=== PATIENT | male | born 1975 | race Two or more races ===

== ENCOUNTER → 2017-04-16 | Outpatient (REF) | payer MEDICARE, OTHER ==
[~2017-04-16] MED LIST: ADV250INH INH; ALBU17IN INH; AMLO5TAB2 PO; BACL1TAB9 PO; BACT800T5 PO; GABA-282 PO; LISI40TAB PO; METO50TA7 PO; MIRT15TA3 PO; OMEP20CA3 PO; PRED20TA PO; PROAAER10; PROP40TA; SYMB16INH; SYMB16INH INH
[2017-04-16 20:02] LABS: ALBUMIN 4.3 GM/DL (3.2-5.2); ALBUMIN/GLOBULIN RATIO 1.16 (1.00-1.93); ALKALINE PHOSPHATASE 92 U/L (45-117); ALT/SGPT 80 U/L (12-78); ANION GAP 9 MEQ/L (8-16); AST/SGOT 44 U/L (15-37); BILIRUBIN,TOTAL 0.5 MG/DL (0.2-1.0); BLOOD UREA NITROGEN 13 MG/DL (7-18); CALCIUM LEVEL 9.1 MG/DL (8.5-10.1); CARBON DIOXIDE LEVEL 26 MEQ/L (21-32); CHLORIDE LEVEL 102 MEQ/L (98-107); CHOLESTEROL LEVEL 168 MG/DL (<200); CREATININE FOR GFR 0.88 MG/DL (0.70-1.30); GLOMERULAR FILTRATION RATE > 60.0 (>60); GLUCOSE, FASTING 95 MG/DL (70-105); POTASSIUM SERUM 3.7 MEQ/L (3.5-5.1); SODIUM LEVEL 137 MEQ/L (136-145); TRIGLYCERIDES LEVEL 288 MG/DL (<150)
== END ==
LOC: M SFHCADAM 08:56
PROVIDERS: ATTEND Family Medicine
DX: I10 Essential (primary) hypertension (principal)

== ENCOUNTER → 2017-04-17 | Outpatient (REF) | payer MEDICARE, OTHER ==
[2017-04-17 21:04] LABS: BASO % 0.3 % (0.0-1.0); EOS # 0.2 K/mm3 (0.0-0.50); LARGE UNSTAINED CELL # 0.1 K/mm3 (0.0-0.4); LARGE UNSTAINED CELL % 1.3 % (0.0-4.0); LYMPH # 1.3 K/mm3 (1.5-4.5); LYMPH % 10.8 % (24.0-44.0); MEAN CORPUSCULAR HEMOGLOBIN 29.9 pg (27.0-33.0); MEAN CORPUSCULAR HGB CONC 33.9 g/dl (32.0-36.5); MEAN CORPUSCULAR VOLUME 88.2 fl (80.0-96.0); MONO # 0.6 K/mm3 (0.0-0.8); MONO % 5.5 % (0.0-5.0); NEUTROPHILS # 8.5 K/mm3 (1.8-7.7); PLATELET COUNT, AUTOMATED 188 k/mm3 (150-450); RED CELL DISTRIBUTION WIDTH 13.6 % (11.5-14.5); WHITE BLOOD COUNT 10.6 K/mm3 (4.0-10.0)
== END ==
LOC: M LABDRWAD 20:18
PROVIDERS: ATTEND Family Medicine
DX: I10 Essential (primary) hypertension (principal)

== ENCOUNTER 2017-05-28 13:24 | Emergency (ER) | payer MEDICARE, MEDICAID ==
[~2017-05-28] VITALS: Ht 172.7 cm; Wt 84.0 kg
[2017-05-28] MEDS ORDERED: LISI40TAB PO (13:35)
[2017-05-28] MEDS ORDERED: SYMB16INH (13:35)
[2017-05-28] MEDS ORDERED: GABA-282 PO (13:35)
[2017-05-28] MEDS ORDERED: AMLO5TAB2 PO (13:35)
[2017-05-28] MEDS ORDERED: PROP40TA (13:35)
[2017-05-28] MEDS ORDERED: OMEP20CA3 PO (13:35)
[2017-05-28] MEDS ORDERED: PROAAER10 (13:35)
[2017-05-28] MEDS ORDERED: BACL1TAB9 PO (13:35)
[2017-05-28] MEDS ORDERED: MIRT15TA3 PO (13:35)
[2017-05-28] MEDS ORDERED: GASTROGRAFIN SOLUTION 30ML (Q9963) PO ONE ×2 (15:30→16:00)
[2017-05-28] MEDS ORDERED: NS 1,000 ML IV ONE (15:30)
--- NOTE | 2017-05-28 16:12 | REP ---
Clinical: Right-sided chest pain and wheezing Comparison: 09/15/2010 . Technique: PA and lateral. Findings: The mediastinum and cardiac silhouette are normal. The lung guillermo are clear and without acute consolidation, effusion, or pneumothorax. The skeletal structures are intact and normal. Impression: 1. No acute cardiopulmonary process. Signed by Ramon Tillman MD 05/28/2017 04:04 P
[2017-05-28 16:47] LABS: BASO % 0.3 % (0.0-1.0); EOS # 0.1 K/mm3 (0.0-0.50); EOS % 0.9 % (0.0-3.0); LARGE UNSTAINED CELL # 0.2 K/mm3 (0.0-0.4); LARGE UNSTAINED CELL % 2.1 % (0.0-4.0); LYMPH # 1.1 K/mm3 (1.5-4.5); LYMPH % 12.2 % (24.0-44.0); MEAN CORPUSCULAR HEMOGLOBIN 31.3 pg (27.0-33.0); MEAN CORPUSCULAR HGB CONC 35.8 g/dl (32.0-36.5); MEAN CORPUSCULAR VOLUME 87.4 fl (80.0-96.0); MONO # 0.4 K/mm3 (0.0-0.8); MONO % 4.2 % (0.0-5.0); NEUTROPHILS # 7.3 K/mm3 (1.8-7.7); NEUTROPHILS % 80.3 % (36.0-66.0); PLATELET COUNT, AUTOMATED 172 k/mm3 (150-450); RED CELL DISTRIBUTION WIDTH 13.9 % (11.5-14.5); WHITE BLOOD COUNT 9.1 K/mm3 (4.0-10.0)
[2017-05-28 17:15] LABS: ALBUMIN 3.8 GM/DL (3.2-5.2); ALBUMIN/GLOBULIN RATIO 0.95 (1.00-1.93); BILIRUBIN,DIRECT 0.2 MG/DL (0.0-0.2); BILIRUBIN,TOTAL 0.8 MG/DL (0.2-1.0); CALCIUM LEVEL 9.4 MG/DL (8.5-10.1); CREATININE FOR GFR 1.54 MG/DL (0.70-1.30); GLOMERULAR FILTRATION RATE 53.3 (>60); POTASSIUM SERUM 3.4 MEQ/L (3.5-5.1); TOTAL PROTEIN 7.8 GM/DL (6.4-8.2)
--- NOTE | 2017-05-28 18:50 | REP ---
CT abdomen and pelvis with oral but without IV contrast: History: History of kidney failure. Nausea and vomiting. No comparison study. Findings: Preliminary digital greens cutter radiograph shows clips in right upper quadrant of the abdomen and a vena cava filter in place. The lung bases are clear. There is moderate diffuse fatty infiltration of the liver. Liver is normal in size. No mass lesion is seen. Spleen is unremarkable. No adrenal lesion is observed on either side. The pancreas shows no abnormality. There is no evidence of hydronephrosis, cyst, or calculus. A normal appendix is seen. Normal caliber aorta. Small and large intestinal bowel loops are unremarkable. No obstructive lesion is seen. Prostate, seminal vesicles, and urinary bladder are unremarkable. No abdominal wall defect is seen. Impression: Post cholecystectomy. Inferior vena cava filter in place. Moderate diffuse fatty infiltration of the liver. No other abnormality. Signed by Ronaldo Hernandez MD 05/28/2017 07:19 P
[2017-05-28 19:09] VITALS: BP 138/92
== END 2017-05-28 19:07 | disposition left against medical advice (07) ==
LOC: M ED 13:24
DX: N17.9 Acute kidney failure, unspecified (principal); K76.0 Fatty (change of) liver, not elsewhere classified; I10 Essential (primary) hypertension; J45.909 Unspecified asthma, uncomplicated; F41.9 Anxiety disorder, unspecified; I33.9 Acute and subacute endocarditis, unspecified; Z95.828 Presence of other vascular implants and grafts; Z87.898 Personal history of other specified conditions; Z79.899 Other long term (current) drug therapy; Z88.1 Allergy status to other antibiotic agents
CPT/HCPCS: 36415; 71020; 74176; 80048; 80076; 81001; 82150; 83690; 85025; 87088; 87186; 99283; Q9963

== ENCOUNTER → 2017-06-10 | Outpatient (CLI) | payer MEDICARE, MEDICAID ==
[2017-06-10 16:55] LABS: ALBUMIN/GLOBULIN RATIO 1.08 (1.00-1.93); ALKALINE PHOSPHATASE 81 U/L (45-117); ALT/SGPT 158 U/L (12-78); ANION GAP 12 MEQ/L (8-16); AST/SGOT 75 U/L (15-37); BILIRUBIN,TOTAL 0.5 MG/DL (0.2-1.0); BLOOD UREA NITROGEN 15 MG/DL (7-18); CALCIUM LEVEL 9.2 MG/DL (8.5-10.1); CARBON DIOXIDE LEVEL 23 MEQ/L (21-32); CHLORIDE LEVEL 107 MEQ/L (98-107); CREATININE FOR GFR 1.11 MG/DL (0.70-1.30); GLOMERULAR FILTRATION RATE > 60.0 (>60); GLUCOSE, FASTING 110 MG/DL (70-105); POTASSIUM SERUM 4.1 MEQ/L (3.5-5.1); SODIUM LEVEL 142 MEQ/L (136-145); TOTAL PROTEIN 7.7 GM/DL (6.4-8.2)
== END ==
LOC: M WUC 14:35
PROVIDERS: ATTEND Family Medicine
DX: N17.9 Acute kidney failure, unspecified (principal)

== ENCOUNTER 2017-06-25 23:44 | Inpatient (IN) | payer MEDICARE, MEDICAID ==
[~2017-06-25] VITALS: Ht 172.7 cm; Wt 84.9 kg
[~2017-06-25 23:44] MED LIST changes: -ADV250INH INH; -ALBU17IN INH; -BACT800T5 PO; -METO50TA7 PO; -PRED20TA PO; -SYMB16INH INH
[2017-06-26] MEDS ORDERED: dexameTHASONE 20 MG/5 ML VIAL (J1100) IV ONE
[2017-06-26] MEDS: IPRATROPIUM 0.5MG/ALBUTEROL 2.5MG INH SOL UD 3ML (DUONEB)(J7620) NEB SCH ×4 (00:12→00:51)
[2017-06-26 01:01] VITALS: O2SAT 92
[2017-06-26] MEDS: LEVALBUTEROL 1.25 MG/0.5 ML CONCENTRATE NEB INH SCH ×3 (01:51→02:13)
[2017-06-26 03:04] LABS: ABG BASE EXCESS -3.1 (-2.0-2.0); ABG HCO3 21.7 MEQ/L (22.0-26.0); ABG PARTIAL PRESSURE CO2 38.3 mmHg (35.0-45.0); ABG PARTIAL PRESSURE O2 69.1 mmHg (75.0-100.0); ABG STANDARD HCO3 21.8 MEQ/L (22.0-26.0); ABG TOTAL CO2 22.9 MEQ/L (22.0-29.0); ABG pH (ARTERIAL) 7.372 UNITS (7.350-7.450)
[2017-06-26 04:16] LABS: BASO % 0.2 % (0.0-1.0); EOS % 0.1 % (0.0-3.0); IMMATURE GRANULOCYTE % 0.7 % (0-0); LYMPH # 0.3 10^3/uL (1.5-4.5); LYMPH % 3.8 % (24.0-44.0); MEAN CORPUSCULAR HEMOGLOBIN 31.4 pg (27.0-33.0); MEAN CORPUSCULAR HGB CONC 34.6 g/dl (32.0-36.5); MEAN CORPUSCULAR VOLUME 90.6 fl (80.0-96.0); MONO # 0.1 10^3/uL (0.0-0.8); MONO % 1.2 % (0.0-5.0); NEUTROPHILS # 7.6 10^3/uL (1.8-7.7); PLATELET COUNT, AUTOMATED 181 10^3/uL (150-450); RED CELL DISTRIBUTION WIDTH 13.2 % (11.5-14.5); WHITE BLOOD COUNT 8.1 10^3/uL (4.0-10.0)
[2017-06-26 04:37] LABS: ANION GAP 11 MEQ/L (8-16); BLOOD UREA NITROGEN 15 MG/DL (7-18); CARBON DIOXIDE LEVEL 25 MEQ/L (21-32); CHLORIDE LEVEL 104 MEQ/L (98-107); CREATININE FOR GFR 0.91 MG/DL (0.70-1.30); GLOMERULAR FILTRATION RATE > 60.0 (>60); GLUCOSE, FASTING 130 MG/DL (70-105); POTASSIUM SERUM 4.7 MEQ/L (3.5-5.1); SODIUM LEVEL 140 MEQ/L (136-145)
[2017-06-26] MEDS ORDERED: ADV250INH INH (04:42)
[2017-06-26] MEDS ORDERED: SYMB16INH INH (04:42)
[2017-06-26] MEDS ORDERED: METO50TA7 PO (04:42)
[2017-06-26] MEDS ORDERED: ALBU17IN INH (04:42)
[2017-06-26] MEDS ORDERED: BACT800T5 PO (04:42)
[2017-06-26] MEDS ORDERED: LevoFLOXacin IV 750 MG in APPROPRIATE DILUENT 1 EA IV SCH (06:00)
[2017-06-26] MEDS: IPRATROPIUM 0.5MG/ALBUTEROL 2.5MG INH SOL UD 3ML (DUONEB)(J7620) NEB PRN ×5 (06:40→22:28)
--- NOTE | 2017-06-26 08:56 | REP ---
Chest x-ray: Two views. History: Dyspnea. Comparison chest x-ray May 28, 2017. Findings: The lungs are symmetrically aerated and clear. Pleural angles are sharp. Heart size is normal. No significant bony abnormality is seen. Impression: No active disease. Signed by Ronaldo Hernandez MD 06/26/2017 11:19 A
[2017-06-26 09:00] VITALS: BP 126/73
[2017-06-26] MEDS: BACLOFEN 10 MG TAB PO SCH ×3 (09:29→17:34)
[2017-06-26] MEDS: OMEPRAZOLE 20 MG CAP PO SCH (09:36)
[2017-06-26] MEDS: LISINOPRIL 40 MG TAB PO SCH (09:36)
[2017-06-26] MEDS: HEPARIN SOD (PORCINE) 5000 UNITS/ML VIAL SC SCH ×2 (09:36→20:24)
[2017-06-26] MEDS: GABAPENTIN 300 MG CAP PO SCH ×3 (09:36→20:23)
[2017-06-26] MEDS: amLODIPine 5 MG TAB PO SCH (09:37)
[2017-06-26] MEDS: METOPROLOL TART 50 MG TAB PO SCH ×2 (09:37→20:24)
[2017-06-26] MEDS: ACETAMINOPHEN TAB 650MG DOSE (2X325MG) PO PRN ×2 (09:39→14:57)
--- NOTE | 2017-06-26 10:02 | HPEPDOC ---
General Date of Admission Jun 26, 2017 at 06:23 Primary Care Physician: BENEDICTO CHOWDARY DO Attending Physician: Jm Martin M.D. Chief Complaint The patient is a 42-year-old male admitted with a reason for visit of Pneumonia. Source: Family Exam Limitations: No limitations Timing/Duration: 24 hours History of Present Illness 42-year-old male, history of hypertension, asthma, presented with chest congestion and cough. Denies any fever, chills, chest pain, palpitation recent travel or sick contact. In the past. He had a spinal cord injury at his work and there he was paralyzed from neck down, worse for about 3 years since 2013- 2015 or the time. He did get most of his [place] but still has numbness breakdown and the weakness in both legs. He is able to walk with the help of walker. Home Medications Scheduled Amlodipine Besylate (Amlodipine Besylate) 5 Mg Tab, 5 MG PO DAILY, (Reported) Baclofen (Baclofen) 20 Mg Tab, 20 MG PO Q6H, (Reported) Budesonide/Formoterol (Symbicort 160-4.5 Mcg/Act) 60 Puff/Inhaler Aers, 2 PUFF INH BID, (Reported) Gabapentin (Gabapentin) 300 Mg Cap, 900 MG PO TID, (Reported) Lisinopril (Lisinopril) 40 Mg Tab, 40 MG PO DAILY, (Reported) Metoprolol Tartrate (Metoprolol Tartrate) 50 Mg Tab, 50 MG PO BID, (Reported) Mirtazapine (Mirtazapine) 15 Mg Tab, 15 MG PO QHS, (Reported) Omeprazole (Omeprazole) 20 Mg Cap, 20 MG PO DAILY, (Reported) Salmeterol/Fluticasone (Advair Diskus 250-50 Mcg/Dose) 14 Puff/Inhaler Aerp, 1 PUFF INH BID, (Reported) Trimethoprim/Sulfamethoxazole (Bactrim Ds 800-160 mg) 1 Tab Tab, 1 TAB PO BID, ( Reported) Scheduled PRN Albuterol Sulfate (Ventolin Hfa) 200 Puff/8 Gm Aers, 2 PUFF INH Q6H PRN for SHORTNESS OF BREATH, (Reported) Allergies Coded Allergies: Vancomycin (Verified Allergy, Unknown, 05/28/17) Past Medical History Medical History Hypertension, asthma, spinal cord injury Surgical History Cervical disc abscess drainage Family History Significant Family History: No pertinent family hx Social History * Smoker: current smoker Alcohol: Denies Drugs: denies Recent Travel/Sick Contacts: Denies: Recent travel, Recent sick contacts Psychosocial History: Schizophrenia Review of Symptoms Constitutional: Reports: Chills, Weakness, Fatigue, Denies: Fever, Night Sweats Eyes: Denies: Pain, Vision change ENT: Denies: Head Aches, Ear Pain, Dysphagia Skin: Denies: Rash, Lesions, Breakdown Pulmonary: Reports: Dyspnea, Cough Cardiovascular: Reports: Orthopnea, Denies: Chest Pain, Palpitations, Paroxysmal Noc. Dyspnea, Lt Headedness Gastrointestinal: Denies: Nausea, Vomiting, Abdominal Pain, Diarrhea Genitourinary: Denies: Dysuria, Frequency, Incontinence, Retention Hematologic: Denies: Bruising, Bleeding Excessively Musculoskeletal: Denies: Neck Pain, Back Pain, Joint Pain, Muscle Pain, Spasms Neurological: Denies: Weakness, Numbness, Change in speech, Confusion Psych: Reports: Mood Normal, Denies: Depression, Memory Issues Physical Examination General Exam: Positive: Alert, Moderate Distress Eye Exam: Positive: PERRLA, Conjunctiva & lids normal, EOMI, Negative: Sclera icteric ENT Exam: Positive: Atraumatic, Mucous membr. moist/pink, Pharynx Normal Neck Exam: Positive: Supple, Negative: JVD, thyromegaly Chest Exam: Positive: Rhonchi, Wheezing, Diminished Heart Exam: Positive: Rate Normal, Regular Rhythm, Normal S1, Normal S2, Negative: Murmurs, Rubs Telemetry: Positive: No significant arrhythmia Abdomen Exam: Positive: Normal bowel sounds, Soft, Negative: Tenderness, Hepatospenomegaly Extremity Exam: Positive: Normal pulses, Negative: Clubbing, Cyanosis, Edema Skin Exam: Positive: Nl turgor and temperature, Negative: Breakdown, Lesion Neuro Exam: Positive: Normal Speech, Cranial Nerves 3-12 NL, Reflexes 2+ Psych Exam: Positive: Mental status NL, Mood NL, Oriented x 3 Vital Signs Vital Signs Date Time Temp Pulse Resp B/P (MAP) Pulse Ox O2 Delivery O2 Flow Rate FiO2 06/26/17 09:37 119 126/73 06/26/17 09:00 98.9 22 94 Nasal Cannula 2.0 Laboratory Data Labs 24H Laboratory Tests 2 06/26/17 02:50: Blood Gas Bicarbonate Standard 21.8L, Arterial Blood pH 7.372, Arterial Blood Partial Pressure CO2 38.3, Arterial Blood Partial Pressure O2 69.1L, Arterial Blood Total CO2 22.9, Arterial Blood HCO3 21.7L, Arterial Blood Base Excess - 3.1L, Arterial Blood Oxygen Saturation 93.6L 06/26/17 04:02: Immature Granulocyte % (Auto) 0.7H, White Blood Count 8.1, Red Blood Count 4.27L , Hemoglobin 13.4L, Hematocrit 38.7L, Mean Corpuscular Volume 90.6, Mean Corpuscular Hemoglobin 31.4, Mean Corpuscular Hemoglobin Concent 34.6, Red Cell Distribution Width 13.2, Platelet Count 181, Neutrophils (%) (Auto) 94.0H, Lymphocytes (%) (Auto) 3.8L, Monocytes (%) (Auto) 1.2, Eosinophils (%) (Auto) 0.1, Basophils (%) (Auto) 0.2, Neutrophils # (Auto) 7.6, Lymphocytes # (Auto) 0.3L, Monocytes # (Auto) 0.1, Eosinophils # (Auto) 0.0, Basophils # (Auto) 0.0, Immature Granulocyte # (Auto) 0.1H, Nucleated Red Blood Cells % (auto) 0.0, Anion Gap 11, Glomerular Filtration Rate > 60.0, Blood Urea Nitrogen 15, Creatinine 0.91, Sodium Level 140, Potassium Level 4.7, Chloride Level 104, Carbon Dioxide Level 25, Calcium Level 9.0, KA-Mgn-C-Type Natriuretic Peptide 30 CBC/BMP Laboratory Tests 06/26/17 04:02 Red Blood Count 4.27 L, Mean Corpuscular Volume 90.6, Mean Corpuscular Hemoglobin 31.4, Mean Corpuscular Hemoglobin Concent 34.6, Red Cell Distribution Width 13.2, Neutrophils (%) (Auto) 94.0 H, Lymphocytes (%) (Auto) 3.8 L, Monocytes (%) (Auto) 1.2, Eosinophils (%) (Auto) 0.1, Basophils (%) (Auto ) 0.2, Neutrophils # (Auto) 7.6, Lymphocytes # (Auto) 0.3 L, Monocytes # (Auto) 0.1, Eosinophils # (Auto) 0.0, Basophils # (Auto) 0.0, Calcium Level 9.0 Assessment/Plan 42-year-old male, history of hypertension, asthma and a spinal cord injury status post paralysis for about 3 years now presented with the, chest congestion , cough and shortness of breath Plan / VTE VTE Prophylaxis Ordered?: Yes Plan Plan Pneumonia. Patient was started on IV Levaquin. Hypertension. Continue with Norvasc is no pain, and Lopressor. 10 Tobacco abuse. Continue with nicotine patch. Chronic pain. Continue with baclofen and gabapentin sony. Schizophrenia. Continue with Remeron DVT prophylaxis heparin subcutaneous Cardiac diet Diet: Continue Current Activity: Continue Current Pt and Family Services: Home Care Medications: Start Antibiotics Diagnostics: TTE Anticipated Discharge: Home ELIER KOLB MD Jun 26, 2017 10:02
[2017-06-26] MEDS: NICOTINE 14 MG/24 HR TRANSDERMAL TD SCH (11:29)
[2017-06-26 14:00] VITALS: BP 120/63
--- NOTE | 2017-06-26 16:12 | IPN ---
DATE: 06/26/2017 Christiano is seen on 4 cramer. He has an intractable cough that has kept him awake. He was admitted with a presumed pneumonia, though he had a clear chest x-ray, so I am not sure exactly where the pneumonia diagnosis originated. He does have a history of asthma, so at a minimum he does have an asthma exacerbation. PHYSICAL EXAMINATION: Blood pressure 120/63, pulse 113, respiratory rate 20, 93% oxygen saturation on three liters, temperature 98.4 degrees. GENERAL APPEARANCE: He is resting comfortably in bed, frequent dry cough. HEENT: Unremarkable. LUNGS: Have a few scattered wheezes and rhonchi. HEART: Regular rhythm. ABDOMEN: Soft, nontender. No peripheral edema. IMPRESSION: 1. Exacerbation of asthma. I do not see pneumonia on the chest x-ray, but at a minimum he has an asthma exacerbation. I will reduce the dose of his Levaquin as he does not have pneumonia. Would recommend he receives a steroid, which is not currently ordered. It looks like he got one dose of Decadron 10 mg IV last night. Continue nebulized bronchodilator. He has a vena cava filter in place on a CT of the abdomen and pelvis done a month ago suggesting past history of venous thromboembolism (VTE). With his shortness of breath, tachycardia, and clear chest x-ray, I would like to rule out pulmonary embolism so I will order a CT angiogram of his chest. 2. Hypertension. He is on an angiotensin-converting enzyme ([place]) inhibitor, theoretically it could increase his sensitivity to cough. We need to keep that in mind if the cough persists. Also on amlodipine and beta marcial with metoprolol. He might benefit from a more selective beta marcial if the asthma does not improve. 3. History of depression. Continue his mirtazapine 15 mg nightly.
[2017-06-26] MEDS: methylPREDNISolone INJ 40 MG/1 ML VIAL (J2920) IV SCH (16:56)
[2017-06-26] MEDS ORDERED: ISOVUE-370 76% 100ML VIAL (Q9967) As Ordered ONE (17:54)
--- NOTE | 2017-06-26 19:10 | REPUSA ---
HISTORY: R/O PE. TECHNIQUE: CTA protocol for PE with axial CT imaging of chest, with sagittal and coronal reformatted imaging with intravenous contrast enhancement. FINDINGS: Thoracic aorta is normal with no evidence of aneurysm or dissection. Pulmonary arteries are well opacified with contrast with no evidence of pulmonary embolism. No vascul ar abnormality is seen in the mediastinum or [place]. Mediastinal windows demonstrate no mediastinal pathologically enlarged lymph nodes, mass lesions, or abnormal mediastinal fluid collection seen. Lung windows demonstrate a pleural-based noncalcified 5 mm nodule at the right paravertebral region o f the superior segment of the right lower lobe seen on image 54. No other pulmonary mass lesions are seen. There is no evidence of alveolar or interstitial infiltrates seen in the lungs and no pneumot horax or pleural effusion is seen. Bone windows demonstrate no detectable evidence of bone fracture or destructive bony lesion in the ch est. No chest wall abnormality is seen. IMPRESSION: 1. 5 mm noncalcified pleural-based, smoothly demarcated nodule medially in the superior segment of the right lower lobe in the paravertebral region. 2. No evidence of pulmonary embolism or thoracic aortic dissection or aneurysm. 3. The remainder this CT examination of the chest is normal. Clinical correlation and followup imaging may be warranted as clinically indicated.
[2017-06-26 20:00] VITALS: BP 103/62
[2017-06-26] MEDS: MIRTAZAPINE 15 MG TAB PO SCH (20:24)
[2017-06-27] VITALS: BP 124/64
[2017-06-27] MEDS: BACLOFEN 10 MG TAB PO SCH ×5 (00:02→22:45)
[2017-06-27] MEDS: methylPREDNISolone INJ 40 MG/1 ML VIAL (J2920) IV SCH ×2 (05:07→16:51)
[2017-06-27] MEDS: LevoFLOXacin 500 MG TABLET PO SCH (05:08)
[2017-06-27 06:00] VITALS: BP 130/62
[2017-06-27 07:19] LABS: MEAN CORPUSCULAR HEMOGLOBIN 30.9 pg (27.0-33.0); MEAN CORPUSCULAR HGB CONC 33.4 g/dl (32.0-36.5); MEAN CORPUSCULAR VOLUME 92.4 fl (80.0-96.0); WHITE BLOOD COUNT 14.6 10^3/uL (4.0-10.0)
[2017-06-27 07:49] LABS: ALBUMIN 3.4 GM/DL (3.2-5.2); ALBUMIN/GLOBULIN RATIO 0.89 (1.00-1.93); ALKALINE PHOSPHATASE 83 U/L (45-117); ALT/SGPT 100 U/L (12-78); ANION GAP 6 MEQ/L (8-16); AST/SGOT 43 U/L (15-37); BILIRUBIN,TOTAL 0.2 MG/DL (0.2-1.0); BLOOD UREA NITROGEN 25 MG/DL (7-18); CALCIUM LEVEL 9.6 MG/DL (8.5-10.1); CARBON DIOXIDE LEVEL 27 MEQ/L (21-32); CHLORIDE LEVEL 105 MEQ/L (98-107); CREATININE FOR GFR 0.89 MG/DL (0.70-1.30); GLOMERULAR FILTRATION RATE > 60.0 (>60); GLUCOSE, FASTING 154 MG/DL (70-105); MAGNESIUM LEVEL 2.1 MG/DL (1.8-2.4); POTASSIUM SERUM 4.5 MEQ/L (3.5-5.1); SODIUM LEVEL 138 MEQ/L (136-145); TOTAL PROTEIN 7.2 GM/DL (6.4-8.2)
[2017-06-27] MEDS: IPRATROPIUM 0.5MG/ALBUTEROL 2.5MG INH SOL UD 3ML (DUONEB)(J7620) NEB PRN ×3 (08:12→20:06)
[2017-06-27] MEDS: NICOTINE 14 MG/24 HR TRANSDERMAL TD SCH (08:24)
[2017-06-27] MEDS: HEPARIN SOD (PORCINE) 5000 UNITS/ML VIAL SC SCH ×2 (08:25→19:46)
[2017-06-27] MEDS: LISINOPRIL 40 MG TAB PO SCH (08:25)
--- NOTE | 2017-06-27 08:25 | IPNPDOC ---
Subjective Date Seen The patient was seen on 06/27/17. Subjective Chief Complaint/HPI The patient is a 42-year-old male admitted with a reason for visit of Pneumonia. Events since last encounter Breathing feels better, but still wheezing Constitutional: Denies: Chills, Fever Pulmonary: Reports: Dyspnea, Cough Cardiovascular: Denies: Chest Pain, Palpitations, Orthopnea Gastrointestinal: Denies: Nausea, Vomiting, Abdominal Pain, Diarrhea, Constipation Objective Physical Examination General Exam: Positive: Alert, Moderate Distress Eye Exam: Negative: Sclera icteric Chest Exam: Positive: Wheezing, Diminished Heart Exam: Positive: Rate Normal, Regular Rhythm, Normal S1, Normal S2, Negative: Murmurs Abdomen Exam: Positive: Normal bowel sounds, Soft, Negative: Tenderness Extremity Exam: Negative: Edema Psych Exam: Positive: Oriented x 3 Assessment /Plan Problems (1) Asthma with status asthmaticus Status: Acute Response to Treatment: Improving Problem Text: Slow progress with IV Solumedrol CT chest did not show pneumonia, but will Continue Levaquin for now Continue nebs. Normally on Advair at home which we will restart upon discharge He is on a Beta Jimmy for HTN - I will switch to a more B1 selective BB - Bisoprolol . Wean Oxygen (He is not on oxygen at home) Encourage ambulation (2) H/O spinal cord injury Status: Chronic Response to Treatment: Stable Problem Text: Continue Gabapentin and Baclofen (3) HTN (hypertension) Status: Chronic Response to Treatment: Stable Problem Text: See above regarding BB Continue Lisinopril & Norvasc (4) Nicotine dependence Status: Chronic Problem Text: Smoking cessation encouraged. continue Nicoderm Plan/VTE VTE Prophylaxis Ordered?: Yes (heparin SQ) Plan Diet: Continue Current Activity: Continue Current Pt and Family Services: Home Care Medications: Start Antibiotics Diagnostics: TTE Anticipated Discharge: Home VS[facility]&O[facility] Vital Signs/I&O Vital Signs Date Time Temp Pulse Resp B/P (MAP) Pulse Ox O2 Delivery O2 Flow Rate FiO2 06/27/17 06:00 98.2 90 20 130/62 (84) 93 Nasal Cannula 3.0 Laboratory Data 24H LABS Laboratory Tests 2 06/26/17 14:46: Urine Appearance CLEAR, Urine Color YELLOW, Urine pH 5.0, Urine Specific [place] 1.029, Urine Protein NEGATIVE, Urine Glucose (UA) NEGATIVE, Urine Ketones TRACEH, Urine Urobilinogen 0.2, Urine Bilirubin NEGATIVE, Urine Leukocyte Esterase NEGATIVE, Urine Blood NEGATIVE, Urine Nitrite NEGATIVE, Urine WBC (Auto) 1, Urine RBC (Auto) 4H, Urine Hyaline Casts (Auto) 0, Urine Bacteria (Auto) NEGATIVE, Urine Squamous Epithelial Cells 0, Urine Mucus (Auto) SMALL, Urine Sperm (Auto) 06/27/17 06:50: CBC/BMP Laboratory Tests 06/27/17 06:50 Red Blood Count 4.34, Mean Corpuscular Volume 92.4, Mean Corpuscular Hemoglobin 30.9, Mean Corpuscular Hemoglobin Concent 33.4, Red Cell Distribution Width 13.0 MALIK GREEN PA-C Jun 27, 2017 08:25
[2017-06-27] MEDS: OMEPRAZOLE 20 MG CAP PO SCH (08:26)
[2017-06-27] MEDS: amLODIPine 5 MG TAB PO SCH (08:26)
[2017-06-27] MEDS: BISOPROLOL FUMARATE 5 MG TAB PO SCH (08:30)
[2017-06-27] MEDS: GABAPENTIN 300 MG CAP PO SCH ×3 (08:30→19:46)
[2017-06-27 14:00] VITALS: BP 127/74
[2017-06-27] MEDS: MIRTAZAPINE 15 MG TAB PO SCH (19:46)
[2017-06-27 22:00] VITALS: BP 140/78
[2017-06-27] MEDS: ACETAMINOPHEN TAB 650MG DOSE (2X325MG) PO PRN (22:45)
[2017-06-28] MEDS: LevoFLOXacin 500 MG TABLET PO SCH (05:31)
[2017-06-28] MEDS: BACLOFEN 10 MG TAB PO SCH ×4 (05:31→23:06)
[2017-06-28] MEDS: methylPREDNISolone INJ 40 MG/1 ML VIAL (J2920) IV SCH ×2 (05:31→18:01)
[2017-06-28 06:00] VITALS: BP 112/62
[2017-06-28] MEDS ORDERED: INFLUENZA QUADRIVALENT PF VACCINE 0.5ML SYRINGE (90686) IM ONE (09:00)
[2017-06-28] MEDS: NICOTINE 14 MG/24 HR TRANSDERMAL TD SCH (09:00)
[2017-06-28] MEDS: OMEPRAZOLE 20 MG CAP PO SCH (09:36)
[2017-06-28] MEDS: amLODIPine 5 MG TAB PO SCH (09:36)
[2017-06-28] MEDS: LISINOPRIL 40 MG TAB PO SCH (09:36)
[2017-06-28] MEDS: GABAPENTIN 300 MG CAP PO SCH ×3 (09:37→20:24)
[2017-06-28] MEDS: BISOPROLOL FUMARATE 5 MG TAB PO SCH (09:37)
[2017-06-28] MEDS: HEPARIN SOD (PORCINE) 5000 UNITS/ML VIAL SC SCH ×2 (09:38→20:24)
[2017-06-28] MEDS: IPRATROPIUM 0.5MG/ALBUTEROL 2.5MG INH SOL UD 3ML (DUONEB)(J7620) NEB PRN ×3 (11:07→19:34)
--- NOTE | 2017-06-28 13:20 | ECHO ---
DATE OF PROCEDURE: 06/27/2017 DATE OF : 1975 AGE: 42 REFERRING PROVIDER: Dr. Bg Faith PATIENT LOCATION: Room 5199 REASON FOR THE ECHOCARDIOGRAM: Dyspnea. 2D MEASUREMENTS: IVS: 0.75 cm LV: 4.2 cm LVPW: 0.79 cm LA: 2.8 cm Aorta: 2.9 cm DOPPLER MEASUREMENTS: Peak velocity across the aortic valve: 1.5 m/s Peak velocity across the LVOT: 1.0 m/s Mitral E: 0.92, Mitral A: 1.1, with a ratio of 0.9 Maximum tricuspid valve velocity: 2.6 m/s 2D COMMENTS: 1. Technically limited study due to poor acoustic window. 2. The left ventricular size is normal with a normal left ventricular wall thickness and a normal global left ventricular systolic function. The estimated left ventricular ejection fraction is 65-70%. 3. Normal left atrium. Normal right atrium and right ventricle. 4. The atrial septum appeared to be normal without evidence of defect or shunt. 5. Normal aortic root. 6. Trace pericardial effusion was noted, no evidence of cardiac tamponade. 7. The aortic valve, mitral valve, and tricuspid valve appear to be normal. The pulmonic valve and proximal pulmonary artery branches were not well visualized. 8. The inferior vena cava was not visualized. DOPPLER: It detects trace mitral regurgitation and mild tricuspid regurgitation. The calculated pulmonary artery systolic pressure varied between 30-40 mmHg. Abnormal relaxation pattern was noted across the mitral valve leaflets as well as the mitral valve annulus consistent with delayed relaxation. IMPRESSION: 1. Normal global left ventricular systolic function. There were features of left ventricular diastolic dysfunction, grade 1. 2. Trace mitral regurgitation. 3. Mild tricuspid regurgitation with probably mild pulmonary hypertension. 4. Patient was noted during the test to be mildly tachycardic with a heart rate that varied between 100-115 beats per minute. 5. This study was technically limited due to poor acoustic window. [facility]
[2017-06-28 14:00] VITALS: BP 118/68
[2017-06-28] MEDS: MIRTAZAPINE 15 MG TAB PO SCH (20:24)
[2017-06-28] MEDS: ACETAMINOPHEN TAB 650MG DOSE (2X325MG) PO PRN (20:24)
[2017-06-28 22:00] VITALS: BP 137/92
--- NOTE | 2017-06-28 22:06 | IPNPDOC ---
Subjective Date Seen The patient was seen on 06/28/17. Subjective Chief Complaint/HPI The patient is a 42-year-old male admitted with a reason for visit of asthma exacerbation. Events since last encounter Mr. Goddard reports that his breathing is a bit better than it was yesterday, but it still is bad. He reports that he feels chest congestion and he wants to be able to cough it up but he can't quite clear yet. He feels his right lung is worse than his left General: Reports: Normal Appetite Constitutional: Denies: Fever Cardiovascular: Denies: Chest Pain, Palpitations Psych: Reports: Mood Normal Objective Physical Examination General Exam: Positive: Alert, Cooperative, No Acute Distress (watching movies on his phone when I entered the room) ENT Exam: Positive: Mucous membr. moist/pink Neck Exam: Positive: Supple, Negative: Lymphadenopathy Chest Exam: Positive: Wheezing (in all lung guillermo bilaterally right > left), Diminished Heart Exam: Positive: Rate Normal, Regular Rhythm, Normal S1, Normal S2, Negative: Murmurs Abdomen Exam: Positive: Normal bowel sounds, Soft, Negative: Tenderness Extremity Exam: Negative: Edema Psych Exam: Positive: Oriented x 3 Assessment /Plan Problems (1) Asthma with status asthmaticus Status: Acute Response to Treatment: Improving Problem Text: He is making some progress but it is slow progress with IV Solumedrol. He does not have a pneumonia but he may have a viral bronchitis. I stopped the Levaquin as I see nothing it is treating at this point in time. Continue nebs. Added Tessalon and Mucinex to see if we can help with his cough a little bit but also to help clear his secretions. Normally on Advair at home which we will restart upon discharge. He is on a Beta Jimmy for HTN -has been changed to a more B1 selective BB - Bisoprolol. Wean Oxygen (He is not on oxygen at home). Encourage ambulation. (2) H/O spinal cord injury Status: Chronic Response to Treatment: Stable Problem Text: Continue Gabapentin and Baclofen (3) HTN (hypertension) Status: Chronic Response to Treatment: Stable Problem Text: Was changed to bisoprolol because of its better beta-1 selectivity. Continue Lisinopril & Norvasc (4) Nicotine dependence Status: Chronic Problem Text: Smoking cessation encouraged. Continue Nicoderm Plan/VTE VTE Prophylaxis Ordered?: Yes (heparin SQ) Plan Diet: Continue Current Activity: Continue Current Pt and Family Services: Home Care Medications: Start Antibiotics Diagnostics: TTE Anticipated Discharge: Home VS, I&O, 24H, [facility] Vital Signs/I&O Vital Signs Date Time Temp Pulse Resp B/P (MAP) Pulse Ox O2 Delivery O2 Flow Rate FiO2 06/28/17 14:00 98.9 80 20 118/68 (85) 98 Nasal Cannula 3.0 I&O- Last 24 Hours up to 6 AM 06/29/17 06:00 Intake Total 1440 ml Output Total 1500 ml Balance -60 ml Sathya Rush MD Jun 28, 2017 22:06
[2017-06-28] MEDS: BENZONATATE 100 MG CAP PO SCH (23:06)
[2017-06-29] MEDS: BENZONATATE 100 MG CAP PO SCH ×3 (05:59→21:50)
[2017-06-29] MEDS: methylPREDNISolone INJ 40 MG/1 ML VIAL (J2920) IV SCH ×2 (05:59→17:54)
[2017-06-29] MEDS: BACLOFEN 10 MG TAB PO SCH ×4 (05:59→23:56)
[2017-06-29 06:00] VITALS: BP 135/85
[2017-06-29] MEDS: IPRATROPIUM 0.5MG/ALBUTEROL 2.5MG INH SOL UD 3ML (DUONEB)(J7620) NEB PRN ×4 (07:45→19:39)
[2017-06-29] MEDS: NICOTINE 14 MG/24 HR TRANSDERMAL TD SCH (09:00)
[2017-06-29] MEDS: amLODIPine 5 MG TAB PO SCH (09:45)
[2017-06-29] MEDS: LISINOPRIL 40 MG TAB PO SCH (09:45)
[2017-06-29] MEDS: GABAPENTIN 300 MG CAP PO SCH ×3 (09:45→21:51)
[2017-06-29] MEDS: guaiFENesin ER 600 MG TAB PO SCH ×2 (09:45→21:51)
[2017-06-29] MEDS: BISOPROLOL FUMARATE 5 MG TAB PO SCH (09:46)
[2017-06-29] MEDS: ACETAMINOPHEN TAB 650MG DOSE (2X325MG) PO PRN ×2 (09:46→22:04)
[2017-06-29] MEDS: HEPARIN SOD (PORCINE) 5000 UNITS/ML VIAL SC SCH ×2 (09:46→21:52)
[2017-06-29] MEDS: OMEPRAZOLE 20 MG CAP PO SCH (09:46)
[2017-06-29 14:00] VITALS: BP 140/60
--- NOTE | 2017-06-29 16:58 | IPNPDOC ---
Subjective Date Seen The patient was seen on 06/29/17. Subjective Chief Complaint/HPI The patient is a 42-year-old male admitted with a reason for visit of asthma exacerbation. Events since last encounter He feels like his chest is starting to loosen a little bit. He still is not coughing much up, but he starting to get a little out. He feels like the steroids are finally starting to help some. General: Reports: Normal Appetite Pulmonary: Reports: Dyspnea, Cough, Denies: Pleuritic Chest Pain Cardiovascular: Denies: Chest Pain, Palpitations Genitourinary: Reports: Dysuria Neurological: Denies: Weakness Psych: Reports: Mood Normal Objective Physical Examination General Exam: Positive: Alert, Cooperative, No Acute Distress ENT Exam: Positive: Mucous membr. moist/pink Neck Exam: Positive: Supple, Negative: Lymphadenopathy Chest Exam: Positive: Wheezing (in all lung guillermo bilaterally right > left, however improved from the previous day), Diminished Heart Exam: Positive: Rate Normal, Regular Rhythm, Normal S1, Normal S2, Negative: Murmurs Abdomen Exam: Positive: Normal bowel sounds, Soft, Negative: Tenderness Extremity Exam: Negative: Edema Psych Exam: Positive: Oriented x 3 Assessment /Plan Problems (1) Asthma with status asthmaticus Status: Acute Response to Treatment: Improving Problem Text: He is making progress with IV Solumedrol. The Mucinex maybe helping him clear his secretions a little. Tessalon did help him get up some more sleep last night.Continue nebs. Continue to work to wean oxygen (He is not on oxygen at home). Encourage ambulation. (2) H/O spinal cord injury Status: Chronic Response to Treatment: Stable Problem Text: Continue Gabapentin and Baclofen (3) HTN (hypertension) Status: Chronic Response to Treatment: Stable Problem Text: Was changed to bisoprolol because of its better beta-1 selectivity. Continue Lisinopril & Norvasc (4) Nicotine dependence Status: Chronic Problem Text: Smoking cessation encouraged. Continue Nicoderm Plan/VTE VTE Prophylaxis Ordered?: Yes (heparin SQ) Plan Diet: Continue Current Activity: Continue Current Pt and Family Services: Home Care Medications: Start Antibiotics Diagnostics: TTE Anticipated Discharge: Home VS, I&O, 24H, Fishbone Vital Signs/I&O Vital Signs Date Time Temp Pulse Resp B/P (MAP) Pulse Ox O2 Delivery O2 Flow Rate FiO2 06/29/17 14:00 96.5 93 18 140/60 (86) 93 Nasal Cannula 3.0 I&O- Last 24 Hours up to 6 AM 06/30/17 06:00 Intake Total 360 ml Balance 360 ml Sathya Rush MD Jun 29, 2017 16:58
[2017-06-29] MEDS: MIRTAZAPINE 15 MG TAB PO SCH (21:51)
[2017-06-29 22:00] VITALS: BP 154/80
[2017-06-30] MEDS: methylPREDNISolone INJ 40 MG/1 ML VIAL (J2920) IV SCH (05:17)
[2017-06-30] MEDS: BACLOFEN 10 MG TAB PO SCH ×3 (05:17→17:25)
[2017-06-30] MEDS: BENZONATATE 100 MG CAP PO SCH ×3 (05:17→21:09)
[2017-06-30 06:00] VITALS: BP 130/84
[2017-06-30] MEDS: NICOTINE 14 MG/24 HR TRANSDERMAL TD SCH ×2 (09:00→17:29)
[2017-06-30] MEDS: HEPARIN SOD (PORCINE) 5000 UNITS/ML VIAL SC SCH ×2 (10:00→21:11)
[2017-06-30] MEDS: guaiFENesin ER 600 MG TAB PO SCH ×2 (10:01→21:09)
[2017-06-30] MEDS: GABAPENTIN 300 MG CAP PO SCH ×3 (10:01→21:10)
[2017-06-30] MEDS: amLODIPine 5 MG TAB PO SCH (10:01)
[2017-06-30] MEDS: OMEPRAZOLE 20 MG CAP PO SCH (10:01)
[2017-06-30] MEDS: LISINOPRIL 40 MG TAB PO SCH (10:02)
[2017-06-30] MEDS: BISOPROLOL FUMARATE 5 MG TAB PO SCH (10:02)
[2017-06-30] MEDS: IPRATROPIUM 0.5MG/ALBUTEROL 2.5MG INH SOL UD 3ML (DUONEB)(J7620) NEB PRN ×2 (13:54→20:33)
[2017-06-30 14:57] VITALS: BP 147/94
[2017-06-30] MEDS: MIRTAZAPINE 15 MG TAB PO SCH (21:09)
[2017-06-30 22:00] VITALS: BP 130/68
[2017-07-01] MEDS: BACLOFEN 10 MG TAB PO SCH ×4 (00:15→17:00)
--- NOTE | 2017-07-01 03:19 | IPNPDOC ---
Subjective Date Seen The patient was seen on 06/30/17. Subjective Chief Complaint/HPI The patient is a 42-year-old male admitted with a reason for visit of Pneumonia. Events since last encounter Patient complains of cough and dyspnea, though improving. Constitutional: Reports: Chills, Malaise, Denies: Fever Pulmonary: Reports: Dyspnea, Cough, Other Symptoms (wheeze) Cardiovascular: Denies: Chest Pain, Palpitations Gastrointestinal: Denies: Nausea, Vomiting, Diarrhea, Constipation Neurological: Reports: Weakness (chronic) Psych: Reports: Depression Objective Physical Examination General Exam: Positive: Alert, Cooperative ENT Exam: Positive: Mucous membr. moist/pink Neck Exam: Positive: Supple, Negative: Lymphadenopathy Chest Exam: Positive: Wheezing (in all lung guillermo bilaterally right > left), Diminished Heart Exam: Positive: Rate Normal, Regular Rhythm, Normal S1, Normal S2, Negative: Murmurs Abdomen Exam: Positive: Normal bowel sounds, Soft, Negative: Tenderness Extremity Exam: Negative: Edema Psych Exam: Positive: Oriented x 3 Assessment /Plan Problems (1) Asthma with status asthmaticus Status: Acute Response to Treatment: Improving Problem Text: 06/30 -- switched from IV to PO steroids; will see how he does for 24 hours prior to DC He is making some progress but it is slow progress with IV Solumedrol. He does not have a pneumonia but he may have a viral bronchitis. I stopped the Levaquin as I see nothing it is treating at this point in time. Continue nebs. Added Tessalon and Mucinex to see if we can help with his cough a little bit but also to help clear his secretions. Normally on Advair at home which we will restart upon discharge. He is on a Beta Jimmy for HTN -has been changed to a more B1 selective BB - Bisoprolol. Wean Oxygen (He is not on oxygen at home). Encourage ambulation. (2) H/O spinal cord injury Status: Chronic Response to Treatment: Stable Problem Text: Continue Gabapentin and Baclofen (3) HTN (hypertension) Status: Chronic Response to Treatment: Stable Problem Text: Was changed to bisoprolol because of its better beta-1 selectivity. Continue Lisinopril & Norvasc (4) Nicotine dependence Status: Chronic Problem Text: Smoking cessation encouraged. Continue Nicoderm Plan/VTE VTE Prophylaxis Ordered?: Yes (heparin SQ) Plan Diet: Continue Current Activity: Continue Current Pt and Family Services: Home Care Medications: Start Antibiotics Diagnostics: TTE Anticipated Discharge: Home VS, I&O, 24H, Fishbone Vital Signs/I&O Vital Signs Date Time Temp Pulse Resp B/P (MAP) Pulse Ox O2 Delivery O2 Flow Rate FiO2 06/30/17 21:35 Room Air 06/30/17 14:57 99.3 83 18 147/94 (111) 97 06/30/17 08:00 2.0 BENEDICTO CHOWDARY DO Jul 01, 2017 03:19
[2017-07-01] MEDS: BENZONATATE 100 MG CAP PO SCH ×3 (05:32→21:00)
[2017-07-01 06:00] VITALS: BP 118/64
[2017-07-01 08:06] LABS: MEAN CORPUSCULAR HEMOGLOBIN 30.6 pg (27.0-33.0); MEAN CORPUSCULAR HGB CONC 33.8 g/dl (32.0-36.5); MEAN CORPUSCULAR VOLUME 90.5 fl (80.0-96.0); PLATELET COUNT, AUTOMATED 141 10^3/uL (150-450); RED CELL DISTRIBUTION WIDTH 12.7 % (11.5-14.5); WHITE BLOOD COUNT 11.3 10^3/uL (4.0-10.0)
[2017-07-01 08:20] LABS: ADD MANUAL DIFFER YES; DIFF SLIDE NUMBER 99
[2017-07-01 08:32] LABS: ALBUMIN 2.6 GM/DL (3.2-5.2); ALBUMIN/GLOBULIN RATIO 0.79 (1.00-1.93); ALKALINE PHOSPHATASE 60 U/L (45-117); ALT/SGPT 85 U/L (12-78); ANION GAP 8 MEQ/L (8-16); AST/SGOT 26 U/L (15-37); BILIRUBIN,TOTAL 0.2 MG/DL (0.2-1.0); BLOOD UREA NITROGEN 26 MG/DL (7-18); CALCIUM LEVEL 8.6 MG/DL (8.5-10.1); CARBON DIOXIDE LEVEL 29 MEQ/L (21-32); CHLORIDE LEVEL 104 MEQ/L (98-107); CREATININE FOR GFR 0.87 MG/DL (0.70-1.30); GLOMERULAR FILTRATION RATE > 60.0 (>60); GLUCOSE, FASTING 81 MG/DL (70-105); POTASSIUM SERUM 3.8 MEQ/L (3.5-5.1); SODIUM LEVEL 141 MEQ/L (136-145); TOTAL PROTEIN 5.9 GM/DL (6.4-8.2)
[2017-07-01] MEDS: LISINOPRIL 40 MG TAB PO SCH (09:13)
[2017-07-01] MEDS: GABAPENTIN 300 MG CAP PO SCH ×3 (09:13→21:00)
[2017-07-01] MEDS: HEPARIN SOD (PORCINE) 5000 UNITS/ML VIAL SC SCH ×2 (09:13→21:01)
[2017-07-01] MEDS: guaiFENesin ER 600 MG TAB PO SCH ×2 (09:13→21:00)
[2017-07-01] MEDS: NICOTINE 14 MG/24 HR TRANSDERMAL TD SCH (09:13)
[2017-07-01] MEDS: amLODIPine 5 MG TAB PO SCH (09:14)
[2017-07-01] MEDS: BISOPROLOL FUMARATE 5 MG TAB PO SCH (09:14)
[2017-07-01] MEDS: OMEPRAZOLE 20 MG CAP PO SCH (09:14)
[2017-07-01] MEDS: predniSONE 20 MG TAB PO SCH (09:14)
[2017-07-01 09:44] LABS: BANDS 3 % (< 11); EOSINOPHILS 3 % (0-5)
[2017-07-01] MEDS: ACETAMINOPHEN TAB 650MG DOSE (2X325MG) PO PRN (13:29)
[2017-07-01] MEDS: IPRATROPIUM 0.5MG/ALBUTEROL 2.5MG INH SOL UD 3ML (DUONEB)(J7620) NEB PRN ×2 (13:39→20:00)
[2017-07-01] MEDS: MIRTAZAPINE 15 MG TAB PO SCH (21:00)
[2017-07-01 22:00] VITALS: BP 169/79
[2017-07-02] MEDS: BACLOFEN 10 MG TAB PO SCH ×2 (00:35→06:00)
--- NOTE | 2017-07-02 01:32 | IPNPDOC ---
Subjective Date Seen The patient was seen on 07/01/17. Subjective Chief Complaint/HPI The patient is a 42-year-old male admitted with a reason for visit of Pneumonia. Events since last encounter Patient inquires if he can leave soon. Wheezing persists but feels freer. Constitutional: Denies: Chills, Fever Pulmonary: Reports: Cough, Denies: Dyspnea Cardiovascular: Denies: Chest Pain Gastrointestinal: Denies: Nausea, Vomiting, Diarrhea, Constipation Objective Physical Examination General Exam: Positive: Alert, Cooperative ENT Exam: Positive: Mucous membr. moist/pink Neck Exam: Positive: Supple, Negative: Lymphadenopathy Chest Exam: Positive: Wheezing (in all lung guillermo bilaterally right > left), Diminished Heart Exam: Positive: Rate Normal, Regular Rhythm, Normal S1, Normal S2, Negative: Murmurs Abdomen Exam: Positive: Normal bowel sounds, Soft, Negative: Tenderness Extremity Exam: Negative: Edema Psych Exam: Positive: Oriented x 3 Assessment /Plan Problems (1) Asthma with status asthmaticus Status: Acute Response to Treatment: Improving Problem Text: 06/30 -- switched from IV to PO steroids; will see how he does for 24 hours prior to DC He is making some progress but it is slow progress with IV Solumedrol. He does not have a pneumonia but he may have a viral bronchitis. I stopped the Levaquin as I see nothing it is treating at this point in time. Continue nebs. Added Tessalon and Mucinex to see if we can help with his cough a little bit but also to help clear his secretions. Normally on Advair at home which we will restart upon discharge. He is on a Beta Jimmy for HTN -has been changed to a more B1 selective BB - Bisoprolol. Wean Oxygen (He is not on oxygen at home). Encourage ambulation. (2) H/O spinal cord injury Status: Chronic Response to Treatment: Stable Problem Text: Continue Gabapentin and Baclofen (3) HTN (hypertension) Status: Chronic Response to Treatment: Stable Problem Text: Was changed to bisoprolol because of its better beta-1 selectivity. Continue Lisinopril & Norvasc (4) Nicotine dependence Status: Chronic Problem Text: Smoking cessation encouraged. Continue Nicoderm Plan/VTE VTE Prophylaxis Ordered?: Yes (heparin SQ) Plan Diet: Continue Current Activity: Continue Current Pt and Family Services: Home Care Medications: Start Antibiotics Diagnostics: TTE Anticipated Discharge: Home VS, I&O, 24H, Nicki Vital Signs/I&O Vital Signs Date Time Temp Pulse Resp B/P (MAP) Pulse Ox O2 Delivery O2 Flow Rate FiO2 07/01/17 22:00 99.9 95 18 169/79 (109) 93 Room Air 06/30/17 08:00 2.0 Laboratory Data 24H LABS Laboratory Tests 2 07/01/17 07:45: Immature Granulocyte % (Auto) , Nucleated Red Blood Cells % (auto) 0.4H, Neutrophils 56, Band Neutrophils 3, Lymphocytes (Manual) 10L, Monocytes (Manual ) 8, Eosinophils (Manual) 3, Metamyelocytes 8H, Myelocytes 12H, Platelet Estimate NORMAL, Red Blood Cell Morphology NORMAL, Anion Gap 8, Glomerular Filtration Rate > 60.0, Blood Urea Nitrogen 26H, Creatinine 0.87, Sodium Level 141, Potassium Level 3.8, Chloride Level 104, Carbon Dioxide Level 29, Calcium Level 8.6, Aspartate Amino Transf (AST/SGOT) 26, Alanine Aminotransferase (ALT/ SGPT) 85H, Alkaline Phosphatase 60, Total Bilirubin 0.2, Total Protein 5.9L, Albumin 2.6L, Albumin/Globulin Ratio 0.79L CBC/BMP Laboratory Tests 07/01/17 07:45 Red Blood Count 4.51, Mean Corpuscular Volume 90.5, Mean Corpuscular Hemoglobin 30.6, Mean Corpuscular Hemoglobin Concent 33.8, Red Cell Distribution Width 12.7 , Calcium Level 8.6, Aspartate Amino Transf (AST/SGOT) 26, Alanine Aminotransferase (ALT/SGPT) 85 H, Alkaline Phosphatase 60, Total Bilirubin 0.2, Total Protein 5.9 L, Albumin 2.6 L BENEDICTO CHOWDARY DO Jul 02, 2017 01:32
[2017-07-02 06:00] VITALS: BP 148/72
[2017-07-02] MEDS: BENZONATATE 100 MG CAP PO SCH (06:00)
[2017-07-02 07:34] LABS: MEAN CORPUSCULAR HEMOGLOBIN 30.9 pg (27.0-33.0); MEAN CORPUSCULAR HGB CONC 33.8 g/dl (32.0-36.5); MEAN CORPUSCULAR VOLUME 91.3 fl (80.0-96.0); PLATELET COUNT, AUTOMATED 157 10^3/uL (150-450); WHITE BLOOD COUNT 13.2 10^3/uL (4.0-10.0)
[2017-07-02 08:06] LABS: ALBUMIN 2.8 GM/DL (3.2-5.2); ALBUMIN/GLOBULIN RATIO 0.85 (1.00-1.93); ALKALINE PHOSPHATASE 69 U/L (45-117); ALT/SGPT 89 U/L (12-78); ANION GAP 6 MEQ/L (8-16); AST/SGOT 29 U/L (15-37); BILIRUBIN,TOTAL 0.2 MG/DL (0.2-1.0); BLOOD UREA NITROGEN 27 MG/DL (7-18); CALCIUM LEVEL 8.8 MG/DL (8.5-10.1); CARBON DIOXIDE LEVEL 30 MEQ/L (21-32); CHLORIDE LEVEL 102 MEQ/L (98-107); CREATININE FOR GFR 0.84 MG/DL (0.70-1.30); GLOMERULAR FILTRATION RATE > 60.0 (>60); GLUCOSE, FASTING 90 MG/DL (70-105); SODIUM LEVEL 138 MEQ/L (136-145); TOTAL PROTEIN 6.1 GM/DL (6.4-8.2)
[2017-07-02 08:31] LABS: ADD MANUAL DIFFER YES; DIFF SLIDE NUMBER 59; LEFT SHIFT MDIFF
[2017-07-02] MEDS: NICOTINE 14 MG/24 HR TRANSDERMAL TD SCH (09:00)
[2017-07-02] MEDS: HEPARIN SOD (PORCINE) 5000 UNITS/ML VIAL SC SCH (09:00)
[2017-07-02 09:19] LABS: EOSINOPHILS 1 % (0-5)
[2017-07-02 09:20] LABS: ANISOCYTOSIS 1+
[2017-07-02] MEDS: IPRATROPIUM 0.5MG/ALBUTEROL 2.5MG INH SOL UD 3ML (DUONEB)(J7620) NEB PRN (09:32)
[2017-07-02] MEDS: GABAPENTIN 300 MG CAP PO SCH (09:37)
[2017-07-02] MEDS: guaiFENesin ER 600 MG TAB PO SCH (09:37)
[2017-07-02] MEDS: LISINOPRIL 40 MG TAB PO SCH (09:37)
[2017-07-02] MEDS: OMEPRAZOLE 20 MG CAP PO SCH (09:38)
[2017-07-02] MEDS: amLODIPine 5 MG TAB PO SCH (09:38)
[2017-07-02] MEDS: predniSONE 20 MG TAB PO SCH (09:38)
[2017-07-02 09:39] VITALS: BP 148/72
[2017-07-02] MEDS: BISOPROLOL FUMARATE 5 MG TAB PO SCH (09:39)
[2017-07-02] MEDS ORDERED: PRED20TA PO (10:36)
--- NOTE | 2017-07-09 11:57 | DSES ---
DATE OF ADMISSION: 06/26/2017 DATE OF DISCHARGE: 07/02/2017 ATTENDING PHYSICIAN: Dr. Judith Lincoln PRIMARY CARE PHYSICIAN: Dr. Judith Lincoln HISTORY OF PRESENT ILLNESS: This is a 42-year-old male who presented to the [facility] emergency department (ED) with complaints of chest congestion and significant cough. Workup in the ED proved positive for significant asthma exacerbation. Patient did have an admitting diagnosis of pneumonia, which was not found on imaging. The patient was subsequently admitted to family medicine service. HOSPITAL COURSE: Patient was placed on nebulizers, benzonatate, Mucinex and intravenous (IV) steroids. He continued to slowly improve. He was treated with Levaquin 750 mg IV for 24 hours and tolerated that well. He was subsequently transitioned over to Levaquin 500 mg by mouth daily, receiving a full 5 days of treatment. On 07/02/2017, patient insisted on discharge as he had an appointment in [place] and did not want to stay. Patient stated he felt at his baseline. Labs on discharge include white blood cell count of 13,000, hemoglobin and hematocrit of 13 and 39. The elevated white count was felt to be secondary to his steroid use. Electrolytes were stable. Vital signs show stable blood pressure, oxygen saturation 95% on room air. Patient was afebrile for 24 hours prior to his discharge. On physical exam: Vital signs stable, afebrile. HEENT: Neck is supple without lymphadenopathy or jugular venous distention (JVD). Cardiovascular: Heart rate and rhythm are regular. Pulmonary: Lungs are clear. Abdomen: Soft and nontender. ASSESSMENT/DISCHARGE DIAGNOSES: 1. Asthma exacerbation. 2. Hypertension. 3. History of gastroesophageal reflux disease (GERD). PLAN: Patient will be discharged home. Medications are follows: - prednisone 40 mg daily for 5 days - Ventolin HFA every 6 hours as needed for shortness of breath - amlodipine 5 mg by mouth daily - baclofen 20 mg by mouth every 6 hours - Symbicort two puffs twice a day - gabapentin 300 mg capsules three by mouth three times a day - lisinopril 40 mg daily - metoprolol 50 mg by mouth twice a day - mirtazapine 15 mg by mouth nightly - omeprazole 20 mg daily - Advair Diskus 250/50 one inhalation twice a day - Bactrim one tablet by mouth twice a day Patient is discharge in stable and satisfactory condition with no further questions at time of discharge.
== END 2017-07-02 10:40 | disposition home or self-care (01) | DRG 203 ==
LOC: EDBD 23:44 → M ED 23:44 → M ED INP 06-26 06:23 → M MS4PR 06-26 09:05 → M MS5PR 06-27 13:53
PROVIDERS: ADMIT Internal Medicine; ATTEND Family Medicine
DX: J45.902 Unspecified asthma with status asthmaticus (principal); F20.9 Schizophrenia, unspecified; I10 Essential (primary) hypertension; J20.8 Acute bronchitis due to other specified organisms; K21.9 Gastro-esophageal reflux disease without esophagitis; Z79.899 Other long term (current) drug therapy; Z88.1 Allergy status to other antibiotic agents; F17.200 Nicotine dependence, unspecified, uncomplicated

== ENCOUNTER 2017-10-15 02:58 | Emergency (ER) | payer OTHER, MEDICARE, MEDICAID ==
[2017-10-15] MEDS: ADACEL/BOOSTRIX VACCINE (DIPHTH/PERTUSS/ACELL/TETANUS)0.5ML SYR (90715) IM (03:48)
== END 2017-10-15 05:27 | disposition home or self-care (01) ==
LOC: M ED 02:58
DX: S01.112A Laceration without foreign body of left eyelid and periocular area, initial encounter (principal); S50.10XA Contusion of unspecified forearm, initial encounter; Y04.8XXA Assault by other bodily force, initial encounter; Y92.098 Other place in other non-institutional residence as the place of occurrence of the external cause; F10.10 Alcohol abuse, uncomplicated; I10 Essential (primary) hypertension; J45.909 Unspecified asthma, uncomplicated; K21.9 Gastro-esophageal reflux disease without esophagitis; F19.10 Other psychoactive substance abuse, uncomplicated; Z79.899 Other long term (current) drug therapy; Z79.51 Long term (current) use of inhaled steroids; Z88.1 Allergy status to other antibiotic agents; F17.210 Nicotine dependence, cigarettes, uncomplicated
CPT/HCPCS: 90715

== ENCOUNTER 2017-10-25 13:22 | Emergency (ER) | payer MEDICARE, MEDICAID, OTHER ==
[2017-10-25 14:03] LABS: BASO % 0.4 % (0.0-1.0); EOS # 0.1 10^3/uL (0.0-0.50); EOS % 1.1 % (0.0-3.0); HEMATOCRIT 46.8 % (42.0-52.0); HEMOGLOBIN 16.2 g/dl (14.0-18.0); IMMATURE GRANULOCYTE % 0.3 % (0-0); LYMPH # 1.5 10^3/uL (1.5-4.5); LYMPH % 13.1 % (24.0-44.0); MEAN CORPUSCULAR HGB CONC 34.6 g/dl (32.0-36.5); MEAN CORPUSCULAR VOLUME 89.5 fl (80.0-96.0); MONO # 0.7 10^3/uL (0.0-0.8); MONO % 6.1 % (0.0-5.0); NEUTROPHILS # 8.8 10^3/uL (1.8-7.7); PLATELET COUNT, AUTOMATED 123 10^3/uL (150-450); RED BLOOD COUNT 5.23 10^6/uL (4.30-6.10); RED CELL DISTRIBUTION WIDTH 13.2 % (11.5-14.5); WHITE BLOOD COUNT 11.2 10^3/uL (4.0-10.0)
[2017-10-25 14:17] LABS: ALBUMIN 3.9 GM/DL (3.2-5.2); ALKALINE PHOSPHATASE 106 U/L (45-117); ALT/SGPT 148 U/L (12-78); AMYLASE 26 U/L (25-115); ANION GAP 14 MEQ/L (8-16); AST/SGOT 149 U/L (7-37); BILIRUBIN,DIRECT 0.2 MG/DL (0.0-0.2); BILIRUBIN,TOTAL 0.7 MG/DL (0.2-1.0); BLOOD UREA NITROGEN 12 MG/DL (7-18); CALCIUM LEVEL 8.3 MG/DL (8.5-10.1); CARBON DIOXIDE LEVEL 24 MEQ/L (21-32); CHLORIDE LEVEL 99 MEQ/L (98-107); CK-MB VALUE MASS 14.4 NG/ML (0.0-3.6); CPK CREATINE PHOSPHOKINASE 536 U/L (39-308); CREATININE FOR GFR 0.92 MG/DL (0.70-1.30); GLOMERULAR FILTRATION RATE > 60.0 (>60); GLUCOSE, FASTING 143 MG/DL (70-100); LIPASE 107 U/L (73-393); MB/CK RELATIVE INDEX 2.68 (< OR =4); SODIUM LEVEL 137 MEQ/L (136-145); TOTAL PROTEIN 7.8 GM/DL (6.4-8.2); TROPONIN I < 0.02 NG/ML (< 0.10)
[2017-10-25 14:31] LABS: POTASSIUM SERUM 2.8 MEQ/L (3.5-5.1)
[2017-10-25] MEDS: ASPIRIN 81 MG CHEW TABLET PO (14:41)
[2017-10-25] MEDS: POTASSIUM CHLORIDE 10 MEQ SR TABLET PO (14:41)
[2017-10-25] MEDS: NS 1,000 ML IV (14:42)
[2017-10-25] MEDS: LORazepam 2 MG/ML VIAL (J2060) IV (14:47)
[2017-10-25] MEDS: ALBUTEROL SULFATE 2.5 MG/0.5 ML INH NEB SOLN INH (15:00)
[2017-10-25] MEDS: IPRATROPIUM 0.5MG/ALBUTEROL 2.5MG INH SOL UD 3ML (DUONEB)(J7620) NEB ×2 (15:00→17:00)
[2017-10-25 16:31] LABS: CPK CREATINE PHOSPHOKINASE 478 U/L (39-308); MB/CK RELATIVE INDEX 2.51 (< OR =4); TROPONIN I < 0.02 NG/ML (< 0.10)
[2017-10-25] MEDS: methylPREDNISolone INJ 125 MG/2 ML VIAL (J2930) IV (17:08)
[2017-10-25 19:14] LABS: CK-MB VALUE MASS 10.2 NG/ML (0.0-3.6); CPK CREATINE PHOSPHOKINASE 403 U/L (39-308); MB/CK RELATIVE INDEX 2.53 (< OR =4); TROPONIN I < 0.02 NG/ML (< 0.10)
[2017-10-25] MEDS: ALBUTEROL 90 MCG/ACT 8GM HFA INHALER INH (19:30)
== END 2017-10-25 19:39 | disposition home or self-care (01) ==
LOC: M ED 13:22
DX: R07.9 Chest pain, unspecified (principal); R06.00 Dyspnea, unspecified; F12.10 Cannabis abuse, uncomplicated; R00.0 Tachycardia, unspecified; R94.31 Abnormal electrocardiogram [ECG] [EKG]; I10 Essential (primary) hypertension; K21.9 Gastro-esophageal reflux disease without esophagitis; F41.9 Anxiety disorder, unspecified; F20.9 Schizophrenia, unspecified; F17.200 Nicotine dependence, unspecified, uncomplicated; Z79.899 Other long term (current) drug therapy; Z88.1 Allergy status to other antibiotic agents
CPT/HCPCS: J2930

== ENCOUNTER 2017-11-07 11:13 | Emergency (ER) | payer MEDICARE, MEDICAID | END 2017-11-07 14:21 | disposition home or self-care (01) | LOC: M ED 11:13 | DX: S43.401A Unspecified sprain of right shoulder joint, initial encounter (principal); V49.60XA Unspecified car occupant injured in collision with unspecified motor vehicles in traffic accident, initial encounter; Y92.410 Unspecified street and highway as the place of occurrence of the external cause; Z88.1 Allergy status to other antibiotic agents; Z79.899 Other long term (current) drug therapy; Z79.51 Long term (current) use of inhaled steroids | CPT/HCPCS: 73030 ==

== ENCOUNTER → 2017-11-11 | Outpatient (REF) | payer MEDICARE, OTHER ==
[2017-11-11 15:59] LABS: ALBUMIN 3.7 GM/DL (3.2-5.2); ALBUMIN/GLOBULIN RATIO 0.95 (1.00-1.93); ALKALINE PHOSPHATASE 116 U/L (45-117); ALT/SGPT 140 U/L (12-78); ANION GAP 10 MEQ/L (8-16); AST/SGOT 98 U/L (7-37); BILIRUBIN,DIRECT 0.2 MG/DL (0.0-0.2); BILIRUBIN,TOTAL 0.7 MG/DL (0.2-1.0); BLOOD UREA NITROGEN 9 MG/DL (7-18); CALCIUM LEVEL 8.7 MG/DL (8.5-10.1); CARBON DIOXIDE LEVEL 24 MEQ/L (21-32); CHLORIDE LEVEL 109 MEQ/L (98-107); CREATININE FOR GFR 0.75 MG/DL (0.70-1.30); GLOMERULAR FILTRATION RATE > 60.0 (>60); GLUCOSE, FASTING 103 MG/DL (70-100); MAGNESIUM LEVEL 1.9 MG/DL (1.8-2.4); PHOSPHORUS LEVEL 4.3 MG/DL (2.5-4.9); POTASSIUM SERUM 3.9 MEQ/L (3.5-5.1); SODIUM LEVEL 143 MEQ/L (136-145); TOTAL PROTEIN 7.6 GM/DL (6.4-8.2)
[2017-11-11 16:01] LABS: INR 0.91; PROTHROMBIN TIME 12.4 SECONDS (12.4-14.5)
[2017-11-11 16:15] LABS: ESTIMATED AVERAGE GLUCOSE 103 MG/DL (60-110); HEMOGLOBIN A1c 5.2 %
[2017-11-17 06:23] LABS: FIBROSPECT1 SEE SEPARATE REPORT
== END ==
LOC: M SFHCPLAZ 13:00
DX: F10.20 Alcohol dependence, uncomplicated (principal); R73.01 Impaired fasting glucose; R00.0 Tachycardia, unspecified
CPT/HCPCS: 83735

== ENCOUNTER → 2017-12-04 | Outpatient (CLI) | payer MEDICARE, MEDICAID | LOC: M RAD 06:35 | DX: R16.0 Hepatomegaly, not elsewhere classified (principal); K76.0 Fatty (change of) liver, not elsewhere classified; F10.20 Alcohol dependence, uncomplicated | CPT/HCPCS: 76705 ==

== ENCOUNTER 2017-12-15 18:13 | Observation (INO) | payer MEDICARE, MEDICAID ==
[2017-12-15] MEDS: NALOXONE INJ 0.4 MG/1 ML VIAL (J2310) IV (21:09)
[2017-12-15] MEDS: NS 1,000 ML IV ×2 (21:10→23:47)
[2017-12-15 21:32] LABS: BASO % 0.2 % (0.0-1.0); EOS # 0.1 10^3/uL (0.0-0.50); EOS % 0.9 % (0.0-3.0); HEMOGLOBIN 14.8 g/dl (14.0-18.0); IMMATURE GRANULOCYTE % 0.5 % (0-3.0); LYMPH # 1.2 10^3/uL (1.5-4.5); LYMPH % 14.6 % (24.0-44.0); MEAN CORPUSCULAR HEMOGLOBIN 30.5 pg (27.0-33.0); MEAN CORPUSCULAR HGB CONC 32.2 g/dl (32.0-36.5); MEAN CORPUSCULAR VOLUME 94.8 fl (80.0-96.0); MONO # 0.9 10^3/uL (0.0-0.8); MONO % 11.6 % (0.0-5.0); NEUTROPHILS # 5.8 10^3/uL (1.8-7.7); NEUTROPHILS % 72.2 % (36.0-66.0); PLATELET COUNT, AUTOMATED 170 10^3/uL (150-450); RED BLOOD COUNT 4.85 10^6/uL (4.30-6.10); RED CELL DISTRIBUTION WIDTH 13.2 % (11.5-14.5)
[2017-12-15 21:59] LABS: AMMONIA 50 uMOL/L (<32)
[2017-12-15 22:03] LABS: ALBUMIN 3.4 GM/DL (3.2-5.2); ALBUMIN/GLOBULIN RATIO 0.79 (1.00-1.93); ALKALINE PHOSPHATASE 114 U/L (45-117); ALT/SGPT 90 U/L (12-78); ANION GAP 7 MEQ/L (8-16); AST/SGOT 60 U/L (7-37); BILIRUBIN,DIRECT 0.2 MG/DL (0.0-0.2); BILIRUBIN,TOTAL 0.5 MG/DL (0.2-1.0); BLOOD UREA NITROGEN 38 MG/DL (7-18); CALCIUM LEVEL 8.8 MG/DL (8.5-10.1); CARBON DIOXIDE LEVEL 26 MEQ/L (21-32); CHLORIDE LEVEL 108 MEQ/L (98-107); CPK CREATINE PHOSPHOKINASE 90 U/L (39-308); CREATININE FOR GFR 2.13 MG/DL (0.70-1.30); ETHYL ALCOHOL (ETHANOL) < 0.003 % (0.000-0.010); GLOMERULAR FILTRATION RATE 36.5 (>60); GLUCOSE, FASTING 112 MG/DL (70-100); POTASSIUM SERUM 4.6 MEQ/L (3.5-5.1); SALICYLATE LEVEL 2.7 MG/DL (5.0-30.0); SODIUM LEVEL 141 MEQ/L (136-145); TOTAL PROTEIN 7.7 GM/DL (6.4-8.2); TROPONIN I < 0.02 NG/ML (< 0.10)
[2017-12-15 22:05] LABS: ACETAMINOPHEN LEVEL < 2.0 UG/ML (10.0-30.0)
[2017-12-15 22:13] LABS: CK-MB VALUE MASS 2.8 NG/ML (<3.6); MB/CK RELATIVE INDEX 3.11 (< OR =4)
[2017-12-15 23:19] LABS: AMPHETAMINES LEVEL URINE POSITIVE (NEGATIVE); BARBITURATES URINE NEGATIVE (NEGATIVE); BENZODIAZEPINES URINE POSITIVE (NEGATIVE); CANNABINOIDS URINE POSITIVE (NEGATIVE); COCAINE METABOLITE URINE POSITIVE (NEGATIVE); METHADONE URINE NEGATIVE (NEGATIVE); OPIATES URINE NEGATIVE (NEGATIVE); PHENCYCLIDINE URINE NEGATIVE (NEGATIVE)
[2017-12-15] MEDS ORDERED: ONDANSETRON 4MG/2ML VIAL (J2405) IV (23:30)
[2017-12-15 23:44] LABS: ABG BASE EXCESS -1.2 (-2.0-2.0); ABG HCO3 23.6 MEQ/L (22.0-26.0); ABG O2 SATURATION 93.8 % (95.0-99.0); ABG PARTIAL PRESSURE CO2 40.1 mmHg (35.0-45.0); ABG STANDARD HCO3 23.4 MEQ/L (22.0-26.0); ABG TOTAL CO2 24.9 MEQ/L (22.0-29.0); ABG pH (ARTERIAL) 7.388 UNITS (7.350-7.450)
[2017-12-16] MEDS ORDERED: POLYVINYL ALCOHOL OPHTH SOLN 15 ML(LIQUITEARS) OU
[2017-12-16] MEDS: IPRATROPIUM 0.5MG/ALBUTEROL 2.5MG INH SOL UD 3ML (DUONEB)(J7620) NEB (00:34)
[2017-12-16 00:52] LABS: INR 0.94; PROTHROMBIN TIME 12.7 SECONDS (12.4-14.5)
[2017-12-16] MEDS: MULTIVITAMIN -ADULT INJECTION 10 ML, THIAMINE INJection 100 MG, FOLIC ACID 1 MG in NS 1... IV (00:53)
[2017-12-16 01:13] LABS: OSMOLALITY SERUM 543 MOSM/KG (275-295)
[2017-12-16] MEDS: NS 0.45% 1,000 ML IV (02:18)
[2017-12-16 04:53] LABS: HEMATOCRIT 37.7 % (42.0-52.0); MEAN CORPUSCULAR HEMOGLOBIN 30.3 pg (27.0-33.0); MEAN CORPUSCULAR HGB CONC 32.6 g/dl (32.0-36.5); MEAN CORPUSCULAR VOLUME 92.9 fl (80.0-96.0); PLATELET COUNT, AUTOMATED 145 10^3/uL (150-450); RED BLOOD COUNT 4.06 10^6/uL (4.30-6.10); RED CELL DISTRIBUTION WIDTH 13.2 % (11.5-14.5); WHITE BLOOD COUNT 6.7 10^3/uL (4.0-10.0)
[2017-12-16 04:55] LABS: HEMOGLOBIN 12.3 g/dl (14.0-18.0)
[2017-12-16 05:05] LABS: INR 0.99; PROTHROMBIN TIME 13.2 SECONDS (12.4-14.5)
[2017-12-16] MEDS: HEPARIN SOD (PORCINE) 5000 UNITS/ML VIAL SC ×2 (05:11→14:00)
[2017-12-16 05:20] LABS: AMMONIA 39 uMOL/L (<32)
[2017-12-16 05:22] LABS: ALBUMIN 2.9 GM/DL (3.2-5.2); ALBUMIN/GLOBULIN RATIO 0.81 (1.00-1.93); ALKALINE PHOSPHATASE 94 U/L (45-117); ALT/SGPT 72 U/L (12-78); ANION GAP 4 MEQ/L (8-16); AST/SGOT 42 U/L (7-37); BILIRUBIN,TOTAL 0.4 MG/DL (0.2-1.0); BLOOD UREA NITROGEN 36 MG/DL (7-18); CARBON DIOXIDE LEVEL 26 MEQ/L (21-32); CHLORIDE LEVEL 114 MEQ/L (98-107); CREATININE FOR GFR 1.44 MG/DL (0.70-1.30); GLOMERULAR FILTRATION RATE 57.3 (>60); GLUCOSE, FASTING 114 MG/DL (70-100); POTASSIUM SERUM 4.2 MEQ/L (3.5-5.1); SODIUM LEVEL 144 MEQ/L (136-145); TOTAL PROTEIN 6.5 GM/DL (6.4-8.2)
[2017-12-16 05:23] LABS: CPK CREATINE PHOSPHOKINASE 62 U/L (39-308); MB/CK RELATIVE INDEX 3.22 (< OR =4); TROPONIN I < 0.02 NG/ML (< 0.10)
[2017-12-16] MEDS: THIAMINE 100 MG TAB PO (08:19)
[2017-12-16] MEDS: GABAPENTIN 300 MG CAP PO (08:19)
[2017-12-16] MEDS: MULTIVITAMINS/MINERALS THERAP 1 TAB PO (08:19)
[2017-12-16] MEDS: FOLIC ACID 1 MG TAB PO (08:20)
[2017-12-16] MEDS: SENOKOT S TAB PO (08:20)
[2017-12-16] MEDS: OMEPRAZOLE 20 MG CAP PO (08:20)
[2017-12-16] MEDS: DULoxetine 20 MG CAP (CYMBALTA) PO (08:44)
[2017-12-16] MEDS: FLUTICASONE PROP 0.05% NASAL SPRAY 16 GM (FLONASE) (08:44)
[2017-12-16] MEDS: ADVAIR HFA 115/21MCG INHALER INH (08:57)
[2017-12-16 11:28] LABS: TROPONIN I < 0.02 NG/ML (< 0.10)
[2017-12-16 11:51] LABS: CK-MB VALUE MASS 2.2 NG/ML (<3.6); CPK CREATINE PHOSPHOKINASE 67 U/L (39-308); MB/CK RELATIVE INDEX 3.28 (< OR =4)
[2017-12-17 10:32] LABS: HEPATITIS B SURFACE ANTIGEN NEGATIVE (NEGATIVE)
[2017-12-17 10:53] LABS: HEPATITIS B CORE ANTIBODY IGM NEGATIVE (NEGATIVE)
[2017-12-17 10:55] LABS: HEPATITIS A ANTIBODY IGM NEGATIVE (NEGATIVE)
[2017-12-17 11:11] LABS: HIV 1&2 SCREEN CENTAUR NEGATIVE (NEGATIVE)
== END 2017-12-16 15:00 | disposition home or self-care (01) ==
LOC: M ED 18:13 → M ED INP 23:30
DX: G93.40 Encephalopathy, unspecified (principal); F19.10 Other psychoactive substance abuse, uncomplicated; N17.9 Acute kidney failure, unspecified; F10.10 Alcohol abuse, uncomplicated; R74.0 Nonspecific elevation of levels of transaminase and lactic acid dehydrogenase [LDH]; R53.83 Other fatigue; E72.20 Disorder of urea cycle metabolism, unspecified; I10 Essential (primary) hypertension; Z87.828 Personal history of other (healed) physical injury and trauma; K21.9 Gastro-esophageal reflux disease without esophagitis; J45.909 Unspecified asthma, uncomplicated; N31.9 Neuromuscular dysfunction of bladder, unspecified; K59.00 Constipation, unspecified; Z79.899 Other long term (current) drug therapy; Z79.51 Long term (current) use of inhaled steroids; Z87.442 Personal history of urinary calculi; Z88.1 Allergy status to other antibiotic agents
CPT/HCPCS: J2310

== ENCOUNTER → 2018-01-14 | Outpatient (REF) | payer MEDICARE, MEDICAID ==
[2018-01-14 13:08] LABS: APPEARANCE, URINE HAZY (CLEAR); BACTERIA, URINE AUTO NEGATIVE (NEGATIVE); BILIRUBIN, URINE AUTO 1+ (NEGATIVE); BLOOD, URINE BLOOD NEGATIVE (NEGATIVE); COLOR, URINE AMBER (YELLOW); GLUCOSE, URINE (UA) AUTO NEGATIVE (NEGATIVE); KETONE, URINE AUTO TRACE mg/dL (NEGATIVE); LEUKOCYTE ESTERASE, URINE AUTO TRACE (NEGATIVE); MUCUS, URINE SMALL (NEGATIVE); NITRITE, URINE AUTO NEGATIVE (NEGATIVE); PROTEIN, URINE AUTO 2+ mg/dL (NEGATIVE); RBC, URINE AUTO 24 /HPF (0-3); SPECIFIC GRAVITY URINE AUTO 1.026 (1.002-1.035); SQUAMOUS EPITHELIAL CELL UR AU 1 /HPF (0-6); WBC, URINE AUTO 9 /HPF (0-3)
== END ==
LOC: M LAB REF 12:44
DX: N39.0 Urinary tract infection, site not specified (principal)
CPT/HCPCS: 81001

== ENCOUNTER → 2018-02-25 | Outpatient (CLI) | payer MEDICARE, MEDICAID | LOC: M OUTALCOH 08:56 | DX: Z13.9 Encounter for screening, unspecified (principal); F10.20 Alcohol dependence, uncomplicated | CPT/HCPCS: H0001 ==

== ENCOUNTER 2018-03-05 17:50 | Inpatient (IN) | payer MEDICARE, MEDICAID ==
[2018-03-05] MEDS ORDERED: NALOXONE INJ 2 MG/2 ML SYRINGE (J2310) As Ordered (18:45)
[2018-03-05] MEDS: NALOXONE INJ 0.4 MG/1 ML VIAL (J2310) IV ×2 (18:52→19:00)
[2018-03-05] MEDS: NALOXONE INJ 2 MG/2 ML SYRINGE (J2310) IV ×2 (19:06→20:19)
[2018-03-05 20:10] LABS: BASO % 0.2 % (0.0-1.0); EOS # 0.2 10^3/uL (0.0-0.50); EOS % 1.8 % (0.0-3.0); HEMATOCRIT 35.1 % (42.0-52.0); HEMOGLOBIN 11.7 g/dl (13.5-17.5); IMMATURE GRANULOCYTE % 0.5 % (0-3.0); LYMPH # 1.7 10^3/uL (1.5-4.5); MEAN CORPUSCULAR HEMOGLOBIN 30.5 pg (27.0-33.0); MEAN CORPUSCULAR HGB CONC 33.3 g/dl (32.0-36.5); MEAN CORPUSCULAR VOLUME 91.4 fl (80.0-96.0); MONO # 0.6 10^3/uL (0.0-0.8); MONO % 4.7 % (0.0-5.0); NEUTROPHILS # 10.5 10^3/uL (1.8-7.7); NEUTROPHILS % 79.8 % (36.0-66.0); PLATELET COUNT, AUTOMATED 177 10^3/uL (150-450); RED BLOOD COUNT 3.84 10^6/uL (4.30-6.10); RED CELL DISTRIBUTION WIDTH 13.9 % (11.5-14.5); WHITE BLOOD COUNT 13.1 10^3/uL (4.0-10.0)
[2018-03-05 20:21] LABS: APPEARANCE, URINE CLEAR (CLEAR); BACTERIA, URINE AUTO NEGATIVE (NEGATIVE); BILIRUBIN, URINE AUTO NEGATIVE (NEGATIVE); BLOOD, URINE BLOOD NEGATIVE (NEGATIVE); COLOR, URINE YELLOW (YELLOW); GLUCOSE, URINE (UA) AUTO NEGATIVE (NEGATIVE); KETONE, URINE AUTO NEGATIVE (NEGATIVE); LEUKOCYTE ESTERASE, URINE AUTO NEGATIVE (NEGATIVE); MUCUS, URINE SMALL (NEGATIVE); NITRITE, URINE AUTO NEGATIVE (NEGATIVE); PROTEIN, URINE AUTO 1+ mg/dL (NEGATIVE); RBC, URINE AUTO 1 /HPF (0-3); SPECIFIC GRAVITY URINE AUTO 1.023 (1.002-1.035); SQUAMOUS EPITHELIAL CELL UR AU 0 /HPF (0-6); WBC, URINE AUTO 2 /HPF (0-3)
[2018-03-05 20:25] LABS: ANION GAP 10 MEQ/L (8-16); BLOOD UREA NITROGEN 42 MG/DL (7-18); CALCIUM LEVEL 8.7 MG/DL (8.5-10.1); CARBON DIOXIDE LEVEL 22 MEQ/L (21-32); CHLORIDE LEVEL 106 MEQ/L (98-107); GLOMERULAR FILTRATION RATE 27.7 (>60); GLUCOSE, FASTING 115 MG/DL (70-100); SODIUM LEVEL 138 MEQ/L (136-145)
[2018-03-05 21:37] LABS: AMPHETAMINES LEVEL URINE NEGATIVE (NEGATIVE); BARBITURATES URINE NEGATIVE (NEGATIVE); BENZODIAZEPINES URINE POSITIVE (NEGATIVE); CANNABINOIDS URINE POSITIVE (NEGATIVE); COCAINE METABOLITE URINE NEGATIVE (NEGATIVE); METHADONE URINE NEGATIVE (NEGATIVE); OPIATES URINE NEGATIVE (NEGATIVE); PHENCYCLIDINE URINE NEGATIVE (NEGATIVE)
[2018-03-05 22:25] LABS: ABG BASE EXCESS -1.5 (-2.0-2.0); ABG HCO3 22.6 MEQ/L (22.0-26.0); ABG O2 SATURATION 95.7 % (95.0-99.0); ABG PARTIAL PRESSURE CO2 36.3 mmHg (35.0-45.0); ABG PARTIAL PRESSURE O2 77.6 mmHg (75.0-100.0); ABG STANDARD HCO3 23.2 MEQ/L (22.0-26.0); ABG TOTAL CO2 23.8 MEQ/L (22.0-29.0); ABG pH (ARTERIAL) 7.413 UNITS (7.350-7.450); ETHYL ALCOHOL (ETHANOL) < 0.003 % (0.000-0.010)
[2018-03-05] MEDS ORDERED: ACETAMINOPHEN TAB 650MG DOSE (2X325MG) PO (23:45)
[2018-03-05] MEDS ORDERED: POLYVINYL ALCOHOL OPHTH SOLN 15 ML(LIQUITEARS) OU (23:45)
[2018-03-05] MEDS ORDERED: ALBUTEROL SULFATE 2.5 MG/0.5 ML INH NEB SOLN INH (23:45)
[2018-03-06] MEDS ORDERED: cefTRIAXone SOD 1 GM VIAL (J0696) IM
[2018-03-06] MEDS: SOD POLYSTYRENE SULFONATE SUSP 15 GM/60 ML UD PO (00:52)
[2018-03-06] MEDS: cefTRIAXone SOD 1 GM in D5W MINI-BAG PLUS 50 ML IV ×2 (01:17→23:57)
[2018-03-06] MEDS: METOPROLOL TART 50 MG TAB PO ×2 (08:17→20:53)
[2018-03-06] MEDS: BACLOFEN 10 MG TAB PO ×3 (08:17→20:52)
[2018-03-06] MEDS: amLODIPine 5 MG TAB PO (08:18)
[2018-03-06] MEDS: OMEPRAZOLE 20 MG CAP PO (08:18)
[2018-03-06] MEDS: DULoxetine 20 MG CAP (CYMBALTA) PO (08:18)
[2018-03-06] MEDS: RIVAROXABAN 15 MG TAB (XARELTO) PO ×2 (08:18→20:54)
[2018-03-06] MEDS: ADVAIR HFA 115/21MCG INHALER INH ×2 (08:49→21:00)
[2018-03-06 09:00] LABS: ANION GAP 9 MEQ/L (8-16); BLOOD UREA NITROGEN 38 MG/DL (7-18); CALCIUM LEVEL 8.5 MG/DL (8.5-10.1); CARBON DIOXIDE LEVEL 25 MEQ/L (21-32); CHLORIDE LEVEL 108 MEQ/L (98-107); CREATININE FOR GFR 1.53 MG/DL (0.70-1.30); GLOMERULAR FILTRATION RATE 53.4 (>60); GLUCOSE, FASTING 92 MG/DL (70-100); POTASSIUM SERUM 4.2 MEQ/L (3.5-5.1); SODIUM LEVEL 142 MEQ/L (136-145)
[2018-03-06 09:07] LABS: BASO % 0.2 % (0.0-1.0); EOS # 0.3 10^3/uL (0.0-0.50); HEMATOCRIT 34.9 % (42.0-52.0); HEMOGLOBIN 11.7 g/dl (13.5-17.5); IMMATURE GRANULOCYTE % 0.6 % (0-3.0); LYMPH # 1.8 10^3/uL (1.5-4.5); LYMPH % 22.2 % (24.0-44.0); MEAN CORPUSCULAR HEMOGLOBIN 30.5 pg (27.0-33.0); MEAN CORPUSCULAR HGB CONC 33.5 g/dl (32.0-36.5); MEAN CORPUSCULAR VOLUME 91.1 fl (80.0-96.0); MONO # 0.5 10^3/uL (0.0-0.8); MONO % 5.7 % (0.0-5.0); NEUTROPHILS # 5.5 10^3/uL (1.8-7.7); NEUTROPHILS % 67.3 % (36.0-66.0); PLATELET COUNT, AUTOMATED 153 10^3/uL (150-450); RED BLOOD COUNT 3.83 10^6/uL (4.30-6.10); RED CELL DISTRIBUTION WIDTH 13.9 % (11.5-14.5); WHITE BLOOD COUNT 8.2 10^3/uL (4.0-10.0)
[2018-03-06] MEDS: NS 1,000 ML IV ×2 (16:15→17:00)
[2018-03-07] MEDS: NS 1,000 ML IV (03:17)
[2018-03-07 05:03] LABS: BASO % 0.4 % (0.0-1.0); EOS # 0.3 10^3/uL (0.0-0.50); EOS % 3.6 % (0.0-3.0); HEMATOCRIT 34.8 % (42.0-52.0); HEMOGLOBIN 11.8 g/dl (13.5-17.5); IMMATURE GRANULOCYTE % 0.6 % (0-3.0); LYMPH # 1.4 10^3/uL (1.5-4.5); LYMPH % 19.9 % (24.0-44.0); MEAN CORPUSCULAR HEMOGLOBIN 30.4 pg (27.0-33.0); MEAN CORPUSCULAR HGB CONC 33.9 g/dl (32.0-36.5); MEAN CORPUSCULAR VOLUME 89.7 fl (80.0-96.0); MONO # 0.4 10^3/uL (0.0-0.8); MONO % 5.8 % (0.0-5.0); NEUTROPHILS # 4.8 10^3/uL (1.8-7.7); NEUTROPHILS % 69.7 % (36.0-66.0); PLATELET COUNT, AUTOMATED 136 10^3/uL (150-450); RED BLOOD COUNT 3.88 10^6/uL (4.30-6.10); RED CELL DISTRIBUTION WIDTH 13.8 % (11.5-14.5); WHITE BLOOD COUNT 6.9 10^3/uL (4.0-10.0)
[2018-03-07 05:23] LABS: ANION GAP 11 MEQ/L (8-16); BLOOD UREA NITROGEN 24 MG/DL (7-18); CALCIUM LEVEL 8.2 MG/DL (8.5-10.1); CARBON DIOXIDE LEVEL 23 MEQ/L (21-32); CHLORIDE LEVEL 109 MEQ/L (98-107); GLOMERULAR FILTRATION RATE > 60.0 (>60); GLUCOSE, FASTING 94 MG/DL (70-100); MAGNESIUM LEVEL 1.3 MG/DL (1.8-2.4); POTASSIUM SERUM 4.1 MEQ/L (3.5-5.1); SODIUM LEVEL 143 MEQ/L (136-145)
[2018-03-07] MEDS: ADVAIR HFA 115/21MCG INHALER INH ×2 (07:47→19:36)
[2018-03-07] MEDS: MAG SULF 1GM/100ML (MAG RUN) 1 GM in APPROPRIATE DILUENT 1 EA IV ×2 (08:31→09:47)
[2018-03-07] MEDS: OMEPRAZOLE 20 MG CAP PO (08:31)
[2018-03-07] MEDS: GABAPENTIN 300 MG CAP PO ×3 (08:31→20:39)
[2018-03-07] MEDS: RIVAROXABAN 15 MG TAB (XARELTO) PO ×2 (08:31→20:40)
[2018-03-07] MEDS: MULTIVITAMINS/MINERALS THERAP 1 TAB PO (08:31)
[2018-03-07] MEDS: DULoxetine 20 MG CAP (CYMBALTA) PO (08:32)
[2018-03-07] MEDS: FOLIC ACID 1 MG TAB PO (08:32)
[2018-03-07] MEDS: THIAMINE 100 MG TAB PO (08:32)
[2018-03-07] MEDS: BACLOFEN 10 MG TAB PO ×3 (08:32→20:40)
[2018-03-07] MEDS: amLODIPine 5 MG TAB PO (08:34)
[2018-03-07] MEDS: METOPROLOL TART 50 MG TAB PO ×2 (08:34→20:40)
[2018-03-07] MEDS: BUPRENORPHINE/NALOXONE 8-2MG SUBLINGUAL TABLET(SUBOXONE) SL (08:39)
[2018-03-07] MEDS: cefTRIAXone SOD 1 GM in D5W MINI-BAG PLUS 50 ML IV (23:58)
[2018-03-08 04:03] LABS: BASO % 0.4 % (0.0-1.0); EOS # 0.3 10^3/uL (0.0-0.50); HEMATOCRIT 34.5 % (42.0-52.0); HEMOGLOBIN 11.8 g/dl (13.5-17.5); IMMATURE GRANULOCYTE % 0.4 % (0-3.0); LYMPH # 1.5 10^3/uL (1.5-4.5); LYMPH % 18.1 % (24.0-44.0); MEAN CORPUSCULAR HEMOGLOBIN 30.4 pg (27.0-33.0); MEAN CORPUSCULAR HGB CONC 34.2 g/dl (32.0-36.5); MEAN CORPUSCULAR VOLUME 88.9 fl (80.0-96.0); MONO # 0.5 10^3/uL (0.0-0.8); MONO % 6.1 % (0.0-5.0); NEUTROPHILS # 5.8 10^3/uL (1.8-7.7); PLATELET COUNT, AUTOMATED 148 10^3/uL (150-450); RED BLOOD COUNT 3.88 10^6/uL (4.30-6.10); RED CELL DISTRIBUTION WIDTH 13.8 % (11.5-14.5); WHITE BLOOD COUNT 8.2 10^3/uL (4.0-10.0)
[2018-03-08 04:22] LABS: ANION GAP 9 MEQ/L (8-16); BLOOD UREA NITROGEN 17 MG/DL (7-18); CALCIUM LEVEL 8.2 MG/DL (8.5-10.1); CARBON DIOXIDE LEVEL 27 MEQ/L (21-32); CHLORIDE LEVEL 107 MEQ/L (98-107); CREATININE FOR GFR 0.93 MG/DL (0.70-1.30); GLOMERULAR FILTRATION RATE > 60.0 (>60); GLUCOSE, FASTING 98 MG/DL (70-100); MAGNESIUM LEVEL 1.5 MG/DL (1.8-2.4); POTASSIUM SERUM 3.8 MEQ/L (3.5-5.1); SODIUM LEVEL 143 MEQ/L (136-145)
[2018-03-08] MEDS: ADVAIR HFA 115/21MCG INHALER INH (07:25)
[2018-03-08] MEDS: RIVAROXABAN 15 MG TAB (XARELTO) PO (08:35)
[2018-03-08] MEDS: THIAMINE 100 MG TAB PO (08:35)
[2018-03-08] MEDS: MULTIVITAMINS/MINERALS THERAP 1 TAB PO (08:35)
[2018-03-08] MEDS: OMEPRAZOLE 20 MG CAP PO (08:35)
[2018-03-08] MEDS: DULoxetine 20 MG CAP (CYMBALTA) PO (08:36)
[2018-03-08] MEDS: BACLOFEN 10 MG TAB PO (08:36)
[2018-03-08] MEDS: BUPRENORPHINE/NALOXONE 8-2MG SUBLINGUAL TABLET(SUBOXONE) SL (08:36)
[2018-03-08] MEDS: METOPROLOL TART 50 MG TAB PO (08:36)
[2018-03-08] MEDS: GABAPENTIN 300 MG CAP PO (08:36)
[2018-03-08] MEDS: FOLIC ACID 1 MG TAB PO (08:36)
[2018-03-08] MEDS: amLODIPine 5 MG TAB PO (08:37)
[2018-03-08] MEDS: MAG SULF 1GM/100ML (MAG RUN) 1 GM in APPROPRIATE DILUENT 1 EA IV ×2 (11:24→12:30)
[2018-03-10] MEDS ORDERED: RIVAROXABAN 20 MG TAB (XARELTO) PO (18:00)
== END 2018-03-08 14:34 | disposition home or self-care (01) | DRG 684 ==
LOC: M ICU 03-06 13:46 → M ED 17:50 → M ED INP 23:40
DX: N17.9 Acute kidney failure, unspecified (principal); I10 Essential (primary) hypertension; E87.5 Hyperkalemia; I95.9 Hypotension, unspecified; F10.10 Alcohol abuse, uncomplicated; K21.9 Gastro-esophageal reflux disease without esophagitis; R55 Syncope and collapse; D72.829 Elevated white blood cell count, unspecified; J45.909 Unspecified asthma, uncomplicated; Z79.899 Other long term (current) drug therapy; Z88.1 Allergy status to other antibiotic agents; Z86.711 Personal history of pulmonary embolism

== ENCOUNTER 2018-03-27 02:25 | Inpatient (IN) | payer MEDICARE, MEDICAID, OTHER ==
[2018-03-27] MEDS: NS 1,000 ML IV ×2 (03:46→04:56)
[2018-03-27] MEDS: LORazepam 2 MG/ML VIAL (J2060) IV ×5 (03:46→15:27)
[2018-03-27 03:55] LABS: BASO # 0.1 10^3/uL (0.0-0.2); BASO % 0.4 % (0.0-1.0); EOS % 0.1 % (0.0-3.0); HEMATOCRIT 51.7 % (42.0-52.0); HEMOGLOBIN 17.4 g/dl (13.5-17.5); IMMATURE GRANULOCYTE % 0.6 % (0-3.0); LYMPH % 6.2 % (24.0-44.0); MEAN CORPUSCULAR HEMOGLOBIN 30.6 pg (27.0-33.0); MEAN CORPUSCULAR HGB CONC 33.7 g/dl (32.0-36.5); MONO % 5.9 % (0.0-5.0); NEUTROPHILS # 14.2 10^3/uL (1.8-7.7); NEUTROPHILS % 86.8 % (36.0-66.0); PLATELET COUNT, AUTOMATED 159 10^3/uL (150-450); RED BLOOD COUNT 5.68 10^6/uL (4.30-6.10); RED CELL DISTRIBUTION WIDTH 15.9 % (11.5-14.5); WHITE BLOOD COUNT 16.4 10^3/uL (4.0-10.0)
[2018-03-27 04:22] LABS: LACTIC ACID SEPSIS PROTOCOL 5.4 MMOL/L (0.4-2.0)
[2018-03-27 04:31] LABS: HIVSOURCE0 NEGATIVE (NEGATIVE)
[2018-03-27 04:34] LABS: CONTROL LINE INT CTR LINE PRESENT; HIV SOURCE PT 1 NEGATIVE (NEGATIVE)
[2018-03-27 04:37] LABS: ALBUMIN 3.9 GM/DL (3.2-5.2); ALKALINE PHOSPHATASE 120 U/L (45-117); ALT/SGPT 181 U/L (12-78); ANION GAP 18 MEQ/L (8-16); AST/SGOT 198 U/L (7-37); BILIRUBIN,DIRECT 0.6 MG/DL (0.0-0.2); BILIRUBIN,TOTAL 2.2 MG/DL (0.2-1.0); BLOOD UREA NITROGEN 22 MG/DL (7-18); CARBON DIOXIDE LEVEL 22 MEQ/L (21-32); CHLORIDE LEVEL 111 MEQ/L (98-107); CREATININE FOR GFR 2.46 MG/DL (0.70-1.30); GLOMERULAR FILTRATION RATE 30.9 (>60); GLUCOSE, FASTING 105 MG/DL (70-100); POTASSIUM SERUM 3.2 MEQ/L (3.5-5.1); SALICYLATE LEVEL < 1.7 MG/DL (5.0-30.0); SODIUM LEVEL 151 MEQ/L (136-145); TOTAL PROTEIN 8.8 GM/DL (6.4-8.2)
[2018-03-27 04:50] LABS: ACETAMINOPHEN LEVEL < 2.0 UG/ML (10.0-30.0); CK-MB VALUE MASS 10.1 NG/ML (<3.6); CPK CREATINE PHOSPHOKINASE 2246 U/L (39-308); ETHYL ALCOHOL (ETHANOL) < 0.003 % (0.000-0.010); MB/CK RELATIVE INDEX 0.44 (< OR =4)
[2018-03-27] MEDS: ADVAIR HFA 115/21MCG INHALER INH ×2 (08:00→20:00)
[2018-03-27] MEDS: SENOKOT S TAB PO ×2 (09:00→21:00)
[2018-03-27] MEDS ORDERED: POLYVINYL ALCOHOL OPHTH SOLN 15 ML(LIQUITEARS) OU (11:00)
[2018-03-27] MEDS ORDERED: ONDANSETRON 4MG/2ML VIAL (J2405) IV (11:00)
[2018-03-27] MEDS: POTASSIUM CHLORIDE 10 MEQ SR TABLET PO ×2 (12:57→18:42)
[2018-03-27] MEDS: KCL 20MEQ IN D5/0.45NS 1000ML 1,000 ML IV (12:58)
[2018-03-27] MEDS: APIXABAN 2.5 MG TAB (ELIQUIS) PO ×2 (12:59→21:00)
[2018-03-27] MEDS: METOPROLOL TART 50 MG TAB PO ×2 (12:59→21:00)
[2018-03-27] MEDS: amLODIPine 5 MG TAB PO (12:59)
[2018-03-27] MEDS: GABAPENTIN 300 MG CAP PO ×3 (13:00→21:00)
[2018-03-27] MEDS: BUPRENORPHINE/NALOXONE 8-2MG SUBLINGUAL TABLET(SUBOXONE) SL (13:01)
[2018-03-27] MEDS: OXAZEPAM 15 MG CAP PO ×2 (13:01→18:42)
[2018-03-27 14:42] LABS: INR 1.12; PROTHROMBIN TIME 14.6 SECONDS (12.1-14.4)
[2018-03-27 14:47] LABS: OSMOLALITY SERUM 303 MOSM/KG (275-295)
[2018-03-27 14:56] LABS: ANION GAP 11 MEQ/L (8-16); BLOOD UREA NITROGEN 23 MG/DL (7-18); CALCIUM LEVEL 8.2 MG/DL (8.5-10.1); CARBON DIOXIDE LEVEL 23 MEQ/L (21-32); CHLORIDE LEVEL 111 MEQ/L (98-107); CREATININE FOR GFR 1.54 MG/DL (0.70-1.30); GLUCOSE, FASTING 113 MG/DL (70-100); SODIUM LEVEL 145 MEQ/L (136-145); TROPONIN I 0.04 NG/ML (< 0.10)
[2018-03-27 15:03] LABS: AMORPHOUS SEDIMENT SMALL (NEGATIVE); APPEARANCE, URINE CLOUDY (CLEAR); BACTERIA, URINE AUTO NEGATIVE (NEGATIVE); BILIRUBIN, URINE AUTO NEGATIVE (NEGATIVE); BLOOD, URINE BLOOD 2+ (NEGATIVE); COLOR, URINE AMBER (YELLOW); GLUCOSE, URINE (UA) AUTO NEGATIVE (NEGATIVE); KETONE, URINE AUTO TRACE mg/dL (NEGATIVE); LEUKOCYTE ESTERASE, URINE AUTO NEGATIVE (NEGATIVE); MUCUS, URINE MODERATE (NEGATIVE); NITRITE, URINE AUTO NEGATIVE (NEGATIVE); PROTEIN, URINE AUTO 2+ mg/dL (NEGATIVE); RBC, URINE AUTO 4 /HPF (0-3); SPECIFIC GRAVITY URINE AUTO 1.024 (1.002-1.035); SQUAMOUS EPITHELIAL CELL UR AU 0 /HPF (0-6); WBC, URINE AUTO 4 /HPF (0-3)
[2018-03-27 15:06] LABS: CK-MB VALUE MASS 13.8 NG/ML (<3.6); CPK CREATINE PHOSPHOKINASE 2069 U/L (39-308); MB/CK RELATIVE INDEX 0.66 (< OR =4)
[2018-03-27 15:14] LABS: OSMOLALITY URINE 678 MOSM/KG (500-800)
[2018-03-27 15:14] LABS: HEPATITIS B SURFACE ANTIGEN NEGATIVE (NEGATIVE)
[2018-03-27 15:23] LABS: AMPHETAMINES LEVEL URINE NEGATIVE (NEGATIVE); BARBITURATES URINE NEGATIVE (NEGATIVE); BENZODIAZEPINES URINE POSITIVE (NEGATIVE); CANNABINOIDS URINE POSITIVE (NEGATIVE); CHLORIDE,RANDOM URINE 122 MEQ/L; COCAINE METABOLITE URINE NEGATIVE (NEGATIVE); METHADONE URINE NEGATIVE (NEGATIVE); OPIATES URINE NEGATIVE (NEGATIVE); PHENCYCLIDINE URINE NEGATIVE (NEGATIVE); POTASSIUM RANDOM URINE 89.2 MEQ/L; SODIUM,RANDOM URINE 77 MEQ/L; TOTAL PROTEIN,RANDOM URINE 222.1 MG/DL (0.0-12.0)
[2018-03-27] MEDS: NICOTINE 14 MG/24 HR TRANSDERMAL TD (15:27)
[2018-03-27] MEDS: MULTIVITAMIN -ADULT INJECTION 10 ML, THIAMINE INJection 100 MG, FOLIC ACID 1 MG in NS 1... IV (15:28)
[2018-03-27] MEDS: DULoxetine 20 MG CAP (CYMBALTA) PO (15:28)
[2018-03-27] MEDS: OMEPRAZOLE 20 MG CAP PO (15:39)
[2018-03-27 15:42] LABS: HEP C VIRUS AB INDEX SOURCE PT 0.3 INDEX (0.0-0.8)
[2018-03-27] MEDS ORDERED: HALOPERIDOL 5 MG/ML VIAL (J1630) As Ordered (16:18)
[2018-03-27] MEDS: LORazepam 2 MG/ML VIAL (J2060) IM (16:23)
[2018-03-27] MEDS: HALOPERIDOL 5 MG/ML VIAL (J1630) IM (16:23)
[2018-03-27] MEDS: diphenhydrAMINE INJ 50MG/ML VIAL (J1200) IM (16:39)
[2018-03-27] MEDS: ALBUTEROL SULFATE 2.5 MG/0.5 ML INH NEB SOLN INH ×2 (16:59→23:31)
[2018-03-27 19:03] LABS: ANION GAP 7 MEQ/L (8-16); BLOOD UREA NITROGEN 25 MG/DL (7-18); CALCIUM LEVEL 8.2 MG/DL (8.5-10.1); CARBON DIOXIDE LEVEL 23 MEQ/L (21-32); CHLORIDE LEVEL 111 MEQ/L (98-107); CREATININE FOR GFR 1.31 MG/DL (0.70-1.30); GLOMERULAR FILTRATION RATE > 60.0 (>60); GLUCOSE, FASTING 99 MG/DL (70-100); POTASSIUM SERUM 3.6 MEQ/L (3.5-5.1); SODIUM LEVEL 141 MEQ/L (136-145); TROPONIN I 0.03 NG/ML (< 0.10)
[2018-03-27 19:05] LABS: CK-MB VALUE MASS 14.6 NG/ML (<3.6)
[2018-03-27 19:14] LABS: CPK CREATINE PHOSPHOKINASE 2134 U/L (39-308); MB/CK RELATIVE INDEX 0.68 (< OR =4)
[2018-03-27] MEDS: KCL 40MEQ IN D5/0.45NS 1000ML 1,000 ML IV (19:36)
[2018-03-27] MEDS: MAG SULF 1GM/100ML (MAG RUN) 1 GM in APPROPRIATE DILUENT 1 EA IV ×2 (19:37→21:11)
[2018-03-28] MEDS: OXAZEPAM 15 MG CAP PO ×5 (00:20→21:00)
[2018-03-28] MEDS: LORazepam 2 MG/ML VIAL (J2060) IV (03:32)
[2018-03-28] MEDS: KCL 40MEQ IN D5/0.45NS 1000ML 1,000 ML IV ×2 (05:04→12:37)
[2018-03-28 05:39] LABS: HEMATOCRIT 39.2 % (42.0-52.0); HEMOGLOBIN 12.7 g/dl (13.5-17.5); MEAN CORPUSCULAR HGB CONC 32.4 g/dl (32.0-36.5); MEAN CORPUSCULAR VOLUME 92.5 fl (80.0-96.0); RED BLOOD COUNT 4.24 10^6/uL (4.30-6.10); RED CELL DISTRIBUTION WIDTH 15.3 % (11.5-14.5); WHITE BLOOD COUNT 8.2 10^3/uL (4.0-10.0)
[2018-03-28 05:53] LABS: ALKALINE PHOSPHATASE 82 U/L (45-117); ALT/SGPT 146 U/L (12-78); ANION GAP 7 MEQ/L (8-16); AST/SGOT 177 U/L (7-37); BILIRUBIN,TOTAL 1.2 MG/DL (0.2-1.0); BLOOD UREA NITROGEN 20 MG/DL (7-18); CALCIUM LEVEL 7.6 MG/DL (8.5-10.1); CARBON DIOXIDE LEVEL 24 MEQ/L (21-32); CHLORIDE LEVEL 111 MEQ/L (98-107); CREATININE FOR GFR 1.14 MG/DL (0.70-1.30); GLOMERULAR FILTRATION RATE > 60.0 (>60); GLUCOSE, FASTING 100 MG/DL (70-100); POTASSIUM SERUM 3.6 MEQ/L (3.5-5.1); SODIUM LEVEL 142 MEQ/L (136-145)
[2018-03-28 05:54] LABS: ALBUMIN 3.3 GM/DL (3.2-5.2); ALBUMIN/GLOBULIN RATIO 0.87 (1.00-1.93); MAGNESIUM LEVEL 1.5 MG/DL (1.8-2.4); TOTAL PROTEIN 7.1 GM/DL (6.4-8.2); TROPONIN I < 0.02 NG/ML (< 0.10)
[2018-03-28 06:04] LABS: CK-MB VALUE MASS 12.8 NG/ML (<3.6); CPK CREATINE PHOSPHOKINASE 1684 U/L (39-308); MB/CK RELATIVE INDEX 0.76 (< OR =4)
[2018-03-28 06:37] LABS: PLATELET COUNT, AUTOMATED 84 10^3/uL (150-450)
[2018-03-28 06:38] LABS: IMMATURE PLATELET FRACTION % 4.9 % (0.0-10.9)
[2018-03-28] MEDS: ADVAIR HFA 115/21MCG INHALER INH ×2 (07:38→20:25)
[2018-03-28] MEDS: DULoxetine 20 MG CAP (CYMBALTA) PO (09:34)
[2018-03-28] MEDS: POTASSIUM CHLORIDE 10 MEQ SR TABLET PO (09:35)
[2018-03-28] MEDS: amLODIPine 5 MG TAB PO (09:35)
[2018-03-28] MEDS: SENOKOT S TAB PO ×2 (09:35→21:01)
[2018-03-28] MEDS: RIVAROXABAN 15 MG TAB (XARELTO) PO ×2 (09:35→21:00)
[2018-03-28] MEDS: BUPRENORPHINE/NALOXONE 8-2MG SUBLINGUAL TABLET(SUBOXONE) SL (09:35)
[2018-03-28] MEDS: METOPROLOL TART 50 MG TAB PO ×2 (09:36→21:01)
[2018-03-28] MEDS: OMEPRAZOLE 20 MG CAP PO (09:36)
[2018-03-28] MEDS: GABAPENTIN 300 MG CAP PO ×3 (09:36→21:00)
[2018-03-28] MEDS: MAG SULF 1GM/100ML (MAG RUN) 1 GM in APPROPRIATE DILUENT 1 EA IV (09:37)
[2018-03-28] MEDS ORDERED: SLF 3 ML SYR IV (16:45)
[2018-03-28] MEDS: SLF 3 ML SYR IV (21:01)
[2018-03-29] MEDS: SLF 3 ML SYR IV ×3 (05:48→21:06)
[2018-03-29] MEDS: OXAZEPAM 15 MG CAP PO (05:48)
[2018-03-29 06:33] LABS: HEMATOCRIT 39.6 % (42.0-52.0); HEMOGLOBIN 13.2 g/dl (13.5-17.5); MEAN CORPUSCULAR HEMOGLOBIN 30.3 pg (27.0-33.0); MEAN CORPUSCULAR HGB CONC 33.3 g/dl (32.0-36.5); MEAN CORPUSCULAR VOLUME 90.8 fl (80.0-96.0); RED BLOOD COUNT 4.36 10^6/uL (4.30-6.10); RED CELL DISTRIBUTION WIDTH 15.3 % (11.5-14.5); WHITE BLOOD COUNT 5.8 10^3/uL (4.0-10.0)
[2018-03-29 06:57] LABS: PLATELET COUNT, AUTOMATED 62 10^3/uL (150-450); POS COUNT POS FLAG
[2018-03-29 07:02] LABS: IMMATURE PLATELET FRACTION % 6.8 % (0.0-10.9)
[2018-03-29 07:11] LABS: ALBUMIN 2.9 GM/DL (3.2-5.2); ALBUMIN/GLOBULIN RATIO 0.74 (1.00-1.93); ALKALINE PHOSPHATASE 96 U/L (45-117); ALT/SGPT 247 U/L (12-78); ANION GAP 10 MEQ/L (8-16); AST/SGOT 327 U/L (7-37); BILIRUBIN,TOTAL 1.4 MG/DL (0.2-1.0); BLOOD UREA NITROGEN 10 MG/DL (7-18); CALCIUM LEVEL 8.1 MG/DL (8.5-10.1); CARBON DIOXIDE LEVEL 22 MEQ/L (21-32); CHLORIDE LEVEL 108 MEQ/L (98-107); CREATININE FOR GFR 0.86 MG/DL (0.70-1.30); GLOMERULAR FILTRATION RATE > 60.0 (>60); GLUCOSE, FASTING 91 MG/DL (70-100); MAGNESIUM LEVEL 1.4 MG/DL (1.8-2.4); POTASSIUM SERUM 4.2 MEQ/L (3.5-5.1); SODIUM LEVEL 140 MEQ/L (136-145); TOTAL PROTEIN 6.8 GM/DL (6.4-8.2)
[2018-03-29] MEDS: ADVAIR HFA 115/21MCG INHALER INH ×2 (07:41→21:20)
[2018-03-29] MEDS: RIVAROXABAN 15 MG TAB (XARELTO) PO (09:55)
[2018-03-29] MEDS: amLODIPine 5 MG TAB PO (09:55)
[2018-03-29] MEDS: OMEPRAZOLE 20 MG CAP PO (09:55)
[2018-03-29] MEDS: BUPRENORPHINE/NALOXONE 8-2MG SUBLINGUAL TABLET(SUBOXONE) SL (09:55)
[2018-03-29] MEDS: DULoxetine 20 MG CAP (CYMBALTA) PO (09:55)
[2018-03-29] MEDS: SENOKOT S TAB PO ×2 (09:55→21:05)
[2018-03-29] MEDS: GABAPENTIN 300 MG CAP PO ×3 (09:55→21:06)
[2018-03-29] MEDS: METOPROLOL TART 50 MG TAB PO ×2 (09:56→21:06)
[2018-03-29] MEDS ORDERED: OXAZEPAM 10 MG CAP PO (14:00)
[2018-03-29] MEDS: MAG SULF 1GM/100ML (MAG RUN) 1 GM in APPROPRIATE DILUENT 1 EA IV ×2 (14:00→14:05)
[2018-03-29] MEDS: OXAZEPAM 10 MG CAP PO ×2 (14:08→21:06)
[2018-03-30] MEDS: ALBUTEROL SULFATE 2.5 MG/0.5 ML INH NEB SOLN INH (04:58)
[2018-03-30] MEDS: CALCIUM CARBONATE 500 MG CHEW U/D PO (05:03)
[2018-03-30] MEDS: ACETAMINOPHEN TAB 650MG DOSE (2X325MG) PO (05:03)
[2018-03-30] MEDS: OXAZEPAM 10 MG CAP PO (05:03)
[2018-03-30 05:29] LABS: HEMATOCRIT 38.9 % (42.0-52.0); MEAN CORPUSCULAR HEMOGLOBIN 30.4 pg (27.0-33.0); MEAN CORPUSCULAR HGB CONC 33.4 g/dl (32.0-36.5); MEAN CORPUSCULAR VOLUME 91.1 fl (80.0-96.0); RED BLOOD COUNT 4.27 10^6/uL (4.30-6.10); RED CELL DISTRIBUTION WIDTH 15.7 % (11.5-14.5); WHITE BLOOD COUNT 7.6 10^3/uL (4.0-10.0)
[2018-03-30 05:32] LABS: PLATELET COUNT, AUTOMATED 76 10^3/uL (150-450)
[2018-03-30] MEDS: SLF 3 ML SYR IV (05:34)
[2018-03-30] MEDS: ONDANSETRON 4 MG ORAL DISINTEGRATING TAB (Q0162 PER 1MG) PO (05:58)
[2018-03-30 06:16] LABS: ALBUMIN/GLOBULIN RATIO 0.71 (1.00-1.93); ALKALINE PHOSPHATASE 121 U/L (45-117); ALT/SGPT 297 U/L (12-78); ANION GAP 11 MEQ/L (8-16); AST/SGOT 298 U/L (7-37); BILIRUBIN,TOTAL 1.2 MG/DL (0.2-1.0); BLOOD UREA NITROGEN 7 MG/DL (7-18); CALCIUM LEVEL 8.4 MG/DL (8.5-10.1); CARBON DIOXIDE LEVEL 20 MEQ/L (21-32); CHLORIDE LEVEL 105 MEQ/L (98-107); CREATININE FOR GFR 0.82 MG/DL (0.70-1.30); GLOMERULAR FILTRATION RATE > 60.0 (>60); GLUCOSE, FASTING 106 MG/DL (70-100); MAGNESIUM LEVEL 1.8 MG/DL (1.8-2.4); POTASSIUM SERUM 3.7 MEQ/L (3.5-5.1); SODIUM LEVEL 136 MEQ/L (136-145); TOTAL PROTEIN 7.2 GM/DL (6.4-8.2)
[2018-03-30] MEDS: ADVAIR HFA 115/21MCG INHALER INH (07:28)
[2018-03-30] MEDS ORDERED: MAG SULF 1GM/100ML (MAG RUN) 1 GM in APPROPRIATE DILUENT 1 EA IV (08:00)
[2018-03-30] MEDS: amLODIPine 5 MG TAB PO (08:23)
[2018-03-30] MEDS: RIVAROXABAN 20 MG TAB (XARELTO) PO (08:24)
[2018-03-30] MEDS: GABAPENTIN 300 MG CAP PO (08:24)
[2018-03-30] MEDS: POTASSIUM CHLORIDE 10 MEQ SR TABLET PO (08:24)
[2018-03-30] MEDS: OMEPRAZOLE 20 MG CAP PO (08:24)
[2018-03-30] MEDS: SENOKOT S TAB PO (08:25)
[2018-03-30] MEDS: MAGNESIUM OXIDE 400 MG TAB (MAG-OX) PO (08:25)
[2018-03-30] MEDS: BUPRENORPHINE/NALOXONE 8-2MG SUBLINGUAL TABLET(SUBOXONE) SL (08:25)
[2018-03-30] MEDS: METOPROLOL TART 50 MG TAB PO (08:25)
[2018-03-30] MEDS: DULoxetine 20 MG CAP (CYMBALTA) PO (09:33)
== END 2018-03-30 11:35 | disposition home or self-care (01) | DRG 917 ==
LOC: M ED 02:25 → M ED INP 10:54 → M PCU 12:33
PROVIDERS: Hospitalist
DX: T43.621A Poisoning by amphetamines, accidental (unintentional), initial encounter (principal); G93.40 Encephalopathy, unspecified; N17.9 Acute kidney failure, unspecified; F10.231 Alcohol dependence with withdrawal delirium; E87.0 Hyperosmolality and hypernatremia; M62.82 Rhabdomyolysis; F17.200 Nicotine dependence, unspecified, uncomplicated; E66.9 Obesity, unspecified; J45.909 Unspecified asthma, uncomplicated; K21.9 Gastro-esophageal reflux disease without esophagitis; D72.829 Elevated white blood cell count, unspecified; Z79.899 Other long term (current) drug therapy; Z86.711 Personal history of pulmonary embolism; R00.0 Tachycardia, unspecified; F32.9 Major depressive disorder, single episode, unspecified; Y92.009 Unspecified place in unspecified non-institutional (private) residence as the place of occurrence of the external cause

== ENCOUNTER 2018-04-30 13:24 | Inpatient (IN) | payer MEDICARE ==
[2018-04-30 14:23] LABS: BASO % 0.3 % (0.0-1.0); EOS % 0.1 % (0.0-3.0); HEMATOCRIT 43.9 % (42.0-52.0); HEMOGLOBIN 15.3 g/dl (13.5-17.5); IMMATURE GRANULOCYTE % 0.5 % (0-3.0); LYMPH # 1.3 10^3/uL (1.5-4.5); LYMPH % 9.6 % (24.0-44.0); MEAN CORPUSCULAR HEMOGLOBIN 29.5 pg (27.0-33.0); MEAN CORPUSCULAR HGB CONC 34.9 g/dl (32.0-36.5); MEAN CORPUSCULAR VOLUME 84.6 fl (80.0-96.0); MONO # 0.4 10^3/uL (0.0-0.8); MONO % 2.7 % (0.0-5.0); NEUTROPHILS # 12.2 10^3/uL (1.8-7.7); NEUTROPHILS % 86.8 % (36.0-66.0); PLATELET COUNT, AUTOMATED 212 10^3/uL (150-450); RED BLOOD COUNT 5.19 10^6/uL (4.30-6.10); RED CELL DISTRIBUTION WIDTH 14.4 % (11.5-14.5)
[2018-04-30] MEDS: IPRATROPIUM 0.5MG/ALBUTEROL 2.5MG INH SOL UD 3ML (DUONEB)(J7620) NEB (14:29)
[2018-04-30] MEDS: ONDANSETRON 4MG/2ML VIAL (J2405) IV (14:35)
[2018-04-30] MEDS: NS 1,000 ML IV ×2 (14:35→17:41)
[2018-04-30] MEDS: methylPREDNISolone INJ 125 MG/2 ML VIAL (J2930) IV (14:35)
[2018-04-30 14:37] LABS: ALBUMIN 4.1 GM/DL (3.2-5.2); ALBUMIN/GLOBULIN RATIO 0.85 (1.00-1.93); ALKALINE PHOSPHATASE 141 U/L (45-117); ALT/SGPT 273 U/L (12-78); ANION GAP 12 MEQ/L (8-16); AST/SGOT 358 U/L (7-37); BILIRUBIN,DIRECT 0.4 MG/DL (0.0-0.2); BILIRUBIN,TOTAL 1.3 MG/DL (0.2-1.0); BLOOD UREA NITROGEN 12 MG/DL (7-18); CALCIUM LEVEL 8.8 MG/DL (8.5-10.1); CARBON DIOXIDE LEVEL 34 MEQ/L (21-32); CHLORIDE LEVEL 92 MEQ/L (98-107); CREATININE FOR GFR 0.91 MG/DL (0.70-1.30); GLOMERULAR FILTRATION RATE > 60.0 (>60); GLUCOSE, FASTING 120 MG/DL (70-100); LIPASE 100 U/L (73-393); POTASSIUM SERUM 2.7 MEQ/L (3.5-5.1); SODIUM LEVEL 138 MEQ/L (136-145); TOTAL PROTEIN 8.9 GM/DL (6.4-8.2); TROPONIN I < 0.02 NG/ML (< 0.10)
[2018-04-30 14:38] LABS: CK-MB VALUE MASS 4.9 NG/ML (<3.6); CPK CREATINE PHOSPHOKINASE 276 U/L (39-308); MB/CK RELATIVE INDEX 1.77 (< OR =4)
[2018-04-30] MEDS: METOPROLOL TART 50 MG TAB PO ×2 (14:43→22:49)
[2018-04-30] MEDS: OXAZEPAM 15 MG CAP PO (14:43)
[2018-04-30] MEDS: amLODIPine 5 MG TAB PO (14:43)
[2018-04-30 14:50] LABS: ETHYL ALCOHOL (ETHANOL) 0.006 % (0.000-0.010)
[2018-04-30] MEDS: KCL 10MEQ/100ML SWI (KRUN) 10 MEQ in APPROPRIATE DILUENT 1 EA IV (15:44)
[2018-04-30] MEDS: POTASSIUM CHLORIDE 10 MEQ SR TABLET PO ×2 (15:44→17:26)
[2018-04-30] MEDS ORDERED: ISOVUE-370 76% 100ML VIAL (Q9967) As Ordered (17:14)
[2018-04-30 17:21] LABS: AMPHETAMINES LEVEL URINE NEGATIVE (NEGATIVE); BARBITURATES URINE NEGATIVE (NEGATIVE); BENZODIAZEPINES URINE NEGATIVE (NEGATIVE); CANNABINOIDS URINE NEGATIVE (NEGATIVE); COCAINE METABOLITE URINE NEGATIVE (NEGATIVE); METHADONE URINE NEGATIVE (NEGATIVE); OPIATES URINE NEGATIVE (NEGATIVE); PHENCYCLIDINE URINE NEGATIVE (NEGATIVE)
[2018-04-30] MEDS ORDERED: POLYVINYL ALCOHOL OPHTH SOLN 15 ML(LIQUITEARS) OU (17:30)
[2018-04-30] MEDS: THIAMINE 100 MG TAB PO (17:30)
[2018-04-30] MEDS ORDERED: METOCLOPRAMIDE 10 MG TAB PO (17:30)
[2018-04-30 17:35] LABS: MAGNESIUM LEVEL 1.5 MG/DL (1.8-2.4)
[2018-04-30 17:38] LABS: INR 0.99; PROTHROMBIN TIME 13.2 SECONDS (12.1-14.4)
[2018-04-30] MEDS: GABAPENTIN 300 MG CAP PO (22:49)
[2018-04-30] MEDS: BACLOFEN 10 MG TAB PO (22:49)
[2018-04-30] MEDS: ADVAIR HFA 115/21MCG INHALER INH (23:06)
[2018-04-30] MEDS: ALBUTEROL SULFATE 2.5 MG/0.5 ML INH NEB SOLN INH (23:06)
[2018-04-30] MEDS: CALCIUM CARBONATE 500 MG CHEW U/D PO (23:45)
[2018-05-01] MEDS: NS 1,000 ML IV (05:52)
[2018-05-01 06:17] LABS: HEMATOCRIT 39.2 % (42.0-52.0); HEMOGLOBIN 13.6 g/dl (13.5-17.5); MEAN CORPUSCULAR HEMOGLOBIN 29.4 pg (27.0-33.0); MEAN CORPUSCULAR HGB CONC 34.7 g/dl (32.0-36.5); MEAN CORPUSCULAR VOLUME 84.7 fl (80.0-96.0); PLATELET COUNT, AUTOMATED 144 10^3/uL (150-450); RED BLOOD COUNT 4.63 10^6/uL (4.30-6.10); RED CELL DISTRIBUTION WIDTH 14.5 % (11.5-14.5); WHITE BLOOD COUNT 15.1 10^3/uL (4.0-10.0)
[2018-05-01 06:29] LABS: ALBUMIN 3.5 GM/DL (3.2-5.2); ALKALINE PHOSPHATASE 131 U/L (45-117); ALT/SGPT 236 U/L (12-78); ANION GAP 11 MEQ/L (8-16); AST/SGOT 248 U/L (7-37); BLOOD UREA NITROGEN 16 MG/DL (7-18); CALCIUM LEVEL 9.1 MG/DL (8.5-10.1); CARBON DIOXIDE LEVEL 30 MEQ/L (21-32); CHLORIDE LEVEL 98 MEQ/L (98-107); CREATININE FOR GFR 0.87 MG/DL (0.70-1.30); GLOMERULAR FILTRATION RATE > 60.0 (>60); GLUCOSE, FASTING 135 MG/DL (70-100); POTASSIUM SERUM 3.5 MEQ/L (3.5-5.1); SODIUM LEVEL 139 MEQ/L (136-145); TOTAL PROTEIN 7.4 GM/DL (6.4-8.2)
[2018-05-01] MEDS: ADVAIR HFA 115/21MCG INHALER INH ×2 (07:13→21:00)
[2018-05-01] MEDS: GASTROGRAFIN SOLUTION 30ML PO ×6 (08:30→11:00)
[2018-05-01] MEDS: BUPRENORPHINE/NALOXONE 8-2MG SUBLINGUAL TABLET(SUBOXONE) SL (08:41)
[2018-05-01] MEDS: DULoxetine 20 MG CAP (CYMBALTA) PO (08:41)
[2018-05-01] MEDS: RIVAROXABAN 20 MG TAB (XARELTO) PO (08:42)
[2018-05-01] MEDS: THIAMINE 100 MG TAB PO ×2 (08:42→20:48)
[2018-05-01] MEDS: OXAZEPAM 10 MG CAP PO ×3 (08:42→18:07)
[2018-05-01] MEDS: FOLIC ACID 1 MG TAB PO (08:42)
[2018-05-01] MEDS: MULTIVITAMINS/MINERALS THERAP 1 TAB PO (08:42)
[2018-05-01] MEDS: OMEPRAZOLE 20 MG CAP PO (08:42)
[2018-05-01] MEDS: GABAPENTIN 300 MG CAP PO ×3 (08:42→20:47)
[2018-05-01] MEDS: BACLOFEN 10 MG TAB PO ×3 (08:43→20:48)
[2018-05-01] MEDS: METOPROLOL TART 50 MG TAB PO ×2 (08:46→20:48)
[2018-05-01] MEDS: amLODIPine 5 MG TAB PO (08:46)
[2018-05-01] MEDS ORDERED: PANTOPRAZOLE 40MG TAB (PROTONIX) PO (09:00)
[2018-05-01 10:49] LABS: HEPATITIS B SURFACE ANTIGEN NEGATIVE (NEGATIVE)
[2018-05-01 11:12] LABS: HEPATITIS C VIRUS ABY INDEX 0.1 INDEX (<0.8)
[2018-05-01 11:13] LABS: HEPATITIS B CORE ANTIBODY IGM NEGATIVE (NEGATIVE)
[2018-05-01 11:18] LABS: HEPATITIS A ANTIBODY IGM NEGATIVE (NEGATIVE)
[2018-05-01] MEDS: ALBUTEROL SULFATE 2.5 MG/0.5 ML INH NEB SOLN INH (19:57)
[2018-05-01] MEDS: LORazepam 2 MG TAB PO (22:14)
[2018-05-02] MEDS: OXAZEPAM 10 MG CAP PO ×2 (00:41→06:00)
[2018-05-02] MEDS: ADVAIR HFA 115/21MCG INHALER INH (07:34)
[2018-05-02] MEDS: METOPROLOL TART 50 MG TAB PO (10:25)
[2018-05-02] MEDS: GABAPENTIN 300 MG CAP PO (10:26)
[2018-05-02] MEDS: FOLIC ACID 1 MG TAB PO (10:26)
[2018-05-02] MEDS: RIVAROXABAN 20 MG TAB (XARELTO) PO (10:26)
[2018-05-02] MEDS: THIAMINE 100 MG TAB PO (10:27)
[2018-05-02] MEDS: MULTIVITAMINS/MINERALS THERAP 1 TAB PO (10:27)
[2018-05-02] MEDS: amLODIPine 5 MG TAB PO (10:27)
[2018-05-02] MEDS: BACLOFEN 10 MG TAB PO (10:28)
[2018-05-02] MEDS: OMEPRAZOLE 20 MG CAP PO (10:28)
[2018-05-02] MEDS: BUPRENORPHINE/NALOXONE 8-2MG SUBLINGUAL TABLET(SUBOXONE) SL (10:42)
== END 2018-05-02 10:48 | disposition home or self-care (01) | DRG 897 ==
LOC: M ED 13:24 → M ED INP 19:09 → M MSPAV 22:08
DX: F10.239 Alcohol dependence with withdrawal, unspecified (principal); I38 Endocarditis, valve unspecified; R11.10 Vomiting, unspecified; R19.7 Diarrhea, unspecified; R91.1 Solitary pulmonary nodule; K21.9 Gastro-esophageal reflux disease without esophagitis; I10 Essential (primary) hypertension; J45.909 Unspecified asthma, uncomplicated; E87.6 Hypokalemia; E83.42 Hypomagnesemia; Z86.711 Personal history of pulmonary embolism; Z79.899 Other long term (current) drug therapy; Z88.1 Allergy status to other antibiotic agents; K70.10 Alcoholic hepatitis without ascites; K70.0 Alcoholic fatty liver

== ENCOUNTER → 2018-05-05 | Outpatient (CLI) | payer MEDICARE, MEDICAID | LOC: M OUTALCOH 10:01 | DX: Z13.9 Encounter for screening, unspecified (principal); F10.20 Alcohol dependence, uncomplicated | CPT/HCPCS: H0001 ==

== ENCOUNTER 2018-05-26 11:19 | Outpatient (RCR) | payer MEDICARE, MEDICAID | END 2018-06-21 | LOC: M OUTALCOH 05-29 14:00 | DX: F10.20 Alcohol dependence, uncomplicated (principal); F11.20 Opioid dependence, uncomplicated; F14.20 Cocaine dependence, uncomplicated | CPT/HCPCS: 90834 ==

== ENCOUNTER → 2018-06-09 | Outpatient (CLI) | payer MEDICARE, MEDICAID | LOC: M SLEEP 19:39 | DX: G47.30 Sleep apnea, unspecified (principal) | CPT/HCPCS: 95810 ==

== ENCOUNTER 2018-07-29 18:56 | Emergency (ER) | payer MEDICARE, MEDICAID ==
[2018-07-29] MEDS: MULTIVITAMIN -ADULT INJECTION 10 ML, THIAMINE INJection 100 MG, FOLIC ACID 1 MG in NS 1... IV (19:30)
[2018-07-29 20:04] LABS: BASO # 0.1 10^3/uL (0.0-0.2); BASO % 0.7 % (0.0-1.0); EOS % 0.2 % (0.0-3.0); HEMOGLOBIN 15.2 g/dl (13.5-17.5); IMMATURE GRANULOCYTE % 0.5 % (0-3.0); LYMPH # 2.8 10^3/uL (1.5-4.5); LYMPH % 26.8 % (24.0-44.0); MEAN CORPUSCULAR HEMOGLOBIN 28.6 pg (27.0-33.0); MEAN CORPUSCULAR HGB CONC 34.5 g/dl (32.0-36.5); MEAN CORPUSCULAR VOLUME 82.9 fl (80.0-96.0); MONO # 0.6 10^3/uL (0.0-0.8); MONO % 5.5 % (0.0-5.0); NEUTROPHILS # 6.9 10^3/uL (1.8-7.7); NEUTROPHILS % 66.3 % (36.0-66.0); PLATELET COUNT, AUTOMATED 206 10^3/uL (150-450); RED BLOOD COUNT 5.31 10^6/uL (4.30-6.10); RED CELL DISTRIBUTION WIDTH 13.6 % (11.5-14.5); WHITE BLOOD COUNT 10.3 10^3/uL (4.0-10.0)
[2018-07-29 21:01] LABS: PROTHROMBIN TIME 23.1 SECONDS (12.1-14.4)
[2018-07-29 21:02] LABS: PARTIAL THROMBOPLASTIN TIME 49.7 SECONDS (25.4-37.6)
[2018-07-29 21:07] LABS: ALBUMIN/GLOBULIN RATIO 0.98 (1.00-1.93); ALKALINE PHOSPHATASE 124 U/L (45-117); ALT/SGPT 85 U/L (12-78); ANION GAP 16 MEQ/L (8-16); AST/SGOT 89 U/L (7-37); BILIRUBIN,DIRECT < 0.1 MG/DL (0.0-0.2); BILIRUBIN,TOTAL 0.5 MG/DL (0.2-1.0); BLOOD UREA NITROGEN 16 MG/DL (7-18); CALCIUM LEVEL 8.7 MG/DL (8.5-10.1); CARBON DIOXIDE LEVEL 24 MEQ/L (21-32); CHLORIDE LEVEL 100 MEQ/L (98-107); CREATININE FOR GFR 0.68 MG/DL (0.70-1.30); ETHYL ALCOHOL (ETHANOL) 0.364 % (0.000-0.010); GLOMERULAR FILTRATION RATE > 60.0 (>60); GLUCOSE, FASTING 110 MG/DL (70-100); LIPASE 109 U/L (73-393); POTASSIUM SERUM 3.5 MEQ/L (3.5-5.1); SODIUM LEVEL 140 MEQ/L (136-145); TOTAL PROTEIN 8.1 GM/DL (6.4-8.2)
[2018-07-29 21:14] LABS: LACTIC ACID SEPSIS PROTOCOL 5.1 MMOL/L (0.4-2.0)
[2018-07-29] MEDS: NS 1,000 ML IV (21:15)
== END 2018-07-29 23:39 | disposition home or self-care (01) ==
LOC: M ED 18:56
DX: F10.129 Alcohol abuse with intoxication, unspecified (principal); E86.0 Dehydration; I10 Essential (primary) hypertension; J44.9 Chronic obstructive pulmonary disease, unspecified; D50.9 Iron deficiency anemia, unspecified; Z86.711 Personal history of pulmonary embolism; Z86.79 Personal history of other diseases of the circulatory system; N31.9 Neuromuscular dysfunction of bladder, unspecified; Z79.899 Other long term (current) drug therapy; Z88.1 Allergy status to other antibiotic agents
CPT/HCPCS: J3411

== ENCOUNTER 2018-07-31 05:15 | Emergency (ER) | payer MEDICARE, MEDICAID ==
[2018-07-31] MEDS: PIPERACILLIN/TAZOBACTAM SOD 3.375 GM in D5W MINI-BAG PLUS 50 ML IV (05:30)
[2018-07-31 06:39] LABS: BASO % 0.7 % (0.0-1.0); EOS # 0.1 10^3/uL (0.0-0.50); EOS % 2.3 % (0.0-3.0); HEMATOCRIT 40.8 % (42.0-52.0); IMMATURE GRANULOCYTE % 1.2 % (0-3.0); LYMPH # 1.9 10^3/uL (1.5-4.5); LYMPH % 31.5 % (24.0-44.0); MEAN CORPUSCULAR HEMOGLOBIN 28.7 pg (27.0-33.0); MEAN CORPUSCULAR HGB CONC 34.3 g/dl (32.0-36.5); MEAN CORPUSCULAR VOLUME 83.8 fl (80.0-96.0); MONO # 0.3 10^3/uL (0.0-0.8); MONO % 4.8 % (0.0-5.0); NEUTROPHILS # 3.6 10^3/uL (1.8-7.7); NEUTROPHILS % 59.5 % (36.0-66.0); PLATELET COUNT, AUTOMATED 123 10^3/uL (150-450); RED BLOOD COUNT 4.87 10^6/uL (4.30-6.10); RED CELL DISTRIBUTION WIDTH 13.6 % (11.5-14.5)
[2018-07-31 07:18] LABS: ANION GAP 15 MEQ/L (8-16); BLOOD UREA NITROGEN 13 MG/DL (7-18); CALCIUM LEVEL 8.3 MG/DL (8.5-10.1); CARBON DIOXIDE LEVEL 25 MEQ/L (21-32); CHLORIDE LEVEL 101 MEQ/L (98-107); CREATININE FOR GFR 0.45 MG/DL (0.70-1.30); ETHYL ALCOHOL (ETHANOL) 0.317 % (0.000-0.010); GLOMERULAR FILTRATION RATE > 60.0 (>60); GLUCOSE, FASTING 93 MG/DL (70-100); POTASSIUM SERUM 3.4 MEQ/L (3.5-5.1); SODIUM LEVEL 141 MEQ/L (136-145)
== END 2018-07-31 07:50 | disposition home or self-care (01) ==
LOC: M ED 05:15
DX: R78.81 Bacteremia (principal); Z86.79 Personal history of other diseases of the circulatory system; Z87.898 Personal history of other specified conditions; Z88.1 Allergy status to other antibiotic agents; Z79.899 Other long term (current) drug therapy; Z79.891 Long term (current) use of opiate analgesic; Z79.01 Long term (current) use of anticoagulants

== ENCOUNTER 2018-07-31 19:37 | Emergency (ER) | payer MEDICARE, MEDICAID ==
[2018-07-31 20:27] LABS: BASO # 0.1 10^3/uL (0.0-0.2); BASO % 0.4 % (0.0-1.0); EOS % 0.1 % (0.0-3.0); HEMATOCRIT 42.3 % (42.0-52.0); HEMOGLOBIN 14.7 g/dl (13.5-17.5); IMMATURE GRANULOCYTE % 0.4 % (0-3.0); LYMPH # 0.6 10^3/uL (1.5-4.5); LYMPH % 4.2 % (24.0-44.0); MEAN CORPUSCULAR HEMOGLOBIN 28.7 pg (27.0-33.0); MEAN CORPUSCULAR HGB CONC 34.8 g/dl (32.0-36.5); MEAN CORPUSCULAR VOLUME 82.5 fl (80.0-96.0); MONO # 0.3 10^3/uL (0.0-0.8); MONO % 2.2 % (0.0-5.0); NEUTROPHILS # 12.5 10^3/uL (1.8-7.7); NEUTROPHILS % 92.7 % (36.0-66.0); PLATELET COUNT, AUTOMATED 132 10^3/uL (150-450); RED BLOOD COUNT 5.13 10^6/uL (4.30-6.10); RED CELL DISTRIBUTION WIDTH 13.7 % (11.5-14.5); WHITE BLOOD COUNT 13.5 10^3/uL (4.0-10.0)
[2018-07-31] MEDS: METOPROLOL 5 MG/5 ML VIAL IV ×3 (20:27→21:59)
[2018-07-31] MEDS: PROMETHAZINE INJ 25 MG/ML VIAL (J2550) IV (20:27)
[2018-07-31] MEDS: NS 1,000 ML IV (20:27)
[2018-07-31] MEDS: PANTOPRAZOLE 40MG INJ (PROTONIX) (C9113) IV (20:27)
[2018-07-31] MEDS: LORazepam 2 MG/ML VIAL (J2060) IV ×2 (20:27→23:11)
[2018-07-31 20:38] LABS: INR 1.04; PROTHROMBIN TIME 13.7 SECONDS (12.1-14.4)
[2018-07-31 20:55] LABS: ETHYL ALCOHOL (ETHANOL) < 0.003 % (0.000-0.010)
[2018-07-31 21:02] LABS: ALBUMIN 4.3 GM/DL (3.2-5.2); ALKALINE PHOSPHATASE 129 U/L (45-117); ALT/SGPT 135 U/L (12-78); AMYLASE 48 U/L (25-115); ANION GAP 16 MEQ/L (8-16); AST/SGOT 170 U/L (7-37); BILIRUBIN,DIRECT 0.4 MG/DL (0.0-0.2); BILIRUBIN,TOTAL 1.3 MG/DL (0.2-1.0); BLOOD UREA NITROGEN 15 MG/DL (7-18); CALCIUM LEVEL 9.4 MG/DL (8.5-10.1); CARBON DIOXIDE LEVEL 26 MEQ/L (21-32); CHLORIDE LEVEL 99 MEQ/L (98-107); CREATININE FOR GFR 0.61 MG/DL (0.70-1.30); GLOMERULAR FILTRATION RATE > 60.0 (>60); GLUCOSE, FASTING 106 MG/DL (70-100); LIPASE 107 U/L (73-393); POTASSIUM SERUM 3.3 MEQ/L (3.5-5.1); SODIUM LEVEL 141 MEQ/L (136-145); TOTAL PROTEIN 8.2 GM/DL (6.4-8.2)
[2018-07-31] MEDS: METOPROLOL TART 50 MG TAB PO (21:26)
[2018-07-31] MEDS: LABETALOL HCL 100 MG/20 ML VIAL IV (23:02)
[2018-07-31 23:19] LABS: KETONE, URINE AUTO RFX 2+ mg/dL (NEGATIVE); LEUKOCYTE ESTERASE UR AUTO RFX NEGATIVE (NEGATIVE); MUCUS, URINE RFX SMALL (NEGATIVE); NITRITE, URINE AUTO RFX NEGATIVE (NEGATIVE); RBC, URINE AUTO RFX 2 /HPF (0-3); SQUAM EPITHELIAL CELL UR AURFX 1 /HPF (0-6); WBC, URINE AUTO RFX 2 /HPF (0-3)
[2018-08-03 11:19] LABS: HEPATITIS A ANTIBODY IGM NEGATIVE (NEGATIVE); HEPATITIS B CORE ANTIBODY IGM NEGATIVE (NEGATIVE); HEPATITIS B SURFACE ANTIGEN NEGATIVE (NEGATIVE)
[2018-08-03 11:19] LABS: HEPATITIS C VIRUS ABY INDEX 0.1 INDEX (<0.8)
== END 2018-08-01 00:01 | disposition home or self-care (01) ==
LOC: M ED 08-01 00:01
DX: I10 Essential (primary) hypertension (principal); R00.0 Tachycardia, unspecified; R11.2 Nausea with vomiting, unspecified; K70.10 Alcoholic hepatitis without ascites; F19.10 Other psychoactive substance abuse, uncomplicated; J45.909 Unspecified asthma, uncomplicated; G89.29 Other chronic pain; Z88.1 Allergy status to other antibiotic agents; Z79.899 Other long term (current) drug therapy; Z79.01 Long term (current) use of anticoagulants; Z79.891 Long term (current) use of opiate analgesic

== ENCOUNTER 2018-08-02 17:45 | Inpatient (IN) | payer MEDICARE, MEDICAID ==
[2018-08-02 18:38] LABS: BASO # 0.1 10^3/uL (0.0-0.2); BASO % 0.5 % (0.0-1.0); EOS # 0.3 10^3/uL (0.0-0.50); EOS % 2.3 % (0.0-3.0); HEMATOCRIT 41.8 % (42.0-52.0); HEMOGLOBIN 13.9 g/dl (13.5-17.5); IMMATURE GRANULOCYTE % 0.6 % (0-3.0); LYMPH # 0.8 10^3/uL (1.5-4.5); LYMPH % 7.1 % (24.0-44.0); MEAN CORPUSCULAR HEMOGLOBIN 28.5 pg (27.0-33.0); MEAN CORPUSCULAR HGB CONC 33.3 g/dl (32.0-36.5); MEAN CORPUSCULAR VOLUME 85.8 fl (80.0-96.0); MONO # 0.3 10^3/uL (0.0-0.8); MONO % 2.4 % (0.0-5.0); NEUTROPHILS # 9.6 10^3/uL (1.8-7.7); NEUTROPHILS % 87.1 % (36.0-66.0); RED BLOOD COUNT 4.87 10^6/uL (4.30-6.10); RED CELL DISTRIBUTION WIDTH 14.6 % (11.5-14.5); WHITE BLOOD COUNT 11.1 10^3/uL (4.0-10.0)
[2018-08-02] MEDS: ONDANSETRON 4 MG ORAL DISINTEGRATING TAB (Q0162 PER 1MG) PO (18:46)
[2018-08-02 18:59] LABS: PLATELET COUNT, AUTOMATED 92 10^3/uL (150-450)
[2018-08-02 19:01] LABS: IMMATURE PLATELET FRACTION % 5.1 % (0.0-10.9)
[2018-08-02 19:20] LABS: INFLUENZA A AMPLIFICATION NEGATIVE (NEGATIVE); INFLUENZA B AMPLIFICATION NEGATIVE (NEGATIVE)
[2018-08-02] MEDS: NS 1,000 ML IV (20:31)
[2018-08-02] MEDS: ACETAMINOPHEN 325 MG TAB PO (20:32)
[2018-08-02 21:32] LABS: LACTIC ACID SEPSIS PROTOCOL 1.4 MMOL/L (0.4-2.0)
[2018-08-02 21:52] LABS: ANION GAP 11 MEQ/L (8-16); BLOOD UREA NITROGEN 14 MG/DL (7-18); CALCIUM LEVEL 8.9 MG/DL (8.5-10.1); CARBON DIOXIDE LEVEL 25 MEQ/L (21-32); CHLORIDE LEVEL 103 MEQ/L (98-107); CPK CREATINE PHOSPHOKINASE 334 U/L (39-308); CREATININE FOR GFR 0.57 MG/DL (0.70-1.30); ETHYL ALCOHOL (ETHANOL) < 0.003 % (0.000-0.010); GLOMERULAR FILTRATION RATE > 60.0 (>60); GLUCOSE, FASTING 109 MG/DL (70-100); POTASSIUM SERUM 3.7 MEQ/L (3.5-5.1); SODIUM LEVEL 139 MEQ/L (136-145); TROPONIN I < 0.02 NG/ML (< 0.10)
[2018-08-02] MEDS: PIPERACILLIN/TAZOBACTAM SOD 4.5 GM in D5W MINI-BAG PLUS 50 ML IV (22:45)
[2018-08-02 23:08] LABS: AMPHETAMINES LEVEL URINE NEGATIVE (NEGATIVE); BARBITURATES URINE NEGATIVE (NEGATIVE); BENZODIAZEPINES URINE POSITIVE (NEGATIVE); CANNABINOIDS URINE NEGATIVE (NEGATIVE); COCAINE METABOLITE URINE NEGATIVE (NEGATIVE); METHADONE URINE NEGATIVE (NEGATIVE); OPIATES URINE NEGATIVE (NEGATIVE); PHENCYCLIDINE URINE NEGATIVE (NEGATIVE)
[2018-08-03] MEDS ORDERED: ALBUTEROL 90 MCG/ACT 8GM HFA INHALER INH (01:00)
[2018-08-03] MEDS: GABAPENTIN 300 MG CAP PO ×4 (01:02→21:12)
[2018-08-03] MEDS: METOPROLOL TART 50 MG TAB PO ×3 (01:03→21:13)
[2018-08-03] MEDS: NS 1,000 ML IV ×2 (02:15→12:00)
[2018-08-03] MEDS: NICOTINE 14 MG/24 HR TRANSDERMAL TD (02:15)
[2018-08-03] MEDS: PIPERACILLIN/TAZOBACTAM SOD 3.375 GM in D5W MINI-BAG PLUS 50 ML IV ×4 (04:02→21:13)
[2018-08-03] MEDS: LORazepam 2 MG/ML VIAL (J2060) IV ×3 (06:36→23:57)
[2018-08-03 07:44] LABS: BASO % 0.4 % (0.0-1.0); EOS # 0.4 10^3/uL (0.0-0.50); EOS % 5.8 % (0.0-3.0); HEMOGLOBIN 12.1 g/dl (13.5-17.5); IMMATURE GRANULOCYTE % 1.1 % (0-3.0); LYMPH # 1.3 10^3/uL (1.5-4.5); LYMPH % 16.7 % (24.0-44.0); MEAN CORPUSCULAR HEMOGLOBIN 28.4 pg (27.0-33.0); MEAN CORPUSCULAR HGB CONC 32.7 g/dl (32.0-36.5); MEAN CORPUSCULAR VOLUME 86.9 fl (80.0-96.0); MONO # 0.2 10^3/uL (0.0-0.8); MONO % 2.8 % (0.0-5.0); NEUTROPHILS # 5.5 10^3/uL (1.8-7.7); NEUTROPHILS % 73.2 % (36.0-66.0); PLATELET COUNT, AUTOMATED 76 10^3/uL (150-450); RED BLOOD COUNT 4.26 10^6/uL (4.30-6.10); RED CELL DISTRIBUTION WIDTH 14.7 % (11.5-14.5); WHITE BLOOD COUNT 7.5 10^3/uL (4.0-10.0)
[2018-08-03] MEDS: RIVAROXABAN 20 MG TAB (XARELTO) PO (08:15)
[2018-08-03] MEDS: SENOKOT S TAB PO (08:15)
[2018-08-03] MEDS: MULTIVITAMINS/MINERALS THERAP 1 TAB PO (08:15)
[2018-08-03] MEDS: BUPRENORPHINE/NALOXONE 8-2MG SUBLINGUAL TABLET(SUBOXONE) SL (08:15)
[2018-08-03] MEDS: TAMSULOSIN 0.4 MG CAP PO (08:15)
[2018-08-03] MEDS: DULoxetine 30 MG CAP (CYMBALTA) PO ×2 (08:15→21:12)
[2018-08-03] MEDS: FOLIC ACID 1 MG TAB PO (08:15)
[2018-08-03] MEDS: OMEPRAZOLE 20 MG CAP PO (08:15)
[2018-08-03] MEDS: amLODIPine 10 MG TAB PO (08:16)
[2018-08-03] MEDS: THIAMINE 100 MG TAB PO (08:16)
[2018-08-03] MEDS: FLUTICASONE PROP 0.05% NASAL SPRAY 16 GM (FLONASE) (08:16)
[2018-08-03] MEDS: ACETAMINOPHEN TAB 650MG DOSE (2X325MG) PO (08:17)
[2018-08-03 08:37] LABS: ALBUMIN 3.2 GM/DL (3.2-5.2); ALBUMIN/GLOBULIN RATIO 0.84 (1.00-1.93); ALKALINE PHOSPHATASE 111 U/L (45-117); ALT/SGPT 209 U/L (12-78); ANION GAP 9 MEQ/L (8-16); AST/SGOT 243 U/L (7-37); BILIRUBIN,TOTAL 0.6 MG/DL (0.2-1.0); BLOOD UREA NITROGEN 13 MG/DL (7-18); CARBON DIOXIDE LEVEL 27 MEQ/L (21-32); CHLORIDE LEVEL 104 MEQ/L (98-107); CPK CREATINE PHOSPHOKINASE 250 U/L (39-308); CREATININE FOR GFR 0.83 MG/DL (0.70-1.30); GLOMERULAR FILTRATION RATE > 60.0 (>60); GLUCOSE, FASTING 109 MG/DL (70-100); MAGNESIUM LEVEL 1.5 MG/DL (1.8-2.4); MB/CK RELATIVE INDEX 1.64 (< OR =4); POTASSIUM SERUM 3.1 MEQ/L (3.5-5.1); SODIUM LEVEL 140 MEQ/L (136-145); TROPONIN I < 0.02 NG/ML (< 0.10)
[2018-08-03] MEDS: POTASSIUM CHLORIDE 10 MEQ SR TABLET PO (10:06)
[2018-08-03] MEDS: MAG SULF 1GM/100ML (MAG RUN) 1 GM in APPROPRIATE DILUENT 1 EA IV ×2 (10:06→11:00)
[2018-08-03] MEDS: NICOTINE 21MG/24HR 1 EA TRANSDERMAL TD (16:07)
[2018-08-03 16:38] LABS: C REACTIVE PROTEIN QUANTITATIV 1.98 MG/DL (0.00-0.30)
[2018-08-03] MEDS: diphenhydrAMINE 25 MG CAP PO (23:57)
[2018-08-04] MEDS: PIPERACILLIN/TAZOBACTAM SOD 3.375 GM in D5W MINI-BAG PLUS 50 ML IV ×3 (04:12→16:28)
[2018-08-04 06:26] LABS: HEMATOCRIT 37.2 % (42.0-52.0); HEMOGLOBIN 12.2 g/dl (13.5-17.5); MEAN CORPUSCULAR HGB CONC 32.8 g/dl (32.0-36.5); MEAN CORPUSCULAR VOLUME 88.6 fl (80.0-96.0); RED CELL DISTRIBUTION WIDTH 15.1 % (11.5-14.5)
[2018-08-04 06:29] LABS: IMMATURE PLATELET FRACTION % 5.5 % (0.0-10.9); PLATELET COUNT, AUTOMATED 81 10^3/uL (150-450)
[2018-08-04 06:49] LABS: ALBUMIN 3.3 GM/DL (3.2-5.2); ALBUMIN/GLOBULIN RATIO 0.94 (1.00-1.93); ALKALINE PHOSPHATASE 103 U/L (45-117); ALT/SGPT 233 U/L (12-78); ANION GAP 6 MEQ/L (8-16); AST/SGOT 215 U/L (7-37); BILIRUBIN,TOTAL 0.5 MG/DL (0.2-1.0); BLOOD UREA NITROGEN 9 MG/DL (7-18); C REACTIVE PROTEIN QUANTITATIV 1.67 MG/DL (0.00-0.30); CARBON DIOXIDE LEVEL 31 MEQ/L (21-32); CHLORIDE LEVEL 103 MEQ/L (98-107); CREATININE FOR GFR 0.71 MG/DL (0.70-1.30); GLOMERULAR FILTRATION RATE > 60.0 (>60); GLUCOSE, FASTING 101 MG/DL (70-100); POTASSIUM SERUM 3.7 MEQ/L (3.5-5.1); SODIUM LEVEL 140 MEQ/L (136-145); TOTAL PROTEIN 6.8 GM/DL (6.4-8.2)
[2018-08-04] MEDS: ALBUTEROL SULFATE 2.5 MG/0.5 ML INH NEB SOLN INH (07:18)
[2018-08-04 08:40] LABS: MAGNESIUM LEVEL 2.1 MG/DL (1.8-2.4)
[2018-08-04] MEDS: FLUTICASONE PROP 0.05% NASAL SPRAY 16 GM (FLONASE) (09:06)
[2018-08-04] MEDS: THIAMINE 100 MG TAB PO (09:06)
[2018-08-04] MEDS: SENOKOT S TAB PO (09:06)
[2018-08-04] MEDS: GABAPENTIN 300 MG CAP PO ×3 (09:07→20:32)
[2018-08-04] MEDS: RIVAROXABAN 20 MG TAB (XARELTO) PO (09:07)
[2018-08-04] MEDS: MULTIVITAMINS/MINERALS THERAP 1 TAB PO (09:07)
[2018-08-04] MEDS: amLODIPine 10 MG TAB PO (09:07)
[2018-08-04] MEDS: BUPRENORPHINE/NALOXONE 8-2MG SUBLINGUAL TABLET(SUBOXONE) SL (09:08)
[2018-08-04] MEDS: METOPROLOL TART 50 MG TAB PO ×2 (09:08→20:33)
[2018-08-04] MEDS: DULoxetine 30 MG CAP (CYMBALTA) PO ×2 (09:08→20:32)
[2018-08-04] MEDS: TAMSULOSIN 0.4 MG CAP PO (09:08)
[2018-08-04] MEDS: FOLIC ACID 1 MG TAB PO (09:08)
[2018-08-04] MEDS: OMEPRAZOLE 20 MG CAP PO (09:08)
[2018-08-04] MEDS: NICOTINE 21MG/24HR 1 EA TRANSDERMAL TD (09:51)
[2018-08-04] MEDS ORDERED: SLF 3 ML SYR IV (11:45)
[2018-08-04] MEDS: LORazepam 2 MG/ML VIAL (J2060) IV ×2 (13:44→20:42)
[2018-08-04] MEDS: SLF 3 ML SYR IV ×2 (16:28→20:33)
[2018-08-05] MEDS: LORazepam 2 MG/ML VIAL (J2060) IV (04:46)
[2018-08-05 05:44] LABS: HEMATOCRIT 38.9 % (42.0-52.0); HEMOGLOBIN 12.7 g/dl (13.5-17.5); MEAN CORPUSCULAR HEMOGLOBIN 28.7 pg (27.0-33.0); MEAN CORPUSCULAR HGB CONC 32.6 g/dl (32.0-36.5); RED BLOOD COUNT 4.42 10^6/uL (4.30-6.10); WHITE BLOOD COUNT 7.2 10^3/uL (4.0-10.0)
[2018-08-05 05:48] LABS: PLATELET COUNT, AUTOMATED 98 10^3/uL (150-450)
[2018-08-05] MEDS: SLF 3 ML SYR IV ×3 (06:00→22:00)
[2018-08-05 06:09] LABS: ALBUMIN 3.4 GM/DL (3.2-5.2); ALBUMIN/GLOBULIN RATIO 0.89 (1.00-1.93); ALKALINE PHOSPHATASE 107 U/L (45-117); ALT/SGPT 245 U/L (12-78); ANION GAP 6 MEQ/L (8-16); AST/SGOT 185 U/L (7-37); BILIRUBIN,TOTAL 0.5 MG/DL (0.2-1.0); BLOOD UREA NITROGEN 11 MG/DL (7-18); C REACTIVE PROTEIN QUANTITATIV 1.24 MG/DL (0.00-0.30); CARBON DIOXIDE LEVEL 30 MEQ/L (21-32); CHLORIDE LEVEL 100 MEQ/L (98-107); CREATININE FOR GFR 0.66 MG/DL (0.70-1.30); GLOMERULAR FILTRATION RATE > 60.0 (>60); GLUCOSE, FASTING 112 MG/DL (70-100); MAGNESIUM LEVEL 1.9 MG/DL (1.8-2.4); POTASSIUM SERUM 3.4 MEQ/L (3.5-5.1); SODIUM LEVEL 136 MEQ/L (136-145); TOTAL PROTEIN 7.2 GM/DL (6.4-8.2)
[2018-08-05 06:10] LABS: ERYTHROCYTE SEDIMENTATION RATE 22 mm/hr (0-15)
[2018-08-05] MEDS: POTASSIUM CHLORIDE 10 MEQ SR TABLET PO ×2 (06:50→08:23)
[2018-08-05] MEDS: OMEPRAZOLE 20 MG CAP PO (08:22)
[2018-08-05] MEDS: amLODIPine 10 MG TAB PO (08:22)
[2018-08-05] MEDS: GABAPENTIN 300 MG CAP PO ×3 (08:22→20:43)
[2018-08-05] MEDS: RIVAROXABAN 20 MG TAB (XARELTO) PO (08:23)
[2018-08-05] MEDS: FOLIC ACID 1 MG TAB PO (08:23)
[2018-08-05] MEDS: TAMSULOSIN 0.4 MG CAP PO (08:23)
[2018-08-05] MEDS: BUPRENORPHINE/NALOXONE 8-2MG SUBLINGUAL TABLET(SUBOXONE) SL (08:23)
[2018-08-05] MEDS: MULTIVITAMINS/MINERALS THERAP 1 TAB PO (08:24)
[2018-08-05] MEDS: DULoxetine 30 MG CAP (CYMBALTA) PO ×2 (08:24→20:42)
[2018-08-05] MEDS: THIAMINE 100 MG TAB PO (08:24)
[2018-08-05] MEDS: METOPROLOL TART 50 MG TAB PO ×2 (08:24→20:43)
[2018-08-05] MEDS: NICOTINE 21MG/24HR 1 EA TRANSDERMAL TD (08:25)
[2018-08-05] MEDS: SENOKOT S TAB PO (08:25)
[2018-08-05] MEDS: FLUTICASONE PROP 0.05% NASAL SPRAY 16 GM (FLONASE) (08:25)
[2018-08-05] MEDS: BACLOFEN 10 MG TAB PO ×3 (08:26→20:43)
[2018-08-05] MEDS: ALBUTEROL SULFATE 2.5 MG/0.5 ML INH NEB SOLN INH (13:56)
[2018-08-05] MEDS: OXAZEPAM 10 MG CAP PO ×2 (14:34→23:29)
[2018-08-05] MEDS: METOCLOPRAMIDE 10 MG TAB PO (18:04)
[2018-08-05] MEDS: ACETAMINOPHEN TAB 650MG DOSE (2X325MG) PO (20:44)
[2018-08-06] MEDS: SLF 3 ML SYR IV ×3 (05:40→21:08)
[2018-08-06 06:07] LABS: HEMATOCRIT 39.5 % (42.0-52.0); HEMOGLOBIN 13.1 g/dl (13.5-17.5); MEAN CORPUSCULAR HGB CONC 33.2 g/dl (32.0-36.5); MEAN CORPUSCULAR VOLUME 87.6 fl (80.0-96.0); PLATELET COUNT, AUTOMATED 108 10^3/uL (150-450); RED BLOOD COUNT 4.51 10^6/uL (4.30-6.10); RED CELL DISTRIBUTION WIDTH 15.3 % (11.5-14.5); WHITE BLOOD COUNT 6.4 10^3/uL (4.0-10.0)
[2018-08-06 06:23] LABS: ALBUMIN 3.4 GM/DL (3.2-5.2); ALBUMIN/GLOBULIN RATIO 0.81 (1.00-1.93); ALKALINE PHOSPHATASE 105 U/L (45-117); ALT/SGPT 229 U/L (12-78); ANION GAP 8 MEQ/L (8-16); AST/SGOT 128 U/L (7-37); BILIRUBIN,TOTAL 0.4 MG/DL (0.2-1.0); BLOOD UREA NITROGEN 17 MG/DL (7-18); C REACTIVE PROTEIN QUANTITATIV 0.86 MG/DL (0.00-0.30); CALCIUM LEVEL 8.8 MG/DL (8.5-10.1); CARBON DIOXIDE LEVEL 26 MEQ/L (21-32); CHLORIDE LEVEL 104 MEQ/L (98-107); CREATININE FOR GFR 0.64 MG/DL (0.70-1.30); GLOMERULAR FILTRATION RATE > 60.0 (>60); GLUCOSE, FASTING 105 MG/DL (70-100); POTASSIUM SERUM 3.9 MEQ/L (3.5-5.1); SODIUM LEVEL 138 MEQ/L (136-145); TOTAL PROTEIN 7.6 GM/DL (6.4-8.2)
[2018-08-06 06:38] LABS: ERYTHROCYTE SEDIMENTATION RATE 21 mm/hr (0-15)
[2018-08-06] MEDS: NICOTINE 21MG/24HR 1 EA TRANSDERMAL TD (09:00)
[2018-08-06] MEDS: MULTIVITAMINS/MINERALS THERAP 1 TAB PO (09:24)
[2018-08-06] MEDS: GABAPENTIN 300 MG CAP PO ×3 (09:24→21:08)
[2018-08-06] MEDS: SENOKOT S TAB PO (09:25)
[2018-08-06] MEDS: RIVAROXABAN 20 MG TAB (XARELTO) PO (09:25)
[2018-08-06] MEDS: THIAMINE 100 MG TAB PO (09:25)
[2018-08-06] MEDS: METOPROLOL TART 50 MG TAB PO ×2 (09:25→21:08)
[2018-08-06] MEDS: amLODIPine 10 MG TAB PO ×2 (09:25→21:07)
[2018-08-06] MEDS: DULoxetine 30 MG CAP (CYMBALTA) PO ×2 (09:25→21:07)
[2018-08-06] MEDS: TAMSULOSIN 0.4 MG CAP PO (09:25)
[2018-08-06] MEDS: FOLIC ACID 1 MG TAB PO (09:26)
[2018-08-06] MEDS: LORazepam 1 MG TAB PO ×2 (09:26→17:19)
[2018-08-06] MEDS: BUPRENORPHINE/NALOXONE 8-2MG SUBLINGUAL TABLET(SUBOXONE) SL (09:26)
[2018-08-06] MEDS: OMEPRAZOLE 20 MG CAP PO (09:26)
[2018-08-06] MEDS: FLUTICASONE PROP 0.05% NASAL SPRAY 16 GM (FLONASE) (10:58)
[2018-08-06] MEDS: ALBUTEROL SULFATE 2.5 MG/0.5 ML INH NEB SOLN INH (11:40)
[2018-08-06] MEDS: BACLOFEN 10 MG TAB PO (13:02)
[2018-08-06] MEDS: OXAZEPAM 10 MG CAP PO ×2 (13:03→21:08)
[2018-08-07] MEDS: SLF 3 ML SYR IV (05:21)
[2018-08-07 05:47] LABS: HEMATOCRIT 41.3 % (42.0-52.0); HEMOGLOBIN 13.3 g/dl (13.5-17.5); MEAN CORPUSCULAR HEMOGLOBIN 28.6 pg (27.0-33.0); MEAN CORPUSCULAR HGB CONC 32.2 g/dl (32.0-36.5); MEAN CORPUSCULAR VOLUME 88.8 fl (80.0-96.0); PLATELET COUNT, AUTOMATED 124 10^3/uL (150-450); RED BLOOD COUNT 4.65 10^6/uL (4.30-6.10); RED CELL DISTRIBUTION WIDTH 15.4 % (11.5-14.5)
[2018-08-07 06:04] LABS: ALBUMIN 3.3 GM/DL (3.2-5.2); ALBUMIN/GLOBULIN RATIO 0.87 (1.00-1.93); ALKALINE PHOSPHATASE 107 U/L (45-117); ALT/SGPT 211 U/L (12-78); ANION GAP 6 MEQ/L (8-16); AST/SGOT 104 U/L (7-37); BILIRUBIN,TOTAL 0.4 MG/DL (0.2-1.0); BLOOD UREA NITROGEN 14 MG/DL (7-18); C REACTIVE PROTEIN QUANTITATIV 0.79 MG/DL (0.00-0.30); CARBON DIOXIDE LEVEL 31 MEQ/L (21-32); CHLORIDE LEVEL 102 MEQ/L (98-107); CREATININE FOR GFR 0.74 MG/DL (0.70-1.30); GLOMERULAR FILTRATION RATE > 60.0 (>60); GLUCOSE, FASTING 91 MG/DL (70-100); MAGNESIUM LEVEL 1.8 MG/DL (1.8-2.4); POTASSIUM SERUM 4.3 MEQ/L (3.5-5.1); SODIUM LEVEL 139 MEQ/L (136-145); TOTAL PROTEIN 7.1 GM/DL (6.4-8.2)
[2018-08-07 06:16] LABS: ERYTHROCYTE SEDIMENTATION RATE 17 mm/hr (0-15)
[2018-08-07] MEDS: LORazepam 1 MG TAB PO (06:46)
[2018-08-07] MEDS: SENOKOT S TAB PO (08:04)
[2018-08-07] MEDS: MULTIVITAMINS/MINERALS THERAP 1 TAB PO (08:04)
[2018-08-07] MEDS: NICOTINE 21MG/24HR 1 EA TRANSDERMAL TD (08:04)
[2018-08-07] MEDS: DULoxetine 30 MG CAP (CYMBALTA) PO (08:04)
[2018-08-07] MEDS: THIAMINE 100 MG TAB PO (08:05)
[2018-08-07] MEDS: OXAZEPAM 10 MG CAP PO (08:05)
[2018-08-07] MEDS: GABAPENTIN 300 MG CAP PO (08:05)
[2018-08-07] MEDS: METOPROLOL TART 50 MG TAB PO (08:07)
[2018-08-07] MEDS: amLODIPine 10 MG TAB PO (08:07)
[2018-08-07] MEDS: OMEPRAZOLE 20 MG CAP PO (08:10)
[2018-08-07] MEDS: RIVAROXABAN 20 MG TAB (XARELTO) PO (08:10)
[2018-08-07] MEDS: ACETAMINOPHEN TAB 650MG DOSE (2X325MG) PO (08:10)
[2018-08-07] MEDS: FOLIC ACID 1 MG TAB PO (08:10)
[2018-08-07] MEDS: TAMSULOSIN 0.4 MG CAP PO (08:10)
[2018-08-07] MEDS: FLUTICASONE PROP 0.05% NASAL SPRAY 16 GM (FLONASE) (08:10)
[2018-08-07] MEDS: BUPRENORPHINE/NALOXONE 8-2MG SUBLINGUAL TABLET(SUBOXONE) SL (08:11)
[2018-08-07] MEDS: ALBUTEROL SULFATE 2.5 MG/0.5 ML INH NEB SOLN INH (08:23)
== END 2018-08-07 12:25 | disposition home or self-care (01) | DRG 872 ==
LOC: M ED INP 08-03 00:54 → M ICU 08-03 02:30 → M ED 17:45 → M PCU 08-03 09:25
DX: R78.81 Bacteremia (principal); I38 Endocarditis, valve unspecified; D69.59 Other secondary thrombocytopenia; E66.9 Obesity, unspecified; Z68.33 Body mass index [BMI] 33.0-33.9, adult; K70.0 Alcoholic fatty liver; K70.10 Alcoholic hepatitis without ascites; K02.9 Dental caries, unspecified; J45.909 Unspecified asthma, uncomplicated; I10 Essential (primary) hypertension; F10.10 Alcohol abuse, uncomplicated; F17.200 Nicotine dependence, unspecified, uncomplicated; R91.1 Solitary pulmonary nodule; K21.9 Gastro-esophageal reflux disease without esophagitis; E83.42 Hypomagnesemia; E87.6 Hypokalemia; N40.0 Benign prostatic hyperplasia without lower urinary tract symptoms; F32.9 Major depressive disorder, single episode, unspecified; Z86.711 Personal history of pulmonary embolism; B95.5 Unspecified streptococcus as the cause of diseases classified elsewhere; G62.9 Polyneuropathy, unspecified; Z79.899 Other long term (current) drug therapy; Z88.1 Allergy status to other antibiotic agents; K59.00 Constipation, unspecified

== ENCOUNTER 2018-08-16 06:07 | Inpatient (IN) | payer MEDICARE, MEDICAID ==
[2018-08-16] MEDS: NS 1,000 ML IV (06:52)
[2018-08-16] MEDS: ONDANSETRON 4MG/2ML VIAL (J2405) IV ×2 (06:52→10:51)
[2018-08-16] MEDS: amLODIPine 10 MG TAB PO ×2 (07:30→20:21)
[2018-08-16] MEDS: METOPROLOL TART 50 MG TAB PO ×2 (07:30→07:31)
[2018-08-16 08:49] LABS: RED BLOOD COUNT 4.98 10^6/uL (4.30-6.10); WHITE BLOOD COUNT 3.3 10^3/uL (4.0-10.0)
[2018-08-16 08:50] LABS: HEMATOCRIT 43.7 % (42.0-52.0); HEMOGLOBIN 14.3 g/dl (13.5-17.5); MEAN CORPUSCULAR HEMOGLOBIN 28.7 pg (27.0-33.0); MEAN CORPUSCULAR HGB CONC 32.7 g/dl (32.0-36.5); MEAN CORPUSCULAR VOLUME 87.8 fl (80.0-96.0); PLATELET COUNT, AUTOMATED 210 10^3/uL (150-450); RED CELL DISTRIBUTION WIDTH 14.7 % (11.5-14.5)
[2018-08-16 08:52] LABS: ANION GAP 15 MEQ/L (8-16); BLOOD UREA NITROGEN 11 MG/DL (7-18); CALCIUM LEVEL 8.4 MG/DL (8.5-10.1); CARBON DIOXIDE LEVEL 29 MEQ/L (21-32); CHLORIDE LEVEL 97 MEQ/L (98-107); CREATININE FOR GFR 0.85 MG/DL (0.70-1.30); GLOMERULAR FILTRATION RATE > 60.0 (>60); GLUCOSE, FASTING 164 MG/DL (70-100); MAGNESIUM LEVEL 1.5 MG/DL (1.8-2.4); POTASSIUM SERUM 2.8 MEQ/L (3.5-5.1); SODIUM LEVEL 141 MEQ/L (136-145)
[2018-08-16 08:57] LABS: INR 1.04; PROTHROMBIN TIME 13.7 SECONDS (12.1-14.4)
[2018-08-16 08:59] LABS: THYROID STIMULATING HORMONE 0.796 uIU/ML (0.358-3.740)
[2018-08-16 08:59] LABS: ETHYL ALCOHOL (ETHANOL) 0.223 % (0.000-0.010)
[2018-08-16] MEDS: SENOKOT S TAB PO (09:00)
[2018-08-16] MEDS: MAG SULF 1GM/100ML (MAG RUN) 1 GM in APPROPRIATE DILUENT 1 EA IV ×3 (09:23→16:51)
[2018-08-16] MEDS: POTASSIUM CHLORIDE 10 MEQ SR TABLET PO (09:27)
[2018-08-16] MEDS: OXAZEPAM 15 MG CAP PO (10:20)
[2018-08-16] MEDS: MAGNESIUM CHLORIDE 64 MG TABCR (SLO MAG) PO (10:20)
[2018-08-16] MEDS: KCL 10MEQ/100ML SWI (KRUN) 10 MEQ in APPROPRIATE DILUENT 1 EA IV (10:28)
[2018-08-16 11:10] LABS: ALBUMIN 3.8 GM/DL (3.2-5.2); ALBUMIN/GLOBULIN RATIO 0.86 (1.00-1.93); ALKALINE PHOSPHATASE 130 U/L (45-117); ALT/SGPT 146 U/L (12-78); AST/SGOT 146 U/L (7-37); BILIRUBIN,DIRECT 0.3 MG/DL (0.0-0.2); BILIRUBIN,TOTAL 0.6 MG/DL (0.2-1.0); LIPASE 117 U/L (73-393); TOTAL PROTEIN 8.2 GM/DL (6.4-8.2)
[2018-08-16] MEDS: METOCLOPRAMIDE INJ 10MG/2ML VIAL (J2765) IV (11:34)
[2018-08-16] MEDS ORDERED: IPRATROPIUM 0.5MG/ALBUTEROL 2.5MG INH SOL UD 3ML (DUONEB)(J7620) NEB (11:45)
[2018-08-16] MEDS ORDERED: ONDANSETRON 4 MG TAB (S0181) PO (11:45)
[2018-08-16] MEDS: IPRATROPIUM 0.5MG/ALBUTEROL 2.5MG INH SOL UD 3ML (DUONEB)(J7620) NEB ×2 (13:44→19:49)
[2018-08-16] MEDS: predniSONE 10 MG TAB PO (13:51)
[2018-08-16] MEDS: HEPARIN SOD (PORCINE) 5000 UNITS/ML VIAL SC (13:51)
[2018-08-16] MEDS: LORazepam 2 MG/ML VIAL (J2060) IV ×3 (13:51→22:05)
[2018-08-16] MEDS: PANTOPRAZOLE 40MG INJ (PROTONIX) (C9113) IV (14:45)
[2018-08-16] MEDS: MULTIVITAMIN -ADULT INJECTION 10 ML, THIAMINE INJection 100 MG, FOLIC ACID 1 MG in NS 1... IV (14:45)
[2018-08-16 15:01] LABS: ANION GAP 9 MEQ/L (8-16); BLOOD UREA NITROGEN 11 MG/DL (7-18); CALCIUM LEVEL 8.2 MG/DL (8.5-10.1); CARBON DIOXIDE LEVEL 31 MEQ/L (21-32); CHLORIDE LEVEL 99 MEQ/L (98-107); CREATININE FOR GFR 0.76 MG/DL (0.70-1.30); GLOMERULAR FILTRATION RATE > 60.0 (>60); GLUCOSE, FASTING 120 MG/DL (70-100); MAGNESIUM LEVEL 1.6 MG/DL (1.8-2.4); POTASSIUM SERUM 3.6 MEQ/L (3.5-5.1); SODIUM LEVEL 139 MEQ/L (136-145)
[2018-08-16] MEDS ORDERED: METOCLOPRAMIDE 10 MG TAB PO (15:15)
[2018-08-16] MEDS: BACLOFEN 10 MG TAB PO (15:45)
[2018-08-16] MEDS: OXAZEPAM 10 MG CAP PO ×2 (15:45→23:27)
[2018-08-16] MEDS: GABAPENTIN 300 MG CAP PO ×2 (15:46→20:21)
[2018-08-16] MEDS: OMEPRAZOLE 20 MG CAP PO (15:46)
[2018-08-16] MEDS: TAMSULOSIN 0.4 MG CAP PO (15:46)
[2018-08-16] MEDS: BUPRENORPHINE/NALOXONE 8-2MG SUBLINGUAL TABLET(SUBOXONE) SL (15:46)
[2018-08-16] MEDS: RIVAROXABAN 20 MG TAB (XARELTO) PO (17:38)
[2018-08-16] MEDS: FLUTICASONE PROP 0.05% NASAL SPRAY 16 GM (FLONASE) (17:38)
[2018-08-16] MEDS: DULoxetine 30 MG CAP (CYMBALTA) PO (20:20)
[2018-08-16] MEDS: METOPROLOL TARTRATE 100 MG TAB PO (20:22)
[2018-08-16] MEDS: ACETAMINOPHEN TAB 650MG DOSE (2X325MG) PO (20:26)
[2018-08-17] MEDS: IPRATROPIUM 0.5MG/ALBUTEROL 2.5MG INH SOL UD 3ML (DUONEB)(J7620) NEB ×3 (01:37→13:25)
[2018-08-17] MEDS: LORazepam 2 MG/ML VIAL (J2060) IV (03:58)
[2018-08-17 05:06] LABS: BASO % 0.2 % (0.0-1.0); EOS % 0.4 % (0.0-3.0); HEMATOCRIT 39.9 % (42.0-52.0); HEMOGLOBIN 13.4 g/dl (13.5-17.5); IMMATURE GRANULOCYTE % 0.3 % (0-3.0); LYMPH # 1.2 10^3/uL (1.5-4.5); LYMPH % 13.5 % (24.0-44.0); MEAN CORPUSCULAR HEMOGLOBIN 28.7 pg (27.0-33.0); MEAN CORPUSCULAR HGB CONC 33.6 g/dl (32.0-36.5); MEAN CORPUSCULAR VOLUME 85.4 fl (80.0-96.0); MONO # 0.6 10^3/uL (0.0-0.8); MONO % 7.1 % (0.0-5.0); NEUTROPHILS % 78.5 % (36.0-66.0); PLATELET COUNT, AUTOMATED 161 10^3/uL (150-450); RED BLOOD COUNT 4.67 10^6/uL (4.30-6.10); RED CELL DISTRIBUTION WIDTH 14.4 % (11.5-14.5); WHITE BLOOD COUNT 8.9 10^3/uL (4.0-10.0)
[2018-08-17 05:33] LABS: ALBUMIN 3.4 GM/DL (3.2-5.2); ALBUMIN/GLOBULIN RATIO 0.85 (1.00-1.93); ALKALINE PHOSPHATASE 133 U/L (45-117); ALT/SGPT 117 U/L (12-78); ANION GAP 8 MEQ/L (8-16); AST/SGOT 83 U/L (7-37); BILIRUBIN,TOTAL 0.7 MG/DL (0.2-1.0); BLOOD UREA NITROGEN 10 MG/DL (7-18); CALCIUM LEVEL 8.4 MG/DL (8.5-10.1); CARBON DIOXIDE LEVEL 29 MEQ/L (21-32); CHLORIDE LEVEL 100 MEQ/L (98-107); CREATININE FOR GFR 0.77 MG/DL (0.70-1.30); GLOMERULAR FILTRATION RATE > 60.0 (>60); GLUCOSE, FASTING 154 MG/DL (70-100); MAGNESIUM LEVEL 1.9 MG/DL (1.8-2.4); POTASSIUM SERUM 3.7 MEQ/L (3.5-5.1); SODIUM LEVEL 137 MEQ/L (136-145); TOTAL PROTEIN 7.4 GM/DL (6.4-8.2)
[2018-08-17] MEDS ORDERED: LORazepam 2 MG/ML VIAL (J2060) IV (07:00)
[2018-08-17] MEDS: predniSONE 10 MG TAB PO (08:36)
[2018-08-17] MEDS: DULoxetine 30 MG CAP (CYMBALTA) PO (08:36)
[2018-08-17] MEDS: GABAPENTIN 300 MG CAP PO ×2 (08:36→15:24)
[2018-08-17] MEDS: FLUTICASONE PROP 0.05% NASAL SPRAY 16 GM (FLONASE) (08:36)
[2018-08-17] MEDS: OXAZEPAM 10 MG CAP PO ×4 (08:36→17:58)
[2018-08-17] MEDS: amLODIPine 10 MG TAB PO (08:37)
[2018-08-17] MEDS: BUPRENORPHINE/NALOXONE 8-2MG SUBLINGUAL TABLET(SUBOXONE) SL (08:37)
[2018-08-17] MEDS: FOLIC ACID 1 MG TAB PO (08:37)
[2018-08-17] MEDS: THIAMINE 100 MG TAB PO (08:38)
[2018-08-17] MEDS: OMEPRAZOLE 20 MG CAP PO (08:38)
[2018-08-17] MEDS: TAMSULOSIN 0.4 MG CAP PO (08:38)
[2018-08-17] MEDS: MULTIVITAMINS/MINERALS THERAP 1 TAB PO (08:38)
[2018-08-17] MEDS: SENOKOT S TAB PO (08:38)
[2018-08-17] MEDS: METOPROLOL TARTRATE 100 MG TAB PO (08:38)
[2018-08-17] MEDS: ACETAMINOPHEN TAB 650MG DOSE (2X325MG) PO (11:16)
[2018-08-17] MEDS ORDERED: SLF 3 ML SYR IV (11:45)
[2018-08-17] MEDS: SLF 3 ML SYR IV (15:24)
[2018-08-17] MEDS: RIVAROXABAN 20 MG TAB (XARELTO) PO (17:58)
[2018-08-18] MEDS ORDERED: predniSONE 20 MG TAB PO (06:00)
== END 2018-08-17 18:01 | disposition left against medical advice (07) | DRG 433 ==
LOC: M ED 06:07 → M ED INP 11:45 → M PCU 13:16
PROVIDERS: Internal Medicine
DX: K70.10 Alcoholic hepatitis without ascites (principal); F10.239 Alcohol dependence with withdrawal, unspecified; J44.1 Chronic obstructive pulmonary disease with (acute) exacerbation; E87.6 Hypokalemia; E83.42 Hypomagnesemia; Z79.899 Other long term (current) drug therapy; I10 Essential (primary) hypertension; Z86.711 Personal history of pulmonary embolism; R91.1 Solitary pulmonary nodule; K21.9 Gastro-esophageal reflux disease without esophagitis; Z88.1 Allergy status to other antibiotic agents; F17.200 Nicotine dependence, unspecified, uncomplicated; N40.0 Benign prostatic hyperplasia without lower urinary tract symptoms; E88.89 Other specified metabolic disorders; F32.9 Major depressive disorder, single episode, unspecified; I16.0 Hypertensive urgency

== ENCOUNTER → 2018-09-02 | Outpatient (CLI) | payer MEDICARE, MEDICAID | LOC: M SLEEP 19:38 | DX: G47.33 Obstructive sleep apnea (adult) (pediatric) (principal) | CPT/HCPCS: 95811 ==

== ENCOUNTER 2018-09-30 21:04 | Emergency (ER) | payer OTHER, MEDICARE ==
[~2018-09-30] VITALS: Ht 172.7 cm; Wt 95.5 kg
[~2018-09-30 21:04] MED LIST changes: +ADV250INH INH; +ALBU17IN INH; +ALBU83IN INH; +AMLO10TA5 PO; -AMLO5TAB2 PO; +AMLO5TAB6 PO; +ARTI99.0 OU; +BACT800T5 PO; +BREO1INH3 INH; +CHLO1CAP7 PO; +CHLOR5CA PO; +DULO1CAP PO; +DULO1CAP2 PO; +ELIQ2.5T PO; +FLOM0.4C39 PO; +FLON1SPR; +FLUTISP; +FOLI1TAB11 PO; -GABA-282 PO; +GABA-843 PO; +IBUP-1022 PO; +IBUPOTC PO; +INCR1INH INH; +LISI40TA PO; -LISI40TAB PO; +LOPR1TAB7 PO; +METO10TA2 PO; +METO50TA7 PO; +NARC1SPR; +OXAZ10CA3 PO; +PATIENT COMMENT; +POTA20TA6 PO; +PRED20TA PO; -PROP40TA; +PROP40TA62; +REGL10TA6 PO; +SENN8.6T7 PO; +SUBO8MIS SL; +SYMB16INH INH; +THIA100T7 PO; +THIA100TA PO; +VENTAER INH; +VITMTA PO; +XARE15TA PO; +XARE20TA PO
[2018-09-30 21:05] VITALS: BP 135/89
[2018-10-01] MEDS ORDERED: KEFL500C17 PO (00:11)
[2018-10-01] MEDS ORDERED: ACETAMINOPHEN 325 MG TAB PO ONE (00:15)
[2018-10-01] MEDS ORDERED: CEPHALEXIN 500 MG CAP PO ONE (00:15)
--- NOTE | 2018-10-01 01:41 | REP ---
Clinical: Trauma. Fall. Technique: AP, lateral, bilateral oblique views of the right elbow. Findings: Soft tissue swelling and elevation to the anterior fat pad suggests underlying occult injury. While no obvious acute fracture is identified, a subtle injury involving the coronoid process cannot be excluded. The radial head appears grossly intact. Incidental thin linear foreign body in the antecubital soft tissue may reflect a fractured needle fragment and should be correlated clinically. Impression: 1. Soft tissue swelling and elevation to the anterior fat pad suggesting occult injury. Possible injury involving the coronoid process of the proximal ulna cannot be excluded. 2. Small thin linear foreign body may represent fractured needle fragment in the antecubital fossa. Electronically Signed by Ramon Tillman MD 10/01/2018 01:32 A
--- NOTE | 2018-10-01 15:42 | ED PDOC ---
Post-Departure Follow-Up winston march rn to contact pt, arrange ortho fu, and review formal report of right elbow film. xray report faxed to [facility]. Deann Haines MD Oct 01, 2018 15:42
== END 2018-10-01 00:17 | disposition home or self-care (01) ==
LOC: M ED 21:04
DX: M25.521 Pain in right elbow (principal); L08.9 Local infection of the skin and subcutaneous tissue, unspecified; I12.9 Hypertensive chronic kidney disease with stage 1 through stage 4 chronic kidney disease, or unspecified chronic kidney disease; N18.9 Chronic kidney disease, unspecified; G47.33 Obstructive sleep apnea (adult) (pediatric); Z79.01 Long term (current) use of anticoagulants; Z79.899 Other long term (current) drug therapy; Z88.1 Allergy status to other antibiotic agents; F17.210 Nicotine dependence, cigarettes, uncomplicated

== ENCOUNTER → 2018-11-12 | Outpatient (CLI) | payer MEDICARE ==
[~2018-11-12] MED LIST changes: +KEFL500C17 PO
== END ==
LOC: M OUTALCOH 07:59
PROVIDERS: ATTEND Psychiatry & Neurology Psychiatry
DX: F10.20 Alcohol dependence, uncomplicated (principal)

== ENCOUNTER 2018-11-26 14:07 | Outpatient (RCR) | payer MEDICARE | END 2018-12-20 | LOC: M OUTALCOH 14:07 | PROVIDERS: ATTEND Psychiatry & Neurology Psychiatry | DX: F10.20 Alcohol dependence, uncomplicated (principal); F14.20 Cocaine dependence, uncomplicated; F11.20 Opioid dependence, uncomplicated ==

== ENCOUNTER → 2018-12-21 | Outpatient (CLI) | payer MEDICARE ==
[~2018-12-21] MED LIST changes: +SENN1TAB41 PO; -SENN8.6T7 PO
== END ==
LOC: M OUTALCOH 07:42
PROVIDERS: ATTEND Psychiatry & Neurology Psychiatry
DX: F10.20 Alcohol dependence, uncomplicated (principal)

== ENCOUNTER 2019-01-01 17:59 | Emergency (ER) | payer MEDICARE, MEDICAID ==
[~2019-01-01] VITALS: Ht 172.7 cm; Wt 95.5 kg
[~2019-01-01 17:59] MED LIST changes: -FLUTISP; +FLUTISP NARES
--- NOTE | 2019-01-01 19:01 | REP ---
Chest x-ray: Two views. History: Persistent cough. . Comparison study: August 16, 2018. . Findings: The lungs are well inflated and free of infiltrate. The pleural angles are sharp. The heart size is normal. Pulmonary vasculature is not increased. No significant bony abnormality is seen. Impression: Negative chest x-ray. Electronically Signed by Ronaldo Hernandez MD 01/01/2019 06:53 P
[2019-01-01] MEDS ORDERED: PRED20TA PO (20:13)
[2019-01-01] MEDS ORDERED: BACT800T5 PO (20:13)
[2019-01-01 20:20] VITALS: BP 133/97
[2019-01-01] MEDS: BACTRIM 160MG/800MG DS TAB PO ONE (20:22)
[2019-01-01] MEDS: predniSONE 20 MG TAB PO ONE (20:23)
[2019-01-01] MEDS: ONDANSETRON 4 MG ORAL DISINTEGRATING TAB (Q0162 PER 1MG) PO ONE (20:29)
== END 2019-01-01 20:34 | disposition home or self-care (01) ==
LOC: M ED 17:59
DX: N39.0 Urinary tract infection, site not specified (principal); R05 Cough; J44.9 Chronic obstructive pulmonary disease, unspecified; J45.909 Unspecified asthma, uncomplicated; F33.9 Major depressive disorder, recurrent, unspecified; F41.9 Anxiety disorder, unspecified; F10.10 Alcohol abuse, uncomplicated; Z87.898 Personal history of other specified conditions; Z96.0 Presence of urogenital implants; Z79.899 Other long term (current) drug therapy; Z79.891 Long term (current) use of opiate analgesic; Z79.01 Long term (current) use of anticoagulants; Z88.1 Allergy status to other antibiotic agents; F17.210 Nicotine dependence, cigarettes, uncomplicated

== ENCOUNTER 2019-01-03 03:28 | Inpatient (IN) | payer MEDICARE, MEDICAID ==
[2019-01-03] VITALS (12 sets, daily range): BP systolic 134–189; BP diastolic 82–118
[~2019-01-03] VITALS: Ht 172.7 cm; Wt 97.0 kg
[2019-01-03] MEDS ORDERED: ONDANSETRON 4MG/2ML VIAL (J2405) IV ONE (04:30)
[2019-01-03] MEDS ORDERED: NS 1,000 ML IV ONE (04:30)
[2019-01-03 05:10] LABS: BASO % 0.3 % (0.0-1.0); HEMATOCRIT 41.7 % (42.0-52.0); HEMOGLOBIN 14.3 g/dl (13.5-17.5); LYMPH # 0.8 10^3/uL (1.5-4.5); LYMPH % 8.7 % (24.0-44.0); MEAN CORPUSCULAR HEMOGLOBIN 28.8 pg (27.0-33.0); MEAN CORPUSCULAR HGB CONC 34.3 g/dl (32.0-36.5); MEAN CORPUSCULAR VOLUME 83.9 fl (80.0-96.0); MONO # 0.5 10^3/uL (0.0-0.8); MONO % 5.2 % (0.0-5.0); NEUTROPHILS # 7.9 10^3/uL (1.8-7.7); NEUTROPHILS % 85.4 % (36.0-66.0); RED BLOOD COUNT 4.97 10^6/uL (4.30-6.10); WHITE BLOOD COUNT 9.2 10^3/uL (4.0-10.0)
[2019-01-03 05:36] LABS: ALBUMIN 4.2 GM/DL (3.2-5.2); ALT/SGPT 416 U/L (12-78); BILIRUBIN,DIRECT 0.7 MG/DL (0.0-0.2); BILIRUBIN,TOTAL 1.4 MG/DL (0.2-1.0); BLOOD UREA NITROGEN 15 MG/DL (7-18); CARBON DIOXIDE LEVEL 31 MEQ/L (21-32); CHLORIDE LEVEL 87 MEQ/L (98-107); CREATININE FOR GFR 0.92 MG/DL (0.70-1.30); GLOMERULAR FILTRATION RATE > 60.0 (>60); GLUCOSE, FASTING 143 MG/DL (70-100); LIPASE 446 U/L (73-393); PLATELET COUNT, AUTOMATED 74 10^3/uL (150-450); POTASSIUM SERUM 2.7 MEQ/L (3.5-5.1); SODIUM LEVEL 137 MEQ/L (136-145); TOTAL PROTEIN 8.4 GM/DL (6.4-8.2)
[2019-01-03] MEDS ORDERED: LORazepam 2 MG/ML VIAL (J2060) IV STA (05:51)
[2019-01-03] MEDS ORDERED: POTASSIUM CHLORIDE 10 MEQ SR TABLET PO ONE ×3 (06:00→15:00)
[2019-01-03] MEDS ORDERED: KCL 10MEQ/100ML SWI (KRUN) 10 MEQ in APPROPRIATE DILUENT 1 EA IV ONE (06:00)
[2019-01-03 06:04] LABS: MAGNESIUM LEVEL 1.1 MG/DL (1.8-2.4)
[2019-01-03] MEDS ORDERED: MAG SULF 1GM/100ML (MAG RUN) 1 GM in APPROPRIATE DILUENT 1 EA IV ONE (06:30)
[2019-01-03] MEDS ORDERED: OXAZEPAM 15 MG CAP PO ONE (06:45)
[2019-01-03] MEDS ORDERED: MAGNESIUM OXIDE 400 MG TAB (MAG-OX) PO ONE (07:00)
--- NOTE | 2019-01-03 07:24 | REPVR ---
EXAM: US Abdomen Limited, Right Upper Quadrant EXAM DATE/TIME: 01/03/2019 6:18 AM CLINICAL HISTORY: 43 years old, male; Pain; Abdominal pain; Epigastric; Prior surgery; Surgery date: 6+ months; Surgery type: Cholecystectomy; Additional info: Elevated liver enzymes, R/O cbd stone TECHNIQUE: Imaging protocol: Real-time ultrasound of the abdomen with image documentation. Examination was focused on the right upper quadrant. COMPARISON: LIVER US 05/01/2018 9:24 AM FINDINGS: Liver: The liver is enlarged measuring at least 24 cm and is markedly heterogeneous and echogenic in texture. No focal hepatic lesion is identified. Gallbladder: The gallbladder is surgically removed. Common bile duct: The CBD is dilated measuring 7-8 mm in diameter. Pancreas: The pancreas is obscured by bowel gas. Right kidney: The right kidney measures 12.9 x 5.2 x 5.2 cm. The right renal cortical parenchymal echogenicity is within normal limits. There is no right renal mass, stone, cyst or hydronephrosis. IMPRESSION: 1. Hepatomegaly with severe fatty infiltration vs hepatocellular disease. 2. Status post cholecystectomy. 3. Mildly dilated CBD at 7 mm is nonspecific and could be physiologic post cholecystectomy phenomena however underlying distal CBD stricture or obstruction cannot be excluded. Correlate with patient's symptoms, LFTs and bilirubin level. If indicated MRCP may be obtained for further evaluation. Electronically signed by: Enrico Medina On 01/03/2019 07:23:51 AM
--- NOTE | 2019-01-03 07:30 | ECGEPIP ---
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
[2019-01-03] MEDS ORDERED: PRED20TA PO (07:46)
[2019-01-03] MEDS ORDERED: AMLO5TAB6 PO (07:46)
[2019-01-03] MEDS ORDERED: BACT800T5 PO (07:46)
[2019-01-03] MEDS ORDERED: DULO1CAP PO (07:46)
[2019-01-03] MEDS ORDERED: BREO1INH3 INH (07:47)
[2019-01-03] MEDS ORDERED: ACAM0.05 PO (07:47)
[2019-01-03] MEDS ORDERED: ALBUTEROL SULFATE 2.5 MG/0.5 ML INH NEB SOLN INH PRN (08:00)
[2019-01-03] MEDS ORDERED: SENOKOT S TAB PO PRN (08:00)
[2019-01-03] MEDS ORDERED: PENTOXIFYLLINE 400 MG TAB PO SCH (08:00)
[2019-01-03] MEDS ORDERED: FLUTICASONE PROP 0.05% NASAL SPRAY 16 GM (FLONASE) NARES PRN (08:00)
[2019-01-03] MEDS ORDERED: BACLOFEN 10 MG TAB PO PRN (08:00)
[2019-01-03 08:26] LABS: INR 1.05; PROTHROMBIN TIME 13.8 SECONDS (12.1-14.4)
[2019-01-03 08:27] LABS: PARTIAL THROMBOPLASTIN TIME 37.7 SECONDS (25.4-37.6)
[2019-01-03] MEDS: OXAZEPAM 15 MG CAP PO SCH ×3 (08:50→21:25)
[2019-01-03] MEDS: BUPRENORPHINE/NALOXONE 8-2MG SUBLINGUAL TABLET(SUBOXONE) SL SCH (09:07)
[2019-01-03] MEDS: BACTRIM 160MG/800MG DS TAB PO SCH ×2 (09:07→20:25)
[2019-01-03] MEDS: TAMSULOSIN 0.4 MG CAP PO SCH (09:07)
[2019-01-03] MEDS: DULoxetine 20 MG CAP (CYMBALTA) PO SCH ×2 (09:07→20:25)
[2019-01-03] MEDS: MULTIVITAMINS/MINERALS THERAP 1 TAB PO SCH (09:07)
[2019-01-03] MEDS: THIAMINE 100 MG TAB PO SCH (09:07)
[2019-01-03] MEDS: GABAPENTIN 300 MG CAP PO SCH ×3 (09:07→20:30)
[2019-01-03] MEDS: METOPROLOL TART 50 MG TAB PO SCH ×2 (09:07→20:26)
[2019-01-03] MEDS: OMEPRAZOLE 20 MG CAP PO SCH (09:07)
[2019-01-03] MEDS: RIVAROXABAN 20 MG TAB (XARELTO) PO SCH (09:07)
[2019-01-03] MEDS: FOLIC ACID 1 MG TAB PO SCH (09:07)
[2019-01-03] MEDS: MAG SULF 1GM/100ML (MAG RUN) 1 GM in APPROPRIATE DILUENT 1 EA IV SCH ×2 (09:08→10:54)
[2019-01-03] MEDS: amLODIPine 5 MG TAB PO SCH (09:08)
[2019-01-03] MEDS ORDERED: KCL 40MEQ in NS 1000ML 1,000 ML IV SCH (10:00)
[2019-01-03] MEDS ORDERED: ONDANSETRON 4MG/2ML VIAL (J2405) IV PRN (11:15)
[2019-01-03] MEDS: ALBUTEROL SULFATE 2.5 MG/0.5 ML INH NEB SOLN INH SCH ×4 (11:29→20:00)
[2019-01-03] MEDS: ADVAIR HFA 230/21MCG INHALER INH SCH ×2 (11:30→20:18)
[2019-01-03] MEDS: LORazepam 2 MG TAB PO PRN ×5 (11:54→21:24)
--- NOTE | 2019-01-03 12:22 | HPEPDOC ---
General Date of Admission Jan 03, 2019 at 07:47 Chief Complaint The patient is a 43-year-old male who presented to the ER after he experienced nausea and vomiting for 2 days duration. History of Present Illness Patient is a 43-year-old male with a PMHx of HTN, Asthma, Hx of R sided endocarditis, Hx of PE / Septic emboli (03/2018, on Xarelto), s/p IVC filter (2013), Hx of IVDA, EtoH abuse, Hx of Spinal abscess, Pulmonary nodule (follows w/ Dr. López), Hepatic Steatosis, and with several admissions for alc ohol withdrawal. He presented to the emergency room after he experienced nausea and vomiting over last 2 days. Patient noted that he was in the emergency room on Friday and was found to have a urinary tract infection was discharged home with Bactrim. Patient has experienced 10-15 episodes of vomiting since then. Denies any blood within his vomitus, but describes it as red as he was consuming red fluid. She denies any chest pain, short of breath or abdominal pain. He does experience some diarrhea and has reported 2 bowel movements yesterday that were watery. Currently, he denies any discomfort with urination. He does note that there is a foul smell to his urine. Patient notes that his weight has gone up. Currently, he reports that his appetite is poor. Patient is also admitted to consuming vodka on Friday reports that he has consumed approximately 3 medium sized bottles of vodka. He also reports that he will be going into rehabilitation next week as per the terms of his parole. Home Medications Scheduled Acamprosate Calcium (Acamprosate Calcium) 333 Mg Tablet., 333 MG PO TID, (Reported) NEW MED, NOT STARTED YET Amlodipine Besylate (Amlodipine Besylate) 5 Mg Tablet, 5 MG PO DAILY, (Reported) Buprenorphine HCl/Naloxone HCl (Suboxone 8 mg-2 mg Sl Film) 1 Mis Mis, 1 MIS SL DAILY, (Reported) Duloxetine Hcl (Duloxetine HCl) 20 Mg Capsule., 20 MG PO BID, (Reported) Fluticasone/Vilanterol (Breo Ellipta 200-25 Mcg INH) 1 Each Blst.w.dev, 1 PUFF INH DAILY, (Reported) Gabapentin (Gabapentin) 300 Mg Cap, 900 MG PO TID, (Reported) Metoprolol Tartrate (Metoprolol Tartrate) 50 Mg Tab, 50 MG PO BID, (Reported) Multivitamins (Thera M Plus Tablet) 1 Tab Tab, 1 TAB PO DAILY, (Reported) Omeprazole (Omeprazole) 20 Mg Cap, 20 MG PO DAILY, (Reported) Rivaroxaban (Xarelto) 20 Mg Tab, 20 MG PO DAILY, (Reported) Sulfamethoxazole/Trimethoprim (Bactrim Ds Tablet) 1 Each Tablet, 1 TAB PO BID, (Reported) FILLED 01/01 FOR 7 DAYS Tamsulosin HCl (Flomax) 0.4 Mg Cap, 0.4 MG PO DAILY, (Reported) Umeclidinium [place] (Incruse Ellipta) 62.5 Mcg/Inh Inh, 1 PUFF INH DAILY, (Reported) Scheduled PRN Albuterol Sulf (Albuterol Sulfate) 2.5 Mg/3 Ml Nebu, 2.5 MG INH Q6H PRN for SHORTNESS OF BREATH, (Reported) Albuterol Sulfate (Ventolin Hfa) 108 Mcg/Act Aer, 2 PUFFS INH Q4H PRN for SHORTNESS OF BREATH, (Reported) Baclofen (Baclofen) 20 Mg Tab, 20 MG PO TID PRN for PAIN, (Reported) Fluticasone Propionate (Fluticasone Propionate) 50 Mcg/Act Spr, 1 SPRAY NARES DAILY PRN for CONGESTION, (Reported) Naloxone HCl (Narcan) 4 Mg/0.1 Ml Spr, 4 MG NA ASDIRECTED PRN for OVERDOSE, ( Reported) Sennosides/Docusate Sodium (Senna-S Tablet) 1 Tab Tab, 1 TAB PO DAILY PRN for CONSTIPATION, (Reported) Allergies Coded Allergies: vancomycin (Verified Allergy, Intermediate, 01/03/19) REDNESS AT IV SITE Past Medical History Medical History HTN, Asthma/COPD, Hx of R sided endocarditis, Hx of PE / Septic emboli (03/2018, on Xarelto), s/p IVC filter (2013), Hx of IVDA, EtoH abuse, Hx of Spinal abscess, Pulmonary nodule (follows w/ Dr. López), Hepatic Steatosis, Depression, Neuropathy, BPH, GERD Surgical History Cholecystectomy performed 2016 Neck surgery for abscess drainage around 2018 Family History - Mother with history of diabetes mellitus type 2 and hypertension - Father with history of dementia, arthritis, and diabetes mellitus type 2 - No history of malignancies Social History - Patient reports the last use of illicit drugs was November 2016 where he used heroin and cocaine; patient currently still drinks alcohol, and had last consumed alcohol on Friday (see HPI), patient is an active smoker of 20 years, has recently transitioned to electronic cigarettes and chewing tobacco approximately 3 weeks - Denies recent travel or sick contacts - Lives with family - Occupation; Disability Review of Systems Other systems 10 point review systems is complete, all negative otherwise stated in HPI Vital Signs - Vitals: BP 169/88, HR 114, RR 20, Sat 98%RA, Temp 96.5D - General: Lying in bed, No acute distress, Speaking in full sentences, AAOx3 - HEENT: NC, AT, PERRLA, EOMI - CVS: Tachycardic, but regular, +S1S2 - Lungs: Fair air entry bilaterally, Clear to auscultation, No wheezing / rales / rhonchi - Abdomen: Soft, Non-distended, Non-tender, + Bowel sounds x 4 - Extremities: No lower extremity edema, No calf tenderness - Neuro: No focal motor or sensory deficit - Skin: No visible rashes Laboratory Data Labs 24H Laboratory Tests 2 01/03/19 04:45: Immature Granulocyte % (Auto) 0.4, White Blood Count 9.2, Red Blood Count 4.97, Hemoglobin 14.3, Hematocrit 41.7L, Mean Corpuscular Volume 83.9, Mean Corpuscular Hemoglobin 28.8, Mean Corpuscular Hemoglobin Concent 34.3, Red Cell Distribution Width 15.2H, Platelet Count 74L, Neutrophils (%) (Auto) 85.4H, Lymphocytes (%) (Auto) 8.7L, Monocytes (%) (Auto) 5.2H, Eosinophils (%) (Auto) 0.0, Basophils (%) (Auto) 0.3, Neutrophils # (Auto) 7.9H, Lymphocytes # (Auto) 0.8L, Monocytes # (Auto) 0.5, Eosinophils # (Auto) 0.0, Basophils # (Auto) 0.0, Nucleated Red Blood Cells % (auto) 0.0, Immature Platelet Fraction 5.1, Prothrombin Time 13.8, Prothromb Time International Ratio 1.05, Activated Partial Thromboplast Time 37.7H, Anion Gap 19H, Glomerular Filtration Rate > 60.0, Calcium Level 8.0L, Magnesium Level 1.1L, Aspartate Amino Transf (AST/SGOT) 1090H, Alanine Aminotransferase (ALT/SGPT) 416H, Alkaline Phosphatase 183H, Total Bilirubin 1.4H, Direct Bilirubin 0.7H, Total Protein 8.4H, Albumin 4.2, Albumin/Globulin Ratio 1.00, Lipase 446H, Ethyl Alcohol Level 0.030H 01/03/19 11:59: CBC/BMP Laboratory Tests 01/03/19 04:45 Red Blood Count 4.97, Mean Corpuscular Volume 83.9, Mean Corpuscular Hemoglobin 28.8, Mean Corpuscular Hemoglobin Concent 34.3, Red Cell Distribution Width 15.2 H, Neutrophils (%) (Auto) 85.4 H, Lymphocytes (%) (Auto) 8.7 L, Monocytes (%) (Auto) 5.2 H, Eosinophils (%) (Auto) 0.0, Basophils (%) (Auto) 0.3, Neutrophils # (Auto) 7.9 H, Lymphocytes # (Auto) 0.8 L, Monocytes # (Auto) 0.5, Eosinophils # (Auto) 0.0, Basophils # (Auto) 0.0 Plan / VTE VTE Prophylaxis Ordered?: Yes Plan Plan Intractable nausea and vomiting - possibly 2/2 viral gastroenteritis, possibly 2/2 withdrawal - Presented to the emergency room with complaints of nausea and vomiting 2 days, associated with diarrhea - Physical without any abdominal tenderness - Patient remains afebrile and hemodynamically stable - No significant leukocytosis - Liver US 01/03: 1. Hepatomegaly with severe fatty infiltration vs hepatocellular disease. 2. Status post cholecystectomy. 3. Mildly dilated CBD at 7 mm is nonspecific and could be physiologic post cholecystectomy phenomena however underlying distal CBD stricture or obstruction cannot be excluded. Correlate with patient's symptoms, LFTs and bilirubin level. If indicated MRCP may be obtained for further evaluation. - Will check GI panel - Will continue with symptom control and continue IV fluid hydration Elevated Lipase - likely 2/2 nausea / vomiting - Only 1 of 3 criteria for acute pancreatitis; unlikely - c/w IV fluids as stated above Alcohol withdrawal - Patient has indicated his last alcohol consumption was on Friday with 3 medium bottles of Vodka - Advised cessation of alcohol - Will start multivitamin, thiamine and folate - Will start CIWA protocol and Serax Hypertensive urgency - SBP of 160s - Will resume patients home medications - Continue with Ativan as per CIWA protocol and Serax PRN - Will place patient in PCU for possible IV based medications for BP control Electrolyte abnormalities - likely 2/2 persistent nausea and vomiting - Will supplement with IV and by mouth routes - Will repeat lab work 12 PM Elevated AST / ALT - likely 2/2 alcoholic hepatitis, possibly 2/2 hepatic steatosis - Patient. Patients discriminate function is less than 32; will not benefit from Pentoxifylline - Will trend liver enzymes - Imaging noted above - Will c/w IV fluid hydration Asthma/COPD - No evidence of exacerbation - c/w inhaled therapy as ordered Hx of R sided endocarditis Hx of PE / Septic emboli (03/2018) - s/p IVC filter (2013) - c/w full anticoagulation with Xarelto Hx of IVDA Hx of Spinal abscess Pulmonary nodule - Follows w/ Dr. López as an outpatient Depression - c/w Duloxetine Neuropathy - c/w Gabapentin BPH - c/w Tamsulosin GERD - c/w Omeprazole DVT prophylaxis - c/w full and coagulation with Xarelto DESTIN KEYES MD Jan 03, 2019 12:22
[2019-01-03 12:25] LABS: BLOOD UREA NITROGEN 14 MG/DL (7-18); CALCIUM LEVEL 7.7 MG/DL (8.5-10.1); CARBON DIOXIDE LEVEL 32 MEQ/L (21-32); CHLORIDE LEVEL 89 MEQ/L (98-107); GLOMERULAR FILTRATION RATE > 60.0 (>60); GLUCOSE, FASTING 121 MG/DL (70-100); POTASSIUM SERUM 3.3 MEQ/L (3.5-5.1); SODIUM LEVEL 135 MEQ/L (136-145)
[2019-01-03 16:01] LABS: MAGNESIUM LEVEL 2.4 MG/DL (1.8-2.4)
[2019-01-04] MEDS: LORazepam 2 MG TAB PO PRN ×4 (00:03→07:08)
[2019-01-04 03:31] VITALS: BP 158/104
[2019-01-04 04:00] VITALS: BP 156/98
[2019-01-04] MEDS: OXAZEPAM 15 MG CAP PO SCH (05:09)
[2019-01-04 05:26] LABS: HEMATOCRIT 39.4 % (42.0-52.0); MEAN CORPUSCULAR HEMOGLOBIN 28.6 pg (27.0-33.0); MEAN CORPUSCULAR VOLUME 86.8 fl (80.0-96.0); PLATELET COUNT, AUTOMATED 48 10^3/uL (150-450); RED BLOOD COUNT 4.54 10^6/uL (4.30-6.10)
[2019-01-04 05:47] LABS: ALBUMIN 3.8 GM/DL (3.2-5.2); ALT/SGPT 315 U/L (12-78); BILIRUBIN,TOTAL 1.8 MG/DL (0.2-1.0); BLOOD UREA NITROGEN 10 MG/DL (7-18); CALCIUM LEVEL 8.7 MG/DL (8.5-10.1); CARBON DIOXIDE LEVEL 30 MEQ/L (21-32); CHLORIDE LEVEL 94 MEQ/L (98-107); CREATININE FOR GFR 0.88 MG/DL (0.70-1.30); GLOMERULAR FILTRATION RATE > 60.0 (>60); GLUCOSE, FASTING 120 MG/DL (70-100); MAGNESIUM LEVEL 1.9 MG/DL (1.8-2.4); POTASSIUM SERUM 3.4 MEQ/L (3.5-5.1); SODIUM LEVEL 134 MEQ/L (136-145); TOTAL PROTEIN 7.8 GM/DL (6.4-8.2)
[2019-01-04 05:53] VITALS: BP 158/90
[2019-01-04 07:02] VITALS: BP 160/90
[2019-01-04] MEDS: ADVAIR HFA 230/21MCG INHALER INH SCH (07:29)
[2019-01-04] MEDS: ALBUTEROL SULFATE 2.5 MG/0.5 ML INH NEB SOLN INH SCH (07:29)
[2019-01-04 08:00] VITALS: BP 160/120
[2019-01-04] MEDS ORDERED: MAG SULF 1GM/100ML (MAG RUN) 1 GM in APPROPRIATE DILUENT 1 EA IV ONE (08:00)
[2019-01-04] MEDS ORDERED: OXAZEPAM 15 MG CAP PO ONE (08:00)
[2019-01-04] MEDS ORDERED: POTASSIUM CHLORIDE 10 MEQ SR TABLET PO ONE (08:00)
[2019-01-04] MEDS ORDERED: MAG400TA PO (08:12)
[2019-01-04] MEDS ORDERED: CHLO25CA PO (08:12)
[2019-01-04] MEDS ORDERED: THIA100TA PO (08:12)
[2019-01-04] MEDS ORDERED: FOLI1TAB11 PO (08:12)
[2019-01-04] MEDS ORDERED: MAGNESIUM OXIDE 400 MG TAB (MAG-OX) PO ONE (08:15)
[2019-01-04] MEDS: GABAPENTIN 300 MG CAP PO SCH (08:15)
[2019-01-04] MEDS: OMEPRAZOLE 20 MG CAP PO SCH (08:16)
[2019-01-04] MEDS: RIVAROXABAN 20 MG TAB (XARELTO) PO SCH (08:16)
[2019-01-04] MEDS: THIAMINE 100 MG TAB PO SCH (08:16)
[2019-01-04] MEDS: METOPROLOL TART 50 MG TAB PO SCH (08:16)
[2019-01-04] MEDS: TAMSULOSIN 0.4 MG CAP PO SCH (08:16)
[2019-01-04 08:17] VITALS: BP 160/120
[2019-01-04] MEDS: MULTIVITAMINS/MINERALS THERAP 1 TAB PO SCH (08:17)
[2019-01-04] MEDS: amLODIPine 5 MG TAB PO SCH (08:17)
[2019-01-04] MEDS: DULoxetine 20 MG CAP (CYMBALTA) PO SCH (08:17)
[2019-01-04] MEDS: BACTRIM 160MG/800MG DS TAB PO SCH (08:17)
[2019-01-04] MEDS: BUPRENORPHINE/NALOXONE 8-2MG SUBLINGUAL TABLET(SUBOXONE) SL SCH (08:17)
[2019-01-04] MEDS: FOLIC ACID 1 MG TAB PO SCH (08:17)
--- NOTE | 2019-01-04 10:59 | DS.PDOC ---
Discharge Summary General Date of Admission Jan 03, 2019 at 07:47 Date of Discharge 01/04/2019 Discharge Summary PROCEDURES PERFORMED DURING STAY: [None]. ADMITTING DIAGNOSES / DISCHARGE DIAGNOSES: s/p Intractable nausea and vomiting - possibly 2/2 viral gastroenteritis, possibly 2/2 withdrawal Elevated Lipase - likely 2/2 nausea / vomiting Alcohol withdrawal Hypertensive urgency Electrolyte abnormalities - likely 2/2 persistent nausea and vomiting Elevated AST / ALT - likely 2/2 alcoholic hepatitis, possibly 2/2 hepatic steatosis Asthma/COPD Hx of R sided endocarditis Hx of PE / Septic emboli (03/2018) Hx of IVDA Hx of Spinal abscess Pulmonary nodule Depression Neuropathy BPH GERD DVT prophylaxis COMPLICATIONS/CHIEF COMPLAINT: Nausea / Vomiting / Alcohol withdrawal symptoms HISTORY OF PRESENT ILLNESS: Patient is a 43-year-old male with a PMHx of HTN, Asthma, Hx of R sided endocarditis, Hx of PE / Septic emboli (03/2018, on Xarelto), s/p IVC filter (2013), Hx of IVDA, EtoH abuse, Hx of Spinal abscess, Pulmonary nodule (follows w/ Dr. López), Hepatic Steatosis, and with several admissions for alcohol withdrawal. Patient presented to the emergency room after experiencing n ausea and vomiting. He was recently being treated for urinary tract infection. Patient was admitted to the hospital service for possible gastroenteritis with alcohol withdrawal symptoms. Patient had indicated that he would like to leave AGAINST MEDICAL ADVICE because he has been to do at the hospital. I have advised him that he should remain inpatient, so he can continue monitoring his medical condition and help with alcohol withdrawal symptoms. Risks were advised to him including worsening of his medical condition. Possible seizure disability and/or (this is not an exhaustive list). HOSPITAL COURSE: s/p Intractable nausea and vomiting - possibly 2/2 viral gastroenteritis, possibly 2/2 withdrawal - Ankle. He has had resolution of nausea and vomiting - Physical without any abdominal tenderness - Patient remains afebrile and hemodynamically stable - No significant leukocytosis - Liver US 01/03: 1. Hepatomegaly with severe fatty infiltration vs hepatocellular disease. 2. Status post cholecystectomy. 3. Mildly dilated CBD at 7 mm is nonspecific and could be physiologic post cholecystectomy phenomena however underlying distal CBD stricture or obstruction cannot be excluded. Cor relate with patient's symptoms, LFTs and bilirubin level. If indicated MRCP may be obtained for further evaluation. - GI panel not obtained; diarrhea resolved - Will continue with symptom control and continue IV fluid hydration Elevated Lipase - likely 2/2 nausea / vomiting - Only 1 of 3 criteria for acute pancreatitis; unlikely - s/p IV fluids as stated above Alcohol withdrawal - Patient has indicated his last alcohol consumption was on Friday with 3 medium bottles of Vodka - Patient still appears to have alcohol withdrawal symptoms; he is been strongly advised to remain inpatient. However, he would like to leave AGAINST MEDICAL ADVICE - Risks and benefits have been discussed with him (see above) - Advised cessation of alcohol - c/w multivitamin, thiamine and folate - c/w CIWA protocol and Serax while inpatient; as an outpatient patient will be provided with a Librium taper (advised him that this is not the best strategy; ideal option would be to remain inpatient for continued monitoring and tapering of Serax) Hypertensive urgency - SBP of 160s - Will resume patients home medications - Continue with Ativan as per CIWA protocol and Serax PRN - Will place patient in PCU for possible IV based medications for BP control - c/w Metoprolol and Amlodipine Electrolyte abnormalities - likely 2/2 persistent nausea and vomiting - Again has elected to let abnormalities this morning, however, significantly improved - Will supplement again via oral routes and provide outpatient supplementation Elevated AST / ALT - likely 2/2 alcoholic hepatitis, possibly 2/2 hepatic steatosis - Patients discriminate function is less than 32; will not benefit from Pentoxifylline - Liver enzymes are improving - Imaging noted above - Will c/w IV fluid hydration Asthma/COPD - No evidence of exacerbation - c/w inhaled therapy as ordered Hx of R sided endocarditis Hx of PE / Septic emboli (03/2018) - s/p IVC filter (2013) - c/w full anticoagulation with Xarelto Hx of IVDA Hx of Spinal abscess Pulmonary nodule - Follows w/ Dr. López as an outpatient Depression - c/w Duloxetine Neuropathy - c/w Gabapentin BPH - c/w Tamsulosin GERD - c/w Omeprazole DVT prophylaxis - c/w full and coagulation with Xarelto DISCHARGE MEDICATIONS: Please see below. ALLERGIES: Please see below. PHYSICAL EXAMINATION ON DISCHARGE: Vitals (See below) General: Lying in bed, no acute distress, comfortable, patient does appear tremulous, AAOx3 HEENT: NC, AT CVS: RRR, +S1S2 Lungs: Fair air entry b/l, no appreciable wheezing, rales or rhonchi Abdomen: Abdomen is soft, without any distention or tenderness Extremities: - Edema, - Calf tenderness LABORATORY DATA: Please see below. ACTIVITY: [As tolerated]. DISCHARGE PLAN: Follow-up with Dr. Dany Agarwal within 7 days Remain compliant with treatment plan and medications Return to the ER if you experience any problems DISPOSITION: Against Medical Advice. DISCHARGE CONDITION: [Stable]. TIME SPENT ON DISCHARGE: Greater than [35] minutes. Vital Signs/I&Os Vital Signs Date Time Temp Pulse Resp B/P (MAP) Pulse Ox O2 Delivery O2 Flow Rate FiO2 01/04/19 08:17 120 160/120 01/04/19 08:00 97.3 20 97 01/03/19 08:00 Room Air I&O- Last 24 Hours up to 6 AM 01/04/19 06:00 Intake Total 4280 ml Output Total 1452 ml Balance 2828 ml Laboratory Data Labs 24H Laboratory Tests 2 01/03/19 11:59: Anion Gap 14, Glomerular Filtration Rate > 60.0, Blood Urea Nitrogen 14, Creati nine 1.00, Sodium Level 135L, Potassium Level 3.3#L, Chloride Level 89L, Carbon Dioxide Level 32, Calcium Level 7.7L, Magnesium Level 2.4 01/04/19 05:05: Anion Gap 10, Glomerular Filtration Rate > 60.0, Blood Urea Nitrogen 10, Creatinine 0.88, Sodium Level 134L, Potassium Level 3.4L, Chloride Level 94L, Carbon Dioxide Level 30, Calcium Level 8.7, Magnesium Level 1.9, Nucleated Red Blood Cells % (auto) 0.0, Immature Platelet Fraction 5.8, Aspartate Amino Transf (AST/SGOT) 605H, Alanine Aminotransferase (ALT/SGPT) 315H, Alkaline Phosphatase 195H, Total Bilirubin 1.8H, Total Protein 7.8, Albumin 3.8, Albumin/Globulin Ratio 0.95L CBC/BMP Laboratory Tests 01/03/19 11:59 Calcium Level 7.7 L 01/04/19 05:05 Calcium Level 8.7, Red Blood Count 4.54, Mean Corpuscular Volume 86.8, Mean Corpuscular Hemoglobin 28.6, Mean Corpuscular Hemoglobin Concent 33.0, Red Cell Distribution Width 15.6 H, Aspartate Amino Transf (AST/SGOT) 605 H, Alanine Aminotransferase (ALT/SGPT) 315 H, Alkaline Phosphatase 195 H, Total Bilirubin 1.8 H, Total Protein 7.8, Albumin 3.8 Discharge Medications Scheduled Acamprosate Calcium (Acamprosate Calcium) 333 Mg Tablet.dr, 333 MG PO TID, (Reported) NEW MED, NOT STARTED YET Amlodipine Besylate (Amlodipine Besylate) 5 Mg Tablet, 5 MG PO DAILY, (Reported) Buprenorphine HCl/Naloxone HCl (Suboxone 8 mg-2 mg Sl Film) 1 Mis Mis, 1 MIS SL DAILY, (Reported) Duloxetine Hcl (Duloxetine HCl) 20 Mg Capsule.dr, 20 MG PO BID, (Reported) Fluticasone/Vilanterol (Breo Ellipta 200-25 Mcg INH) 1 Each Blst.w.dev, 1 PUFF INH DAILY, (Reported) Folic Acid (Folic Acid) 1 Mg Tablet, 1 MG PO DAILY Gabapentin (Gabapentin) 300 Mg Cap, 900 MG PO TID, (Reported) Magnesium Oxide (Magnesium Oxide) 400 Mg Tablet, 400 MG PO ONCE Metoprolol Tartrate (Metoprolol Tartrate) 50 Mg Tab, 50 MG PO BID, (Reported) Multivitamins (Thera M Plus Tablet) 1 Tab Tab, 1 TAB PO DAILY, (Reported) Omeprazole (Omeprazole) 20 Mg Cap, 20 MG PO DAILY, (Reported) Rivaroxaban (Xarelto) 20 Mg Tab, 20 MG PO DAILY, (Reported) Sulfamethoxazole/Trimethoprim (Bactrim Ds Tablet) 1 Each Tablet, 1 TAB PO BID, (Reported) FILLED 01/01 FOR 7 DAYS Tamsulosin HCl (Flomax) 0.4 Mg Cap, 0.4 MG PO DAILY, (Reported) Thiamine Hcl (Vitamin B-1) 100 Mg Tablet, 100 MG PO DAILY Umeclidinium Victor (Incruse Ellipta) 62.5 Mcg/Inh Inh, 1 PUFF INH DAILY, (Reported) Scheduled PRN Albuterol Sulf (Albuterol Sulfate) 2.5 Mg/3 Ml Nebu, 2.5 MG INH Q6H PRN for SHORTNESS OF BREATH, (Reported) Albuterol Sulfate (Ventolin Hfa) 108 Mcg/Act Aer, 2 PUFFS INH Q4H PRN for SHORTNESS OF BREATH, (Reported) Baclofen (Baclofen) 20 Mg Tab, 20 MG PO TID PRN for PAIN, (Reported) Chlordiazepoxide (Chlordiazepoxide HCl) 25 Mg Capsule, 25 MG PO ASDIRECTED PRN for WITHDRAWAL SYMPTOMS take 1 tab po qid x 2 days, po tid x 2 dyas, po bid x 2 days, po qd x 1 day Fluticasone Propionate (Fluticasone Propionate) 50 Mcg/Act Spr, 1 SPRAY NARES DAILY PRN for CONGESTION, (Reported) Naloxone HCl (Narcan) 4 Mg/0.1 Ml Spr, 4 MG NA ASDIRECTED PRN for OVERDOSE, (Reported) Sennosides/Docusate Sodium (Senna-S Tablet) 1 Tab Tab, 1 TAB PO DAILY PRN for CONSTIPATION, (Reported) Allergies Coded Allergies: vancomycin (Verified Allergy, Intermediate, 01/03/19) REDNESS AT IV SITE DESTIN KEYES MD Jan 04, 2019 10:59
[2019-01-04] MEDS ORDERED: OXAZEPAM 15 MG CAP PO SCH (14:00)
== END 2019-01-04 08:29 | disposition left against medical advice (07) | DRG 392 ==
LOC: M ED 03:28 → M ED INP 07:47 → M PCU 12:43
PROVIDERS: ADMIT Internal Medicine; ATTEND Internal Medicine
DX: A08.4 Viral intestinal infection, unspecified (principal); F10.239 Alcohol dependence with withdrawal, unspecified; K76.0 Fatty (change of) liver, not elsewhere classified; K70.10 Alcoholic hepatitis without ascites; I16.0 Hypertensive urgency; K21.9 Gastro-esophageal reflux disease without esophagitis; N40.0 Benign prostatic hyperplasia without lower urinary tract symptoms; F32.9 Major depressive disorder, single episode, unspecified; J45.909 Unspecified asthma, uncomplicated; Z86.711 Personal history of pulmonary embolism; R91.1 Solitary pulmonary nodule; G62.9 Polyneuropathy, unspecified; Z79.899 Other long term (current) drug therapy; Z88.1 Allergy status to other antibiotic agents; F17.200 Nicotine dependence, unspecified, uncomplicated

== ENCOUNTER 2019-01-18 08:45 | Outpatient (RCR) | payer MEDICARE ==
[~2019-01-18 08:45] MED LIST changes: +ACAM0.05 PO; +CHLO25CA PO; +MAG400TA PO
== END 2019-01-19 ==
LOC: M OUTALCOH 08:45
PROVIDERS: ATTEND Psychiatry & Neurology Psychiatry
DX: F10.20 Alcohol dependence, uncomplicated (principal); F11.20 Opioid dependence, uncomplicated; F14.20 Cocaine dependence, uncomplicated

== ENCOUNTER 2019-01-22 08:24 | Emergency (ER) | payer MEDICARE, MEDICAID ==
[~2019-01-22] VITALS: Ht 172.7 cm; Wt 100.9 kg
[2019-01-22] MEDS ORDERED: predniSONE 20 MG TAB PO ONE (09:45)
[2019-01-22] MEDS ORDERED: PRED10TA2 PO (09:53)
--- NOTE | 2019-01-22 10:00 | REP ---
LEFT HIP, TWO VIEWS: There is no evidence of an acute fracture, dislocation or intrinsic bone disease. IMPRESSION: No fracture or dislocation. Electronically Signed by Jayjay Monroy MD 01/22/2019 01:26 P
--- NOTE | 2019-01-22 10:04 | REP ---
LUMBOSACRAL SPINE: Five views of the lumbosacral spine performed. There is no compression fracture or malalignment. There is no spondylolysis or spondylolisthesis. There is mild spurring of L4. There is mild disc space narrowing and subchondral sclerosis at L5-S1 with sclerosis at the facet joints at that level. The posterior elements appear intact. There is slight curvature toward the right. IVC filter is noted at the L2-3 level. Metallic clip is seen in the right upper quadrant. IMPRESSION: Mild degenerative changes. No fracture or dislocation. Electronically Signed by Jayjay Monroy MD 01/22/2019 01:30 P
[2019-01-22 10:06] VITALS: BP 126/74
== END 2019-01-22 10:07 | disposition home or self-care (01) ==
LOC: M ED 08:24
DX: S70.02XA Contusion of left hip, initial encounter (principal); M51.36 Other intervertebral disc degeneration, lumbar region; W01.0XXA Fall on same level from slipping, tripping and stumbling without subsequent striking against object, initial encounter; Y92.098 Other place in other non-institutional residence as the place of occurrence of the external cause; I10 Essential (primary) hypertension; F10.10 Alcohol abuse, uncomplicated; M54.9 Dorsalgia, unspecified; Z95.2 Presence of prosthetic heart valve; Z87.891 Personal history of nicotine dependence; Z88.1 Allergy status to other antibiotic agents; Z79.899 Other long term (current) drug therapy; Z79.01 Long term (current) use of anticoagulants

== ENCOUNTER → 2019-01-28 | Outpatient (REF) | payer MEDICARE, OTHER ==
[~2019-01-28] MED LIST changes: +PRED10TA2 PO
[2019-01-28 13:53] LABS: ALBUMIN 4.3 GM/DL (3.2-5.2); ALT/SGPT 97 U/L (12-78); BILIRUBIN,DIRECT 0.2 MG/DL (0.0-0.2); BILIRUBIN,TOTAL 0.5 MG/DL (0.2-1.0); BLOOD UREA NITROGEN 19 MG/DL (7-18); CARBON DIOXIDE LEVEL 24 MEQ/L (21-32); CHLORIDE LEVEL 106 MEQ/L (98-107); CREATININE FOR GFR 0.83 MG/DL (0.70-1.30); GLOMERULAR FILTRATION RATE > 60.0 (>60); GLUCOSE, FASTING 132 MG/DL (70-100); POTASSIUM SERUM 4.2 MEQ/L (3.5-5.1); SODIUM LEVEL 138 MEQ/L (136-145); TOTAL PROTEIN 7.8 GM/DL (6.4-8.2)
[2019-02-02 00:06] LABS: AFP TUMOR TOTAL 2.3 ng/mL (0.0-8.0)
== END ==
LOC: M SFHCPLAZ 11:31
PROVIDERS: ATTEND Family Medicine
DX: K70.10 Alcoholic hepatitis without ascites (principal); E87.6 Hypokalemia; E83.42 Hypomagnesemia

== ENCOUNTER 2019-02-17 10:35 | Emergency (ER) | payer MEDICARE, OTHER, MEDICAID ==
[~2019-02-17] VITALS: Ht 172.7 cm; Wt 95.5 kg
[2019-02-17 12:27] VITALS: BP 125/85
--- NOTE | 2019-02-17 12:38 | REP ---
Right hand: Four views. History: Trauma. Findings: Four views right hand show overall normal mineralization. No fracture or subluxation is seen. No opaque foreign body noted. There is soft tissue swelling diffusely over the metacarpals on the lateral radiograph. Impression: Soft-tissue swelling diffusely over the metacarpals dorsally. No fracture or opaque foreign body seen. Electronically Signed by Ronaldo Hernandez MD 02/17/2019 12:29 P
== END 2019-02-17 12:34 | disposition home or self-care (01) ==
LOC: M ED 10:35
DX: S60.221A Contusion of right hand, initial encounter (principal); W01.0XXA Fall on same level from slipping, tripping and stumbling without subsequent striking against object, initial encounter; Y92.099 Unspecified place in other non-institutional residence as the place of occurrence of the external cause; Y93.9 Activity, unspecified; Y99.9 Unspecified external cause status; R51 Headache; I10 Essential (primary) hypertension; J45.909 Unspecified asthma, uncomplicated; J44.9 Chronic obstructive pulmonary disease, unspecified; Z87.01 Personal history of pneumonia (recurrent); G47.30 Sleep apnea, unspecified; Z86.711 Personal history of pulmonary embolism; R91.1 Solitary pulmonary nodule; K21.9 Gastro-esophageal reflux disease without esophagitis; K59.2 Neurogenic bowel, not elsewhere classified; N18.9 Chronic kidney disease, unspecified; Z87.440 Personal history of urinary (tract) infections; K76.0 Fatty (change of) liver, not elsewhere classified; R16.0 Hepatomegaly, not elsewhere classified; F41.9 Anxiety disorder, unspecified; F32.9 Major depressive disorder, single episode, unspecified; F10.10 Alcohol abuse, uncomplicated; F19.10 Other psychoactive substance abuse, uncomplicated; Z79.899 Other long term (current) drug therapy; Z88.2 Allergy status to sulfonamides; Z79.01 Long term (current) use of anticoagulants

== ENCOUNTER → 2019-02-19 | Outpatient (RCR) | payer MEDICARE | LOC: M OUTALCOH 01-20 08:45 | PROVIDERS: ATTEND Psychiatry & Neurology Psychiatry | DX: F10.20 Alcohol dependence, uncomplicated (principal); F14.20 Cocaine dependence, uncomplicated; F11.20 Opioid dependence, uncomplicated ==

== ENCOUNTER 2019-03-17 14:35 | Emergency (ER) | payer MEDICARE, MEDICAID ==
[~2019-03-17] VITALS: Ht 172.7 cm; Wt 97.7 kg
[~2019-03-17 14:35] MED LIST changes: -DULO1CAP PO; -DULO1CAP2 PO; +DULO1CAP4 PO; +DULO1CAP5 PO; -OMEP20CA3 PO; +OMEP20CA4 PO
[2019-03-17 18:16] LABS: HEMATOCRIT 44.5 % (42.0-52.0); HEMOGLOBIN 14.8 g/dl (13.5-17.5); MEAN CORPUSCULAR HEMOGLOBIN 27.4 pg (27.0-33.0); MEAN CORPUSCULAR HGB CONC 33.3 g/dl (32.0-36.5); MEAN CORPUSCULAR VOLUME 82.3 fl (80.0-96.0); PLATELET COUNT, AUTOMATED 218 10^3/uL (150-450); RED BLOOD COUNT 5.41 10^6/uL (4.30-6.10)
[2019-03-17 18:19] LABS: WHITE BLOOD COUNT 14.7 10^3/uL (4.0-10.0)
--- NOTE | 2019-03-17 18:21 | REP ---
Right hand four views: There is soft tissue edema dorsally. Mineralization and joint spaces are normal. There is no fracture or dislocation. There are no calcifications or foreign bodies. Impression: Soft tissue swelling over the dorsum. Otherwise, negative right hand. Electronically Signed by Jayjay Del Rio MD 03/17/2019 06:13 P
[2019-03-17 18:42] LABS: ALT/SGPT 173 U/L (12-78); BILIRUBIN,DIRECT 0.1 MG/DL (0.0-0.2); BILIRUBIN,TOTAL 0.6 MG/DL (0.2-1.0); BLOOD UREA NITROGEN 13 MG/DL (7-18); C REACTIVE PROTEIN QUANTITATIV 0.34 MG/DL (0.00-0.30); CALCIUM LEVEL 8.7 MG/DL (8.5-10.1); CARBON DIOXIDE LEVEL 26 MEQ/L (21-32); CHLORIDE LEVEL 99 MEQ/L (98-107); CREATININE FOR GFR 0.86 MG/DL (0.70-1.30); GLOMERULAR FILTRATION RATE > 60.0 (>60); GLUCOSE, FASTING 126 MG/DL (70-100); POTASSIUM SERUM 3.3 MEQ/L (3.5-5.1); SODIUM LEVEL 136 MEQ/L (136-145); TOTAL PROTEIN 9.1 GM/DL (6.4-8.2)
[2019-03-17 18:43] LABS: EOSINOPHILS 5 % (0-5); LYMPHOCYTES 37 % (16-52); MONOCYTES 2 % (0-8); NEUTROPHILS 56 % (35-75)
[2019-03-17 18:44] LABS: PLATELET ESTIMATE NORMAL (NORMAL)
[2019-03-17 19:08] LABS: ERYTHROCYTE SEDIMENTATION RATE 11 mm/hr (0-15)
[2019-03-17] MEDS ORDERED: BACT800T5 PO (19:52)
[2019-03-17 19:59] VITALS: BP 142/82
== END 2019-03-17 20:10 | disposition home or self-care (01) ==
LOC: M ED 14:35
DX: L03.113 Cellulitis of right upper limb (principal); W17.89XA Other fall from one level to another, initial encounter; Y92.9 Unspecified place or not applicable; Y93.9 Activity, unspecified; F32.9 Major depressive disorder, single episode, unspecified; F41.1 Generalized anxiety disorder; I10 Essential (primary) hypertension; J44.9 Chronic obstructive pulmonary disease, unspecified; Z79.51 Long term (current) use of inhaled steroids; Z79.899 Other long term (current) drug therapy; Z88.1 Allergy status to other antibiotic agents

== ENCOUNTER 2019-03-19 13:00 | Outpatient (RCR) | payer MEDICARE ==
[~2019-03-19 13:00] MED LIST changes: -ARTI99.0 OU; +ARTIDRO2 OU; +OMEP1CAP73 PO; -OMEP20CA4 PO
[2019-03-22] MEDS ORDERED: SULF1TAB93 PO (06:02)
[2019-03-22] MEDS ORDERED: FOLI0.8T PO (10:43)
[2019-03-22] MEDS ORDERED: VITA500T17 PO (10:43)
[2019-03-22] MEDS ORDERED: OXYB-54 PO (10:43)
[2019-03-22] MEDS ORDERED: COLA100C5 PO (10:43)
[2019-03-22] MEDS ORDERED: METO100T5 PO (10:43)
== END 2019-03-21 ==
LOC: M OUTALCOH 13:00
PROVIDERS: ATTEND Psychiatry & Neurology Psychiatry
DX: F10.20 Alcohol dependence, uncomplicated (principal)

== ENCOUNTER 2019-03-22 05:53 | Inpatient (IN) | payer MEDICARE, MEDICAID ==
[~2019-03-22] VITALS: Ht 172.7 cm; Wt 97.5 kg
[2019-03-22] VITALS (9 sets, daily range): BP systolic 113–155; BP diastolic 55–106; O2SAT 90–96
[~2019-03-22 05:53] MED LIST changes: +ARTI99.0 OU; -ARTIDRO2 OU; +DULO1CAP PO; +DULO1CAP2 PO; -DULO1CAP4 PO; -DULO1CAP5 PO; -OMEP1CAP73 PO; +OMEP20CA3 PO
[2019-03-22] MEDS ORDERED: SULF1TAB93 PO (06:02)
[2019-03-22] MEDS ORDERED: PHENobarbital INJ 65 MG/ML VIAL (J2560) IV STA (06:24)
[2019-03-22] MEDS ORDERED: MULTIVITAMIN -ADULT INJECTION 10 ML, THIAMINE INJection 100 MG, FOLIC ACID 1 MG in NS 1... IV ONE (06:30)
[2019-03-22] MEDS ORDERED: TRIMETHOPRIM/SULFAMETHOXAZOLE 500 MG in D5W 500 ML IV ONE (06:45)
[2019-03-22] MEDS ORDERED: MORPHINE 10 MG/ML 1ML VIAL (J2270) IV ONE (06:45)
[2019-03-22 06:52] LABS: BASO % 0.3 % (0.0-1.0); EOS % 0.4 % (0.0-3.0); HEMATOCRIT 41.3 % (42.0-52.0); HEMOGLOBIN 13.6 g/dl (13.5-17.5); LYMPH # 1.1 10^3/uL (1.5-4.5); LYMPH % 11.2 % (24.0-44.0); MEAN CORPUSCULAR HEMOGLOBIN 27.5 pg (27.0-33.0); MEAN CORPUSCULAR HGB CONC 32.9 g/dl (32.0-36.5); MEAN CORPUSCULAR VOLUME 83.6 fl (80.0-96.0); MONO # 0.6 10^3/uL (0.0-0.8); MONO % 5.5 % (0.0-5.0); NEUTROPHILS # 8.4 10^3/uL (1.8-7.7); NEUTROPHILS % 82.1 % (36.0-66.0); PLATELET COUNT, AUTOMATED 129 10^3/uL (150-450); RED BLOOD COUNT 4.94 10^6/uL (4.30-6.10); WHITE BLOOD COUNT 10.2 10^3/uL (4.0-10.0)
[2019-03-22] MEDS: NS 1,000 ML IV SCH ×3 (07:30→20:39)
[2019-03-22 07:34] LABS: ALBUMIN 3.8 GM/DL (3.2-5.2); ALT/SGPT 136 U/L (12-78); BILIRUBIN,DIRECT 0.2 MG/DL (0.0-0.2); BLOOD UREA NITROGEN 14 MG/DL (7-18); CALCIUM LEVEL 8.7 MG/DL (8.5-10.1); CARBON DIOXIDE LEVEL 25 MEQ/L (21-32); CHLORIDE LEVEL 98 MEQ/L (98-107); CREATININE FOR GFR 0.93 MG/DL (0.70-1.30); GLOMERULAR FILTRATION RATE > 60.0 (>60); GLUCOSE, FASTING 113 MG/DL (70-100); LIPASE 90 U/L (73-393); POTASSIUM SERUM 3.3 MEQ/L (3.5-5.1); SODIUM LEVEL 136 MEQ/L (136-145)
[2019-03-22] MEDS ORDERED: OXAZEPAM 15 MG CAP PO ONE (07:45)
[2019-03-22] MEDS ORDERED: POTASSIUM CHLORIDE 10 MEQ SR TABLET PO ONE (08:00)
[2019-03-22] MEDS ORDERED: LORazepam 2 MG/ML VIAL (J2060) IV STA ×2 (10:00→10:49)
[2019-03-22] MEDS ORDERED: amLODIPine 5 MG TAB PO ONE (10:15)
[2019-03-22] MEDS ORDERED: METOPROLOL TARTRATE 100 MG TAB PO ONE (10:15)
[2019-03-22] MEDS ORDERED: METO100T5 PO (10:43)
[2019-03-22] MEDS ORDERED: VITA500T17 PO (10:43)
[2019-03-22] MEDS ORDERED: OXYB5TAB PO (10:43)
[2019-03-22] MEDS ORDERED: FOLI0.8T PO (10:43)
[2019-03-22] MEDS ORDERED: COLA100C5 PO (10:43)
--- NOTE | 2019-03-22 11:37 | REP ---
Clinical: Shortness of breath . Comparison: 01/01/2019 . Technique: PA and lateral. Findings: The mediastinum and cardiac silhouette are normal. The lung guillermo are clear and without acute consolidation, effusion, or pneumothorax. The skeletal structures are intact and normal. Impression: 1. No acute cardiopulmonary process. Electronically Signed by Ramon Tillman MD 03/22/2019 11:28 A
[2019-03-22] MEDS: LORazepam 2 MG/ML VIAL (J2060) IV PRN ×2 (13:16→20:40)
[2019-03-22] MEDS: THIAMINE 100 MG TAB PO SCH ×2 (13:16→20:39)
[2019-03-22] MEDS: SYMBICORT 80/4.5MCG INHALER 6GM INH SCH ×2 (15:02→20:33)
[2019-03-22] MEDS: IPRATROPIUM 0.5MG/ALBUTEROL 2.5MG INH SOL UD 3ML (DUONEB)(J7620) NEB SCH ×2 (15:35→20:00)
[2019-03-22] MEDS: TIOTROPIUM INHALER/CAPSULE (SPIRIVA) INH SCH (15:35)
--- NOTE | 2019-03-22 15:44 | HPEPDOC ---
[facility] Medical History & Physical Date of Admission Mar 22, 2019 Date of Service: Mar 22, 2019 History and Physical CHIEF COMPLAINT: agitation, tremor HISTORY OF PRESENT ILLNESS: Pt is 43 y/o M with Hx of COPD on O2 therapy at home, ALFONZO on CPAP HS, Hx of ETOH use disorder with recurrent episodes of ETOH withdrawal syndrome in the past. Hx of IVDU and Rt sided endocarditis with septic emboli, Hx of PE on Xarelto s/p IVC filter 2013, Hx of spinal abscess s/p drainage presented to ED due to 3 days history of nausea vomiting and tremulousness. Pt is known to ETOH use with recurrent withdrawal episodes. Upon my encounter is hemodynamically stable, AAOx3, denies any shortness of breath, chest pain or dizziness. Denies palpitations. Pt reports seeing unusual objects, reports hallucinations. CXR is unremarkable. Labs cbc, electrolytes WNL, elevated liver enzyme. PAST MEDICAL HISTORY: as above PAST SURGICAL HISTORY: 1. Cervical Spine Abscess s/p drainage 2017 2. IVC filter placement 3. cholecystectomy SOCIAL HISTORY: Pt is on disability, lives with his mother, Hx of excessive ETOH use, reports quit smoking, denies use of illicit drugs. FAMILY HISTORY: HTN T2DM in maternal and paternal side ALLERGIES: Please see below. REVIEW OF SYSTEMS: 10 point completed negative except mentioned in HPI HOME MEDICATIONS: Please see below. PHYSICAL EXAMINATION: VITAL SIGNS: please see below GENERAL APPEARANCE: pt is awake and alert able to converse , he received sedative medications and responds slow HEENT: RAUDEL EOMI atraumatic no jaundice no eythema no discharge CARDIOVASCULAR: S1 S2 increased HR no murmur LUNGS: bilat good air entry bilat clear no wheezing no rales ABDOMEN: soft NT ND no evidence of ascites MUSCULOSKELETAL: no deformity EXTREMITIES: no edema no tenderness no cyanosis NEUROLOGICAL: motor and sensory grossly intact PSYCHIATRIC: mood and affect appropriate LABORATORY DATA: See below. IMAGING: Comparison: 01/01/2019 . Technique: PA and lateral. Findings: The mediastinum and cardiac silhouette are normal. The lung guillermo are clear and without acute consolidation, effusion, or pneumothorax. The skeletal structures are intact and normal. Impression: 1. No acute cardiopulmonary process MICROBIOLOGY: Please see below. Vital Signs Date Time Temp Pulse Resp B/P (MAP) Pulse Ox O2 Delivery O2 Flow Rate FiO2 03/22/19 12:00 97.6 96 18 155/104 (121) 96 03/22/19 11:53 96 155/106 03/22/19 11:37 98.5 91 20 155/106 (122) 96 Room Air 03/22/19 10:41 99 155/108 03/22/19 10:41 99 155/108 03/22/19 10:35 98 155/106 (122) 95 Room Air 03/22/19 10:03 100 152/64 (93) 95 Room Air 03/22/19 10:00 180/120 (140) 03/22/19 10:00 102 96 Room Air 03/22/19 09:45 99 94 Room Air 03/22/19 09:30 105 157/102 (120) 95 Room Air 03/22/19 09:15 102 96 Room Air 03/22/19 09:01 96 163/98 (119) 95 Room Air 03/22/19 08:45 99 96 Room Air 03/22/19 08:30 96 96 Room Air 03/22/19 08:15 98 96 Room Air 03/22/19 08:00 96 174/103 (126) 95 Room Air 03/22/19 07:42 99 162/94 (116) 95 Room Air 03/22/19 07:41 101 162/94 03/22/19 07:30 100 161/102 (121) 95 Room Air 03/22/19 07:05 98.5 99 16 153/101 (118) 95 Room Air 03/22/19 07:05 100 153/105 (121) 95 Room Air 03/22/19 06:33 03/22/19 05:54 97.0 100 15 185/102 (129) 96 Room Air Laboratory Tests 03/22/19 06:39: White Blood Count 10.2H, Red Blood Count 4.94, Hemoglobin 13.6, Hematocrit 41.3 L, Mean Corpuscular Volume 83.6, Mean Corpuscular Hemoglobin 27.5, Mean Corpuscular Hemoglobin Concent 32.9, Red Cell Distribution Width 13.2, Platelet Count 129L, Neutrophils (%) (Auto) 82.1H, Lymphocytes (%) (Auto) 11.2L, Monocytes (%) (Auto) 5.5H, Eosinophils (%) (Auto) 0.4, Basophils (%) (Auto) 0.3, Neutrophils # (Auto) 8.4H, Lymphocytes # (Auto) 1.1L, Monocytes # (Auto) 0.6, Eosinophils # (Auto) 0.0, Basophils # (Auto) 0.0, Immature Granulocyte % (Auto) 0.5, Nucleated Red Blood Cells % (auto) 0.0, Sodium Level 136, Potassium Level 3.3L, Chloride Level 98, Carbon Dioxide Level 25, Anion Gap 13, Blood Urea Nitrogen 14, Creatinine 0.93, Glomerular Filtration Rate > 60.0, Fasting Glucose 113H, Calcium Level 8.7, Aspartate Amino Transf (AST/SGOT) 106H, Alanine Aminotransferase (ALT/SGPT) 136H, Alkaline Phosphatase 112, Total Bilirubin 1.0, Direct Bilirubin 0.2, Total Protein 8.0, Albumin 3.8, Albumin/Globulin Ratio 0.90L, Lipase 90 Current Medications Medications (Trade) Dose Ordered Sig/Veronica Route PRN Reason Start Time Stop Time Status Last Admin Dose Admin Lorazepam (Ativan) 2 mg ASDIRECTED PRN IV SEE PROTOCOL 03/22/19 10:45 03/22/19 13:16 2 MG Sodium Chloride 1,000 ml @ 150 mls/hr Q6H40M IV 03/22/19 07:07 03/22/19 07:30 150 MLS/HR Thiamine HCl (Thiamine HCl) 100 mg BID PO 03/22/19 09:00 03/24/19 21:01 03/22/19 13:16 100 MG A/P 1-Alcohol Withdrawal Syndrome Admit to PCU Continuous Telemonitoring [facility] protocol Administer Ativan per [facility], I spoke to pharmacy to administer Ativan as IV Pt is tremulous and agitated with hallucinations, would expect that pt will require high doses of benzodiazepines. In case pt excessively agitated with hemodynamic unstable will transfer to intensive care unit. Folate Thiamine Supplement lectrolytes IVF NS 100 ml/hr 2-Hx of COPD Clinically stable Start Duoneb Veronica Start long acting betablocker and inhaled steroids as pt home regimen 3-HTN home med Norvasc 5mg Further adjust if needed 4-Elevated liver enzyme likely sec to alcoholic liver disease mildy elevated, will monitor DVT Prophylaxis PT/OT once pt clinically optimized SW/CM for ETOH program Vital Signs Vital Signs Date Time Temp Pulse Resp B/P (MAP) Pulse Ox O2 Delivery O2 Flow Rate FiO2 03/22/19 12:00 97.6 96 18 155/104 (121) 96 7/1/19 11:37 Room Air Laboratory Data Labs 24H Laboratory Tests 2 03/22/19 06:39: Immature Granulocyte % (Auto) 0.5, White Blood Count 10.2H, Red Blood Count 4.94, Hemoglobin 13.6, Hematocrit 41.3L, Mean Corpuscular Volume 83.6, Mean Corpuscular Hemoglobin 27.5, Mean Corpuscular Hemoglobin Concent 32.9, Red Cell Distribution Width 13.2, Platelet Count 129L, Neutrophils (%) (Auto) 82.1H, Lymphocytes (%) (Auto) 11.2L, Monocytes (%) (Auto) 5.5H, Eosinophils (%) (Auto) 0.4, Basophils (%) (Auto) 0.3, Neutrophils # (Auto) 8.4H, Lymphocytes # (Auto) 1.1L, Monocytes # (Auto) 0.6, Eosinophils # (Auto) 0.0, Basophils # (Auto) 0.0, Nucleated Red Blood Cells % (auto) 0.0, Anion Gap 13, Glomerular Filtration Rate > 60.0, Calcium Level 8.7, Aspartate Amino Transf (AST/SGOT) 106H, Alanine Aminotransferase (ALT/SGPT) 136H, Alkaline Phosphatase 112, Total Bilirubin 1.0, Direct Bilirubin 0.2, Total Protein 8.0, Albumin 3.8, Albumin/Globulin Ratio 0.90L, Lipase 90 CBC/BMP Laboratory Tests 03/22/19 06:39 Red Blood Count 4.94, Mean Corpuscular Volume 83.6, Mean Corpuscular Hemoglobin 27.5, Mean Corpuscular Hemoglobin Concent 32.9, Red Cell Distribution Width 13.2, Neutrophils (%) (Auto) 82.1 H, Lymphocytes (%) (Auto) 11.2 L, Monocytes (%) (Auto) 5.5 H, Eosinophils (%) (Auto) 0.4, Basophils (%) (Auto) 0.3, Neutrophils # (Auto) 8.4 H, Lymphocytes # (Auto) 1.1 L, Monocytes # (Auto) 0.6, Eosinophils # (Auto) 0.0, Basophils # (Auto) 0.0 Home Medications Scheduled Acamprosate Calcium (Acamprosate Calcium) 333 Mg Tablet.dr, 666 MG PO TID Amlodipine Besylate (Amlodipine Besylate) 5 Mg Tablet, 5 MG PO DAILY Buprenorphine HCl/Naloxone HCl (Suboxone 8 mg-2 mg Sl Film) 1 Mis Mis, 1 MIS SL DAILY Cyanocobalamin (Vitamin B-12) (Vitamin B-12) 500 Mcg Tablet, 500 MCG PO DAILY Docusate Sodium (Colace) 100 Mg Capsule, 100 MG PO DAILY Duloxetine Hcl (Duloxetine HCl) 20 Mg Capsule.dr, 20 MG PO BID Fluticasone/Vilanterol (Breo Ellipta 200-25 Mcg INH) 1 Each Blst.w.dev, 1 PUFF INH DAILY Folic Acid (Folic Acid) 0.8 Mg Tablet, 800 MCG PO DAILY Gabapentin (Gabapentin) 300 Mg Cap, 900 MG PO TID Metoprolol Tartrate (Metoprolol Tartrate) 100 Mg Tablet, 100 MG PO BID Multivitamins (Thera M Plus Tablet) 1 Tab Tab, 1 TAB PO DAILY Omeprazole (Omeprazole) 20 Mg Cap, 20 MG PO DAILY Oxybutynin Chloride (Oxybutynin Chloride ER) 5 Mg Tab.er.24, 5 MG PO DAILY LAST FILLED AUG 2018 Rivaroxaban (Xarelto) 20 Mg Tab, 20 MG PO DAILY Sennosides/Docusate Sodium (Senna-S Tablet) 1 Tab Tab, 1 TAB PO DAILY Sulfamethoxazole/Trimethoprim (Sulfamethoxazole-Tmp Ds Tablet) 1 Each Tablet, 1 TAB PO BID FILLED 03/20 FOR 10 DAYS Tamsulosin HCl (Flomax) 0.4 Mg Cap, 0.4 MG PO DAILY Umeclidinium [place] (Incruse Ellipta) 62.5 Mcg/Inh Inh, 1 PUFF INH DAILY Scheduled PRN Albuterol Sulf (Albuterol Sulfate) 2.5 Mg/3 Ml Nebu, 2.5 MG INH Q6H PRN for SHORTNESS OF BREATH Albuterol Sulfate (Ventolin Hfa) 108 Mcg/Act Aer, 2 PUFFS INH Q4H PRN for SHORTNESS OF BREATH Baclofen (Baclofen) 20 Mg Tab, 20 MG PO TID PRN for PAIN Fluticasone Propionate (Fluticasone Propionate) 50 Mcg/Act Spr, 1 SPRAY NARES DAILY PRN for CONGESTION Naloxone HCl (Narcan) 4 Mg/0.1 Ml Spr, 4 MG NA ASDIRECTED PRN for OVERDOSE Allergies Coded Allergies: vancomycin (Verified Allergy, Intermediate, 01/03/19) REDNESS AT IV SITE A-FIB/CHADSVASC A-FIB History Current/History of A-Fib/PAF?: No RISHI OJEDA MD Mar 22, 2019 15:44
[2019-03-22] MEDS: BACTRIM 160MG/800MG DS TAB PO SCH (20:39)
[2019-03-22] MEDS ORDERED: METOPROLOL TART 50 MG TAB PO SCH (21:00)
[2019-03-23] VITALS (13 sets, daily range): BP systolic 128–174; BP diastolic 70–122
[2019-03-23] MEDS: IPRATROPIUM 0.5MG/ALBUTEROL 2.5MG INH SOL UD 3ML (DUONEB)(J7620) NEB SCH (02:00)
[2019-03-23] MEDS: NS 1,000 ML IV SCH (03:11)
[2019-03-23] MEDS: LORazepam 2 MG/ML VIAL (J2060) IV PRN (05:16)
[2019-03-23 06:00] LABS: BASO % 0.5 % (0.0-1.0); EOS # 0.3 10^3/uL (0.0-0.50); EOS % 5.3 % (0.0-3.0); HEMATOCRIT 37.4 % (42.0-52.0); HEMOGLOBIN 12.3 g/dl (13.5-17.5); LYMPH # 1.4 10^3/uL (1.5-4.5); LYMPH % 25.3 % (24.0-44.0); MEAN CORPUSCULAR HEMOGLOBIN 28.1 pg (27.0-33.0); MEAN CORPUSCULAR HGB CONC 32.9 g/dl (32.0-36.5); MEAN CORPUSCULAR VOLUME 85.4 fl (80.0-96.0); MONO # 0.3 10^3/uL (0.0-0.8); MONO % 5.9 % (0.0-5.0); NEUTROPHILS # 3.5 10^3/uL (1.8-7.7); NEUTROPHILS % 62.6 % (36.0-66.0); RED BLOOD COUNT 4.38 10^6/uL (4.30-6.10); WHITE BLOOD COUNT 5.6 10^3/uL (4.0-10.0)
[2019-03-23 06:30] LABS: ALBUMIN 3.3 GM/DL (3.2-5.2); ALT/SGPT 114 U/L (12-78); BILIRUBIN,TOTAL 0.6 MG/DL (0.2-1.0); BLOOD UREA NITROGEN 12 MG/DL (7-18); CALCIUM LEVEL 8.3 MG/DL (8.5-10.1); CARBON DIOXIDE LEVEL 25 MEQ/L (21-32); CHLORIDE LEVEL 105 MEQ/L (98-107); CREATININE FOR GFR 0.86 MG/DL (0.70-1.30); GLOMERULAR FILTRATION RATE > 60.0 (>60); GLUCOSE, FASTING 101 MG/DL (70-100); POTASSIUM SERUM 3.7 MEQ/L (3.5-5.1); SODIUM LEVEL 140 MEQ/L (136-145); TOTAL PROTEIN 7.3 GM/DL (6.4-8.2)
[2019-03-23 06:44] LABS: PLATELET COUNT, AUTOMATED 75 10^3/uL (150-450)
[2019-03-23] MEDS ORDERED: IPRATROPIUM 0.5MG/ALBUTEROL 2.5MG INH SOL UD 3ML (DUONEB)(J7620) NEB PRN (08:00)
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
[2019-03-23] MEDS ORDERED: BACLOFEN 10 MG TAB PO PRN (08:15)
[2019-03-23] MEDS: SYMBICORT 80/4.5MCG INHALER 6GM INH SCH ×2 (08:22→21:52)
[2019-03-23] MEDS: TIOTROPIUM INHALER/CAPSULE (SPIRIVA) INH SCH (08:22)
[2019-03-23] MEDS: GABAPENTIN 300 MG CAP PO SCH ×3 (08:50→21:03)
[2019-03-23] MEDS: BACTRIM 160MG/800MG DS TAB PO SCH ×2 (08:50→21:09)
[2019-03-23] MEDS: THIAMINE 100 MG TAB PO SCH ×2 (08:51→21:09)
[2019-03-23] MEDS: METOPROLOL TARTRATE 100 MG TAB PO SCH ×2 (08:54→21:09)
[2019-03-23] MEDS: OXAZEPAM 10 MG CAP PO SCH ×3 (08:55→21:09)
[2019-03-23] MEDS ORDERED: CYANOCOBALAMIN 500 MCG TAB PO SCH (09:00)
[2019-03-23] MEDS ORDERED: PANTOPRAZOLE 40MG INJ (PROTONIX) (C9113) IV SCH (09:00)
[2019-03-23] MEDS ORDERED: FOLIC ACID 1 MG TAB PO SCH (09:00)
[2019-03-23] MEDS ORDERED: amLODIPine 5 MG TAB PO SCH (09:00)
[2019-03-23] MEDS ORDERED: BUPRENORPHINE/NALOXONE 8-2MG SUBLINGUAL TABLET(SUBOXONE) SL SCH (09:00)
[2019-03-23] MEDS ORDERED: MULTIVITAMINS/MINERALS THERAP 1 TAB PO SCH (09:00)
[2019-03-23] MEDS ORDERED: TAMSULOSIN 0.4 MG CAP PO SCH (09:00)
[2019-03-23] MEDS ORDERED: RIVAROXABAN 20 MG TAB (XARELTO) PO SCH (09:00)
[2019-03-23] MEDS ORDERED: ENOXAPARIN 40 MG/0.4 ML SYRINGE (J1650) SC SCH (09:00)
[2019-03-23] MEDS ORDERED: oxyBUTYnin *DITROPAN XL* 5 MG TABCR PO SCH (09:00)
[2019-03-23] MEDS: DULoxetine 20 MG CAP (CYMBALTA) PO SCH ×2 (10:19→21:09)
[2019-03-23] MEDS: LORazepam 2 MG TAB PO PRN ×2 (12:40→18:29)
[2019-03-24 00:57] VITALS: BP 158/106
[2019-03-24] MEDS: LORazepam 2 MG TAB PO PRN ×3 (01:03→03:40)
[2019-03-24 01:58] VITALS: BP 164/106
[2019-03-24 02:00] VITALS: BP 142/90
[2019-03-24 02:03] VITALS: BP 142/90
[2019-03-24 03:33] VITALS: BP 156/101
[2019-03-24 06:00] VITALS: BP 140/84
[2019-03-24 06:36] LABS: BASO % 0.4 % (0.0-1.0); EOS # 0.5 10^3/uL (0.0-0.50); EOS % 4.9 % (0.0-3.0); HEMATOCRIT 38.8 % (42.0-52.0); HEMOGLOBIN 12.7 g/dl (13.5-17.5); LYMPH % 19.2 % (24.0-44.0); MEAN CORPUSCULAR HEMOGLOBIN 27.2 pg (27.0-33.0); MEAN CORPUSCULAR HGB CONC 32.7 g/dl (32.0-36.5); MEAN CORPUSCULAR VOLUME 83.1 fl (80.0-96.0); MONO # 0.5 10^3/uL (0.0-0.8); MONO % 4.8 % (0.0-5.0); NEUTROPHILS # 7.3 10^3/uL (1.8-7.7); NEUTROPHILS % 70.3 % (36.0-66.0); PLATELET COUNT, AUTOMATED 108 10^3/uL (150-450); RED BLOOD COUNT 4.67 10^6/uL (4.30-6.10); WHITE BLOOD COUNT 10.3 10^3/uL (4.0-10.0)
[2019-03-24 06:53] LABS: ALBUMIN 3.9 GM/DL (3.2-5.2); ALT/SGPT 121 U/L (12-78); BILIRUBIN,TOTAL 0.6 MG/DL (0.2-1.0); BLOOD UREA NITROGEN 15 MG/DL (7-18); CALCIUM LEVEL 9.1 MG/DL (8.5-10.1); CARBON DIOXIDE LEVEL 25 MEQ/L (21-32); CHLORIDE LEVEL 100 MEQ/L (98-107); CREATININE FOR GFR 0.87 MG/DL (0.70-1.30); GLOMERULAR FILTRATION RATE > 60.0 (>60); GLUCOSE, FASTING 95 MG/DL (70-100); POTASSIUM SERUM 3.5 MEQ/L (3.5-5.1); SODIUM LEVEL 136 MEQ/L (136-145); TOTAL PROTEIN 8.5 GM/DL (6.4-8.2)
[2019-03-24] MEDS ORDERED: OXAZ10CA3 PO (07:18)
[2019-03-24] MEDS ORDERED: THIA100TA PO (07:18)
[2019-03-24] MEDS: TIOTROPIUM INHALER/CAPSULE (SPIRIVA) INH SCH (07:26)
[2019-03-24] MEDS: SYMBICORT 80/4.5MCG INHALER 6GM INH SCH (07:26)
[2019-03-24] MEDS ORDERED: OXAZEPAM 10 MG CAP PO SCH (09:00)
--- NOTE | 2019-03-24 23:35 | DS.PDOC ---
Discharge Summary General Date of Admission Mar 22, 2019 at 10:50 Date of Discharge 03/24/19 Discharge Summary PROCEDURES PERFORMED DURING STAY: [None]. DISCHARGE DIAGNOSES: Alcoholic Hepatitis and Alcoholic gastritis Alcohol dependence and withdrawal Infection or right hand COMPLICATIONS/CHIEF COMPLAINT: Alcohol Withdrawl Syndrome. HISTORY OF PRESENT ILLNESS: See History and Physical HOSPITAL COURSE: . DISCHARGE MEDICATIONS: Please see below. ALLERGIES: Please see below. PHYSICAL EXAMINATION ON DISCHARGE: VITAL SIGNS: Please see below. GENERAL: HEENT: NECK: CARDIOVASCULAR EXAMINATION: RESPIRATORY EXAMINATION: ABDOMINAL EXAMINATION: EXTREMITIES: SKIN: NEUROLOGICAL EXAMINATION: PSYCHIATRIC EXAMINATION: LABORATORY DATA: Please see below. ACTIVITY: [As tolerated]. DIET: Low fat and low cholesterol diet DISPOSITION: 01 Home, Self-Care. DISCHARGE INSTRUCTIONS: 1. Follow up PMD in 1 week ITEMS TO FOLLOWUP ON ON OUTPATIENT: 1. . DISCHARGE CONDITION: [Stable]. TIME SPENT ON DISCHARGE: 40 minutes. Vital Signs/I&Os Vital Signs Date Time Temp Pulse Resp B/P (MAP) Pulse Ox O2 Delivery O2 Flow Rate FiO2 03/24/19 06:00 97.7 105 16 140/84 (102) 95 03/22/19 18:00 Room Air I&O- Last 24 Hours up to 6 AM 03/24/19 06:00 Intake Total 2430 ml Output Total 1850 ml Balance 580 ml Laboratory Data Labs 24H Laboratory Tests 2 03/24/19 06:09: Immature Granulocyte % (Auto) 0.4, White Blood Count 10.3H, Red Blood Count 4.67, Hemoglobin 12.7L, Hematocrit 38.8L, Mean Corpuscular Volume 83.1, Mean Corpuscular Hemoglobin 27.2, Mean Corpuscular Hemoglobin Concent 32.7, Red Cell Distribution Width 13.5, Platelet Count 108L, Neutrophils (%) (Auto) 70.3H, Lymphocytes (%) (Auto) 19.2L, Monocytes (%) (Auto) 4.8, Eosinophils (%) (Auto) 4 .9H, Basophils (%) (Auto) 0.4, Neutrophils # (Auto) 7.3, Lymphocytes # (Auto) 2.0, Monocytes # (Auto) 0.5, Eosinophils # (Auto) 0.5, Basophils # (Auto) 0.0, Nucleated Red Blood Cells % (auto) 0.0, Anion Gap 11, Glomerular Filtration Rate > 60.0, Blood Urea Nitrogen 15, Creatinine 0.87, Sodium Level 136, Potassium Level 3.5, Chloride Level 100, Carbon Dioxide Level 25, Calcium Level 9.1, Aspartate Amino Transf (AST/SGOT) 85H, Alanine Aminotransferase (ALT/SGPT) 121H, Alkaline Phosphatase 136H, Total Bilirubin 0.6, Total Protein 8.5H, Albumin 3.9, Albumin/Globulin Ratio 0.85L CBC/BMP Laboratory Tests 03/24/19 06:09 Red Blood Count 4.67, Mean Corpuscular Volume 83.1, Mean Corpuscular Hemoglobin 27.2, Mean Corpuscular Hemoglobin Concent 32.7, Red Cell Distribution Width 13 .5, Neutrophils (%) (Auto) 70.3 H, Lymphocytes (%) (Auto) 19.2 L, Monocytes (%) (Auto) 4.8, Eosinophils (%) (Auto) 4.9 H, Basophils (%) (Auto) 0.4, Neutrophils # (Auto) 7.3, Lymphocytes # (Auto) 2.0, Monocytes # (Auto) 0.5, Eosinophils # (Auto) 0.5, Basophils # (Auto) 0.0, Calcium Level 9.1, Aspartate Amino Transf (AST/SGOT) 85 H, Alanine Aminotransferase (ALT/SGPT) 121 H, Alkaline Phosphatase 136 H, Total Bilirubin 0.6, Total Protein 8.5 H, Albumin 3.9 Discharge Medications Scheduled Acamprosate Calcium (Acamprosate Calcium) 333 Mg Tablet.dr, 666 MG PO TID, (Reported) Amlodipine Besylate (Amlodipine Besylate) 5 Mg Tablet, 5 MG PO DAILY, (Reported) Buprenorphine HCl/Naloxone HCl (Suboxone 8 mg-2 mg Sl Film) 1 Mis Mis, 1 MIS SL DAILY, (Reported) Cyanocobalamin (Vitamin B-12) (Vitamin B-12) 500 Mcg Tablet, 500 MCG PO DAILY, (Reported) Docusate Sodium (Colace) 100 Mg Capsule, 100 MG PO DAILY, (Reported) Duloxetine Hcl (Duloxetine HCl) 20 Mg Capsule.dr, 20 MG PO BID, (Reported) Fluticasone/Vilanterol (Breo Ellipta 200-25 Mcg INH) 1 Each Blst.w.dev, 1 PUFF INH DAILY, (Reported) Folic Acid (Folic Acid) 0.8 Mg Tablet, 800 MCG PO DAILY, (Reported) Gabapentin (Gabapentin) 300 Mg Cap, 900 MG PO TID, (Reported) Metoprolol Tartrate (Metoprolol Tartrate) 100 Mg Tablet, 100 MG PO BID, (Reported) Multivitamins (Thera M Plus Tablet) 1 Tab Tab, 1 TAB PO DAILY, (Reported) Omeprazole (Omeprazole) 20 Mg Cap, 20 MG PO DAILY, (Reported) Oxazepam (Oxazepam) 10 Mg Capsule, 10 MG PO QHS Oxybutynin Chloride (Oxybutynin Chloride ER) 5 Mg Tab.er.24, 5 MG PO DAILY, (Reported) LAST FILLED AUG 2018 Rivaroxaban (Xarelto) 20 Mg Tab, 20 MG PO DAILY, (Reported) Sennosides/Docusate Sodium (Senna-S Tablet) 1 Tab Tab, 1 TAB PO DAILY, (Reported) Sulfamethoxazole/Trimethoprim (Sulfamethoxazole-Tmp Ds Tablet) 1 Each Tablet, 1 TAB PO BID, (Reported) FILLED 03/20 FOR 10 DAYS Tamsulosin HCl (Flomax) 0.4 Mg Cap, 0.4 MG PO DAILY, (Reported) Thiamine Hcl (Vitamin B-1) 100 Mg Tablet, 100 MG PO BID Umeclidinium Byers (Incruse Ellipta) 62.5 Mcg/Inh Inh, 1 PUFF INH DAILY, (Reported) Scheduled PRN Albuterol Sulf (Albuterol Sulfate) 2.5 Mg/3 Ml Nebu, 2.5 MG INH Q6H PRN for SHORTNESS OF BREATH, (Reported) Albuterol Sulfate (Ventolin Hfa) 108 Mcg/Act Aer, 2 PUFFS INH Q4H PRN for SHORTNESS OF BREATH, (Reported) Baclofen (Baclofen) 20 Mg Tab, 20 MG PO TID PRN for PAIN, (Reported) Fluticasone Propionate (Fluticasone Propionate) 50 Mcg/Act Spr, 1 SPRAY NARES DAILY PRN for CONGESTION, (Reported) Naloxone HCl (Narcan) 4 Mg/0.1 Ml Spr, 4 MG NA ASDIRECTED PRN for OVERDOSE, (Reported) Allergies Coded Allergies: vancomycin (Verified Allergy, Intermediate, 01/03/19) REDNESS AT IV SITE JAYCOB RODRIGUEZ MD Mar 24, 2019 23:35
[2019-03-25] MEDS ORDERED: OXAZEPAM 10 MG CAP PO SCH (09:00)
== END 2019-03-24 07:35 | disposition home or self-care (01) | DRG 897 ==
LOC: M ED 05:53 → M ED INP 10:50 → M PCU 11:49 → M MS5PR 03-23 14:22
PROVIDERS: ADMIT Hospitalist; ATTEND Internal Medicine Nephrology
DX: F10.232 Alcohol dependence with withdrawal with perceptual disturbance (principal); K70.0 Alcoholic fatty liver; K70.10 Alcoholic hepatitis without ascites; K70.30 Alcoholic cirrhosis of liver without ascites; K29.20 Alcoholic gastritis without bleeding; N31.9 Neuromuscular dysfunction of bladder, unspecified; Z68.32 Body mass index [BMI] 32.0-32.9, adult; Z79.899 Other long term (current) drug therapy; Z88.8 Allergy status to other drugs, medicaments and biological substances; J44.9 Chronic obstructive pulmonary disease, unspecified; G47.33 Obstructive sleep apnea (adult) (pediatric); Z86.711 Personal history of pulmonary embolism; Z79.01 Long term (current) use of anticoagulants; I10 Essential (primary) hypertension; K59.00 Constipation, unspecified; G62.9 Polyneuropathy, unspecified; F32.9 Major depressive disorder, single episode, unspecified; K21.9 Gastro-esophageal reflux disease without esophagitis

== ENCOUNTER 2019-08-15 11:00 | Emergency (ER) | payer MEDICARE, MEDICAID ==
[~2019-08-15] VITALS: Ht 172.7 cm; Wt 102.3 kg
[~2019-08-15 11:00] MED LIST changes: -ARTI99.0 OU; +ARTIDRO2 OU; +COLA100C5 PO; -DULO1CAP PO; -DULO1CAP2 PO; +DULO1CAP4 PO; +DULO1CAP5 PO; +FOLI0.8T PO; +METO100T5 PO; -OMEP20CA3 PO; +OMEP20CA4 PO; +OXYB5TAB2 PO; +SULF1TAB93 PO; +VITA500T17 PO
--- NOTE | 2019-08-15 11:56 | REP ---
CT BRAIN WITHOUT CONTRAST: REASON: Trauma. COMPARISON: 03/27/2018 TECHNIQUE: 4.5 mm contiguous transaxial sections were obtained from the skull base to the cerebral convexities with thin cuts through the posterior fossa without the administration of intravenous contrast. FINDINGS: The ventricles and sulci are consistent with the patient's age. There are no extra-axial fluid collections. There is no mass effect. The deep cerebral white matter is consistent with the patient's age. The orbital and petrous structures , cerebellopontine angles, and posterior fossa are unremarkable. The sella turcica, cavernous, and paracavernous structures are essentially unremarkable. The visualized portions of the paranasal sinuses and mastoid air cells are clear. Images of the skull base show no gross abnormality. IMPRESSION: Essentially unremarkable CT examination of the brain. No change from the prior exam. Electronically Signed by Celestine Liriano DO 08/15/2019 12:16 P
--- NOTE | 2019-08-15 12:01 | REP ---
REASON: Trauma. COMPARISON: 10/15/2017 which show chronic changes. The abnormal soft tissue density seen on the prior exam obstructing the left ostiomeatal complex has lessened, however, the left OMC is markedly narrowed. The right ostiomeatal complex is also narrowed but it is patent. Bilateral maxillary sinus mucosal thickening is noted. There are no definite air fluid levels. Minimal amount of mucosal thickening is seen in the frontal sinus extending into the frontal ethmoid bulla. There is no acute maxillofacial fracture. The nasal septum is sigmoid shaped status quo. There is a small middle turbinate ligia bullosa on the right. There is left supraorbital soft tissue swelling. The gaze is conjugant and the ocular globes are intact. IMPRESSION: 1. Chronic changes as described above. 2. Left supraorbital soft tissue swelling. Electronically Signed by Celestine Liriano DO 08/15/2019 12:17 P
[2019-08-15] MEDS ORDERED: IPRATROPIUM 0.5MG/ALBUTEROL 2.5MG INH SOL UD 3ML (DUONEB)(J7620) NEB ONE ×2 (12:15→15:30)
[2019-08-15] MEDS ORDERED: IPRATROPIUM 0.5MG/ALBUTEROL 2.5MG INH SOL UD 3ML (DUONEB)(J7620) As Ordered ONE (12:16)
[2019-08-15 13:45] LABS: BASO # 0.1 10^3/uL (0.0-0.2); BASO % 0.5 % (0.0-1.0); EOS # 0.1 10^3/uL (0.0-0.5); EOS % 1.2 % (0.0-3.0); HEMATOCRIT 38.1 % (42.0-52.0); HEMOGLOBIN 12.5 g/dl (13.5-17.5); LYMPH # 1.8 10^3/uL (1.5-5.0); LYMPH % 16.1 % (24.0-44.0); MEAN CORPUSCULAR HEMOGLOBIN 28.4 pg (27.0-33.0); MEAN CORPUSCULAR HGB CONC 32.8 g/dl (32.0-36.5); MEAN CORPUSCULAR VOLUME 86.6 fl (80.0-96.0); MONO # 0.5 10^3/uL (0.0-0.8); MONO % 4.2 % (0.0-5.0); NEUTROPHILS # 8.6 10^3/uL (1.5-8.5); NEUTROPHILS % 77.6 % (36.0-66.0); PLATELET COUNT, AUTOMATED 136 10^3/uL (150-450)
--- NOTE | 2019-08-15 13:46 | REP ---
REASON FOR EXAM: Leg edema. COMPARISON: Chest 03/22/2019 COMPARISON: No priors. FINDINGS: The superior mediastinal structures are midline. The cardiac silhouette is unremarkable in size, shape, and position. The diaphragmatic surfaces of the lungs are regular, and the costophrenic angles are clear. The pulmonary guillermo are clear. The imaged osseous structures are intact. IMPRESSION: There is no acute cardiopulmonary disease. Electronically Signed by Celestine Liriano DO 08/15/2019 02:16 P
[2019-08-15 14:16] LABS: BLOOD UREA NITROGEN 20 MG/DL (7-18); CALCIUM LEVEL 8.9 MG/DL (8.5-10.1); CARBON DIOXIDE LEVEL 26 MEQ/L (21-32); CHLORIDE LEVEL 103 MEQ/L (98-107); CK-MB VALUE MASS 3.5 NG/ML (<3.6); CPK CREATINE PHOSPHOKINASE 267 U/L (39-308); CREATININE FOR GFR 0.92 MG/DL (0.70-1.30); GLOMERULAR FILTRATION RATE > 60.0 (>60); GLUCOSE, FASTING 103 MG/DL (70-100); MB/CK RELATIVE INDEX 1.31 (< OR =4); NT-PRO BNP 13 PG/ML (<125); POTASSIUM SERUM 3.5 MEQ/L (3.5-5.1); SODIUM LEVEL 140 MEQ/L (136-145); TROPONIN I < 0.02 NG/ML (< 0.10)
[2019-08-15] MEDS ORDERED: ACETAMINOPHEN TAB 650MG DOSE (2X325MG) PO ONE (16:00)
[2019-08-15 16:57] VITALS: BP 154/97
--- NOTE | 2019-08-15 19:23 | ECGEPIP ---
[facility] - ED Test Date: 2019-08-15 Pat Name: GARCIA HUGHES Department: Room: - Gender: Male Platform Loader: CT : 1975 Requested By: DA Yo PA-C Order Number: [id number] Reading MD: Deann Vega Measurements Intervals [place] Rate: 90 P: 49 FL: 159 QRS: 68 QRSD: 98 T: 46 QT: 369 QTc: 453 Interpretive Statements SINUS RHYTHM POSSIBLE RIGHT VENTRICULAR CONDUCTION DELAY NONSPECIFIC ST T WAVE CHANGES CW 01/03/[address] T WAVE CHANGES Electronically Signed on 08-15-2019 19:22:59 EST by Deann Vega
== END 2019-08-15 17:05 | disposition home or self-care (01) ==
LOC: M ED 11:00
DX: S05.12XA Contusion of eyeball and orbital tissues, left eye, initial encounter (principal); W01.0XXA Fall on same level from slipping, tripping and stumbling without subsequent striking against object, initial encounter; Y92.019 Unspecified place in single-family (private) house as the place of occurrence of the external cause; R60.0 Localized edema; R80.9 Proteinuria, unspecified; E86.0 Dehydration; I51.9 Heart disease, unspecified; I10 Essential (primary) hypertension; G90.09 Other idiopathic peripheral autonomic neuropathy; K74.60 Unspecified cirrhosis of liver; J44.9 Chronic obstructive pulmonary disease, unspecified; N17.9 Acute kidney failure, unspecified; F33.9 Major depressive disorder, recurrent, unspecified; F41.9 Anxiety disorder, unspecified; F17.220 Nicotine dependence, chewing tobacco, uncomplicated; Z88.1 Allergy status to other antibiotic agents; Z79.51 Long term (current) use of inhaled steroids; Z79.899 Other long term (current) drug therapy

== ENCOUNTER → 2019-09-10 | Outpatient (REF) | payer MEDICARE, MEDICAID ==
[~2019-09-10] MED LIST changes: +LEXA5TAB13 PO; +OMEP1CAP73 PO; -OMEP20CA4 PO; +OXYB-54 PO; -OXYB5TAB2 PO; +PROAAER10 INH
[2019-09-10 13:30] LABS: HEMATOCRIT 43.7 % (42.0-52.0); HEMOGLOBIN 13.8 g/dl (13.5-17.5); MEAN CORPUSCULAR HEMOGLOBIN 28.3 pg (27.0-33.0); MEAN CORPUSCULAR HGB CONC 31.6 g/dl (32.0-36.5); MEAN CORPUSCULAR VOLUME 89.5 fl (80.0-96.0); PLATELET COUNT, AUTOMATED 178 10^3/uL (150-450); RED BLOOD COUNT 4.88 10^6/uL (4.30-6.10); WHITE BLOOD COUNT 11.2 10^3/uL (4.0-10.0)
[2019-09-10 13:37] LABS: ALBUMIN 4.1 GM/DL (3.2-5.2); ALT/SGPT 96 U/L (12-78); BILIRUBIN,DIRECT 0.2 MG/DL (0.0-0.2); BILIRUBIN,TOTAL 0.8 MG/DL (0.2-1.0); BLOOD UREA NITROGEN 13 MG/DL (7-18); CALCIUM LEVEL 9.1 MG/DL (8.5-10.1); CARBON DIOXIDE LEVEL 25 MEQ/L (21-32); CHLORIDE LEVEL 106 MEQ/L (98-107); CHOLESTEROL LEVEL 180 MG/DL (<200); CHOLESTEROL RISK RATIO 6.206 (<5); CREATININE FOR GFR 0.78 MG/DL (0.70-1.30); GLOMERULAR FILTRATION RATE > 60.0 (>60); GLUCOSE, FASTING 97 MG/DL (70-100); HDL CHOLESTEROL 29 MG/DL (>40); LDL CHOLESTEROL 98 MG/DL (<100); NON-HDL-C 151 MG/DL; POTASSIUM SERUM 3.6 MEQ/L (3.5-5.1); SODIUM LEVEL 141 MEQ/L (136-145); TOTAL PROTEIN 8.2 GM/DL (6.4-8.2); TRIGLYCERIDES LEVEL 264 MG/DL (<150)
[2019-09-10 13:46] LABS: HEMOGLOBIN A1c 5.2 %
== END ==
LOC: M SFHCPLAZ 11:16
PROVIDERS: ATTEND Physician Assistant
DX: I10 Essential (primary) hypertension (principal); K70.30 Alcoholic cirrhosis of liver without ascites; K70.10 Alcoholic hepatitis without ascites; D69.6 Thrombocytopenia, unspecified; Z13.220 Encounter for screening for lipoid disorders; Z13.1 Encounter for screening for diabetes mellitus; Z79.899 Other long term (current) drug therapy
CPT/HCPCS: 36415; 80048; 80061; 80076; 83036; 85027; G0463

== ENCOUNTER 2019-09-28 08:59 | Inpatient (IN) | payer MEDICARE, MEDICAID ==
[~2019-09-28] VITALS: Ht 172.7 cm; Wt 100.5 kg
[~2019-09-28 08:59] MED LIST changes: -LEXA5TAB13 PO; -PROAAER10 INH
[2019-09-28 09:43] LABS: BASO % 0.7 % (0.0-1.0); EOS % 0.5 % (0.0-3.0); HEMATOCRIT 45.8 % (42.0-52.0); HEMOGLOBIN 14.8 g/dl (13.5-17.5); LYMPH # 1.7 10^3/uL (1.5-5.0); LYMPH % 29.7 % (24.0-44.0); MEAN CORPUSCULAR HEMOGLOBIN 27.8 pg (27.0-33.0); MEAN CORPUSCULAR HGB CONC 32.3 g/dl (32.0-36.5); MEAN CORPUSCULAR VOLUME 85.9 fl (80.0-96.0); MONO # 0.4 10^3/uL (0.0-0.8); MONO % 6.8 % (0.0-5.0); NEUTROPHILS # 3.5 10^3/uL (1.5-8.5); NEUTROPHILS % 61.8 % (36.0-66.0); PLATELET COUNT, AUTOMATED 115 10^3/uL (150-450); RED BLOOD COUNT 5.33 10^6/uL (4.30-6.10); WHITE BLOOD COUNT 5.6 10^3/uL (4.0-10.0)
[2019-09-28 10:08] LABS: INR 1.11
[2019-09-28 10:12] LABS: ALBUMIN 4.1 GM/DL (3.2-5.2); ALT/SGPT 170 U/L (12-78); BILIRUBIN,DIRECT 0.3 MG/DL (0.0-0.2); BILIRUBIN,TOTAL 0.6 MG/DL (0.2-1.0); BLOOD UREA NITROGEN 10 MG/DL (7-18); CALCIUM LEVEL 8.7 MG/DL (8.5-10.1); CARBON DIOXIDE LEVEL 16 MEQ/L (21-32); CHLORIDE LEVEL 97 MEQ/L (98-107); CK-MB VALUE MASS 2.7 NG/ML (<3.6); CPK CREATINE PHOSPHOKINASE 299 U/L (39-308); CREATININE FOR GFR 0.86 MG/DL (0.70-1.30); GLOMERULAR FILTRATION RATE > 60.0 (>60); GLUCOSE, FASTING 190 MG/DL (70-100); LIPASE 227 U/L (73-393); POTASSIUM SERUM 3.3 MEQ/L (3.5-5.1); SODIUM LEVEL 135 MEQ/L (136-145); TOTAL PROTEIN 8.5 GM/DL (6.4-8.2); TROPONIN I < 0.02 NG/ML (< 0.10)
--- NOTE | 2019-09-28 10:12 | REP ---
PORTABLE CHEST X-RAY: Single view. HISTORY: Chest pain. COMPARISON STUDY: August 15, 2019. FINDINGS: EKG monitoring electrodes overlie the chest. Lungs are well inflated and clear. The pleural angles are sharp. Heart size is normal. Pulmonary vasculature is not increased. No significant bony abnormality. IMPRESSION: No active disease. Electronically Signed by Ronaldo Hernandez MD 09/28/2019 10:37 A
[2019-09-28] MEDS ORDERED: LORazepam 2 MG/ML VIAL (J2060) IV STA ×4 (10:54→16:40)
[2019-09-28] MEDS ORDERED: NS 1,000 ML IV ONE ×2 (11:00→14:30)
[2019-09-28] MEDS ORDERED: METOPROLOL TARTRATE 100 MG TAB PO ONE (11:00)
[2019-09-28] MEDS ORDERED: amLODIPine 5 MG TAB PO ONE (11:00)
--- NOTE | 2019-09-28 11:26 | REP ---
INDICATION: Headache, hypertension PROCEDURE: Noncontrast CT head COMPARISON STUDIES: CT head without contrast 08/15/2019. FINDINGS: No acute bleed or acute large vessel territorial infarct. Ventricles, cisterns and sulci are within normal limits. No mass effect or midline shift. No abnormal fluid collections. CONCLUSION: No acute findings. Unremarkable examination. Electronically Signed by Stefano Victoria MD 09/28/2019 11:17 A
[2019-09-28 11:30] LABS: ABG BASE EXCESS -2.8 (-2.0-2.0); ABG HCO3 18.6 MEQ/L (22.0-26.0); ABG O2 SATURATION 97.4 % (95.0-99.0); ABG PARTIAL PRESSURE CO2 24.8 mmHg (35.0-45.0); ABG PARTIAL PRESSURE O2 94.9 mmHg (75.0-100.0); ABG STANDARD HCO3 22.1 MEQ/L (22.0-26.0); ABG TOTAL CO2 19.3 MEQ/L (22.0-29.0); ABG pH (ARTERIAL) 7.492 UNITS (7.350-7.450)
[2019-09-28] MEDS ORDERED: POTASSIUM CHLORIDE 10 MEQ SR TABLET PO ONE ×2 (11:30→18:00)
[2019-09-28] MEDS ORDERED: LEXA5TAB13 PO (12:11)
[2019-09-28] MEDS ORDERED: PROAAER10 INH (12:12)
--- NOTE | 2019-09-28 13:44 | IPNPDOC ---
Date Seen The patient was seen on 09/28/19. Progress Note RIJ TLC procedure note INDICATION: Poor IV access PROCEDURE BIOLOGICAL TECHNICIAN: Dr. Clark Consent was obtained from patient prior to the procedure. Indications, risks, and benefits were explained at length. PROCEDURE SUMMARY: A time out was performed. My hands were washed immediately prior to the procedure. I wore a surgical cap, mask with protective eyewear, full gown and sterile gloves throughout the procedure. The patient was placed in Trendelenburg position. Right neck and chest region was prepped using chlorhexidine scrub and draped in sterile fashion using a full drape and sterile probe cover employed. The medial and lateral heads of the sternocleidomastoid muscle were identified as was the carotid pulse. The Internal Jugular vein was identified using the ultrasound. Anesthesia was achieved over the vein using 1% lidocaine. Using real-time out of plane guidance, the introducer needle was inserted into the Internal Jugular vein under direct ultrasound visualization. Venous blood was withdrawn. The syringe was removed and a guidewire was advanced into the introducer needle. The guidewire was visualized in the Internal Jugular Vein by ultrasound. A small incision was made at the skin surface with a scalpel and the introducer needle was exchanged for a dilator over the guidewire. After appropriate dilation was obtained, the dilator was exchanged over the wire for a 20 cm central venous catheter. The wire was removed and the catheter was sutured in place at 15 cm. A sterile sorbaview shield was placed over the catheter at the insertion site. The patient tolerated the procedure without any hemodynamic compromise. At time of procedure completion, all ports aspirated and flushed properly. Post-procedure chest x-ray is pending at this time. Estimated blood loss is <5 cc. VS, I&O, 24H, [facility] Vital Signs/I&O Vital Signs Date Time Temp Pulse Resp B/P (MAP) Pulse Ox O2 Delivery O2 Flow Rate FiO2 09/28/19 13:00 114 173/115 (134) 09/28/19 12:15 18 93 Room Air 09/28/19 09:10 98.2 Laboratory Data 24H LABS Laboratory Tests 2 09/28/19 09:29: Immature Granulocyte % (Auto) 0.5, Neutrophils (%) (Auto) 61.8, Lymphocytes (%) (Auto) 29.7, Monocytes (%) (Auto) 6.8H, Eosinophils (%) (Auto) 0.5, Basophils (%) (Auto) 0.7, Neutrophils # (Auto) 3.5, Lymphocytes # (Auto) 1.7, Monocytes # (Auto) 0.4, Eosinophils # (Auto) 0.0, Basophils # (Auto) 0.0, Nucleated Red Blood Cells % (auto) 0.0, Prothrombin Time 14.0, Prothromb Time International Ratio 1.11, Anion Gap 22H, Glomerular Filtration Rate > 60.0, Lactic Acid Level 4.6*H, Calcium Level 8.7, Total Bilirubin 0.6, Direct Bilirubin 0.3H, Aspartate Amino Transf (AST/SGOT) 239H, Alanine Aminotransferase (ALT/SGPT) 170H, Alkaline Phosphatase 133H, Total Creatine Kinase 299, Creatine Kinase MB 2.7, Creatine Kinase MB Relative Index 0.90, Troponin I < 0.02, Total Protein 8.5H, Albumin 4. 1, Albumin/Globulin Ratio 0.93L, Lipase 227, B-Hydroxybutyrate 13.19H 09/28/19 11:15: Blood Gas Bicarbonate Standard 22.1, Arterial Blood pH 7.492H, Arterial Blood Partial Pressure CO2 24.8L, Arterial Blood Partial Pressure O2 94.9, Arterial Blood Total CO2 19.3L, Arterial Blood HCO3 18.6L, Arterial Blood Base Excess - 2.8L, Arterial Blood Oxygen Saturation 97.4 CBC/BMP Laboratory Tests 09/28/19 09:29 VIRGINIA CLARK MD Sep 28, 2019 13:44
[2019-09-28] MEDS ORDERED: FLUTICASONE PROP 0.05% NASAL SPRAY 16 GM (FLONASE) NARES PRN (13:45)
--- NOTE | 2019-09-28 13:57 | REP ---
Portable chest x-ray: Single view. History: Post central line placement. Comparison study 09:53 a.m. on September 28, 2019. Findings: A right internal jugular central venous line is seen terminating in the expected location of the superior vena cava. There is no evidence of pneumothorax. The lung guillermo remain clear. Pleural angles are sharp. Impression: Right internal jugular central venous line in place. No complication is seen. No acute disease. Electronically Signed by Ronaldo Hernandez MD 09/28/2019 01:49 P
--- NOTE | 2019-09-28 14:13 | HPEPDOC ---
[facility] Medical History & Physical Date of Admission Sep 28, 2019 Date of Service: Sep 28, 2019 Attending Physician: VIRGINIA CLARK MD History and Physical CHIEF COMPLAINT: concerned about alcohol withdrawal HISTORY OF PRESENT ILLNESS: 44-year-old male with past medical history of COPD, PE on Xarelto, hypertension, GERD and previous IV drug use, presents from home with symptoms concerning for alcohol withdrawal. Patient has had a stressful week, including the of his grandson, he has been drinking 1 L of vodka daily for the past 3 days, last drink was about 12 hours ago. Patient presented to the emergency department with symptoms of sweats, chills, diarrhea and nausea. In the ED is found to have elevated anion gap metabolic acidosis, lactate of 4.6, with lab findings consistent with ketoacidosis. Patient was treated with IV fluids and IV Ativan. Patient reports slight improvement in his symptoms, temporarily. He denies any chest pain, vomiting, abdominal pain, headache or fevers at this time. 10 point review of system is negative except for above PAST MEDICAL HISTORY: 1. COPD. 2. GERD. 3. Hypertension. 4. PE. 5. History of IV drug use PAST SURGICAL HISTORY: 1. Abscess removal in his neck. 2. Cholecystectomy. SOCIAL HISTORY: Asthma smoking 1 pack per day for over 20 years. Drinks excessive alcohol. Previously used heroin and Marguerite FAMILY HISTORY: No family history of cancer or heart disease ALLERGIES: Please see below. HOME MEDICATIONS: Please see below. PHYSICAL EXAMINATION: VITAL SIGNS: Please see below. GENERAL: No distress HEENT: Normocephalic, atraumatic, dry mucous membranes NECK: Supple CARDIOVASCULAR EXAMINATION: S1, S2, tachycardic RESPIRATORY EXAMINATION: Clear to auscultation, expiratory wheezing ABDOMINAL EXAMINATION: Soft, nontender, nondistended, positive bowel sounds EXTREMITIES: Range of motion intact SKIN: No rash NEUROLOGICAL EXAMINATION: Alert and oriented 3, no focal deficits PSYCHIATRIC EXAMINATION: Calm and cooperative LABORATORY DATA: See below. IMAGING: CT head negative for acute pathology MICROBIOLOGY: Please see below. ASSESSMENT: 44-year-old male with past medical history of COPD, hypertension, PE, GERD and IV drug use is admitted for alcohol withdrawal. PLAN: 1. Alcohol withdrawal. Status post total of 3 mg IV Ativan in the ED, will order an additional 2 mg of IV Ativan at this time, start CIWA protocol, thiamine, folic acid, multivitamins. Status post 1 L normal saline bolus in the ED, will bolus an additional liter of normal saline followed by maintenance fluids of 100 mL per hour. 2. COPD Stable, continue home meds, DuoNeb as needed every 6 hours. 3. PE. Continue Xarelto 4. GERD. Continue PPI 5. Hypertension. Continue Norvasc and metoprolol DVT prophylaxis: on Xarelto GI prophylaxis: Home PPI Vital Signs Vital Signs Date Time Temp Pulse Resp B/P (MAP) Pulse Ox O2 Delivery O2 Flow Rate FiO2 09/28/19 13:00 114 173/115 (134) 09/28/19 12:15 18 93 Room Air 09/28/19 09:10 98.2 Laboratory Data Labs 24H Laboratory Tests 2 09/28/19 09:29: Immature Granulocyte % (Auto) 0.5, Neutrophils (%) (Auto) 61.8, Lymphocytes (%) (Auto) 29.7, Monocytes (%) (Auto) 6.8H, Eosinophils (%) (Auto) 0.5, Basophils (%) (Auto) 0.7, Neutrophils # (Auto) 3.5, Lymphocytes # (Auto) 1.7, Monocytes # (Auto) 0.4, Eosinophils # (Auto) 0.0, Basophils # (Auto) 0.0, Nucleated Red Blood Cells % (auto) 0.0, Prothrombin Time 14.0, Prothromb Time International Ratio 1.11, Anion Gap 22H, Glomerular Filtration Rate > 60.0, Lactic Acid Level 4.6*H, Calcium Level 8.7, Total Bilirubin 0.6, Direct Bilirubin 0.3H, Aspartate Amino Transf (AST/SGOT) 239H, Alanine Aminotransferase (ALT/SGPT) 170H, Alkaline Phosphatase 133H, Total Creatine Kinase 299, Creatine Kinase MB 2.7, Creatine Kinase MB Relative Index 0.90, Troponin I < 0.02, Total Protein 8.5H, Albumin 4.1, Albumin/Globulin Ratio 0.93L, Lipase 227, B-Hydroxybutyrate 13.19H 09/28/19 11:15: Blood Gas Bicarbonate Standard 22.1, Arterial Blood pH 7.492H, Arterial Blood Partial Pressure CO2 24.8L, Arterial Blood Partial Pressure O2 94.9, Arterial Blood Total CO2 19.3L, Arterial Blood HCO3 18.6L, Arterial Blood Base Excess - 2.8L, Arterial Blood Oxygen Saturation 97.4 CBC/BMP Laboratory Tests 09/28/19 09:29 Home Medications Scheduled Amlodipine Besylate (Amlodipine Besylate) 5 Mg Tablet, 5 MG PO DAILY Escitalopram Oxalate (Lexapro) 5 Mg Tablet, 5 MG PO DAILY NEW MEDICATION, REPLACED CYMBALTA Fluticasone/Vilanterol (Breo Ellipta 200-25 Mcg INH) 1 Each Blst.w.dev, 1 PUFF INH DAILY Gabapentin (Gabapentin) 300 Mg Cap, 900 MG PO TID Metoprolol Tartrate (Metoprolol Tartrate) 100 Mg Tablet, 100 MG PO BID Multivitamins (Thera M Plus Tablet) 1 Tab Tab, 1 TAB PO DAILY Omeprazole (Omeprazole) 20 Mg Cap, 20 MG PO DAILY Rivaroxaban (Xarelto) 20 Mg Tab, 20 MG PO DAILY Tamsulosin HCl (Flomax) 0.4 Mg Cap, 0.4 MG PO DAILY Umeclidinium Olivet (Incruse Ellipta) 62.5 Mcg/Inh Inh, 1 PUFF INH DAILY Scheduled PRN Albuterol Sulf (Albuterol Sulfate) 2.5 Mg/3 Ml Nebu, 2.5 MG INH Q6H PRN for SHORTNESS OF BREATH Albuterol Sulfate (Proair Hfa) 8.5 Gm Hfa.aer.ad, 2 PUFF INH QID PRN for SHORTNESS OF BREATH Fluticasone Propionate (Fluticasone Propionate) 50 Mcg/Act Spr, 1 SPRAY NARES DAILY PRN for CONGESTION Allergies Coded Allergies: vancomycin (Verified Allergy, Intermediate, 01/03/19) REDNESS AT IV SITE A-FIB/CHADSVASC A-FIB History Current/History of A-Fib/PAF?: No VIRGINIA CLARK MD Sep 28, 2019 14:13
[2019-09-28 14:43] VITALS: BP 163/99
[2019-09-28] MEDS ORDERED: KCL 10MEQ/100ML SWI (KRUN) 10 MEQ in IV 1 EA IV SCH (15:00)
[2019-09-28] MEDS: THIAMINE 100 MG TAB PO SCH ×2 (15:43→20:37)
[2019-09-28] MEDS: GABAPENTIN 300 MG CAP PO SCH ×2 (15:43→20:37)
[2019-09-28] MEDS: FOLIC ACID 1 MG TAB PO SCH (15:43)
[2019-09-28] MEDS: TAMSULOSIN 0.4 MG CAP PO SCH (15:43)
[2019-09-28] MEDS: KCL 20MEQ IN 100ML SWI (KRUN) 20 MEQ in IV 1 EA IV SCH ×4 (15:44→17:03)
[2019-09-28 15:50] VITALS: BP 155/80
[2019-09-28] MEDS: RIVAROXABAN 20 MG TAB (XARELTO) PO SCH (17:02)
[2019-09-28] MEDS: NS 1,000 ML IV SCH (18:44)
[2019-09-28 20:00] VITALS: BP 158/98
[2019-09-28] MEDS: METOPROLOL TARTRATE 100 MG TAB PO SCH (20:37)
[2019-09-28] MEDS: LORazepam 2 MG TAB PO PRN (20:44)
[2019-09-28 21:30] VITALS: BP 132/78
[2019-09-28] MEDS: ALBUTEROL SULFATE 2.5 MG/0.5 ML INH NEB SOLN INH PRN (22:42)
[2019-09-29] VITALS (17 sets, daily range): BP systolic 130–190; BP diastolic 81–113
[2019-09-29] MEDS: NICOTINE 21MG/24HR 1 EA TRANSDERMAL TD SCH ×2 (03:15→08:15)
[2019-09-29] MEDS: LORazepam 2 MG TAB PO PRN ×5 (04:01→22:38)
[2019-09-29] MEDS: SODIUM CHLORIDE 0.9% INJ 10 ML SYR IV SCH ×3 (04:53→22:39)
[2019-09-29] MEDS: NS 1,000 ML IV SCH (04:55)
[2019-09-29 05:12] LABS: HEMATOCRIT 38.2 % (42.0-52.0); MEAN CORPUSCULAR HEMOGLOBIN 28.1 pg (27.0-33.0); MEAN CORPUSCULAR HGB CONC 32.7 g/dl (32.0-36.5); MEAN CORPUSCULAR VOLUME 85.8 fl (80.0-96.0); RED BLOOD COUNT 4.45 10^6/uL (4.30-6.10); WHITE BLOOD COUNT 5.2 10^3/uL (4.0-10.0)
[2019-09-29 05:25] LABS: HEMOGLOBIN 12.5 g/dl (13.5-17.5); PLATELET COUNT, AUTOMATED 65 10^3/uL (150-450)
[2019-09-29 05:49] LABS: ALBUMIN 3.7 GM/DL (3.2-5.2); ALT/SGPT 118 U/L (12-78); BILIRUBIN,TOTAL 1.8 MG/DL (0.2-1.0); BLOOD UREA NITROGEN 6 MG/DL (7-18); CALCIUM LEVEL 8.7 MG/DL (8.5-10.1); CARBON DIOXIDE LEVEL 27 MEQ/L (21-32); CHLORIDE LEVEL 99 MEQ/L (98-107); CREATININE FOR GFR 0.63 MG/DL (0.70-1.30); GLOMERULAR FILTRATION RATE > 60.0 (>60); GLUCOSE, FASTING 104 MG/DL (70-100); MAGNESIUM LEVEL 1.3 MG/DL (1.8-2.4); POTASSIUM SERUM 3.4 MEQ/L (3.5-5.1); SODIUM LEVEL 137 MEQ/L (136-145); TOTAL PROTEIN 7.3 GM/DL (6.4-8.2)
[2019-09-29] MEDS ORDERED: MAGNESIUM OXIDE 400 MG TAB (MAG-OX) PO ONE (06:30)
[2019-09-29] MEDS ORDERED: POTASSIUM CHLORIDE 10 MEQ SR TABLET PO ONE ×2 (06:30→10:30)
--- NOTE | 2019-09-29 07:55 | ECGEPIP ---
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
[2019-09-29] MEDS: amLODIPine 5 MG TAB PO SCH (08:14)
[2019-09-29] MEDS: OMEPRAZOLE 20 MG CAP PO SCH (08:14)
[2019-09-29] MEDS: ESCITALOPRAM OXALATE 5MG TABLET (LEXAPRO) PO SCH (08:14)
[2019-09-29] MEDS: THIAMINE 100 MG TAB PO SCH ×2 (08:14→22:38)
[2019-09-29] MEDS: MULTIVITAMINS/MINERALS THERAP 1 TAB PO SCH (08:14)
[2019-09-29] MEDS: TAMSULOSIN 0.4 MG CAP PO SCH (08:14)
[2019-09-29] MEDS: GABAPENTIN 300 MG CAP PO SCH ×3 (08:14→22:38)
[2019-09-29] MEDS: FOLIC ACID 1 MG TAB PO SCH (08:14)
[2019-09-29] MEDS: METOPROLOL TARTRATE 100 MG TAB PO SCH ×2 (08:15→22:38)
[2019-09-29] MEDS: ALBUTEROL SULFATE 2.5 MG/0.5 ML INH NEB SOLN INH PRN (11:39)
[2019-09-29] MEDS: LORazepam 1 MG TAB PO SCH ×2 (11:45→18:06)
--- NOTE | 2019-09-29 12:06 | IPNPDOC ---
Subjective Date Seen The patient was seen on 09/29/19. Subjective Chief Complaint/HPI Patient comfortable in no distress is still shaky General: Denies: ROS Unobtainable, Chills, Night Sweats, Fatigue, Malaise, Normal Appetite, Other Symptoms Constitutional: Denies: Chills, Fever, Malaise, Night Sweats, Weakness, Fatigue, Weight Loss, Lethargy, Other Eyes: Denies: Pain, Vision change, Conjunctivae inflammation, Eyelid inflammation, Redness, Other Pulmonary: Denies: Dyspnea, Cough, Pleuritic Chest Pain, Other Symptoms Cardiovascular: Denies: Chest Pain, Palpitations, Orthopnea, Paroxysmal Noc. Dyspnea, Edema, Lt Headedness, Other Symptoms Gastrointestinal: Denies: Nausea, Vomiting, Abdominal Pain, Diarrhea, Constipation, Melena, Hematochezia, Other Symptoms Musculoskeletal: Denies: Neck Pain, Back Pain, Shoulder Pain, Arm Pain, Hand Pain, Leg Pain, Foot Pain, Joint Pain, Muscle Pain, Spasms, Other Symptoms Neurological: Denies: Weakness, Numbness, Incoordination, Change in speech, Confusion, Seizures, Other Symptoms Objective Physical Examination General Exam: Positive: Alert, Cooperative Neck Exam: Positive: Supple Chest Exam: Positive: Clear to auscultation, Normal air movement Heart Exam: Positive: Rate Normal, Normal S1, Normal S2 Abdomen Exam: Positive: Normal bowel sounds, Soft Skin Exam: Positive: Nl turgor and temperature Neuro Exam: Positive: Strength at 5/5 X4 ext, Cranial Nerves 3-12 NL Assessment /Plan Problems (1) Alcohol withdrawal Status: Acute Problem Text: Status post total of 3 mg IV Ativan in the ED, will order an additional 2 mg of IV Ativan at this time, start CIWA protocol, thiamine, folic acid, multivitamins. Status post 1 L normal saline bolus in the ED, will bolus an additional liter of normal saline followed by maintenance fluids of 100 mL per hour. pt will be transferred to [facility] floor with telemetry Will also started on Ativan 1 mg by mouth every 6 hours standing dose and when necessary as per previous orders PT, OT eval Seizure precautions Activity as tolerated A.m. labs (2) Hypertension Status: Chronic Problem Text: Continue Norvasc and metoprolol (3) Pulmonary embolism Status: Chronic Problem Text: Continue Xarelto as per orders Plan/VTE VTE Prophylaxis Ordered?: Yes VS, I&O, 24H, Fishbone Vital Signs/I&O Vital Signs Date Time Temp Pulse Resp B/P (MAP) Pulse Ox O2 Delivery O2 Flow Rate FiO2 09/29/19 11:12 98 20 141/90 (107) Room Air 09/29/19 08:16 98.5 96 I&O- Last 24 Hours up to 6 AM 09/29/19 06:00 Intake Total 3700 ml Output Total 1075 ml Balance 2625 ml Laboratory Data 24H LABS Laboratory Tests 2 09/28/19 14:55: Osmolality 312H, Magnesium Level 1.7L, Ethyl Alcohol Level 0.063H 09/28/19 18:56: Lactic Acid Followup at 4 Hours 0.3L 09/29/19 05:00: Magnesium Level 1.3L, Nucleated Red Blood Cells % (auto) 0.0, Immature Platelet Fraction 2.1, Anion Gap 11, Glomerular Filtration Rate > 60.0, Calcium Level 8.7, Total Bilirubin 1.8#H, Aspartate Amino Transf (AST/SGOT) 136H, Alanine Aminotransferase (ALT/SGPT) 118H, Alkaline Phosphatase 114, Total Protein 7.3, Albumin 3.7, Albumin/Globulin Ratio 1.03 CBC/BMP Laboratory Tests 09/29/19 05:00 ALON JACK MD Sep 29, 2019 12:06
[2019-09-29] MEDS: RIVAROXABAN 20 MG TAB (XARELTO) PO SCH (18:06)
[2019-09-30] VITALS (11 sets, daily range): BP systolic 118–158; BP diastolic 84–109
[2019-09-30] MEDS: LORazepam 1 MG TAB PO SCH ×3 (00:09→11:39)
[2019-09-30] MEDS: ALBUTEROL SULFATE 2.5 MG/0.5 ML INH NEB SOLN INH PRN ×2 (00:33→14:48)
[2019-09-30] MEDS: LORazepam 2 MG TAB PO PRN ×6 (02:23→22:37)
[2019-09-30] MEDS: SODIUM CHLORIDE 0.9% INJ 10 ML SYR IV SCH ×3 (05:31→20:46)
[2019-09-30 05:51] LABS: BASO % 0.5 % (0.0-1.0); EOS # 0.2 10^3/uL (0.0-0.5); EOS % 2.5 % (0.0-3.0); HEMATOCRIT 42.2 % (42.0-52.0); HEMOGLOBIN 13.5 g/dl (13.5-17.5); LYMPH # 1.4 10^3/uL (1.5-5.0); LYMPH % 22.1 % (24.0-44.0); MEAN CORPUSCULAR HEMOGLOBIN 27.9 pg (27.0-33.0); MEAN CORPUSCULAR VOLUME 87.2 fl (80.0-96.0); MONO # 0.3 10^3/uL (0.0-0.8); MONO % 4.8 % (0.0-5.0); NEUTROPHILS # 4.5 10^3/uL (1.5-8.5); NEUTROPHILS % 69.3 % (36.0-66.0); RED BLOOD COUNT 4.84 10^6/uL (4.30-6.10); WHITE BLOOD COUNT 6.5 10^3/uL (4.0-10.0)
[2019-09-30 05:52] LABS: PLATELET COUNT, AUTOMATED 61 10^3/uL (150-450)
[2019-09-30 07:09] LABS: ALBUMIN 4.1 GM/DL (3.2-5.2); ALT/SGPT 107 U/L (12-78); BILIRUBIN,TOTAL 1.2 MG/DL (0.2-1.0); BLOOD UREA NITROGEN 7 MG/DL (7-18); CALCIUM LEVEL 9.6 MG/DL (8.5-10.1); CARBON DIOXIDE LEVEL 28 MEQ/L (21-32); CHLORIDE LEVEL 101 MEQ/L (98-107); CREATININE FOR GFR 0.75 MG/DL (0.70-1.30); GLOMERULAR FILTRATION RATE > 60.0 (>60); GLUCOSE, FASTING 98 MG/DL (70-100); MAGNESIUM LEVEL 1.7 MG/DL (1.8-2.4); POTASSIUM SERUM 3.6 MEQ/L (3.5-5.1); SODIUM LEVEL 139 MEQ/L (136-145); TOTAL PROTEIN 7.5 GM/DL (6.4-8.2)
[2019-09-30] MEDS: NICOTINE 21MG/24HR 1 EA TRANSDERMAL TD SCH (09:10)
[2019-09-30] MEDS: ESCITALOPRAM OXALATE 5MG TABLET (LEXAPRO) PO SCH (09:11)
[2019-09-30] MEDS: TAMSULOSIN 0.4 MG CAP PO SCH (09:11)
[2019-09-30] MEDS: OMEPRAZOLE 20 MG CAP PO SCH (09:11)
[2019-09-30] MEDS: MULTIVITAMINS/MINERALS THERAP 1 TAB PO SCH (09:12)
[2019-09-30] MEDS: FOLIC ACID 1 MG TAB PO SCH (09:12)
[2019-09-30] MEDS: MAGNESIUM OXIDE 400 MG TAB (MAG-OX) PO SCH ×2 (09:12→20:44)
[2019-09-30] MEDS: amLODIPine 5 MG TAB PO SCH (09:12)
[2019-09-30] MEDS: GABAPENTIN 300 MG CAP PO SCH ×3 (09:12→20:45)
[2019-09-30] MEDS: THIAMINE 100 MG TAB PO SCH ×2 (09:12→20:44)
[2019-09-30] MEDS: METOPROLOL TARTRATE 100 MG TAB PO SCH ×2 (09:13→20:45)
[2019-09-30] MEDS: NS 1,000 ML IV SCH ×2 (11:39→22:31)
[2019-09-30] MEDS: IBUPROFEN 600 MG TAB PO PRN (11:39)
--- NOTE | 2019-09-30 12:58 | IPNPDOC ---
Subjective Date Seen The patient was seen on 09/30/19. Subjective Chief Complaint/HPI Patient is still shaky and is scoring on CIWA scale General: Denies: ROS Unobtainable, Chills, Night Sweats, Fatigue, Malaise, Normal Appetite, Other Symptoms Skin: Denies: Rash, Lesions, Jaundice, Bruising, Itching, Dry, Breakdown, Nail Changes, Other Pulmonary: Denies: Dyspnea, Cough, Pleuritic Chest Pain, Other Symptoms Cardiovascular: Denies: Chest Pain, Palpitations, Orthopnea, Paroxysmal Noc. Dyspnea, Edema, Lt Headedness, Other Symptoms Gastrointestinal: Denies: Nausea, Vomiting, Abdominal Pain, Diarrhea, Constipation, Melena, Hematochezia, Other Symptoms Endocrine: Denies: Polydipsia, Polyphagia, Polyuria, Heat Intolerance, Cold Intolerance, Other Endocrine Sx Musculoskeletal: Denies: Neck Pain, Back Pain, Shoulder Pain, Arm Pain, Hand Pain, Leg Pain, Foot Pain, Joint Pain, Muscle Pain, Spasms, Other Symptoms Objective Physical Examination Neck Exam: Positive: Supple Chest Exam: Positive: Clear to auscultation, Normal air movement Heart Exam: Positive: Rate Normal, Normal S1, Normal S2 Abdomen Exam: Positive: Normal bowel sounds, Soft Skin Exam: Positive: Nl turgor and temperature Neuro Exam: Positive: Strength at 5/5 X4 ext, Cranial Nerves 3-12 NL Assessment /Plan Problems (1) Alcohol withdrawal Status: Acute Problem Text: Patient was transferred to [facility] floor with telemetry Continue when necessary Ativan as per orders Might add long-acting benzodiazepine symptom relief Physical therapy evaluation appreciated Will restart IV fluid as patient's oral intake is not as good as should be Seizure precautions (2) Hypertension Status: Chronic Problem Text: Continue Norvasc and metoprolol (3) Pulmonary embolism Status: Chronic Problem Text: Continue Xarelto as per orders Plan/VTE VTE Prophylaxis Ordered?: Yes VS, I&O, 24H, Fishbone Vital Signs/I&O Vital Signs Date Time Temp Pulse Resp B/P (MAP) Pulse Ox O2 Delivery O2 Flow Rate FiO2 09/30/19 10:18 120 156/101 09/30/19 06:00 98.8 24 94 Room Air I&O- Last 24 Hours up to 6 AM 09/30/19 06:00 Intake Total 2495 ml Output Total 1725 ml Balance 770 ml Laboratory Data 24H LABS Laboratory Tests 2 09/30/19 05:28: Immature Granulocyte % (Auto) 0.8, Neutrophils (%) (Auto) 69.3H, Lymphocytes (%) (Auto) 22.1L, Monocytes (%) (Auto) 4.8, Eosinophils (%) (Auto) 2.5, Basophils (%) (Auto) 0.5, Neutrophils # (Auto) 4.5, Lymphocytes # (Auto) 1.4L, Monocytes # (Auto) 0.3, Eosinophils # (Auto) 0.2, Basophils # (Auto) 0.0, Nucleated Red Blood Cells % (auto) 0.0, Immature Platelet Fraction 5.4, Anion Gap 10, Glomerular Filtration Rate > 60.0, Calcium Level 9.6, Magnesium Level 1.7L, Total Bilirubin 1.2H, Aspartate Amino Transf (AST/SGOT) 114H, Alanine Aminotransferase (ALT/SGPT) 107H, Alkaline Phosphatase 113, Total Protein 7.5, Albumin 4.1, Albumin/Globulin Ratio 1.21 CBC/BMP Laboratory Tests 09/30/19 05:28 ALON JACK MD Sep 30, 2019 12:58
[2019-09-30] MEDS: chlordiazePOXIDE 25 MG CAP PO SCH ×2 (13:47→16:58)
[2019-09-30] MEDS: RIVAROXABAN 20 MG TAB (XARELTO) PO SCH (16:58)
[2019-10-01] VITALS (12 sets, daily range): BP systolic 137–172; BP diastolic 96–108
[2019-10-01] MEDS: chlordiazePOXIDE 25 MG CAP PO SCH ×4 (00:04→17:39)
[2019-10-01] MEDS: ALBUTEROL SULFATE 2.5 MG/0.5 ML INH NEB SOLN INH PRN ×3 (01:36→18:00)
[2019-10-01] MEDS: LORazepam 2 MG TAB PO PRN (02:14)
[2019-10-01] MEDS: SODIUM CHLORIDE 0.9% INJ 10 ML SYR IV SCH ×3 (05:26→21:35)
[2019-10-01 05:42] LABS: BASO % 0.7 % (0.0-1.0); EOS # 0.2 10^3/uL (0.0-0.5); EOS % 3.5 % (0.0-3.0); HEMATOCRIT 37.5 % (42.0-52.0); HEMOGLOBIN 11.9 g/dl (13.5-17.5); LYMPH # 1.2 10^3/uL (1.5-5.0); LYMPH % 19.4 % (24.0-44.0); MEAN CORPUSCULAR HEMOGLOBIN 28.4 pg (27.0-33.0); MEAN CORPUSCULAR HGB CONC 31.7 g/dl (32.0-36.5); MEAN CORPUSCULAR VOLUME 89.5 fl (80.0-96.0); MONO # 0.2 10^3/uL (0.0-0.8); NEUTROPHILS # 4.2 10^3/uL (1.5-8.5); NEUTROPHILS % 71.4 % (36.0-66.0); RED BLOOD COUNT 4.19 10^6/uL (4.30-6.10); WHITE BLOOD COUNT 5.9 10^3/uL (4.0-10.0)
[2019-10-01 05:51] LABS: PLATELET COUNT, AUTOMATED 57 10^3/uL (150-450)
[2019-10-01 06:18] LABS: ALBUMIN 3.4 GM/DL (3.2-5.2); ALT/SGPT 129 U/L (12-78); BILIRUBIN,TOTAL 0.6 MG/DL (0.2-1.0); BLOOD UREA NITROGEN 11 MG/DL (7-18); CALCIUM LEVEL 8.4 MG/DL (8.5-10.1); CARBON DIOXIDE LEVEL 29 MEQ/L (21-32); CHLORIDE LEVEL 103 MEQ/L (98-107); CREATININE FOR GFR 0.75 MG/DL (0.70-1.30); GLOMERULAR FILTRATION RATE > 60.0 (>60); GLUCOSE, FASTING 102 MG/DL (70-100); POTASSIUM SERUM 3.6 MEQ/L (3.5-5.1); SODIUM LEVEL 140 MEQ/L (136-145); TOTAL PROTEIN 6.4 GM/DL (6.4-8.2)
[2019-10-01] MEDS: NS 1,000 ML IV SCH ×2 (06:23→17:39)
[2019-10-01] MEDS: ONDANSETRON 4MG/2ML VIAL (J2405) IV PRN (09:27)
[2019-10-01] MEDS: NICOTINE 21MG/24HR 1 EA TRANSDERMAL TD SCH (09:27)
[2019-10-01] MEDS: ESCITALOPRAM OXALATE 5MG TABLET (LEXAPRO) PO SCH (09:27)
[2019-10-01] MEDS: METOPROLOL TARTRATE 100 MG TAB PO SCH ×2 (09:28→21:33)
[2019-10-01] MEDS: TAMSULOSIN 0.4 MG CAP PO SCH (09:28)
[2019-10-01] MEDS: GABAPENTIN 300 MG CAP PO SCH ×3 (09:28→21:31)
[2019-10-01] MEDS: amLODIPine 5 MG TAB PO SCH (09:28)
[2019-10-01] MEDS: IBUPROFEN 600 MG TAB PO PRN (09:28)
[2019-10-01] MEDS: MULTIVITAMINS/MINERALS THERAP 1 TAB PO SCH (09:29)
[2019-10-01] MEDS: OMEPRAZOLE 20 MG CAP PO SCH (09:30)
[2019-10-01] MEDS: FOLIC ACID 1 MG TAB PO SCH (09:30)
[2019-10-01] MEDS: MAGNESIUM OXIDE 400 MG TAB (MAG-OX) PO SCH ×2 (09:30→21:31)
--- NOTE | 2019-10-01 11:20 | IPNPDOC ---
Subjective Date Seen The patient was seen on 10/01/19. Subjective Chief Complaint/HPI 2. The patient is feeling much better. He drinks about 2 L of oxide every day, but his withdrawal symptoms are progressively improving, PT and progress General: Denies: ROS Unobtainable, Chills, Night Sweats, Fatigue, Malaise, Normal Appetite, Other Symptoms Constitutional: Denies: Chills, Fever, Malaise, Night Sweats, Weakness, Fatigue, Weight Loss, Lethargy, Other Pulmonary: Denies: Dyspnea, Cough, Pleuritic Chest Pain, Other Symptoms Cardiovascular: Denies: Chest Pain, Palpitations, Orthopnea, Paroxysmal Noc. Dyspnea, Edema, Lt Headedness, Other Symptoms Gastrointestinal: Denies: Nausea, Vomiting, Abdominal Pain, Diarrhea, C onstipation, Melena, Hematochezia, Other Symptoms Endocrine: Denies: Polydipsia, Polyphagia, Polyuria, Heat Intolerance, Cold Intolerance, Other Endocrine Sx Musculoskeletal: Denies: Neck Pain, Back Pain, Shoulder Pain, Arm Pain, Hand Pain, Leg Pain, Foot Pain, Joint Pain, Muscle Pain, Spasms, Other Symptoms Neurological: Denies: Weakness, Numbness, Incoordination, Change in speech, Confusion, Seizures, Other Symptoms Objective Physical Examination Neck Exam: Positive: Supple Chest Exam: Positive: Clear to auscultation, Normal air movement Heart Exam: Positive: Rate Normal, Normal S1, Normal S2 Abdomen Exam: Positive: Normal bowel sounds, Soft Skin Exam: Positive: Nl turgor and temperature Neuro Exam: Positive: Strength at 5/5 X4 ext, Cranial Nerves 3-12 NL Assessment /Plan Problems (1) Alcohol withdrawal Status: Acute Problem Text: Patient progressively improving Will continue Librium and Ativan when necessary as per orders IV hydration Advance diet Physical therapy consult in progress Tubal discharge in a.m. (2) Hypertension Status: Chronic Problem Text: Continue Norvasc and metoprolol (3) Pulmonary embolism Status: Chronic Problem Text: Continue Xarelto as per orders Plan/VTE VTE Prophylaxis Ordered?: Yes VS, I&O, 24H, Fishbone Vital Signs/I&O Vital Signs Date Time Temp Pulse Resp B/P (MAP) Pulse Ox O2 Delivery O2 Flow Rate FiO2 10/01/19 11:10 88 147/107 10/01/19 06:00 97.4 20 98 NIPPV (BIPAP/CPAP) l I&O- Last 24 Hours up to 6 AM 10/01/19 06:00 Intake Total 2280 ml Output Total 550 ml Balance 1730 ml Laboratory Data 24H LABS Laboratory Tests 2 10/01/19 05:26: Immature Granulocyte % (Auto) 1.0, Neutrophils (%) (Auto) 71.4H, Lymphocytes (%) (Auto) 19.4L, Monocytes (%) (Auto) 4.0, Eosinophils (%) (Auto) 3.5H, Basophils (%) (Auto) 0.7, Neutrophils # (Auto) 4.2, Lymphocytes # (Auto) 1.2L, Monocytes # (Auto) 0.2, Eosinophils # (Auto) 0.2, Basophils # (Auto) 0.0, Nucleated Red Blood Cells % (auto) 0.0, Anion Gap 8, Glomerular Filtration Rate > 60.0, Calcium Level 8.4L, Total Bilirubin 0.6, Aspartate Amino Transf (AST/SGOT) 140H, Alanine Aminotransferase (ALT/SGPT) 129H, Alkaline Phosphatase 94, Total Protein 6.4, Albumin 3.4, Albumin/Globulin Ratio 1.13 CBC/BMP Laboratory Tests 10/01/19 05:26 ALON JACK MD Oct 01, 2019 11:20
[2019-10-01] MEDS: RIVAROXABAN 20 MG TAB (XARELTO) PO SCH (17:39)
[2019-10-02] VITALS (10 sets, daily range): BP systolic 132–167; BP diastolic 83–116
[2019-10-02] MEDS: chlordiazePOXIDE 25 MG CAP PO SCH ×4 (00:03→21:22)
[2019-10-02] MEDS: LORazepam 2 MG TAB PO PRN ×4 (02:01→16:27)
[2019-10-02] MEDS: NS 1,000 ML IV SCH ×2 (03:47→13:41)
[2019-10-02] MEDS: SODIUM CHLORIDE 0.9% INJ 10 ML SYR IV SCH ×3 (05:33→21:34)
[2019-10-02] MEDS: ALBUTEROL SULFATE 2.5 MG/0.5 ML INH NEB SOLN INH PRN ×2 (06:20→13:46)
[2019-10-02 06:33] LABS: BASO % 0.5 % (0.0-1.0); EOS # 0.2 10^3/uL (0.0-0.5); HEMATOCRIT 38.5 % (42.0-52.0); HEMOGLOBIN 12.1 g/dl (13.5-17.5); LYMPH % 15.8 % (24.0-44.0); MEAN CORPUSCULAR HEMOGLOBIN 28.3 pg (27.0-33.0); MEAN CORPUSCULAR HGB CONC 31.4 g/dl (32.0-36.5); MEAN CORPUSCULAR VOLUME 90.2 fl (80.0-96.0); MONO # 0.4 10^3/uL (0.0-0.8); MONO % 5.5 % (0.0-5.0); NEUTROPHILS # 4.7 10^3/uL (1.5-8.5); NEUTROPHILS % 74.1 % (36.0-66.0); RED BLOOD COUNT 4.27 10^6/uL (4.30-6.10); WHITE BLOOD COUNT 6.3 10^3/uL (4.0-10.0)
[2019-10-02 06:34] LABS: PLATELET COUNT, AUTOMATED 56 10^3/uL (150-450)
[2019-10-02 06:54] LABS: ALBUMIN 3.7 GM/DL (3.2-5.2); ALT/SGPT 181 U/L (12-78); BILIRUBIN,TOTAL 0.5 MG/DL (0.2-1.0); BLOOD UREA NITROGEN 7 MG/DL (7-18); CALCIUM LEVEL 8.9 MG/DL (8.5-10.1); CARBON DIOXIDE LEVEL 28 MEQ/L (21-32); CHLORIDE LEVEL 102 MEQ/L (98-107); CREATININE FOR GFR 0.58 MG/DL (0.70-1.30); GLOMERULAR FILTRATION RATE > 60.0 (>60); GLUCOSE, FASTING 92 MG/DL (70-100); MAGNESIUM LEVEL 1.8 MG/DL (1.8-2.4); POTASSIUM SERUM 3.8 MEQ/L (3.5-5.1); SODIUM LEVEL 139 MEQ/L (136-145)
--- NOTE | 2019-10-02 09:16 | IPNPDOC ---
Subjective Date Seen The patient was seen on 10/02/19. Subjective Chief Complaint/HPI Patient is still has sweating and chills between the medications and is going 7 on CIWA scale General: Denies: ROS Unobtainable, Chills, Night Sweats, Fatigue, Malaise, Normal Appetite, Other Symptoms Constitutional: Denies: Chills, Fever, Malaise, Night Sweats, Weakness, Fatigue, Weight Loss, Lethargy, Other Pulmonary: Denies: Dyspnea, Cough, Pleuritic Chest Pain, Other Symptoms Cardiovascular: Denies: Chest Pain, Palpitations, Orthopnea, Paroxysmal Noc. Dyspnea, Edema, Lt Headedness, Other Symptoms Gastrointestinal: Denies: Nausea, Vomiting, Abdominal Pain, Diarrhea, Constipation, Melena, Hematochezia, Other Symptoms Endocrine: Denies: Polydipsia, Polyphagia, Polyuria, Heat Intolerance, Cold Intolerance, Other Endocrine Sx Musculoskeletal: Denies: Neck Pain, Back Pain, Shoulder Pain, Arm Pain, Hand Pain, Leg Pain, Foot Pain, Joint Pain, Muscle Pain, Spasms, Other Symptoms Objective Physical Examination Neck Exam: Positive: Supple Chest Exam: Positive: Clear to auscultation, Normal air movement Heart Exam: Positive: Rate Normal, Normal S1, Normal S2 Abdomen Exam: Positive: Normal bowel sounds, Soft Skin Exam: Positive: Nl turgor and temperature Neuro Exam: Positive: Strength at 5/5 X4 ext, Cranial Nerves 3-12 NL Assessment /Plan Problems (1) Alcohol withdrawal Status: Acute Problem Text: Patient is slowly improving but still has withdrawal symptoms He is scoring a 7 on CIWA Continue Librium and Ativan as per orders Continue IV fluids Increase oral hydration Frequent ambulation (2) Hypertension Status: Chronic Problem Text: Continue Norvasc and metoprolol (3) Pulmonary embolism Status: Chronic Problem Text: Continue Xarelto as per orders (4) Alcohol dependence Status: Chronic Problem Text: History of alcohol dependence . He drinks 2 L of vodka a day Probably will need alcohol rehabilitation as an outpatient once discharged Plan/VTE VTE Prophylaxis Ordered?: Yes VS, I&O, 24H, Fishbone Vital Signs/I&O Vital Signs Date Time Temp Pulse Resp B/P (MAP) Pulse Ox O2 Delivery O2 Flow Rate FiO2 10/02/19 06:00 97.0 99 22 164/100 (121) 95 Room Air I&O- Last 24 Hours up to 6 AM 10/02/19 06:00 Intake Total 3000 ml Output Total 2450 ml Balance 550 ml Laboratory Data 24H LABS Laboratory Tests 2 10/02/19 05:43: Immature Granulocyte % (Auto) 1.1, Neutrophils (%) (Auto) 74.1H, Lymphocytes (%) (Auto) 15.8L, Monocytes (%) (Auto) 5.5H, Eosinophils (%) (Auto) 3.0, Basophils (%) (Auto) 0.5, Neutrophils # (Auto) 4.7, Lymphocytes # (Auto) 1.0L, Monocytes # (Auto) 0.4, Eosinophils # (Auto) 0.2, Basophils # (Auto) 0.0, Nucleated Red Blood Cells % (auto) 0.0, Immature Platelet Fraction 6.4, Anion Gap 9, Glomerula r Filtration Rate > 60.0, Calcium Level 8.9, Magnesium Level 1.8, Total Bilirubin 0.5, Aspartate Amino Transf (AST/SGOT) 166H, Alanine Aminotransferase (ALT/SGPT) 181H, Alkaline Phosphatase 107, Total Protein 7.0, Albumin 3.7, Albumin/Globulin Ratio 1.12 CBC/BMP Laboratory Tests 10/02/19 05:43 ALON JACK MD Oct 02, 2019 09:16
[2019-10-02] MEDS: MULTIVITAMINS/MINERALS THERAP 1 TAB PO SCH (10:10)
[2019-10-02] MEDS: ESCITALOPRAM OXALATE 5MG TABLET (LEXAPRO) PO SCH (10:10)
[2019-10-02] MEDS: FOLIC ACID 1 MG TAB PO SCH (10:10)
[2019-10-02] MEDS: MAGNESIUM OXIDE 400 MG TAB (MAG-OX) PO SCH ×2 (10:10→21:22)
[2019-10-02] MEDS: NICOTINE 21MG/24HR 1 EA TRANSDERMAL TD SCH (10:10)
[2019-10-02] MEDS: OMEPRAZOLE 20 MG CAP PO SCH (10:10)
[2019-10-02] MEDS: GABAPENTIN 300 MG CAP PO SCH ×3 (10:10→21:22)
[2019-10-02] MEDS: TAMSULOSIN 0.4 MG CAP PO SCH (10:10)
[2019-10-02] MEDS: METOPROLOL TARTRATE 100 MG TAB PO SCH ×2 (10:11→21:34)
[2019-10-02] MEDS: amLODIPine 5 MG TAB PO SCH (10:11)
[2019-10-02] MEDS: RIVAROXABAN 20 MG TAB (XARELTO) PO SCH (17:40)
[2019-10-03] VITALS (8 sets, daily range): BP systolic 149–172; BP diastolic 90–111
[2019-10-03] MEDS: NS 1,000 ML IV SCH
[2019-10-03] MEDS: chlordiazePOXIDE 25 MG CAP PO SCH ×3 (06:23→21:34)
[2019-10-03] MEDS: SODIUM CHLORIDE 0.9% INJ 10 ML SYR IV SCH ×3 (06:24→21:36)
[2019-10-03 06:46] LABS: BASO % 0.6 % (0.0-1.0); EOS # 0.2 10^3/uL (0.0-0.5); EOS % 3.4 % (0.0-3.0); HEMATOCRIT 37.8 % (42.0-52.0); HEMOGLOBIN 12.2 g/dl (13.5-17.5); LYMPH # 1.1 10^3/uL (1.5-5.0); LYMPH % 16.1 % (24.0-44.0); MEAN CORPUSCULAR HEMOGLOBIN 29.2 pg (27.0-33.0); MEAN CORPUSCULAR HGB CONC 32.3 g/dl (32.0-36.5); MEAN CORPUSCULAR VOLUME 90.4 fl (80.0-96.0); MONO # 0.4 10^3/uL (0.0-0.8); MONO % 5.9 % (0.0-5.0); NEUTROPHILS # 5.2 10^3/uL (1.5-8.5); NEUTROPHILS % 72.9 % (36.0-66.0); RED BLOOD COUNT 4.18 10^6/uL (4.30-6.10); WHITE BLOOD COUNT 7.1 10^3/uL (4.0-10.0)
[2019-10-03 06:48] LABS: PLATELET COUNT, AUTOMATED 76 10^3/uL (150-450)
[2019-10-03 07:22] LABS: ALBUMIN 3.5 GM/DL (3.2-5.2); ALT/SGPT 205 U/L (12-78); BILIRUBIN,TOTAL 0.5 MG/DL (0.2-1.0); BLOOD UREA NITROGEN 9 MG/DL (7-18); CALCIUM LEVEL 8.8 MG/DL (8.5-10.1); CARBON DIOXIDE LEVEL 29 MEQ/L (21-32); CHLORIDE LEVEL 102 MEQ/L (98-107); GLOMERULAR FILTRATION RATE > 60.0 (>60); GLUCOSE, FASTING 116 MG/DL (70-100); POTASSIUM SERUM 3.9 MEQ/L (3.5-5.1); SODIUM LEVEL 139 MEQ/L (136-145); TOTAL PROTEIN 6.7 GM/DL (6.4-8.2)
[2019-10-03] MEDS: NICOTINE 21MG/24HR 1 EA TRANSDERMAL TD SCH (09:36)
[2019-10-03] MEDS: ESCITALOPRAM OXALATE 5MG TABLET (LEXAPRO) PO SCH (09:36)
[2019-10-03] MEDS: TAMSULOSIN 0.4 MG CAP PO SCH (09:36)
--- NOTE | 2019-10-03 09:36 | IPNPDOC ---
Subjective Date Seen The patient was seen on 10/03/19. Subjective Chief Complaint/HPI Patient is feeling a lot better today. He has a good oral intake of liquids General: Denies: ROS Unobtainable, Chills, Night Sweats, Fatigue, Malaise, Normal Appetite, Other Symptoms Pulmonary: Denies: Dyspnea, Cough, Pleuritic Chest Pain, Other Symptoms Cardiovascular: Denies: Chest Pain, Palpitations, Orthopnea, Paroxysmal Noc. Dyspnea, Edema, Lt Headedness, Other Symptoms Gastrointestinal: Denies: Nausea, Vomiting, Abdominal Pain, Diarrhea, Constipat ion, Melena, Hematochezia, Other Symptoms Musculoskeletal: Denies: Neck Pain, Back Pain, Shoulder Pain, Arm Pain, Hand Pain, Leg Pain, Foot Pain, Joint Pain, Muscle Pain, Spasms, Other Symptoms Neurological: Denies: Weakness, Numbness, Incoordination, Change in speech, Confusion, Seizures, Other Symptoms Objective Physical Examination Neck Exam: Positive: Supple Chest Exam: Positive: Clear to auscultation, Normal air movement Heart Exam: Positive: Rate Normal, Normal S1, Normal S2 Abdomen Exam: Positive: Normal bowel sounds, Soft Skin Exam: Positive: Nl turgor and temperature Neuro Exam: Positive: Strength at 5/5 X4 ext, Cranial Nerves 3-12 NL Assessment /Plan Problems (1) Alcohol withdrawal Status: Acute Problem Text: Patient seems to have progressed very well today Librium was increased to 50mg every 8 Hr yesterday Continue same dose of Librium and Ativan when necessary DC IV fluid as he is a good oral intake of liquids Discontinue triple-lumen catheter (2) Hypertension Status: Chronic Problem Text: Continue Norvasc and metoprolol (3) Pulmonary embolism Status: Chronic Problem Text: Continue Xarelto as per orders (4) Alcohol dependence Status: Chronic Problem Text: History of alcohol dependence . He drinks 2 L of vodka a day Probably will need alcohol rehabilitation as an outpatient once discharged Plan/VTE VTE Prophylaxis Ordered?: Yes VS, I&O, 24H, Fishbone Vital Signs/I&O Vital Signs Date Time Temp Pulse Resp B/P (MAP) Pulse Ox O2 Delivery O2 Flow Rate FiO2 10/03/19 06:00 90 155/97 10/03/19 06:00 97.4 20 98 Room Air I&O- Last 24 Hours up to 6 AM 10/03/19 05:59 Intake Total 3910 ml Output Total 3275 ml Balance 635 ml Laboratory Data 24H LABS Laboratory Tests 2 10/03/19 06:30: Immature Granulocyte % (Auto) 1.1, Neutrophils (%) (Auto) 72.9H, Lymphocytes (%) (Auto) 16.1L, Monocytes (%) (Auto) 5.9H, Eosinophils (%) (Auto) 3.4H, Basophils (%) (Auto) 0.6, Neutrophils # (Auto) 5.2, Lymphocytes # (Auto) 1.1L, Monocytes # (Auto) 0.4, Eosinophils # (Auto) 0.2, Basophils # (Auto) 0.0, Nucleated Red Blood Cells % (auto) 0.0, Immature Platelet Fraction 4.7, Anion Gap 8, Glomerular Filtration Rate > 60.0, Calcium Level 8.8, Total Bilirubin 0.5, Aspartate Amino Transf (AST/SGOT) 161H, Alanine Aminotransferase (ALT/SGPT) 205H, Alkaline Phosphatase 99, Total Protein 6.7, Albumin 3.5, Albumin/Globulin Ratio 1.09 CBC/BMP Laboratory Tests 10/03/19 06:30 ALON JACK MD Oct 03, 2019 09:36
[2019-10-03] MEDS: OMEPRAZOLE 20 MG CAP PO SCH (09:37)
[2019-10-03] MEDS: METOPROLOL TARTRATE 100 MG TAB PO SCH ×2 (09:37→21:36)
[2019-10-03] MEDS: FOLIC ACID 1 MG TAB PO SCH (09:37)
[2019-10-03] MEDS: GABAPENTIN 300 MG CAP PO SCH ×3 (09:37→21:35)
[2019-10-03] MEDS: MAGNESIUM OXIDE 400 MG TAB (MAG-OX) PO SCH ×2 (09:37→21:35)
[2019-10-03] MEDS: amLODIPine 5 MG TAB PO SCH (09:37)
[2019-10-03] MEDS: MULTIVITAMINS/MINERALS THERAP 1 TAB PO SCH (09:37)
[2019-10-03] MEDS: LORazepam 2 MG TAB PO PRN ×3 (09:46→19:14)
[2019-10-03] MEDS: ALBUTEROL SULFATE 2.5 MG/0.5 ML INH NEB SOLN INH PRN (11:20)
[2019-10-03] MEDS: RIVAROXABAN 20 MG TAB (XARELTO) PO SCH (18:32)
[2019-10-04] VITALS (7 sets, daily range): BP systolic 127–152; BP diastolic 58–103
[2019-10-04] MEDS: ALBUTEROL SULFATE 2.5 MG/0.5 ML INH NEB SOLN INH PRN ×2 (02:59→11:27)
[2019-10-04] MEDS: chlordiazePOXIDE 25 MG CAP PO SCH ×3 (06:40→22:49)
[2019-10-04] MEDS: SODIUM CHLORIDE 0.9% INJ 10 ML SYR IV SCH ×3 (06:40→22:50)
[2019-10-04] MEDS: LORazepam 2 MG TAB PO PRN ×2 (07:24→11:34)
[2019-10-04] MEDS: NICOTINE 21MG/24HR 1 EA TRANSDERMAL TD SCH (09:22)
[2019-10-04] MEDS: MULTIVITAMINS/MINERALS THERAP 1 TAB PO SCH (09:22)
[2019-10-04] MEDS: TAMSULOSIN 0.4 MG CAP PO SCH (09:22)
[2019-10-04] MEDS: amLODIPine 5 MG TAB PO SCH (09:23)
[2019-10-04] MEDS: GABAPENTIN 300 MG CAP PO SCH ×3 (09:23→22:49)
[2019-10-04] MEDS: METOPROLOL TARTRATE 100 MG TAB PO SCH ×2 (09:23→22:49)
[2019-10-04] MEDS: FOLIC ACID 1 MG TAB PO SCH (09:23)
[2019-10-04] MEDS: OMEPRAZOLE 20 MG CAP PO SCH (09:23)
[2019-10-04] MEDS: MAGNESIUM OXIDE 400 MG TAB (MAG-OX) PO SCH ×2 (09:23→22:49)
[2019-10-04] MEDS: IBUPROFEN 600 MG TAB PO PRN (09:28)
[2019-10-04] MEDS: ESCITALOPRAM OXALATE 5MG TABLET (LEXAPRO) PO SCH (09:29)
--- NOTE | 2019-10-04 10:48 | IPNPDOC ---
Subjective Date Seen The patient was seen on 10/04/19. Subjective Chief Complaint/HPI Patient is feeling much better today required only one time of when necessary med General: Denies: ROS Unobtainable, Chills, Night Sweats, Fatigue, Malaise, Normal Appetite, Other Symptoms Constitutional: Denies: Chills, Fever, Malaise, Night Sweats, Weakness, Fatigue, Weight Loss, Lethargy, Other Pulmonary: Denies: Dyspnea, Cough, Pleuritic Chest Pain, Other Symptoms Cardiovascular: Denies: Chest Pain, Palpitations, Orthopnea, Paroxysmal Noc. Dyspnea, Edema, Lt Headedness, Other Symptoms Gastrointestinal: Denies: Nausea, Vomiting, Abdominal Pain, Diarrhea, Constipation, Melena, Hematochezia, Other Symptoms Genitourinary: Denies: Dysuria, Frequency, Incontinence, Hematuria, Retention, Other Symptoms Musculoskeletal: Denies: Neck Pain, Back Pain, Shoulder Pain, Arm Pain, Hand Pain, Leg Pain, Foot Pain, Joint Pain, Muscle Pain, Spasms, Other Symptoms Neurological: Denies: Weakness, Numbness, Incoordination, Change in speech, Confusion, Seizures, Other Symptoms Objective Physical Examination Neck Exam: Positive: Supple Chest Exam: Positive: Clear to auscultation, Normal air movement Heart Exam: Positive: Rate Normal, Normal S1, Normal S2 Abdomen Exam: Positive: Normal bowel sounds, Soft Skin Exam: Positive: Nl turgor and temperature Neuro Exam: Positive: Strength at 5/5 X4 ext, Cranial Nerves 3-12 NL Assessment /Plan Problems (1) Alcohol withdrawal Status: Acute Problem Text: pt is progressing very well, required only one time of when necessary med Decrease the Librium to 25 mg by mouth every 8 hours Ativan when necessary Possible discharge in a.m. , Good oral intake of food and liquids Discussed with social work. Patient will be provided information regarding outpatient alcohol rehabilitation (2) Hypertension Status: Chronic Problem Text: Continue Norvasc and metoprolol (3) Pulmonary embolism Status: Chronic Problem Text: Continue Xarelto as per orders (4) Alcohol dependence Status: Chronic Problem Text: History of alcohol dependence . He drinks 2 L of vodka a day Probably will need alcohol rehabilitation as an outpatient once discharged Plan/VTE VTE Prophylaxis Ordered?: Yes VS, I&O, 24H, Fishbone Vital Signs/I&O Vital Signs Date Time Temp Pulse Resp B/P (MAP) Pulse Ox O2 Delivery O2 Flow Rate FiO2 10/04/19 09:23 92 145/102 10/04/19 06:00 98.9 17 95 Room Air I&O- Last 24 Hours up to 6 AM 10/04/19 06:00 Intake Total 960 ml Balance 960 ml ALON JACK MD Oct 04, 2019 10:48
[2019-10-04] MEDS: RIVAROXABAN 20 MG TAB (XARELTO) PO SCH (17:00)
[2019-10-04] MEDS: SODIUM CHLORIDE 0.9% INJ 10 ML SYR IV PRN (22:50)
[2019-10-05 00:53] VITALS: BP 139/100
[2019-10-05 01:15] VITALS: BP 139/100
[2019-10-05] MEDS: LORazepam 2 MG TAB PO PRN (01:43)
[2019-10-05] MEDS: IBUPROFEN 600 MG TAB PO PRN (01:44)
[2019-10-05] MEDS: ALBUTEROL SULFATE 2.5 MG/0.5 ML INH NEB SOLN INH PRN (01:57)
[2019-10-05 03:48] VITALS: BP 144/100
[2019-10-05 03:50] VITALS: BP 144/100
[2019-10-05] MEDS: ONDANSETRON 4MG/2ML VIAL (J2405) IV PRN (04:25)
[2019-10-05] MEDS: SODIUM CHLORIDE 0.9% INJ 10 ML SYR IV PRN ×3 (04:25→06:18)
[2019-10-05 05:51] VITALS: BP 150/102
[2019-10-05 06:00] VITALS: BP 140/100
[2019-10-05] MEDS: SODIUM CHLORIDE 0.9% INJ 10 ML SYR IV SCH (06:15)
[2019-10-05] MEDS: chlordiazePOXIDE 25 MG CAP PO SCH (06:15)
[2019-10-05] MEDS: FOLIC ACID 1 MG TAB PO SCH (10:10)
[2019-10-05] MEDS: OMEPRAZOLE 20 MG CAP PO SCH (10:10)
[2019-10-05] MEDS: MAGNESIUM OXIDE 400 MG TAB (MAG-OX) PO SCH (10:10)
[2019-10-05] MEDS: ESCITALOPRAM OXALATE 5MG TABLET (LEXAPRO) PO SCH (10:10)
[2019-10-05] MEDS: TAMSULOSIN 0.4 MG CAP PO SCH (10:10)
[2019-10-05] MEDS: METOPROLOL TARTRATE 100 MG TAB PO SCH (10:11)
[2019-10-05] MEDS: amLODIPine 5 MG TAB PO SCH (10:11)
[2019-10-05] MEDS: MULTIVITAMINS/MINERALS THERAP 1 TAB PO SCH (10:11)
[2019-10-05] MEDS: GABAPENTIN 300 MG CAP PO SCH (10:11)
[2019-10-05] MEDS: NICOTINE 21MG/24HR 1 EA TRANSDERMAL TD SCH (10:12)
--- NOTE | 2019-10-05 17:30 | DS.PDOC ---
Discharge Summary General Date of Admission Sep 28, 2019 at 13:39 Date of Discharge 10/05/19 Attending Physician: VIRGINIA CLARK MD Discharge Summary PROCEDURES PERFORMED DURING STAY: None. ADMITTING DIAGNOSES: 1. Alcohol withdrawal. DISCHARGE DIAGNOSES: 1. Alcohol withdrawal. COMPLICATIONS/CHIEF COMPLAINT: Alcohol Withdrawal Syndrome Ketoacidosis Pe. HISTORY OF PRESENT ILLNESS: 44-year-old male with past medical history of hypertension, COPD, pulmonary embolism, and alcoholism was admitted for alcohol withdrawal. He was treated with benzodiazepines as per [facility] protocol along with thiamine, folic acid, vitamins and IV hydration. He has responded well to treatment and is at baseline today, without any complaint at this time. He is no longer requiring any benzos, clinically and hemodynamic stable for discharge and outpatient follow-up. HOSPITAL COURSE: As above. DISCHARGE MEDICATIONS: Please see below. ALLERGIES: Please see below. PHYSICAL EXAMINATION: VITAL SIGNS: Please see below. GENERAL: No distress HEENT: Normocephalic, atraumatic, moist mucous membranes NECK: Supple CARDIOVASCULAR EXAMINATION: S1, S2, no murmurs RESPIRATORY EXAMINATION: Clear to auscultation, no wheezing ABDOMINAL EXAMINATION: Soft, nontender, nondistended, positive bowel sounds EXTREMITIES: Range of motion intact SKIN: No rash NEUROLOGICAL EXAMINATION: Alert and oriented 3, no focal deficits PSYCHIATRIC EXAMINATION: Calm and cooperative LABORATORY DATA: Please see below. PROGNOSIS: Fair ACTIVITY: As tolerated. DIET: Cardiac DISCHARGE PLAN: Follow with PCP 1-2 weeks DISPOSITION: 01 Home, Self-Care. DISCHARGE INSTRUCTIONS: 1. As above. DISCHARGE CONDITION: Stable. TIME SPENT ON DISCHARGE: Greater than 33 minutes. Vital Signs/I&Os Vital Signs Date Time Temp Pulse Resp B/P (MAP) Pulse Ox O2 Delivery O2 Flow Rate FiO2 10/05/19 06:00 97.6 86 20 140/100 (113) 94 Room Air I&O- Last 24 Hours up to 6 AM 10/05/19 06:00 Intake Total 1260 ml Output Total 300 ml Balance 960 ml Discharge Medications Scheduled Amlodipine Besylate (Amlodipine Besylate) 5 Mg Tablet, 5 MG PO DAILY, (Reported) Escitalopram Oxalate (Lexapro) 5 Mg Tablet, 5 MG PO DAILY, (Reported) NEW MEDICATION, REPLACED CYMBALTA Fluticasone/Vilanterol (Breo Ellipta 200-25 Mcg INH) 1 Each Blst.w.dev, 1 PUFF INH DAILY, (Reported) Gabapentin (Gabapentin) 300 Mg Cap, 900 MG PO TID, (Reported) Metoprolol Tartrate (Metoprolol Tartrate) 100 Mg Tablet, 100 MG PO BID, (Reported) Multivitamins (Thera M Plus Tablet) 1 Tab Tab, 1 TAB PO DAILY, (Reported) Omeprazole (Omeprazole) 20 Mg Cap, 20 MG PO DAILY, (Reported) Rivaroxaban (Xarelto) 20 Mg Tab, 20 MG PO DAILY, (Reported) Tamsulosin HCl (Flomax) 0.4 Mg Cap, 0.4 MG PO DAILY, (Reported) Umeclidinium [place] (Incruse Ellipta) 62.5 Mcg/Inh Inh, 1 PUFF INH DAILY, (Reported) Scheduled PRN Albuterol Sulf (Albuterol Sulfate) 2.5 Mg/3 Ml Nebu, 2.5 MG INH Q6H PRN for SHORTNESS OF BREATH, (Reported) Albuterol Sulfate (Proair Hfa) 8.5 Gm Hfa.aer.ad, 2 PUFF INH QID PRN for SHORTNESS OF BREATH, (Reported) Fluticasone Propionate (Fluticasone Propionate) 50 Mcg/Act Spr, 1 SPRAY NARES DAILY PRN for CONGESTION, (Reported) Allergies Coded Allergies: vancomycin (Verified Allergy, Intermediate, 01/03/19) REDNESS AT IV SITE VIRGINIA CLARK MD Oct 05, 2019 17:30
== END 2019-10-05 13:17 | disposition home or self-care (01) | DRG 897 ==
LOC: M ED 08:59 → EDBD 08:59 → M ED INP 13:39 → ENRESERVDT 13:56 → ENRESERVTM 13:56 → M ICU 14:37 → M MSPAV 09-29 12:09
PROVIDERS: ADMIT Internal Medicine; ATTEND Internal Medicine
DX: F10.239 Alcohol dependence with withdrawal, unspecified (principal); I10 Essential (primary) hypertension; J44.9 Chronic obstructive pulmonary disease, unspecified; Z79.899 Other long term (current) drug therapy; Z88.1 Allergy status to other antibiotic agents; K21.9 Gastro-esophageal reflux disease without esophagitis; Z86.711 Personal history of pulmonary embolism; Z79.01 Long term (current) use of anticoagulants; F17.200 Nicotine dependence, unspecified, uncomplicated

== ENCOUNTER 2019-11-13 04:36 | Inpatient (IN) | payer MEDICARE, MEDICAID ==
[~2019-11-13 04:36] MED LIST changes: -ARTIDRO2 OU; +LEXA5TAB13 PO; +POLYOPD OU; +PROAAER10 INH
[2019-11-13 05:39] LABS: VENOUS BASE EXCESS 1.7 (-2.0-2.0); VENOUS HCO3 25.3 MEQ/L (23.0-27.0); VENOUS O2 SATURATION 83.4 % (60.0-80.0); VENOUS PARTIAL PRESSURE CO2 36.7 mmHg (38.0-50.0); VENOUS PARTIAL PRESSURE O2 46.9 mmHg (30.0-50.0); VENOUS PH 7.456 UNITS (7.330-7.430); VENOUS STANDARD HCO3 25.6 MEQ/L; VENOUS TOTAL CO2 26.4 MEQ/L (24.0-28.0)
[2019-11-13 05:44] LABS: BASO % 0.5 % (0.0-1.0); EOS # 0.1 10^3/uL (0.0-0.5); EOS % 0.7 % (0.0-3.0); HEMATOCRIT 44.6 % (42.0-52.0); HEMOGLOBIN 14.5 g/dl (13.5-17.5); LYMPH % 11.6 % (24.0-44.0); MEAN CORPUSCULAR HEMOGLOBIN 27.4 pg (27.0-33.0); MEAN CORPUSCULAR HGB CONC 32.5 g/dl (32.0-36.5); MEAN CORPUSCULAR VOLUME 84.3 fl (80.0-96.0); MONO # 0.3 10^3/uL (0.0-0.8); MONO % 3.8 % (0.0-5.0); NEUTROPHILS # 6.8 10^3/uL (1.5-8.5); PLATELET COUNT, AUTOMATED 115 10^3/uL (150-450); RED BLOOD COUNT 5.29 10^6/uL (4.30-6.10); WHITE BLOOD COUNT 8.2 10^3/uL (4.0-10.0)
[2019-11-13 06:13] LABS: INFLUENZA A AMPLIFICATION NEGATIVE (NEGATIVE); INFLUENZA B AMPLIFICATION NEGATIVE (NEGATIVE)
[2019-11-13 06:21] LABS: BLOOD UREA NITROGEN 13 MG/DL (7-18); CALCIUM LEVEL 8.5 MG/DL (8.5-10.1); CARBON DIOXIDE LEVEL 27 MEQ/L (21-32); CHLORIDE LEVEL 94 MEQ/L (98-107); CREATININE FOR GFR 0.83 MG/DL (0.70-1.30); ETHYL ALCOHOL (ETHANOL) 0.065 % (0.000-0.010); GLOMERULAR FILTRATION RATE > 60.0 (>60); GLUCOSE, FASTING 128 MG/DL (70-100); POTASSIUM SERUM 2.9 MEQ/L (3.5-5.1); SODIUM LEVEL 137 MEQ/L (136-145)
[2019-11-13] MEDS ORDERED: POTASSIUM CHLORIDE 10 MEQ SR TABLET PO ONE (06:30)
[2019-11-13 06:38] LABS: MAGNESIUM LEVEL 1.5 MG/DL (1.8-2.4)
[2019-11-13] MEDS ORDERED: LORazepam 2 MG/ML VIAL (J2060) IV STA (07:24)
[2019-11-13] MEDS ORDERED: MAG SULF 1GM/100ML (MAG RUN) 1 GM in IV 1 EA IV ONE (08:00)
[2019-11-13] MEDS ORDERED: ONDANSETRON 4MG/2ML VIAL (J2405) IV ONE (08:00)
[2019-11-13] MEDS ORDERED: NS 1,000 ML IV ONE ×2 (08:00→10:15)
[2019-11-13 08:02] LABS: ALBUMIN 4.2 GM/DL (3.2-5.2); ALT/SGPT 237 U/L (12-78); BILIRUBIN,DIRECT 0.4 MG/DL (0.0-0.2); LIPASE 82 U/L (73-393); TOTAL PROTEIN 7.9 GM/DL (6.4-8.2)
--- NOTE | 2019-11-13 08:04 | REP ---
PA and lateral chest: Comparison is 08/15/2019. The lung guillermo are clear. The cardiac size is normal. The carrington, mediastinum, and skeletal structures are unremarkable. Impression: Negative PA and lateral chest. There is no interval change. Electronically Signed by Jayjay Del Rio MD 11/13/2019 07:55 A
[2019-11-13] MEDS ORDERED: THIAMINE 100 MG TAB PO SCH (09:00)
[2019-11-13] MEDS ORDERED: ISOVUE-370 76% 100ML VIAL (Q9967) As Ordered ONE (09:52)
[2019-11-13] MEDS ORDERED: AMIT25TA PO (10:23)
[2019-11-13] MEDS ORDERED: MAGN400T3 PO (10:23)
--- NOTE | 2019-11-13 10:34 | REP ---
CT of the abdomen and pelvis with IV contrast, without bowel contrast for abdominal pain and diarrhea: Comparison is 05/01/2018. On the prior study there was a 11 mm lung lobe. This nodule is no longer present. This is compatible with transient atelectasis. The visualized lung guillermo are otherwise unremarkable. The hepatic parenchyma is diffusely decreased density, as previously, compatible with hepato steatosis. There are no hepatic masses. The liver is enlarged. This is unchanged. There is a surgical clip in the gallbladder fossa. This is unchanged. The pancreas and spleen are normal size unremarkable. The adrenals are unremarkable. The kidneys are unremarkable. Abdominal aorta is unremarkable. There is no periaortic adenopathy or mass. There is a vena cava filter. This is unchanged. There is no bowel distension or obstruction. Mesentery is unremarkable. There is no ascites. There is wall thickening of the sigmoid colon and the descending colon, nonspecific, patter compatible with colitis in the appropriate clinical setting. Pelvis: The appendix and terminal ileum are unremarkable. The bladder is unremarkable. There is no ascites or adenopathy. Impression: Wall thickening of the descending colon and sigmoid colon, nonspecific but compatible with colitis in the appropriate clinical setting. There is no bowel obstruction. No ascites or inflammatory changes in the mesentery. Hepatic steatosis, unchanged. There are no hepatic masses. Hepatomegaly, unchanged. Cholecystectomy. Vena cava filter, unchanged. Right lower lobe lung nodule as described. Electronically Signed by Jayjay Del Rio MD 11/13/2019 10:26 A
--- NOTE | 2019-11-13 12:04 | HPEPDOC ---
General Date of Admission Nov 13, 2019 at 04:37 Date of Service: Nov 13, 2019 Chief Complaint The patient is a 44-year-old male admitted with a reason for visit of Alcohol Dependence. History of Present Illness 44 year old male presents with symptoms of alcohol withdrawal. States has been drinking vodka daily for past 2 weeks (2 1L bottles), last drink last night at 10PM. Now with nausea, facial flushing, headaches and anxiety. Treated with ativan IV in ED, slight tachycardia, labs K 2.8, elevated LFT's, admission for alcohol withdrawal. Home Medications Scheduled Amitriptyline HCl (Amitriptyline HCl) 25 Mg Tablet, 25 MG PO QPM, (Reported) Amlodipine Besylate (Amlodipine Besylate) 5 Mg Tablet, 5 MG PO DAILY, (Reported) Escitalopram Oxalate (Lexapro) 5 Mg Tablet, 5 MG PO DAILY, (Reported) NEW MEDICATION, REPLACED CYMBALTA Fluticasone/Vilanterol (Breo Ellipta 200-25 Mcg INH) 1 Each Blst.w.dev, 1 PUFF INH DAILY, (Reported) Gabapentin (Gabapentin) 300 Mg Cap, 900 MG PO TID, (Reported) Magnesium Oxide (Magnesium Oxide) 400 Mg Tablet, 400 MG PO BID, (Reported) Metoprolol Tartrate (Metoprolol Tartrate) 100 Mg Tablet, 100 MG PO BID, (Re ported) Multivitamins (Thera M Plus Tablet) 1 Tab Tab, 1 TAB PO DAILY, (Reported) Omeprazole (Omeprazole) 20 Mg Cap, 20 MG PO DAILY, (Reported) Rivaroxaban (Xarelto) 20 Mg Tab, 20 MG PO DAILY, (Reported) Tamsulosin HCl (Flomax) 0.4 Mg Cap, 0.4 MG PO DAILY, (Reported) Umeclidinium [place] (Incruse Ellipta) 62.5 Mcg/Inh Inh, 1 PUFF INH DAILY, (Reported) Scheduled PRN Albuterol Sulf (Albuterol Sulfate) 2.5 Mg/3 Ml Nebu, 2.5 MG INH Q6H PRN for SHORTNESS OF BREATH, (Reported) Albuterol Sulfate (Proair Hfa) 8.5 Gm Hfa.aer.ad, 2 PUFF INH QID PRN for SHORTNESS OF BREATH, (Reported) Pt ran out of medication Fluticasone Propionate (Fluticasone Propionate) 50 Mcg/Act Spr, 1 SPRAY NARES DAILY PRN for CONGESTION, (Reported) Allergies Coded Allergies: vancomycin (Verified Allergy, Intermediate, 01/03/19) REDNESS AT IV SITE Past Medical History Medical History etoh abuse, COPD, HTN, PE, GERD Surgical History as above A-FIB/CHADSVASC A-FIB History Current/History of A-Fib/PAF?: No Current PO Anticoag Therapy: Yes Review of Systems Constitutional: Denies: Chills, Fever, Night Sweats Eyes: Denies: Pain, Vision change ENT: Denies: Head Aches, Ear Pain, Dysphagia Skin: Denies: Rash, Lesions, Breakdown Pulmonary: Denies: Dyspnea, Cough Cardiovascular: Denies: Chest Pain, Palpitations, Orthopnea, Paroxysmal Noc. Dyspnea, Lt Headedness Gastrointestinal: Denies: Nausea, Vomiting, Abdominal Pain, Diarrhea Genitourinary: Denies: Dysuria, Frequency, Incontinence, Retention Hematologic: Denies: Bruising, Bleeding Excessively Musculoskeletal: Denies: Neck Pain, Back Pain, Joint Pain, Muscle Pain, Spasms Neurological: Denies: Weakness, Numbness, Change in speech, Confusion Psych: Reports: Mood Normal, Anxiety; Denies: Depression, Memory Issues Physical Examination General Exam: Positive: Alert, No Acute Distress, Mild Distress Eye Exam: Positive: PERRLA, Conjunctiva & lids normal, EOMI; Negative: Sclera icteric ENT Exam: Positive: Atraumatic, Mucous membr. moist/pink, Pharynx Normal Neck Exam: Positive: Supple; Negative: JVD, thyromegaly Chest Exam: Positive: Clear to auscultation, Normal air movement Heart Exam: Positive: Rate Normal, Regular Rhythm, Normal S1, Normal S2; Negative: Murmurs, Rubs Telemetry: Positive: No significant arrhythmia, Tachycardia Abdomen Exam: Positive: Normal bowel sounds, Soft; Negative: Tenderness, Hepatospenomegaly Extremity Exam: Positive: Normal pulses; Negative: Clubbing, Cyanosis, Edema Skin Exam: Positive: Nl turgor and temperature; Negative: Breakdown, Lesion Neuro Exam: Positive: Normal Gait, Normal Speech, Cranial Nerves 3-12 NL, Reflexes 2+ Psych Exam: Positive: Mental status NL, Mood NL, Oriented x 3 Vital Signs Vital Signs Date Time Temp Pulse Resp B/P (MAP) Pulse Ox O2 Delivery O2 Flow Rate FiO2 11/13/19 10:51 97 16 11/13/19 10:30 144/85 (104) 11/13/19 10:06 95 11/13/19 09:14 99.4 Room Air Laboratory Data Labs 24H Laboratory Tests 2 11/13/19 05:31: Immature Granulocyte % (Auto) 0.4, Neutrophils (%) (Auto) 83.0H, Lymphocytes (%) (Auto) 11.6L, Monocytes (%) (Auto) 3.8, Eosinophils (%) (Auto) 0.7, Basophils (%) (Auto) 0.5, Neutrophils # (Auto) 6.8, Lymphocytes # (Auto) 1.0L, Monocytes # (Auto) 0.3, Eosinophils # (Auto) 0.1, Basophils # (Auto) 0.0, Nucleated Red Blood Cells % (auto) 0.0, Blood Gas Bicarbonate Standard 25.6, Venous Blood pH 7.456H, Venous Blood Partial Pressure CO2 36.7L, Venous Blood Partial Pressure O2 46.9, Venous Blood Total Carbon Dioxide 26.4, Venous Blood HCO3 25.3, Venous Blood Oxygen Saturation 83.4H, Venous Blood Base Excess 1.7, Anion Gap 16, Glomerular Filtration Rate > 60.0, Calcium Level 8.5, Magnesium Level 1.5L, Total Bilirubin 1.0, Direct Bilirubin 0.4H, Aspartate Amino Transf (AST/SGOT) 459H, Alanine Aminotransferase (ALT/SGPT) 237H, Alkaline Phosphatase 143H, Total Protein 7.9, Albumin 4.2, Albumin/Globulin Ratio 1.14, Lipase 82, Ethyl Alcohol Level 0.065H, Influenza Type A (RT-PCR) NEGATIVE, Influenza Type B (RT-PCR) NEGATIVE CBC/BMP Laboratory Tests 11/13/19 05:31 Assessment/Plan 1. Alcohol withdrawal. - admit to med/surg. - CIWA, ativan prn. - thiamine, folic acid, MV. - IVF NS. 2. COPD Stable, continue home meds. - DuoNeb as needed every 6 hours. 3. PE Continue Xarelto 4. GERD Continue PPI 5. Hypertension Continue Norvasc and metoprolol 6. hypokalemia - supplement, repeat levels. Plan / VTE VTE Prophylaxis Ordered?: Yes SIVA KEYES MD Nov 13, 2019 12:04
[2019-11-13] MEDS ORDERED: LORazepam 2 MG/ML VIAL (J2060) IV PRN (12:15)
[2019-11-13] MEDS: MULTIVITAMINS/MINERALS THERAP 1 TAB PO SCH (13:55)
[2019-11-13] MEDS: FOLIC ACID 1 MG TAB PO SCH (13:55)
[2019-11-13] MEDS: KCL 10MEQ/100ML SWI (KRUN) 10 MEQ in IV 1 EA IV SCH ×2 (15:09→16:28)
[2019-11-13 16:00] VITALS: BP 136/102
[2019-11-13] MEDS ORDERED: FLUTICASONE PROP 0.05% NASAL SPRAY 16 GM (FLONASE) NARES PRN (16:15)
[2019-11-13] MEDS ORDERED: ALBUTEROL SULFATE 2.5 MG/0.5 ML INH NEB SOLN INH PRN (16:15)
[2019-11-13] MEDS ORDERED: KCL 10MEQ IN STERILE WATER 100ML As Ordered ONE (16:22)
[2019-11-13] MEDS: GABAPENTIN 300 MG CAP PO SCH ×2 (16:29→21:04)
[2019-11-13] MEDS: amLODIPine 5 MG TAB PO SCH (16:29)
[2019-11-13] MEDS: NS 1,000 ML IV SCH (16:30)
[2019-11-13] MEDS: ESCITALOPRAM OXALATE 5MG TABLET (LEXAPRO) PO SCH (16:33)
[2019-11-13] MEDS: RIVAROXABAN 20 MG TAB (XARELTO) PO SCH (16:34)
[2019-11-13] MEDS: OMEPRAZOLE 20 MG CAP PO SCH (16:34)
[2019-11-13 16:35] VITALS: BP 136/102
[2019-11-13] MEDS: LORazepam 2 MG TAB PO PRN (16:39)
[2019-11-13] MEDS: IPRATROPIUM 0.5MG/ALBUTEROL 2.5MG INH SOL UD 3ML (DUONEB)(J7620) NEB PRN (17:22)
[2019-11-13 19:07] VITALS: BP 138/90
[2019-11-13 21:02] VITALS: BP 161/108
[2019-11-13] MEDS: METOPROLOL TARTRATE 100 MG TAB PO SCH (21:04)
[2019-11-13] MEDS: MAGNESIUM OXIDE 400 MG TAB (MAG-OX) PO SCH (21:05)
[2019-11-13] MEDS: THIAMINE 100 MG TAB PO SCH (21:05)
[2019-11-13] MEDS: AMITRIPTYLINE 25 MG TAB PO SCH (21:05)
[2019-11-13 22:00] VITALS: BP 126/84
[2019-11-14] VITALS (10 sets, daily range): BP systolic 134–152; BP diastolic 80–101
[2019-11-14] MEDS: NS 1,000 ML IV SCH ×3 (01:46→21:34)
[2019-11-14] MEDS ORDERED: IBUPROFEN 400 MG TAB PO ONE (06:00)
[2019-11-14] MEDS: IPRATROPIUM 0.5MG/ALBUTEROL 2.5MG INH SOL UD 3ML (DUONEB)(J7620) NEB PRN (06:51)
[2019-11-14 07:31] LABS: ALBUMIN 3.6 GM/DL (3.2-5.2); ALT/SGPT 190 U/L (12-78); BILIRUBIN,TOTAL 1.9 MG/DL (0.2-1.0); BLOOD UREA NITROGEN 5 MG/DL (7-18); CALCIUM LEVEL 8.2 MG/DL (8.5-10.1); CARBON DIOXIDE LEVEL 29 MEQ/L (21-32); CHLORIDE LEVEL 101 MEQ/L (98-107); CREATININE FOR GFR 0.63 MG/DL (0.70-1.30); GLOMERULAR FILTRATION RATE > 60.0 (>60); GLUCOSE, FASTING 104 MG/DL (70-100); POTASSIUM SERUM 3.2 MEQ/L (3.5-5.1); SODIUM LEVEL 138 MEQ/L (136-145); TOTAL PROTEIN 7.1 GM/DL (6.4-8.2)
[2019-11-14] MEDS ORDERED: MULTIVITAMINS/MINERALS THERAP 1 TAB PO SCH (09:00)
[2019-11-14] MEDS ORDERED: FOLIC ACID 1 MG TAB PO SCH (09:00)
--- NOTE | 2019-11-14 09:04 | IPNPDOC ---
Subjective Date Seen The patient was seen on 11/14/19. Subjective Chief Complaint/HPI seen and examined at bedside, feeling much better today, tolerating clear wants to advance diet. Denies N/V, abdominal pain. General: Reports: Normal Appetite; Denies: Chills, Night Sweats, Fatigue, Malaise Constitutional: Denies: Chills, Fever, Night Sweats Eyes: Denies: Pain, Vision change ENT: Denies: Head Aches, Ear Pain, Dysphagia Skin: Denies: Rash, Lesions, Breakdown Pulmonary: Denies: Dyspnea, Cough Cardiovascular: Denies: Chest Pain, Palpitations, Orthopnea, Paroxysmal Noc. D yspnea, Lt Headedness Gastrointestinal: Denies: Nausea, Vomiting, Abdominal Pain, Diarrhea, Constipation Genitourinary: Denies: Dysuria, Frequency, Incontinence, Retention Hematologic: Denies: Bruising, Bleeding Excessively Musculoskeletal: Denies: Neck Pain, Back Pain, Joint Pain, Muscle Pain, Spasms Neurological: Denies: Weakness, Numbness, Change in speech, Confusion Psych: Reports: Mood Normal; Denies: Depression, Memory Issues Objective Physical Examination General Exam: Positive: Alert, No Acute Distress, Mild Distress Eye Exam: Positive: PERRLA, Conjunctiva & lids normal, EOMI; Negative: Sclera icteric ENT Exam: Positive: Atraumatic, Mucous membr. moist/pink, Pharynx Normal Neck Exam: Positive: Supple; Negative: JVD, thyromegaly Chest Exam: Positive: Clear to auscultation, Normal air movement Heart Exam: Positive: Rate Normal, Regular Rhythm, Normal S1, Normal S2; Negative: Murmurs, Rubs Telemetry: Positive: No significant arrhythmia, Tachycardia Abdomen Exam: Positive: Normal bowel sounds, Soft; Negative: Tenderness, Hepatospenomegaly Male Exam: Positive: Normal Genital Exam Extremity Exam: Positive: Normal pulses; Negative: Clubbing, Cyanosis, Edema Skin Exam: Positive: Nl turgor and temperature; Negative: Breakdown, Lesion Neuro Exam: Positive: Normal Gait, Normal Speech, Cranial Nerves 3-12 NL, Reflexes 2+ Psych Exam: Positive: Mental status NL, Mood NL, Oriented x 3 Assessment /Plan Assessment 1. Alcohol dependence with withdrawal. - CIWA, ativan prn. - thiamine, folic acid, MV. - IVF NS, tolerating regular diet. 2. COPD Stable, continue home meds. - DuoNeb as needed every 6 hours. 3. hx of PE Continue Xarelto 4. GERD Continue PPI 5. Hypertension Continue Norvasc and metoprolol 6. hypokalemia - supplement, repeat levels. Plan/VTE VTE Prophylaxis Ordered?: Yes VS, I&O, 24H, Fishbone Vital Signs/I&O Vital Signs Date Time Temp Pulse Resp B/P (MAP) Pulse Ox O2 Delivery O2 Flow Rate FiO2 11/14/19 06:00 99.1 109 21 150/96 (114) 96 Room Air I&O- Last 24 Hours up to 6 AM 11/14/19 06:00 Intake Total 2420 ml Output Total 725 ml Balance 1695 ml Laboratory Data 24H LABS Laboratory Tests 2 11/14/19 06:20: Anion Gap 8, Glomerular Filtration Rate > 60.0, Calcium Level 8.2L, Total Bilirubin 1.9#H, Aspartate Amino Transf (AST/SGOT) 300H, Alanine Aminotransferas e (ALT/SGPT) 190H, Alkaline Phosphatase 125H, Total Protein 7.1, Albumin 3.6, Albumin/Globulin Ratio 1.03 CBC/BMP Laboratory Tests 11/14/19 06:20 SIVA KEYES MD Nov 14, 2019 09:04
[2019-11-14] MEDS: TAMSULOSIN 0.4 MG CAP PO SCH (09:30)
[2019-11-14] MEDS: FOLIC ACID 1 MG TAB PO SCH (09:31)
[2019-11-14] MEDS: MULTIVITAMINS/MINERALS THERAP 1 TAB PO SCH (09:31)
[2019-11-14] MEDS: GABAPENTIN 300 MG CAP PO SCH ×3 (09:31→21:33)
[2019-11-14] MEDS: RIVAROXABAN 20 MG TAB (XARELTO) PO SCH (09:31)
[2019-11-14] MEDS: METOPROLOL TARTRATE 100 MG TAB PO SCH ×2 (09:31→21:33)
[2019-11-14] MEDS: OMEPRAZOLE 20 MG CAP PO SCH (09:31)
[2019-11-14] MEDS: THIAMINE 100 MG TAB PO SCH ×2 (09:32→21:33)
[2019-11-14] MEDS: MAGNESIUM OXIDE 400 MG TAB (MAG-OX) PO SCH ×2 (09:32→21:33)
[2019-11-14] MEDS: amLODIPine 5 MG TAB PO SCH (09:32)
[2019-11-14] MEDS: LORazepam 2 MG TAB PO PRN ×3 (09:37→21:42)
[2019-11-14] MEDS: ESCITALOPRAM OXALATE 5MG TABLET (LEXAPRO) PO SCH (09:40)
[2019-11-14] MEDS ORDERED: POTASSIUM CHLORIDE 10 MEQ SR TABLET PO ONE (15:00)
--- NOTE | 2019-11-14 20:43 | ECGEPIP ---
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
[2019-11-14] MEDS: AMITRIPTYLINE 25 MG TAB PO SCH (21:33)
[2019-11-15] VITALS (10 sets, daily range): BP systolic 137–158; BP diastolic 88–116
[2019-11-15 06:26] LABS: HEMOGLOBIN 13.5 g/dl (13.5-17.5); MEAN CORPUSCULAR HGB CONC 32.9 g/dl (32.0-36.5); RED BLOOD COUNT 4.66 10^6/uL (4.30-6.10); WHITE BLOOD COUNT 4.3 10^3/uL (4.0-10.0)
[2019-11-15 06:42] LABS: PLATELET COUNT, AUTOMATED 66 10^3/uL (150-450)
[2019-11-15 06:50] LABS: BLOOD UREA NITROGEN 6 MG/DL (7-18); CALCIUM LEVEL 8.4 MG/DL (8.5-10.1); CARBON DIOXIDE LEVEL 26 MEQ/L (21-32); CHLORIDE LEVEL 107 MEQ/L (98-107); CREATININE FOR GFR 0.73 MG/DL (0.70-1.30); GLOMERULAR FILTRATION RATE > 60.0 (>60); GLUCOSE, FASTING 117 MG/DL (70-100); MAGNESIUM LEVEL 1.7 MG/DL (1.8-2.4); SODIUM LEVEL 140 MEQ/L (136-145)
[2019-11-15] MEDS: GABAPENTIN 300 MG CAP PO SCH ×3 (08:07→22:16)
[2019-11-15] MEDS: MULTIVITAMINS/MINERALS THERAP 1 TAB PO SCH (08:07)
[2019-11-15] MEDS: ESCITALOPRAM OXALATE 5MG TABLET (LEXAPRO) PO SCH (08:07)
[2019-11-15] MEDS: MAGNESIUM OXIDE 400 MG TAB (MAG-OX) PO SCH ×2 (08:07→22:17)
[2019-11-15] MEDS: FOLIC ACID 1 MG TAB PO SCH (08:07)
[2019-11-15] MEDS: NS 1,000 ML IV SCH ×3 (08:07→22:17)
[2019-11-15] MEDS: OMEPRAZOLE 20 MG CAP PO SCH (08:07)
[2019-11-15] MEDS: RIVAROXABAN 20 MG TAB (XARELTO) PO SCH (08:07)
[2019-11-15] MEDS: LORazepam 2 MG TAB PO PRN ×2 (08:07→14:01)
[2019-11-15] MEDS: THIAMINE 100 MG TAB PO SCH ×2 (08:07→22:17)
[2019-11-15] MEDS: TAMSULOSIN 0.4 MG CAP PO SCH (08:07)
[2019-11-15] MEDS: METOPROLOL TARTRATE 100 MG TAB PO SCH ×2 (08:10→22:16)
[2019-11-15] MEDS: amLODIPine 5 MG TAB PO SCH (08:11)
[2019-11-15] MEDS: IPRATROPIUM 0.5MG/ALBUTEROL 2.5MG INH SOL UD 3ML (DUONEB)(J7620) NEB PRN (09:20)
--- NOTE | 2019-11-15 10:46 | IPNPDOC ---
Subjective Date Seen The patient was seen on 11/15/19. Subjective Chief Complaint/HPI seen and examined at bedside, states increasingly diaphoretic today morning, mild nausea. General: Reports: Chills, Night Sweats, Normal Appetite; Denies: Fatigue, Malaise Constitutional: Denies: Chills, Fever, Night Sweats Eyes: Denies: Pain, Vision change ENT: Denies: Head Aches, Ear Pain, Dysphagia Skin: Denies: Rash, Lesions, Breakdown Pulmonary: Denies: Dyspnea, Cough Cardiovascular: Denies: Chest Pain, Palpitations, Orthopnea, Paroxysmal Noc. Dyspnea, Lt Headedness Gastrointestinal: Denies: Nausea, Vomiting, Abdominal Pain, Diarrhea, Constipation Genitourinary: Denies: Dysuria, Frequency, Incontinence, Retention Hematologic: Denies: Bruising, Bleeding Excessively Musculoskeletal: Denies: Neck Pain, Back Pain, Joint Pain, Muscle Pain, Spasms Neurological: Denies: Weakness, Numbness, Change in speech, Confusion Psych: Reports: Mood Normal; Denies: Depression, Memory Issues Objective Physical Examination General Exam: Positive: Alert, No Acute Distress, Mild Distress Eye Exam: Positive: PERRLA, Conjunctiva & lids normal, EOMI; Negative: Sclera icteric ENT Exam: Positive: Atraumatic, Mucous membr. moist/pink, Pharynx Normal Neck Exam: Positive: Supple; Negative: JVD, thyromegaly Chest Exam: Positive: Clear to auscultation, Normal air movement Heart Exam: Positive: Rate Normal, Regular Rhythm, Normal S1, Normal S2; Negative: Murmurs, Rubs Telemetry: Positive: No significant arrhythmia, Tachycardia Abdomen Exam: Positive: Normal bowel sounds, Soft; Negative: Tenderness, Hepatospenomegaly Male Exam: Positive: Normal Genital Exam Extremity Exam: Positive: Normal pulses; Negative: Clubbing, Cyanosis, Edema Skin Exam: Positive: Nl turgor and temperature; Negative: Breakdown, Lesion Neuro Exam: Positive: Normal Gait, Normal Speech, Cranial Nerves 3-12 NL, Reflexes 2+ Psych Exam: Positive: Mental status NL, Mood NL, Oriented x 3 Assessment /Plan Assessment 1. Alcohol dependence with withdrawal. - CIWA, ativan prn. - thiamine, folic acid, MV. - tolerating regular diet. 2. COPD Stable, continue home meds. - DuoNeb as needed every 6 hours. 3. hx of PE Continue Xarelto 4. GERD Continue PPI 5. Hypertension Continue Norvasc and metoprolol 6. hypokalemia - supplement, repeat levels. 7. thrombocytopenia - monitor, secondary to etoh abuse. Plan/VTE VTE Prophylaxis Ordered?: Yes VS, I&O, 24H, Fishbone Vital Signs/I&O Vital Signs Date Time Temp Pulse Resp B/P (MAP) Pulse Ox O2 Delivery O2 Flow Rate FiO2 11/15/19 08:11 105 158/116 11/15/19 06:00 97.9 18 95 Room Air I&O- Last 24 Hours up to 6 AM 11/15/19 06:00 Intake Total 2140 ml Output Total 1300 ml Balance 840 ml Laboratory Data 24H LABS Laboratory Tests 2 11/15/19 06:09: Nucleated Red Blood Cells % (auto) 0.0, Immature Platelet Fraction 2.5, Anion Gap 7L, Glomerular Filtration Rate > 60.0, Calcium Level 8.4L, Magnesium Level 1.7L CBC/BMP Laboratory Tests 11/15/19 06:09 SIVA KEYES MD Nov 15, 2019 10:46
[2019-11-15] MEDS ORDERED: IBUPROFEN 600 MG TAB PO ONE (18:15)
[2019-11-15] MEDS: AMITRIPTYLINE 25 MG TAB PO SCH (22:17)
[2019-11-16 02:05] VITALS: BP 149/100
[2019-11-16 06:00] VITALS: BP 142/100
[2019-11-16 06:39] LABS: HEMATOCRIT 41.2 % (42.0-52.0); HEMOGLOBIN 13.3 g/dl (13.5-17.5); MEAN CORPUSCULAR HEMOGLOBIN 28.1 pg (27.0-33.0); MEAN CORPUSCULAR HGB CONC 32.3 g/dl (32.0-36.5); MEAN CORPUSCULAR VOLUME 87.1 fl (80.0-96.0); RED BLOOD COUNT 4.73 10^6/uL (4.30-6.10); WHITE BLOOD COUNT 5.2 10^3/uL (4.0-10.0)
[2019-11-16 06:41] LABS: PLATELET COUNT, AUTOMATED 61 10^3/uL (150-450)
[2019-11-16 06:52] LABS: BLOOD UREA NITROGEN 7 MG/DL (7-18); CALCIUM LEVEL 8.6 MG/DL (8.5-10.1); CARBON DIOXIDE LEVEL 26 MEQ/L (21-32); CHLORIDE LEVEL 105 MEQ/L (98-107); CREATININE FOR GFR 0.59 MG/DL (0.70-1.30); GLOMERULAR FILTRATION RATE > 60.0 (>60); GLUCOSE, FASTING 123 MG/DL (70-100); POTASSIUM SERUM 3.6 MEQ/L (3.5-5.1); SODIUM LEVEL 137 MEQ/L (136-145)
[2019-11-16] MEDS: NS 1,000 ML IV SCH (08:27)
[2019-11-16] MEDS: IPRATROPIUM 0.5MG/ALBUTEROL 2.5MG INH SOL UD 3ML (DUONEB)(J7620) NEB PRN (08:50)
[2019-11-16] MEDS: OMEPRAZOLE 20 MG CAP PO SCH (09:29)
[2019-11-16] MEDS: FOLIC ACID 1 MG TAB PO SCH (09:29)
[2019-11-16] MEDS: RIVAROXABAN 20 MG TAB (XARELTO) PO SCH (09:29)
[2019-11-16] MEDS: MAGNESIUM OXIDE 400 MG TAB (MAG-OX) PO SCH (09:30)
[2019-11-16] MEDS: THIAMINE 100 MG TAB PO SCH (09:30)
[2019-11-16] MEDS: GABAPENTIN 300 MG CAP PO SCH (09:30)
[2019-11-16] MEDS: MULTIVITAMINS/MINERALS THERAP 1 TAB PO SCH (09:30)
[2019-11-16] MEDS: TAMSULOSIN 0.4 MG CAP PO SCH (09:30)
[2019-11-16] MEDS: ESCITALOPRAM OXALATE 5MG TABLET (LEXAPRO) PO SCH (09:30)
[2019-11-16 09:33] VITALS: BP 146/100
[2019-11-16] MEDS: amLODIPine 5 MG TAB PO SCH (09:33)
[2019-11-16] MEDS: METOPROLOL TARTRATE 100 MG TAB PO SCH (09:33)
[2019-11-16 10:30] VITALS: BP 148/108
[2019-11-16] MEDS ORDERED: THIA100TA PO (10:43)
[2019-11-16] MEDS ORDERED: FOLI1TAB11 PO (10:43)
--- NOTE | 2019-11-16 16:36 | DS.PDOC ---
Discharge Summary General Date of Admission Nov 15, 2019 at 10:47 Date of Discharge 11/16/2019 Discharge Summary PROCEDURES PERFORMED DURING STAY: [None]. ADMITTING DIAGNOSES / DISCHARGE DIAGNOSES: Acute alcohol withdrawal HTN Asthma Hx of R sided endocarditis Hx of PE / Septic emboli (03/2018, on Xarelto) s/p IVC filter (2013) Hx of IVDA EtoH abuse Hx of Spinal abscess Pulmonary nodule (follows [facility]/ Dr. López) Hepatic Steatosis DVT prophylaxis COMPLICATIONS/CHIEF COMPLAINT: Alcohol withdrawal symptoms HISTORY OF PRESENT ILLNESS / HOSPITAL COURSE: Patient is a 44-year-old male with a PMHx of HTN, Asthma, Hx of R sided endocarditis, Hx of PE / Septic emboli (03/2018, on Xarelto), s/p IVC filter (2013), Hx of IVDA, EtoH abuse, Hx of Spinal abscess, Pulmonary nodule (follows w/ Dr. López), Hepatic Steatosis, and with several admissions for alcohol withdrawal. Who presented to the emergency room with complaints of alcohol withdrawal. Patient reports that he's been binge drinking over the last 2 weeks. He was admitted for symptoms of alcohol withdrawal. Patient was admitted to hospitalist service and was placed on CIWA protocol. Patient's symptoms had improved blood pressure remained well controlled. Patient has been ambulate without any difficulty. Patient has been advised to remain compliant with treatment of the medication and to abstain from any alcohol consumption. He is indicated that he will be following up at [facility] outpatient alcohol detox center. DISCHARGE MEDICATIONS: Please see below. ALLERGIES: Please see below. PHYSICAL EXAMINATION ON DISCHARGE: Vitals (See below) General: Lying in bed, no acute distress, comfortable, AAOx3 HEENT: NC, AT CVS: +S1S2 Lungs: Fair air entry b/l, -w/r/r Abdomen: Soft, ND, NT Extremities: - Edema, - Calf tenderness LABORATORY DATA: Please see below. ACTIVITY: [As tolerated]. DISCHARGE PLAN: Follow-up with [facility] within 7 days Remain compliant with treatment plan and medications Return to the ER if you experience any problems DISPOSITION: Home, Self-Care. DISCHARGE CONDITION: [Stable]. TIME SPENT ON DISCHARGE: 35 minutes Vital Signs/I&Os Vital Signs Date Time Temp Pulse Resp B/P (MAP) Pulse Ox O2 Delivery O2 Flow Rate FiO2 11/16/19 10:30 148/108 (121) 11/16/19 10:30 96 11/16/19 06:00 96.8 16 96 Room Air I&O- Last 24 Hours up to 6 AM 11/16/19 06:00 Intake Total 2812 ml Output Total 0 ml Balance 2812 ml Laboratory Data Labs 24H Laboratory Tests 2 11/16/19 06:12: Nucleated Red Blood Cells % (auto) 0.0, Immature Platelet Fraction 3.6, Anion Gap 6L, Glomerular Filtration Rate > 60.0, Calcium Level 8.6 CBC/BMP Laboratory Tests 11/16/19 06:12 Discharge Medications Scheduled Amitriptyline HCl (Amitriptyline HCl) 25 Mg Tablet, 25 MG PO QPM, (Reported) Amlodipine Besylate (Amlodipine Besylate) 5 Mg Tablet, 5 MG PO DAILY, (Reported) Escitalopram Oxalate (Lexapro) 5 Mg Tablet, 5 MG PO DAILY, (Reported) NEW MEDICATION, REPLACED CYMBALTA Fluticasone/Vilanterol (Breo Ellipta 200-25 Mcg INH) 1 Each Blst.w.dev, 1 PUFF INH DAILY, (Reported) Folic Acid (Folic Acid) 1 Mg Tablet, 1 MG PO DAILY Gabapentin (Gabapentin) 300 Mg Cap, 900 MG PO TID, (Reported) Magnesium Oxide (Magnesium Oxide) 400 Mg Tablet, 400 MG PO BID, (Reported) Metoprolol Tartrate (Metoprolol Tartrate) 100 Mg Tablet, 100 MG PO BID, (Reported) Multivitamins (Thera M Plus Tablet) 1 Tab Tab, 1 TAB PO DAILY, (Reported) Omeprazole (Omeprazole) 20 Mg Cap, 20 MG PO DAILY, (Reported) Rivaroxaban (Xarelto) 20 Mg Tab, 20 MG PO DAILY, (Reported) Tamsulosin HCl (Flomax) 0.4 Mg Cap, 0.4 MG PO DAILY, (Reported) Thiamine Hcl (Vitamin B-1) 100 Mg Tablet, 100 MG PO DAILY Umeclidinium [place] (Incruse Ellipta) 62.5 Mcg/Inh Inh, 1 PUFF INH DAILY, (Reported) Scheduled PRN Albuterol Sulf (Albuterol Sulfate) 2.5 Mg/3 Ml Nebu, 2.5 MG INH Q6H PRN for SHORTNESS OF BREATH, (Reported) Albuterol Sulfate (Proair Hfa) 8.5 Gm Hfa.aer.ad, 2 PUFF INH QID PRN for SHORTNESS OF BREATH, (Reported) Pt ran out of medication Fluticasone Propionate (Fluticasone Propionate) 50 Mcg/Act Spr, 1 SPRAY NARES DAILY PRN for CONGESTION, (Reported) Allergies Coded Allergies: vancomycin (Verified Allergy, Intermediate, 01/03/19) REDNESS AT IV SITE DESTIN KEYES MD Nov 16, 2019 16:36
== END 2019-11-16 13:05 | disposition home or self-care (01) | DRG 897 ==
LOC: M ED 04:36 → EDBD 04:36 → M ED INP 04:37 → ENRESERVDT 15:10 → ENRESERVTM 15:10 → M MSPAV 16:02 → OBSVTOIN 11-15 10:47
PROVIDERS: ADMIT Internal Medicine; ATTEND Internal Medicine
DX: F10.239 Alcohol dependence with withdrawal, unspecified (principal); I10 Essential (primary) hypertension; E87.6 Hypokalemia; J44.9 Chronic obstructive pulmonary disease, unspecified; D69.59 Other secondary thrombocytopenia; R91.1 Solitary pulmonary nodule; Z79.01 Long term (current) use of anticoagulants; K76.0 Fatty (change of) liver, not elsewhere classified; Z86.711 Personal history of pulmonary embolism; J45.909 Unspecified asthma, uncomplicated; Z79.899 Other long term (current) drug therapy; Z88.1 Allergy status to other antibiotic agents; K21.9 Gastro-esophageal reflux disease without esophagitis

== ENCOUNTER 2019-12-02 05:45 | Inpatient (IN) | payer MEDICARE, MEDICAID ==
[~2019-12-02] VITALS: Ht 172.7 cm; Wt 101.3 kg
[~2019-12-02 05:45] MED LIST changes: +AMIT25TA PO; +MAGN400T3 PO
[2019-12-02] MEDS ORDERED: LORazepam 2 MG/ML VIAL (J2060) IV STA (06:21)
[2019-12-02] MEDS ORDERED: ONDANSETRON 4MG/2ML VIAL (J2405) IV ONE (06:30)
[2019-12-02] MEDS ORDERED: NS 500 ML IV ONE (06:30)
[2019-12-02 06:43] LABS: BASO # 0.1 10^3/uL (0.0-0.2); BASO % 0.9 % (0.0-1.0); EOS # 0.1 10^3/uL (0.0-0.5); EOS % 1.4 % (0.0-3.0); HEMATOCRIT 43.2 % (42.0-52.0); HEMOGLOBIN 14.4 g/dl (13.5-17.5); LYMPH # 1.2 10^3/uL (1.5-5.0); LYMPH % 21.5 % (24.0-44.0); MEAN CORPUSCULAR HEMOGLOBIN 28.8 pg (27.0-33.0); MEAN CORPUSCULAR HGB CONC 33.3 g/dl (32.0-36.5); MEAN CORPUSCULAR VOLUME 86.4 fl (80.0-96.0); MONO # 0.4 10^3/uL (0.0-0.8); MONO % 7.8 % (0.0-5.0); NEUTROPHILS # 3.8 10^3/uL (1.5-8.5); NEUTROPHILS % 67.5 % (36.0-66.0); WHITE BLOOD COUNT 5.6 10^3/uL (4.0-10.0)
[2019-12-02 06:50] LABS: PLATELET COUNT, AUTOMATED 88 10^3/uL (150-450)
[2019-12-02 07:14] LABS: ALBUMIN 4.3 GM/DL (3.2-5.2); BILIRUBIN,DIRECT 1.3 MG/DL (0.0-0.2); BILIRUBIN,TOTAL 2.2 MG/DL (0.2-1.0); TOTAL PROTEIN 8.3 GM/DL (6.4-8.2)
[2019-12-02] MEDS ORDERED: IPRATROPIUM 0.5MG/ALBUTEROL 2.5MG INH SOL UD 3ML (DUONEB)(J7620) NEB ONE (08:00)
--- NOTE | 2019-12-02 08:11 | REP ---
Portable chest x-ray: Single view. History: Wheezing and shortness of breath. Comparison chest x-ray: November 18, 2019. Findings: The lungs are well inflated and clear. The pleural angles are sharp. Heart size is normal. Pulmonary vasculature is not increased. No bony abnormalities seen. Impression: Negative portable chest x-ray. Electronically Signed by Ronaldo Hernandez MD 12/02/2019 08:02 A
[2019-12-02] MEDS ORDERED: ISOVUE-370 76% 100ML VIAL (Q9967) As Ordered ONE (09:14)
[2019-12-02] MEDS ORDERED: KCL 10MEQ/100ML SWI (KRUN) 10 MEQ in IV 1 EA IV ONE (09:45)
[2019-12-02] MEDS ORDERED: FOLI1TAB11 PO (10:05)
[2019-12-02] MEDS ORDERED: VITA100T89 PO (10:05)
--- NOTE | 2019-12-02 10:06 | REP ---
CT ABDOMEN AND PELVIS WITH IV BUT WITHOUT ORAL CONTRAST: HISTORY: Abdomen pain and distension. Comparison study November 13, 2019. CT CONTRAST DOSE: 100 mL of intravenous Isovue 370. CT FINDINGS: Preliminary digital internal grinder radiograph demonstrates hepatomegaly and a few nonspecific small bowel loops. Axial images demonstrate that the lung bases are essentially clear. No pleural effusion is seen. There is marked fatty infiltration of the liver again noted. The liver is enlarged with midclavicular vertical span of 22.2 cm. No focal liver mass lesion is seen. The spleen is homogeneous in texture and at the upper range of normal measuring 12.4 cm in greatest diameter. No focal splenic lesion is seen. No adrenal lesion is observed. The gallbladder is surgically absent. No abnormality is noted in the pancreas. An inferior vena cava filter is noted in place. The kidneys enhance symmetrically and are morphologically intact. There is one cyst in the lower pole of the left kidney which measures 10 mm in greatest diameter. No retroperitoneal mass or adenopathy is observed. A normal appendix is again seen retrocecal in the right lower quadrant. Air and stool seen throughout the colon. Urinary bladder is somewhat distended but appears intact. No abdominal wall defect is seen. There are air-fluid levels in several jejunal loops in the left upper abdomen question mild ileus. There is no evidence of free air or abnormal fluid collection. IMPRESSION: Moderate hepatomegaly. Marked fatty infiltration of the liver. IVC filter in place. Post cholecystectomy. Normal appendix. Mildly distended urinary bladder. Nonspecific air fluid levels in the jejunal loops in the left mid abdomen. Question mild ileus. Electronically Signed by Ronaldo Hernandez MD 12/02/2019 12:35 P
[2019-12-02 10:10] LABS: INR 1.16; PROTHROMBIN TIME 14.5 SECONDS (11.8-14.0)
[2019-12-02] MEDS ORDERED: methylPREDNISolone INJ 125 MG/2 ML VIAL (J2930) IV ONE (10:30)
[2019-12-02] MEDS ORDERED: POTASSIUM CHLORIDE 10 MEQ SR TABLET PO ONE (10:30)
[2019-12-02] MEDS ORDERED: AMITRIPTYLINE 25 MG TAB PO PRN (12:00)
[2019-12-02] MEDS: LORazepam 2 MG TAB PO PRN ×2 (12:03→20:02)
[2019-12-02 12:17] LABS: MAGNESIUM LEVEL 1.8 MG/DL (1.8-2.4)
[2019-12-02] MEDS: GABAPENTIN 300 MG CAP PO SCH ×3 (12:17→20:01)
[2019-12-02] MEDS: OMEPRAZOLE 20 MG CAP PO SCH (12:18)
[2019-12-02] MEDS: THIAMINE 100 MG TAB PO SCH ×2 (12:18→20:02)
[2019-12-02] MEDS: FOLIC ACID 1 MG TAB PO SCH (12:18)
[2019-12-02] MEDS: MAGNESIUM OXIDE 400 MG TAB (MAG-OX) PO SCH ×2 (12:18→20:01)
[2019-12-02] MEDS: MULTIVITAMINS/MINERALS THERAP 1 TAB PO SCH (12:19)
[2019-12-02] MEDS: TAMSULOSIN 0.4 MG CAP PO SCH (12:19)
[2019-12-02] MEDS: amLODIPine 5 MG TAB PO SCH (12:19)
[2019-12-02] MEDS: predniSONE 20 MG TAB PO SCH (12:19)
[2019-12-02] MEDS: METOPROLOL TARTRATE 100 MG TAB PO SCH ×2 (12:20→20:02)
--- NOTE | 2019-12-02 14:01 | HPE ---
DATE OF ADMISSION: 12/02/2019 at 10:30 a.m. CHIEF COMPLAINT: Diarrhea for a week. HISTORY OF PRESENT ILLNESS: Mr. Goddard is a 44-year-old gentleman who has a history of chronic alcoholism with alcoholic liver disease and sequelae of chronic thrombocytopenia. He also has a history of pulmonary embolism for which he is currently on Xarelto and also chronic obstructive pulmonary disease (COPD) with chronic tobacco use disorder. The patient reports being in his usual state of health up until a week ago when he started experiencing nonbloody diarrhea. This has been constant and unrelenting for the past week. He reports contact with his brother who had similar symptoms, although not as severe. He reports having abdominal pressure. He has continued to drink alcohol. His last alcoholic drink was approximately yesterday. On average, he drinks about a liter of vodka on a daily basis and also continues to smoke cigarettes, although he primarily chews tobacco, he tells me. On presentation to the emergency room (ER) today, the patient was found to be normotensive. His diagnostic workup indicated that he had severe hypokalemia with potassium of 2.6 and elevated AST and ALT levels consistent with his alcohol liver disease. CT of the abdomen and pelvis done in the ER department indicated he had a possible ileus. For these reasons, he was admitted to the hospitalist service for further treatment and evaluation. ALLERGIES: VANCOMYCIN which cause redness. HOME MEDICATIONS: Are the following: - albuterol nebulizer - albuterol inhaler - amitriptyline 25 mg at bedtime as needed for headache - Norvasc 5 mg daily - Lexapro 5 mg daily - Flonase as needed for congestion daily - Breo Ellipta one puff daily - folic acid 1 mg by mouth daily - gabapentin 900 mg by mouth three times a day - magnesium oxide 400 mg by mouth twice a day - Toprol 100 mg by mouth twice a day - omeprazole 20 mg daily - Xarelto 20 mg by mouth daily - Flomax 0.4 mg by mouth daily - vitamin B1 100 mg by mouth daily - Incruse Ellipta one puff daily PAST MEDICAL HISTORY: Is notable for alcohol liver disease, chronic thrombocytopenia secondary to alcohol liver disease, chronic alcoholism. He has history of pulmonary embolism diagnosed approximately in 2017 or 2018, per his recollection. Gastroesophageal reflux disease (GERD), hypertension, COPD. He uses nocturnal oxygen at 2 liters only. He has history of cervical epidural abscess which caused him to have paraplegia. However, he has subsequently recovered. SURGICAL HISTORY: Is notable for cholecystectomy, inferior vena cava (IVC) filter placement, cervical abscess removal. SOCIAL HISTORY: The patient lives at home. His brother lives with him. He chews tobacco and drinks a liter of vodka. He is a former intravenous drug user but is currently in remission. He has not used in many years, he tells me. He has a history of notable for diabetes and hypertension. REVIEW OF SYSTEMS: Twelve-system reviewed and otherwise negative. The patient has had no recent travel. No fevers. No chills. No recent antibiotic use. The remainder of twelve-system review, the patient is otherwise negative. On examination, the patient's pulse is 101, blood pressure is 134/90, his temperature is 97.4, oxygen (O2) saturations are 88% on room air. He is requiring 2 liters of nasal cannula at this time. General: The patient is acutely ill. He is not exhibiting any labored breathing, although he does have some wheezing. His head is atraumatic, normocephalic. His pupils are symmetric and reactive to light. Oropharynx is clear without any visible thrush. Neck is supple. No jugular venous distention. No thyromegaly. His trachea is midline. Audible stridor. Lung sounds are appreciated bilaterally. He has some mild end expiratory wheezing. Breath sounds are diminished. Heart is S1, S2. No audible murmurs, rubs, or gallops. He is slightly tachycardic on telemetry. Abdomen is distended. Bowel sounds are diminished. No palpable organomegaly. No visible ascites. No tenderness to palpation. Extremities are without any significant cyanosis, clubbing, or edema. Neurological examination: The patient is currently exhibiting alcohol withdrawal tremors with positive asterixis. His speech is fluent. He has no facial asymmetry. He is moving all four extremities in a peripheral coordinated manner. His strength is 5/5 in the upper and lower extremities at the proximal and distal muscle groups. Gait is not tested. RELEVANT IMAGING STUDIES: Are the following: Chest x-ray showed no acute disease. CT of the abdomen and pelvis: Please reference full report for details. It showed a possible mild ileus, as well as alcohol liver disease findings of fatty liver. PERTINENT DIAGNOSTIC STUDIES: White count is 5.6, hemoglobin 14, hematocrit 43, platelet count is 88,000. Sodium 138, potassium is 2.6, chloride 95, bicarbonate 24, BUN is 9, creatinine is 0.7, glucose 107, total bilirubin is 22, direct bilirubin is 1.3, AST is 606, ALT is 231, alkaline phosphatase 156, total protein 8.3, lipase is 201. Urinalysis is positive for nitrites, ketones, and blood. Magnesium is 1.8. IMPRESSION: 1. Acute diarrhea, likely gastroenteritis. The patient will be admitted to an inpatient setting. Will obtain a gastrointestinal (GI) panel. He will be placed on contact isolation until this GI panel is resulted. He will be hydrated with intravenous (IV) fluids. He will receive a clear-liquid diet for now. We will supplement his potassium in his maintenance fluids. 2. Asymptomatic urinary tract infection. The patient will not receive any antibiotics at this time. 3. Mild chronic obstructive pulmonary disease exacerbation. He will receive nebulizers and be placed on prednisone 4 mg daily. 4. Chronic alcoholism with potential for acute early delirium tremens (DTs). The patient will be placed on Clinical [place] Withdrawal Assessment (CIWA) protocol with oral Ativan. 5. Alcoholic liver disease with hepatitis. The patient will be monitored. I have checked all his medications, and none of them need to be adjusted due to avoid any hepatotoxicity. We will avoid any hepatotoxins and repeat a complete metabolic panel (CMP) in the morning. The patient will be a FULL CODE, and he is already on Xarelto for deep venous thrombosis (DVT) prophylaxis.
[2019-12-02 14:30] VITALS: BP 144/90
[2019-12-02] MEDS: ESCITALOPRAM OXALATE 5MG TABLET (LEXAPRO) PO SCH (15:32)
[2019-12-02] MEDS: KCL 20MEQ IN D5/NS 1000ML 1,000 ML IV SCH ×2 (15:33→23:57)
[2019-12-02 16:00] VITALS: BP 139/90
[2019-12-02] MEDS: RIVAROXABAN 20 MG TAB (XARELTO) PO SCH (18:45)
--- NOTE | 2019-12-02 18:57 | ECGEPIP ---
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 Order Number: [id number] Reading MD: Dania Valdovinos Measurements Intervals [place] Rate: 84 P: 55 VT: 172 QRS: 71 QRSD: 118 T: 65 QT: 399 QTc: 472 Interpretive Statements SINUS RHYTHM MODERATE INTRAVENTRICULAR CONDUCTION DELAY PROLONGED QTC DECREASED RATE 11/13/19 Electronically Signed on 12-02-2019 18:57:22 EDT by Dania Valdovinos
[2019-12-02 19:59] VITALS: BP 149/96
[2019-12-02 20:00] VITALS: BP 149/96
[2019-12-02 22:00] VITALS: BP 146/82
[2019-12-03] VITALS (23 sets, daily range): BP systolic 134–160; BP diastolic 78–97; O2SAT 93–98
[2019-12-03] MEDS: LORazepam 2 MG TAB PO PRN ×4 (02:03→18:53)
[2019-12-03] MEDS: ALBUTEROL SULFATE 2.5 MG/0.5 ML INH NEB SOLN INH PRN ×3 (02:03→14:11)
[2019-12-03 06:07] LABS: HEMATOCRIT 38.7 % (42.0-52.0); MEAN CORPUSCULAR HEMOGLOBIN 29.2 pg (27.0-33.0); MEAN CORPUSCULAR HGB CONC 33.6 g/dl (32.0-36.5); RED BLOOD COUNT 4.45 10^6/uL (4.30-6.10); WHITE BLOOD COUNT 4.5 10^3/uL (4.0-10.0)
[2019-12-03 06:41] LABS: ALBUMIN 3.4 GM/DL (3.2-5.2); ALT/SGPT 179 U/L (12-78); BILIRUBIN,TOTAL 3.1 MG/DL (0.2-1.0); BLOOD UREA NITROGEN 9 MG/DL (7-18); CALCIUM LEVEL 8.4 MG/DL (8.5-10.1); CARBON DIOXIDE LEVEL 29 MEQ/L (21-32); CHLORIDE LEVEL 101 MEQ/L (98-107); GLOMERULAR FILTRATION RATE > 60.0 (>60); GLUCOSE, FASTING 122 MG/DL (70-100); POTASSIUM SERUM 2.9 MEQ/L (3.5-5.1); SODIUM LEVEL 137 MEQ/L (136-145); TOTAL PROTEIN 7.3 GM/DL (6.4-8.2)
[2019-12-03 08:11] LABS: PLATELET COUNT, AUTOMATED 42 10^3/uL (150-450)
[2019-12-03] MEDS: TAMSULOSIN 0.4 MG CAP PO SCH (08:37)
[2019-12-03] MEDS: KCL 20MEQ IN D5/NS 1000ML 1,000 ML IV SCH (08:37)
[2019-12-03] MEDS: METOPROLOL TARTRATE 100 MG TAB PO SCH ×2 (08:37→20:42)
[2019-12-03] MEDS: predniSONE 20 MG TAB PO SCH (08:38)
[2019-12-03] MEDS: FOLIC ACID 1 MG TAB PO SCH (08:38)
[2019-12-03] MEDS: GABAPENTIN 300 MG CAP PO SCH ×3 (08:38→20:43)
[2019-12-03] MEDS: MAGNESIUM OXIDE 400 MG TAB (MAG-OX) PO SCH ×2 (08:38→20:42)
[2019-12-03] MEDS: ESCITALOPRAM OXALATE 5MG TABLET (LEXAPRO) PO SCH (08:38)
[2019-12-03] MEDS: MULTIVITAMINS/MINERALS THERAP 1 TAB PO SCH (08:39)
[2019-12-03] MEDS: THIAMINE 100 MG TAB PO SCH ×2 (08:39→20:43)
[2019-12-03] MEDS: OMEPRAZOLE 20 MG CAP PO SCH (08:39)
[2019-12-03] MEDS: amLODIPine 5 MG TAB PO SCH (08:39)
[2019-12-03] MEDS ORDERED: INFLUENZA QUADRIVALENT PF VACCINE 0.5ML SYRINGE (90686) IM ONE (09:00)
[2019-12-03] MEDS: POTASSIUM CHLORIDE 10% LIQ 20 MEQ/15 ML UDC PO SCH ×2 (09:42→11:31)
--- NOTE | 2019-12-03 11:46 | IPN ---
DATE: 12/03/2019 Christiano is admitted with alcohol related issues. This is his third alcohol related hospitalization since September, his fourth since last summer. He has a history of alcoholic liver disease (no documented cirrhosis), thrombocytopenia, history of pulmonary embolism - on Xarelto, and chronic obstructive pulmonary disease (COPD) with ongoing tobacco abuse. He drinks either Vodka on the days that he is drinking, which lately has been a consistent intake. He has a history of a cervical epidural abscess with paraplegia, which he has recovered enough that he is able to walk, move his arms, etc. Today, he is feeling fairly well. He would like to eat. When he was admitted, he had a CT had question of mild ileus but he was having diarrhea, so I think that is unlikely. PHYSICAL EXAMINATION: 157/91, pulse 93, respiratory rate 18, 95% oxygen saturation on 2 liters. GENERAL APPEARANCE: Alert, conversant, in no distress. Speech is fluent, not slurred. LUNGS: Clear. HEART: Regular rhythm. ABDOMEN: Soft, nontender. No peripheral edema. NEUROLOGIC EXAM: Nonfocal. LABORATORY DATA: White count 4.5, hemoglobin 13, platelets 42,000. Sodium 137, potassium 2.9 (2.6 on admission), BUN 9, creatinine 0.6, glucose 121, bilirubin 3.1, alkaline phosphatase 124. INR 1.16. IMPRESSION: 1. Diarrhea illness with hypokalemia. Intravenous (IV) fluids with supplemental potassium has been given. We will also order some potassium runs, check magnesium as well as repeat labs in the morning. We will also advance his diet. 2. Chronic alcoholism. He is on clinical institute withdrawal assessment for alcohol (CIWA) protocol for early delirium tremens (DTs). He does not seem to be experiencing them now. 3. Alcoholic liver disease. Does not have cirrhotic pattern on his imaging. He does have a mild elevation of his INR. He has had elevated ammonia in the past as well. Also concerned about the chronic thrombocytopenia, which could be a sign of portal hypertension and hypersplenism, etc. Followup with gastroenterology after discharge would be recommended. 4. Chronic obstructive pulmonary disease. He is on nebulizers. He is on supplemental prednisone for this. We discussed his alcoholism, advised that he consider an alcohol program like AA. He plans to go back to [facility] after discharge.
[2019-12-03] MEDS: KCL 10MEQ/100ML SWI (KRUN) 10 MEQ in IV 1 EA IV SCH ×6 (11:54→17:15)
[2019-12-03 12:03] LABS: FOLATE 7.7 NG/ML (>5.4); VITAMIN B12 LEVEL > 2000 PG/ML (247-911)
[2019-12-03] MEDS ORDERED: SLF 3 ML SYR IV PRN (15:30)
[2019-12-03] MEDS: RIVAROXABAN 20 MG TAB (XARELTO) PO SCH (18:17)
[2019-12-03 18:24] LABS: BLOOD UREA NITROGEN 7 MG/DL (7-18); CALCIUM LEVEL 8.6 MG/DL (8.5-10.1); CARBON DIOXIDE LEVEL 27 MEQ/L (21-32); CHLORIDE LEVEL 105 MEQ/L (98-107); CREATININE FOR GFR 0.61 MG/DL (0.70-1.30); GLOMERULAR FILTRATION RATE > 60.0 (>60); GLUCOSE, FASTING 146 MG/DL (70-100); POTASSIUM SERUM 4.6 MEQ/L (3.5-5.1); SODIUM LEVEL 137 MEQ/L (136-145)
[2019-12-03] MEDS: SLF 3 ML SYR IV SCH (20:43)
[2019-12-04] VITALS (21 sets, daily range): BP systolic 134–188; BP diastolic 78–108; O2SAT 91–97
[2019-12-04] MEDS: LORazepam 2 MG TAB PO PRN ×6 (00:18→23:49)
[2019-12-04] MEDS: SLF 3 ML SYR IV SCH ×3 (04:28→21:07)
[2019-12-04] MEDS: ALBUTEROL SULFATE 2.5 MG/0.5 ML INH NEB SOLN INH PRN (04:36)
[2019-12-04 04:37] LABS: BASO % 0.2 % (0.0-1.0); EOS % 0.5 % (0.0-3.0); HEMATOCRIT 39.2 % (42.0-52.0); HEMOGLOBIN 12.8 g/dl (13.5-17.5); LYMPH # 0.9 10^3/uL (1.5-5.0); LYMPH % 21.3 % (24.0-44.0); MEAN CORPUSCULAR HGB CONC 32.7 g/dl (32.0-36.5); MEAN CORPUSCULAR VOLUME 88.7 fl (80.0-96.0); MONO # 0.3 10^3/uL (0.0-0.8); MONO % 7.1 % (0.0-5.0); RED BLOOD COUNT 4.42 10^6/uL (4.30-6.10); WHITE BLOOD COUNT 4.2 10^3/uL (4.0-10.0)
[2019-12-04 04:40] LABS: PLATELET COUNT, AUTOMATED 43 10^3/uL (150-450)
[2019-12-04 04:57] LABS: ALBUMIN 3.5 GM/DL (3.2-5.2); ALT/SGPT 165 U/L (12-78); BILIRUBIN,TOTAL 2.5 MG/DL (0.2-1.0); BLOOD UREA NITROGEN 8 MG/DL (7-18); CALCIUM LEVEL 8.6 MG/DL (8.5-10.1); CARBON DIOXIDE LEVEL 27 MEQ/L (21-32); CHLORIDE LEVEL 101 MEQ/L (98-107); CREATININE FOR GFR 0.74 MG/DL (0.70-1.30); GLOMERULAR FILTRATION RATE > 60.0 (>60); GLUCOSE, FASTING 128 MG/DL (70-100); SODIUM LEVEL 137 MEQ/L (136-145); TOTAL PROTEIN 7.1 GM/DL (6.4-8.2)
[2019-12-04] MEDS: GABAPENTIN 300 MG CAP PO SCH ×3 (08:39→21:05)
[2019-12-04] MEDS: METOPROLOL TARTRATE 100 MG TAB PO SCH ×2 (08:39→21:07)
[2019-12-04] MEDS: FOLIC ACID 1 MG TAB PO SCH (08:40)
[2019-12-04] MEDS: amLODIPine 5 MG TAB PO SCH (08:40)
[2019-12-04] MEDS: predniSONE 20 MG TAB PO SCH (08:40)
[2019-12-04] MEDS: MAGNESIUM OXIDE 400 MG TAB (MAG-OX) PO SCH ×2 (08:40→21:05)
[2019-12-04] MEDS: THIAMINE 100 MG TAB PO SCH ×2 (08:40→21:05)
[2019-12-04] MEDS: TAMSULOSIN 0.4 MG CAP PO SCH (08:40)
[2019-12-04] MEDS: ESCITALOPRAM OXALATE 5MG TABLET (LEXAPRO) PO SCH (08:40)
[2019-12-04] MEDS: OMEPRAZOLE 20 MG CAP PO SCH (08:40)
[2019-12-04] MEDS: MULTIVITAMINS/MINERALS THERAP 1 TAB PO SCH (08:40)
[2019-12-04] MEDS: KCL 10MEQ/100ML SWI (KRUN) 10 MEQ in IV 1 EA IV SCH ×2 (13:17→15:19)
[2019-12-04] MEDS: POTASSIUM CHLORIDE 10 MEQ SR TABLET PO SCH ×2 (13:17→21:06)
[2019-12-04] MEDS: amLODIPine 5 MG TAB PO ONE ×2 (13:18→15:19)
[2019-12-04] MEDS ORDERED: KCL 10MEQ IN STERILE WATER 100ML As Ordered ONE (15:18)
--- NOTE | 2019-12-04 15:25 | IPNPDOC ---
Text Note Date of Service The patient was seen on 12/04/19. NOTE Mr. Goddard was seen this morning and reports increasing headaches, visual merritt llucinations of people when he closes his eyes, auditory hallucinations of voices, increasing sensitivity to light, sweating, generalized paresthesias and RUQ tenderness. He states that he has been able to eat and maintain a regular diet without diarrhea, but does admit to some nausea. He states that his breathing is shallow due to abdominal distension and discomfort along with his baseline COPD but that he is not out of breath at rest. He also stated that he usually uses a CPAP at home and would like to have one set up for him here. He denies any vomiting and diarrhea/constipation. Physical Exam: General: Over-nourished, fatigued and mildly agitated male laying in bed in moderate distress. HEENT: Sclera appear glassy but not icteric. Atraumatic. No LAD. Normal skin tone and color. Pharynx appears moist and non-erythematous CV: RRR with no murmur, rubs, gallops, knocks noted. +S1, S2 Respiratory: Mild inspiratory and expiratory wheezing noted in all lung guillermo. Not tachypneic. Abdominal: Abdomen appears distended. Moderate guarding noted with RUQ palpation. Hepatomegaly noted, 2-3 cm below usually liver edge. Normal BS in all 4 quadrants. Positive fluid shift. Neuro: B/L UE resting tremors (roughly 2-3 Hz) noted with arms outstretched (not asterixis). Patient AAX3. CNII-XII grossly intact. No FND. Assessment and Plan: This is a 44 year old male with a PMHx of COPD and Alcohol use disorder who presented to the ER with 7 days of nonbloody diarrhea and vomiting and is currently receiving fluid replacement and supportive care while also beginning to experience alcohol withdrawals. #Alcohol Withdrawal: -Pt reports visual and auditory hallucinations, sensitivity to light, MERRITT, sweats and tremors -Continue to monitor pt and treat with Ativan per CIWA protocol -Continue to treat headache with Acetaminophen PRN #Diarrhea/loose stool, likely toxin (EtOH) related vs infectious -Pt is now eating and tolerating a regular diet w/o diarrhea -GI panel is negative -Pt still nauseous, likely 2/2 alcohol withdrawal -Continue Multivitamin, Thiamine, Folic acid #Hypokalemia likely 2/2 potassium equilibration following week-long recurrent diarrhea -50mEq K given yesterday however [K] dropped from 4.6 to 3.0 -Two 10 mEq potassium runs bolused this morning with 40 mg PO potassium BID (100mEq total dose today) ordered -Abdominal distension possibly suggests third spacing of fluid with loss of K that way as well #Abdominal Distension: -Pt's abdomen appears distended and positive fluid wave sign seen -U/S is ordered for tomorrow morning to evaluate for ascites and liver fibrosis - Maintain NPO diet overnight -Note that CT on admission was negative for ascites #HTN -Pt has a hx of essential HTN and is currently withdrawing from EtOH -BP reached 170/100 overnight -Extra 5 mg Amlodipine was given today in addition to his usual 5 mg. Likely increase tomorrow's dose to 10 mg PO #Hx of COPD: -SaO2 92% at rest and takes no O2 at home -Pt follows with Dr. López outpatient but missed recent appointment due to this admission ----On friday please have fish and wildlife warden call Dr. López's office to inform her of his current state -Pt is not SOB and does not require O2 as long as his SaO2 remains 88-92 #Hx of Depression: -Continue Escitalopram and Amitriptyline #Hx of GERD: -Continue PPI #Hx of Chronic Pain Syndrome: -Continue Gabapentin 900mg TID PO #Hx of Neurogenic bladder: -Continue Tamsulosin # DVT prophylaxis: - formally anticoagulated with Xarelto VS,Fishbone, I+O VS, Fishbone, I+O Laboratory Tests 12/03/19 17:52 12/04/19 04:11 Vital Signs Date Time Temp Pulse Resp B/P (MAP) Pulse Ox O2 Delivery O2 Flow Rate FiO2 12/04/19 08:40 114 188/98 12/04/19 08:00 96.9 21 95 Room Air 12/03/19 16:00 2.0 I&O- Last 24 Hours up to 6 AM 12/04/19 06:00 Intake Total 3050 ml Output Total 1600 ml Balance 1450 ml GME ATTESTATION ATTENDING NOTE I was present on site to supervise MARTÍNEZ Gunderson III. I independently spoke with and examined Mr. Goddard. I agree with his note as above. (director dermatology) RAINER GRANADOS OMS-3 Dec 04, 2019 13:10 Sathya Rush MD Dec 04, 2019 18:14
[2019-12-04 17:22] LABS: MAGNESIUM LEVEL 1.8 MG/DL (1.8-2.4); POTASSIUM SERUM 4.3 MEQ/L (3.5-5.1)
[2019-12-04] MEDS: RIVAROXABAN 20 MG TAB (XARELTO) PO SCH (18:21)
[2019-12-05] VITALS (18 sets, daily range): BP systolic 130–152; BP diastolic 72–109; O2SAT 92–96
[2019-12-05] MEDS: LORazepam 2 MG TAB PO PRN ×3 (04:26→17:52)
[2019-12-05] MEDS: SLF 3 ML SYR IV SCH ×3 (06:09→21:33)
[2019-12-05 08:37] LABS: BASO % 0.6 % (0.0-1.0); EOS # 0.1 10^3/uL (0.0-0.5); EOS % 1.1 % (0.0-3.0); HEMATOCRIT 39.7 % (42.0-52.0); HEMOGLOBIN 12.9 g/dl (13.5-17.5); LYMPH # 1.2 10^3/uL (1.5-5.0); LYMPH % 22.1 % (24.0-44.0); MEAN CORPUSCULAR HEMOGLOBIN 29.7 pg (27.0-33.0); MEAN CORPUSCULAR HGB CONC 32.5 g/dl (32.0-36.5); MEAN CORPUSCULAR VOLUME 91.3 fl (80.0-96.0); MONO # 0.4 10^3/uL (0.0-0.8); MONO % 7.4 % (0.0-5.0); NEUTROPHILS # 3.6 10^3/uL (1.5-8.5); NEUTROPHILS % 66.8 % (36.0-66.0); RED BLOOD COUNT 4.35 10^6/uL (4.30-6.10); WHITE BLOOD COUNT 5.4 10^3/uL (4.0-10.0)
[2019-12-05 08:52] LABS: PLATELET COUNT, AUTOMATED 52 10^3/uL (150-450)
[2019-12-05 09:13] LABS: ALBUMIN 3.2 GM/DL (3.2-5.2); ALT/SGPT 188 U/L (12-78); BILIRUBIN,TOTAL 2.2 MG/DL (0.2-1.0); BLOOD UREA NITROGEN 16 MG/DL (7-18); CALCIUM LEVEL 9.1 MG/DL (8.5-10.1); CARBON DIOXIDE LEVEL 24 MEQ/L (21-32); CHLORIDE LEVEL 107 MEQ/L (98-107); CREATININE FOR GFR 0.68 MG/DL (0.70-1.30); GLOMERULAR FILTRATION RATE > 60.0 (>60); GLUCOSE, FASTING 100 MG/DL (70-100); MAGNESIUM LEVEL 1.9 MG/DL (1.8-2.4); POTASSIUM SERUM 3.7 MEQ/L (3.5-5.1); SODIUM LEVEL 137 MEQ/L (136-145); TOTAL PROTEIN 7.1 GM/DL (6.4-8.2)
[2019-12-05] MEDS: OMEPRAZOLE 20 MG CAP PO SCH (09:43)
[2019-12-05] MEDS: FOLIC ACID 1 MG TAB PO SCH (09:44)
[2019-12-05] MEDS: POTASSIUM CHLORIDE 10 MEQ SR TABLET PO SCH ×2 (09:44→21:32)
[2019-12-05] MEDS: MAGNESIUM OXIDE 400 MG TAB (MAG-OX) PO SCH ×2 (09:44→21:33)
[2019-12-05] MEDS: GABAPENTIN 300 MG CAP PO SCH ×3 (09:44→21:33)
[2019-12-05] MEDS: predniSONE 20 MG TAB PO SCH (09:44)
[2019-12-05] MEDS: amLODIPine 10 MG TAB PO SCH (09:44)
[2019-12-05] MEDS: ESCITALOPRAM OXALATE 5MG TABLET (LEXAPRO) PO SCH (09:44)
[2019-12-05] MEDS: METOPROLOL TARTRATE 100 MG TAB PO SCH ×2 (09:44→21:33)
[2019-12-05] MEDS: TAMSULOSIN 0.4 MG CAP PO SCH (09:45)
[2019-12-05] MEDS: MULTIVITAMINS/MINERALS THERAP 1 TAB PO SCH (09:45)
--- NOTE | 2019-12-05 14:47 | IPNPDOC ---
Subjective Date Seen The patient was seen on 12/05/19. Subjective Chief Complaint/HPI Mr. Goddard reports he's feeling a bit better today than he was yesterday. His withdrawal symptoms seem to be improving. Nursing reports he's only needed one dose of Ativan so far today. He's been sleeping/resting most of the day. Constitutional: Reports: Fatigue ENT: Reports: Head Aches (improved from yesterday) Pulmonary: Denies: Dyspnea, Cough Cardiovascular: Denies: Chest Pain, Palpitations Gastrointestinal: Denies: Diarrhea (today) Objective Physical Examination General Exam: Positive: Cooperative (was resting on NIPPV when I entered the room, easily arousable), No Acute Distress; Negative: Alert (his somnolent but arousable) Eye Exam: Positive: Conjunctiva & lids normal; Negative: Sclera icteric ENT Exam: Positive: Mucous membr. moist/pink Neck Exam: Positive: Supple, Other (JVD is hard to assess because of habitus); Negative: Lymphadenopathy Chest Exam: Positive: Clear to auscultation, Diminished (probably from extrinsic restriction from his abdomen) Heart Exam: Positive: Rate Normal, Normal S1, Normal S2; Negative: Murmurs Abdomen Exam: Positive: Normal bowel sounds, Soft, Tenderness (mild diffuse tenderness on palpation), Other (distended with positive fluid shift) Extremity Exam: Negative: Edema Assessment /Plan Problems (1) Alcohol withdrawal Status: Acute Response to Treatment: Improving Discussed With: Patient Problem Specific Plan: Monitor Clinically Problem Text: He is requiring less lorazepam per the [facility] protocol. He seems to be coming out of his alcohol withdrawal. 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 (2) Abdominal distention, non-gaseous Status: Acute Response to Treatment: Stable Problem Text: He still appears to have ascites. The results of the liver ultra sound are still pending. Do not think he'll need a paracentesis, but we should get the final results before we make that determination. Additionally we need to be alert for the possibility of spontaneous bacterial peritonitis. (3) Hypertension Status: Chronic Response to Treatment: Improving Problem Text: His blood pressure is under better control with an increase of his amlodipine from 5 mg daily to 10 mg daily. Continue to monitor. (4) Diarrhea Status: Resolved Problem Text: He is no longer having loose stools. He reports that he is c onstipated, but on further clarification he has more of an ileus pattern. Again this could go along with ascites or even the development of SBP. We will need to monitor him carefully. (5) Hypokalemia Status: Resolved Problem Text: His potassium also stabilized but on supplement of 40 mEq twice daily. Once we figure what's going on with abdominal fluid he may need less supplementation. (6) COPD (chronic obstructive pulmonary disease) Status: Chronic Response to Treatment: Stable Problem Text: His breathing is stable at this time. He is having some extrinsic difficulty because of abdominal distention but no intrinsic lung problems. He is currently on prednisone for a potential exacerbation, but I don't think he'll need to continue. We will need to continue to monitor. (7) Thrombocytopenia Response to Treatment: Improving Problem Specific Plan: Repeat Labs Problem Text: His platelets are stabilizing and improving a little. This is concerning for potential splenic sequestration due to worsening liver disease, likely from his alcohol use. (8) Depression Status: Chronic Response to Treatment: Stable Problem Text: Continue home medication of escitalopram. (9) Neurogenic bladder Status: Chronic Response to Treatment: Stable Problem Text: Continue home medication of tamsulosin. (10) GERD (gastroesophageal reflux disease) Problem Text: Continue home medication of omeprazole. (11) History of pulmonary embolism Status: Chronic Problem Text: He is formula anticoagulated with Xarelto for this. Plan/VTE VTE Prophylaxis Ordered?: Yes (Xarelto) VTE Exclusion Mechanical Proph: Other VTE Exclusion Pharmacological: Other VS, I&O, 24H, Fishbone Vital Signs/I&O Vital Signs Date Time Temp Pulse Resp B/P (MAP) Pulse Ox O2 Delivery O2 Flow Rate FiO2 12/05/19 12:00 97.1 99 19 148/98 (115) 97 Room Air 12/03/19 16:00 2.0 I&O- Last 24 Hours up to 6 AM 12/05/19 05:59 Intake Total 956 ml Output Total 1525 ml Balance -569 ml Laboratory Data 24H LABS Laboratory Tests 2 12/04/19 16:36: Anion Gap 8, Magnesium Level 1.8 12/05/19 08:20: Anion Gap 6L, Magnesium Level 1.9, Immature Granulocyte % (Auto) 2.0, Neutrophils (%) (Auto) 66.8H, Lymphocytes (%) (Auto) 22.1L, Monocytes (%) (Auto) 7.4H, Eosinophils (%) (Auto) 1.1, Basophils (%) (Auto) 0.6, Neutrophils # (Auto) 3.6, Lymphocytes # (Auto) 1.2L, Monocytes # (Auto) 0.4, Eosinophils # (Auto) 0.1, Basophils # (Auto) 0.0, Nucleated Red Blood Cells % (auto) 0.0, Immature Platelet Fraction 5.7, Glomerular Filtration Rate > 60.0, Calcium Level 9.1, Total Bilirubin 2.2H, Aspartate Amino Transf (AST/SGOT) 251H, Alanine Aminotran sferase (ALT/SGPT) 188H, Alkaline Phosphatase 130H, Total Protein 7.1, Albumin 3.2, Albumin/Globulin Ratio 0.82L CBC/BMP Laboratory Tests 12/04/19 16:36 12/05/19 08:20 Microbiology Microbiology 12/03/19 Gastrointestinal Tract Panel (PCR) - Final, Complete 12/02/19 Urine Culture - Final, Complete Streptococcus Intermedius Sathya Rush MD Dec 05, 2019 14:47
--- NOTE | 2019-12-05 15:08 | REP ---
REASON FOR EXAM: Assess for ascites. COMPARISON: 01/03/2019 There is no change in appearance of the liver. Note is again made of hepatomegaly and fatty infiltration. There is no evidence of intrahepatic or extrahepatic ductal dilatation. The common bile duct measures 4 mm. The imaged portion of pancreas and right kidney are within normal limits. There is no evidence of free fluid in the abdomen. IMPRESSION: Hepatomegaly and fatty infiltration of the liver. There is no evidence of ascites. Electronically Signed by Celestine Liriano DO 12/05/2019 03:27 P
[2019-12-05] MEDS: RIVAROXABAN 20 MG TAB (XARELTO) PO SCH (17:51)
[2019-12-06] VITALS (12 sets, daily range): BP systolic 118–165; BP diastolic 69–118; O2SAT 94–96
[2019-12-06] MEDS: LORazepam 2 MG TAB PO PRN ×3 (02:43→15:39)
[2019-12-06] MEDS: ALBUTEROL SULFATE 2.5 MG/0.5 ML INH NEB SOLN INH PRN ×2 (04:19→11:20)
[2019-12-06] MEDS: SLF 3 ML SYR IV SCH ×3 (05:35→21:34)
[2019-12-06 05:48] LABS: HEMATOCRIT 41.1 % (42.0-52.0); MEAN CORPUSCULAR HEMOGLOBIN 29.2 pg (27.0-33.0); MEAN CORPUSCULAR HGB CONC 31.6 g/dl (32.0-36.5); MEAN CORPUSCULAR VOLUME 92.4 fl (80.0-96.0); RED BLOOD COUNT 4.45 10^6/uL (4.30-6.10); WHITE BLOOD COUNT 6.5 10^3/uL (4.0-10.0)
[2019-12-06 05:49] LABS: PLATELET COUNT, AUTOMATED 70 10^3/uL (150-450)
[2019-12-06 06:18] LABS: ALBUMIN 3.4 GM/DL (3.2-5.2); ALT/SGPT 213 U/L (12-78); BLOOD UREA NITROGEN 21 MG/DL (7-18); CALCIUM LEVEL 9.3 MG/DL (8.5-10.1); CARBON DIOXIDE LEVEL 27 MEQ/L (21-32); CHLORIDE LEVEL 105 MEQ/L (98-107); CREATININE FOR GFR 0.72 MG/DL (0.70-1.30); GLOMERULAR FILTRATION RATE > 60.0 (>60); GLUCOSE, FASTING 117 MG/DL (70-100); SODIUM LEVEL 136 MEQ/L (136-145); TOTAL PROTEIN 7.4 GM/DL (6.4-8.2)
[2019-12-06] MEDS: OMEPRAZOLE 20 MG CAP PO SCH (08:23)
[2019-12-06] MEDS: GABAPENTIN 300 MG CAP PO SCH ×3 (08:23→21:34)
[2019-12-06] MEDS: POTASSIUM CHLORIDE 10 MEQ SR TABLET PO SCH ×2 (08:23→21:34)
[2019-12-06] MEDS: predniSONE 20 MG TAB PO SCH (08:23)
[2019-12-06] MEDS: MAGNESIUM OXIDE 400 MG TAB (MAG-OX) PO SCH ×2 (08:23→21:34)
[2019-12-06] MEDS: FOLIC ACID 1 MG TAB PO SCH (08:23)
[2019-12-06] MEDS: ESCITALOPRAM OXALATE 5MG TABLET (LEXAPRO) PO SCH (08:23)
[2019-12-06] MEDS: amLODIPine 10 MG TAB PO SCH (08:24)
[2019-12-06] MEDS: METOPROLOL TARTRATE 100 MG TAB PO SCH ×2 (08:24→21:35)
[2019-12-06] MEDS: TAMSULOSIN 0.4 MG CAP PO SCH (08:25)
[2019-12-06] MEDS: MULTIVITAMINS/MINERALS THERAP 1 TAB PO SCH (08:25)
--- NOTE | 2019-12-06 10:10 | IPNPDOC ---
Subjective Date Seen The patient was seen on 12/06/19. Subjective Chief Complaint/HPI Pt this morning states that he is feeling better, but still doesn't feel great. He states that his abd feels firm and this is bothersome to him, he is reassured when he learns he doesn't have any ascites. General: Reports: Fatigue Constitutional: Denies: Chills, Fever ENT: Denies: Head Aches Pulmonary: Denies: Dyspnea, Cough Cardiovascular: Denies: Chest Pain, Palpitations Gastrointestinal: Denies: Nausea, Vomiting Neurological: Denies: Weakness Psych: Reports: Anxiety Objective Physical Examination General Exam: Positive: Alert, Cooperative, No Acute Distress ENT Exam: Positive: Mucous membr. moist/pink Neck Exam: Positive: Supple; Negative: Lymphadenopathy Chest Exam: Positive: Clear to auscultation, Diminished (probably from extrinsic restriction from his abdomen) Heart Exam: Positive: Rate Normal, Normal S1, Normal S2; Negative: Murmurs Abdomen Exam: Positive: Normal bowel sounds, Soft, Tenderness (mild diffuse tenderness on palpation) Extremity Exam: Negative: Edema Neuro Exam: Positive: Normal Speech Psych Exam: Positive: Anxiety Assessment /Plan Problems (1) Alcohol withdrawal Status: Acute Response to Treatment: Improving Discussed With: Patient Problem Specific Plan: Monitor Clinically Problem Text: 11/25 He cont to use Lorazepam per protocol, mostly for tremors. He states that he plans to visit [facility] for services once d/c. I have asked PFS to become involved and assist with DC later today or tomorrow once we have a plan for outpt services. 12/04 He is requiring less lorazepam per the [facility] protocol. He seems to be coming out of his alcohol withdrawal. Important thing after this is planning for his discharge and how we can support him on remaining conical mixer free. (2) Abdominal distention, non-gaseous Status: Acute Response to Treatment: Stable Problem Text: 12/04 liver US: Hepatomegaly and fatty infiltration of the liver. There is no evidence of ascites. (3) Hypertension Status: Chronic Response to Treatment: Improving Problem Text: HD amlo 5, met tar 100 BID stable on amlo 10, met tar 100 BID, lisin 10 (4) Diarrhea Status: Resolved Problem Text: He is no longer having loose stools. He reports that he is constipated, but on further clarification he has more of an ileus pattern. Again this could go along with ascites or even the development of SBP. We will need to monitor him carefully. (5) Hypokalemia Status: Resolved Problem Text: His potassium also stabilized but on supplement of 40 mEq twice daily. Once we figure what's going on with abdominal fluid he may need less supplementation. (6) COPD (chronic obstructive pulmonary disease) Status: Chronic Response to Treatment: Stable Problem Text: His breathing is stable at this time. He is having some extrinsic difficulty because of abdominal distention but no intrinsic lung problems. He is currently on prednisone for a potential exacerbation, but I don't think he'll need to continue. We will need to continue to monitor. (7) Thrombocytopenia Response to Treatment: Improving Problem Specific Plan: Repeat Labs Problem Text: His platelets are stabilizing and improving a little. This is concerning for potential splenic sequestration due to worsening liver disease, l ikely from his alcohol use. (8) Depression Status: Chronic Response to Treatment: Stable Problem Text: Continue home medication of escitalopram. (9) Neurogenic bladder Status: Chronic Response to Treatment: Stable Problem Text: Continue home medication of tamsulosin. (10) GERD (gastroesophageal reflux disease) Problem Text: Continue home medication of omeprazole. (11) History of pulmonary embolism Status: Chronic Problem Text: He is formula anticoagulated with Xarelto for this. Plan/VTE VTE Prophylaxis Ordered?: Yes (Xarelto) VTE Exclusion Mechanical Proph: Other VTE Exclusion Pharmacological: Other VS, I&O, 24H, Fishbone Vital Signs/I&O Vital Signs Date Time Temp Pulse Resp B/P (MAP) Pulse Ox O2 Delivery O2 Flow Rate FiO2 12/06/19 08:24 102 165/104 12/06/19 08:00 99.1 18 96 Room Air 12/03/19 16:00 2.0 I&O- Last 24 Hours up to 6 AM 12/06/19 06:00 Intake Total 1120 ml Output Total 1100 ml Balance 20 ml Laboratory Data 24H LABS Laboratory Tests 2 12/06/19 05:26: Nucleated Red Blood Cells % (auto) 0.3H, Anion Gap 4L, Glomerular Filtration Rate > 60.0, Calcium Level 9.3, Total Bilirubin 2.0H, Aspartate Amino Transf (AST/SGOT) 232H, Alanine Aminotransferase (ALT/SGPT) 213H, Alkaline Phosphatase 138H, Total Protein 7.4, Albumin 3.4, Albumin/Globulin Ratio 0.85L CBC/BMP Laboratory Tests 12/06/19 05:26 Microbiology Microbiology 12/03/19 Gastrointestinal Tract Panel (PCR) - Final, Complete 12/02/19 Urine Culture - Final, Complete Streptococcus Intermedius DREA PIERCE PA-C Dec 06, 2019 10:10 Huseyin Haddad M.D. Dec 06, 2019 16:45
[2019-12-06] MEDS ORDERED: lisinopriL 10 MG TAB PO ONE (11:00)
[2019-12-06] MEDS: RIVAROXABAN 20 MG TAB (XARELTO) PO SCH (18:21)
[2019-12-07] VITALS (9 sets, daily range): BP systolic 131–152; BP diastolic 78–99
[2019-12-07] MEDS: LORazepam 2 MG TAB PO PRN ×4 (01:10→12:33)
[2019-12-07] MEDS: SLF 3 ML SYR IV SCH ×3 (05:22→21:40)
[2019-12-07] MEDS: predniSONE 20 MG TAB PO SCH (09:55)
[2019-12-07] MEDS: FOLIC ACID 1 MG TAB PO SCH (09:55)
[2019-12-07] MEDS: MULTIVITAMINS/MINERALS THERAP 1 TAB PO SCH (09:55)
[2019-12-07] MEDS: amLODIPine 10 MG TAB PO SCH (09:56)
[2019-12-07] MEDS: GABAPENTIN 300 MG CAP PO SCH ×3 (09:56→21:39)
[2019-12-07] MEDS: lisinopriL 10 MG TAB PO SCH (09:56)
[2019-12-07] MEDS: TAMSULOSIN 0.4 MG CAP PO SCH (09:56)
[2019-12-07] MEDS: ESCITALOPRAM OXALATE 5MG TABLET (LEXAPRO) PO SCH (09:56)
[2019-12-07] MEDS: POTASSIUM CHLORIDE 10 MEQ SR TABLET PO SCH ×2 (09:57→21:39)
[2019-12-07] MEDS: OMEPRAZOLE 20 MG CAP PO SCH (09:57)
[2019-12-07] MEDS: MAGNESIUM OXIDE 400 MG TAB (MAG-OX) PO SCH ×2 (09:57→21:41)
[2019-12-07] MEDS: METOPROLOL TARTRATE 100 MG TAB PO SCH ×2 (09:57→21:41)
[2019-12-07] MEDS: ALBUTEROL SULFATE 2.5 MG/0.5 ML INH NEB SOLN INH PRN (12:15)
--- NOTE | 2019-12-07 13:32 | IPNPDOC ---
Subjective Date Seen The patient was seen on 12/07/19. Subjective Chief Complaint/HPI favoring dc home soon, co increased constipation Constitutional: Denies: Chills Eyes: Denies: Pain ENT: Denies: Head Aches Skin: Denies: Rash Pulmonary: Denies: Dyspnea, Cough Cardiovascular: Reports: Chest Pain; Denies: Palpitations Objective Physical Examination General Exam: Positive: Alert, Cooperative, No Acute Distress ENT Exam: Positive: Mucous membr. moist/pink Neck Exam: Positive: Supple; Negative: Lymphadenopathy Chest Exam: Positive: Clear to auscultation, Diminished (probably from extrinsic restriction from his abdomen) Heart Exam: Positive: Rate Normal, Normal S1, Normal S2; Negative: Murmurs Abdomen Exam: Positive: Normal bowel sounds, Soft, Tenderness (mild diffuse tenderness on palpation) Extremity Exam: Negative: Edema Neuro Exam: Positive: Normal Speech Psych Exam: Positive: Anxiety Assessment /Plan Problems (1) Alcohol withdrawal Status: Acute Response to Treatment: Improving Discussed With: Patient Problem Specific Plan: Monitor Clinically Problem Text: 12/06 still requiring ole 2 at 12:33 per CIWA (but mainly for subjective sx, therefore, continue current dose) case dw PFS-patient has been given list of outpatient [facility] programs and patient has strong intent to register (2) COPD (chronic obstructive pulmonary disease) Status: Acute Problem Text: HD BE 200, IE continue pred 40 for mild flare, exacerbated by abdominal distension 2 constipation 12/07/19 ~15 min chest tightness resolved c neb rx, EKG NSR 96, no ischemic ST/T (3) Alcoholic hepatitis Status: Chronic Problem Text: baseline AST/ALT 100s no evidence of decomp 07/31/18 -B/C, repeat 12/01 PT/PTT 15, 31 12/04 liver US cw fatty liver (4) History of pulmonary embolism Status: Chronic Problem Text: remains on HD rivarox 20 sp IVCF (5) Abdominal distention, non-gaseous Status: Acute Response to Treatment: Stable Problem Text: 12/04 liver US: Hepatomegaly and fatty infiltration of the liver. There is no evidence of ascites. 12/01 CT AP: Moderate hepatomegaly. Marked fatty infiltration of the liver. IVC filter in place. Post cholecystectomy. Normal appendix. Mildly distended urinary bladder. Nonspecific air fluid levels in the jejunal loops in the left mid abdomen. Question mild ileus. (6) Hypertension Status: Chronic Response to Treatment: Improving Problem Text: HD amlo 5, met tar 100 BID stable on amlo 10, met tar 100 BID, lisin 10 (7) Diarrhea Status: Resolved Problem Text: He is no longer having loose stools. He reports that he is constipated, but on further clarification he has more of an ileus pattern. Again this could go along with ascites or even the development of SBP. We will need to monitor him carefully. (8) Hypokalemia Status: Resolved Problem Text: His potassium also stabilized but on supplement of 40 mEq twice daily. Once we figure what's going on with abdominal fluid he may need less supplementation. (9) COPD (chronic obstructive pulmonary disease) Status: Chronic Response to Treatment: Stable Problem Text: His breathing is stable at this time. He is having some extrinsic difficulty because of abdominal distention but no intrinsic lung problems. He is currently on prednisone for a potential exacerbation, but I don't think he'll need to continue. We will need to continue to monitor. (10) Thrombocytopenia Response to Treatment: Improving Problem Specific Plan: Repeat Labs Problem Text: at baseline ~70K (11) Depression Status: Chronic Response to Treatment: Stable Problem Text: Continue home medication of escitalopram. (12) Neurogenic bladder Status: Chronic Response to Treatment: Stable Problem Text: Continue home medication of tamsulosin. (13) GERD (gastroesophageal reflux disease) Problem Text: Continue home medication of omeprazole. Plan/VTE VTE Prophylaxis Ordered?: Yes (Xarelto) VTE Exclusion Mechanical Proph: Other VTE Exclusion Pharmacological: Other VS, I&O, 24H, Fishbone Vital Signs/I&O Vital Signs Date Time Temp Pulse Resp B/P (MAP) Pulse Ox O2 Delivery O2 Flow Rate FiO2 12/07/19 12:00 101 134/96 12/07/19 06:00 99.1 20 96 Room Air 12/06/19 14:00 2.0 I&O- Last 24 Hours up to 6 AM 12/07/19 06:00 Intake Total 870 ml Output Total 805 ml Balance 65 ml Laboratory Data Microbiology Microbiology 12/03/19 Gastrointestinal Tract Panel (PCR) - Final, Complete 12/02/19 Urine Culture - Final, Complete Streptococcus Intermedius Huseyin Haddad M.D. Dec 07, 2019 13:32
[2019-12-07] MEDS ORDERED: BISACODYL 10 MG SUPP PR ONE (14:00)
[2019-12-07] MEDS ORDERED: MAGNESIUM CITRATE 300 ML BTL PO ONE (14:00)
[2019-12-07] MEDS: MIRALAX *UNIT DOSE* 17GM PACKET PO SCH ×2 (14:47→21:00)
[2019-12-07] MEDS: RIVAROXABAN 20 MG TAB (XARELTO) PO SCH (17:37)
[2019-12-08] VITALS (7 sets, daily range): BP systolic 126–150; BP diastolic 88–98
[2019-12-08] MEDS: SLF 3 ML SYR IV SCH ×3 (05:16→22:00)
[2019-12-08] MEDS: LORazepam 2 MG TAB PO PRN ×3 (05:19→22:08)
[2019-12-08] MEDS: ALBUTEROL SULFATE 2.5 MG/0.5 ML INH NEB SOLN INH PRN ×2 (05:32→12:54)
[2019-12-08 06:34] LABS: BASO # 0.1 10^3/uL (0.0-0.2); BASO % 0.9 % (0.0-1.0); EOS % 0.5 % (0.0-3.0); HEMATOCRIT 40.7 % (42.0-52.0); HEMOGLOBIN 13.1 g/dl (13.5-17.5); LYMPH # 1.2 10^3/uL (1.5-5.0); MEAN CORPUSCULAR HEMOGLOBIN 30.1 pg (27.0-33.0); MEAN CORPUSCULAR HGB CONC 32.2 g/dl (32.0-36.5); MEAN CORPUSCULAR VOLUME 93.6 fl (80.0-96.0); MONO # 0.9 10^3/uL (0.0-0.8); MONO % 16.2 % (0.0-5.0); NEUTROPHILS # 3.5 10^3/uL (1.5-8.5); NEUTROPHILS % 59.2 % (36.0-66.0); RED BLOOD COUNT 4.35 10^6/uL (4.30-6.10); WHITE BLOOD COUNT 5.8 10^3/uL (4.0-10.0)
[2019-12-08 07:09] LABS: ALBUMIN 3.5 GM/DL (3.2-5.2); ALT/SGPT 223 U/L (12-78); BILIRUBIN,TOTAL 1.3 MG/DL (0.2-1.0); BLOOD UREA NITROGEN 20 MG/DL (7-18); CALCIUM LEVEL 9.4 MG/DL (8.5-10.1); CARBON DIOXIDE LEVEL 24 MEQ/L (21-32); CHLORIDE LEVEL 104 MEQ/L (98-107); CREATININE FOR GFR 0.61 MG/DL (0.70-1.30); GLOMERULAR FILTRATION RATE > 60.0 (>60); GLUCOSE, FASTING 152 MG/DL (70-100); MAGNESIUM LEVEL 2.3 MG/DL (1.8-2.4); SODIUM LEVEL 138 MEQ/L (136-145); TOTAL PROTEIN 7.2 GM/DL (6.4-8.2)
[2019-12-08] MEDS: POTASSIUM CHLORIDE 10 MEQ SR TABLET PO SCH (09:00)
[2019-12-08] MEDS: MIRALAX *UNIT DOSE* 17GM PACKET PO SCH ×2 (09:35→22:05)
[2019-12-08] MEDS: GABAPENTIN 300 MG CAP PO SCH ×3 (09:35→22:07)
[2019-12-08] MEDS: MULTIVITAMINS/MINERALS THERAP 1 TAB PO SCH (09:36)
[2019-12-08] MEDS: ESCITALOPRAM OXALATE 5MG TABLET (LEXAPRO) PO SCH (09:36)
[2019-12-08] MEDS: MAGNESIUM OXIDE 400 MG TAB (MAG-OX) PO SCH ×2 (09:36→22:06)
[2019-12-08] MEDS: OMEPRAZOLE 20 MG CAP PO SCH (09:36)
[2019-12-08] MEDS: amLODIPine 10 MG TAB PO SCH (09:36)
[2019-12-08] MEDS: predniSONE 20 MG TAB PO SCH (09:36)
[2019-12-08] MEDS: FOLIC ACID 1 MG TAB PO SCH (09:36)
[2019-12-08] MEDS: TAMSULOSIN 0.4 MG CAP PO SCH (09:37)
[2019-12-08] MEDS: METOPROLOL TARTRATE 100 MG TAB PO SCH ×2 (09:37→22:11)
[2019-12-08] MEDS: lisinopriL 10 MG TAB PO SCH (09:37)
[2019-12-08 09:38] LABS: HEPATITIS B SURFACE ANTIGEN NEGATIVE (NEGATIVE)
[2019-12-08 10:05] LABS: HEPATITIS C VIRUS ABY INDEX < 0.0 INDEX (<0.8)
--- NOTE | 2019-12-08 12:01 | IPN ---
DATE: 12/08/2019 Christiano is seen in [address] [place] [address]. He was admitted with alcohol withdrawal, but at this point, I am quite convinced that he is essentially delaying discharge in order to receive Ativan. He was admitted for alcohol withdrawal, but, per nursing staff, he manipulates the CIWA protocol, primarily his tremor, in order to continue receiving his lorazepam (this patient has baseline tremor and is quite skilled at increasing the amount during examination; however, when observed at a distance, the tremor abates significantly). He also has a lot of other complaints like musculoskeletal chest pain, abdominal distention, and things such as that. PHYSICAL EXAMINATION: 144/88, pulse 90, afebrile. GENERAL APPEARANCE: He looks well when I observed him from the hallway, he was resting quite comfortably. When I came into the room he was rubbing his chest and having a noticeable increase in his tremor. LUNGS: Clear. HEART: Regular rhythm. ABDOMEN: Soft, nontender. NEUROLOGIC: Nonfocal. LABORATORIES: CBC unremarkable. Chemistry profile unremarkable. Liver functions continue to be elevated, bilirubin is trending down. IMPRESSION: 1. Alcohol withdrawal with symptoms being augmented in order to manipulate CIWA protocol. At this point, I am discontinue the CIWA protocol. We will reduce his Ativan frequency. He has been in here long enough that alcohol withdrawal is no longer an issue and he does not need CIWA protocol any longer. His chest pain is chest wall in origin and anticipate that he should be ready for discharge tomorrow. He has been receiving up to 8 mg of Ativan a day, so I do need to see how he does on a reduced dose today. We did discuss in care rounds, we anticipate discharge tomorrow.
[2019-12-08] MEDS: RIVAROXABAN 20 MG TAB (XARELTO) PO SCH (17:32)
[2019-12-08] MEDS ORDERED: ACETAMINOPHEN TAB 650MG DOSE (2X325MG) PO PRN (23:00)
[2019-12-09 06:00] VITALS: BP 117/79
[2019-12-09] MEDS: ALBUTEROL SULFATE 2.5 MG/0.5 ML INH NEB SOLN INH PRN (07:36)
[2019-12-09] MEDS: predniSONE 20 MG TAB PO SCH (09:15)
[2019-12-09] MEDS: MAGNESIUM OXIDE 400 MG TAB (MAG-OX) PO SCH (09:15)
[2019-12-09] MEDS: MULTIVITAMINS/MINERALS THERAP 1 TAB PO SCH (09:15)
[2019-12-09] MEDS: FOLIC ACID 1 MG TAB PO SCH (09:15)
[2019-12-09] MEDS: ESCITALOPRAM OXALATE 5MG TABLET (LEXAPRO) PO SCH (09:15)
[2019-12-09] MEDS: TAMSULOSIN 0.4 MG CAP PO SCH (09:15)
[2019-12-09 09:16] VITALS: BP 131/87
[2019-12-09] MEDS: OMEPRAZOLE 20 MG CAP PO SCH (09:16)
[2019-12-09] MEDS: amLODIPine 10 MG TAB PO SCH (09:16)
[2019-12-09] MEDS: GABAPENTIN 300 MG CAP PO SCH (09:16)
[2019-12-09] MEDS: lisinopriL 10 MG TAB PO SCH (09:16)
[2019-12-09] MEDS: METOPROLOL TARTRATE 100 MG TAB PO SCH (09:17)
[2019-12-09] MEDS: MIRALAX *UNIT DOSE* 17GM PACKET PO SCH (09:18)
[2019-12-09 10:00] VITALS: BP 140/93
[2019-12-09] MEDS: LORazepam 2 MG TAB PO PRN (10:14)
[2019-12-09] MEDS ORDERED: AMLO10TA5 PO (11:20)
[2019-12-09] MEDS ORDERED: LISI10TA4 PO (11:20)
--- NOTE | 2019-12-09 12:36 | DSES ---
DATE OF ADMISSION: 12/02/2019 DATE OF DISCHARGE: DISCHARGE DIAGNOSES: 1. Alcohol withdrawal in the setting of chronic alcoholism. 2. Alcoholic hepatitis, chronic. 3. Acute enteritis. 4. Hypertension, essential. 5. Asthma, mild, persistent. 6. Chronic obstructive pulmonary disease. 7. 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 8. Severe obstructive sleep apnea. 9. Gastroesophageal reflux disease. HOSPITAL COURSE: The patient was admitted and placed on CIWA protocol for alcohol withdrawal symptoms. His CIWA score slowly decreased while hospitalized. His hypertension regimen was increased and on day of discharge his blood pressures were 130s over 80s. Diarrhea resolved after one day. The GI PCR panel was negative. AST, ALT, alkaline phosphatase decreased during the hospitalization. On day of discharge, it was down to 200/223/150, which is roughly his baseline. Coags were stable at 15 and 31 respectively. He was negative for hepatitis B surface antigen and negative for hepatitis C antibody. Urine culture did reveal asymptomatic bacteruria with greater than 100,000 Streptococcus intermedius. He had no lower urinary tract symptoms and was therefore not treated. While hospitalized, he had a mild chronic obstructive pulmonary disease (COPD) exacerbation. His chest x-ray on 12/02/2019 was negative and he was back to his baseline respiratory status at discharge. Additionally, while hospitalized, his liver ultrasound showed fatty liver with hepatomegaly and CT of abdomen and pelvis showed moderate hepatomegaly with nonspecific air fluid levels in jejunal loops of the left mid abdomen. The patient was discharged to home on his routine medications except for his amlodipine which was increased from 5 mg daily to 10 mg daily and lisinopril 10 by mouth daily was added. He was placed on a prednisone taper 20 mg for three days, 10 mg for three days and then 5 mg for three days. Scripts were E-scribed into his pharmacy. The patient was encouraged to followup with his primary care provider (PCP), Shabnam Hall, for hospital followup. He has actually missed the last 2 hospital followups for his September and October of this year hospitalizations for alcohol intoxication. The case was discussed with the PCP, Shabnam Hall. The patient was instructed to bring in home blood pressures to the follow up appointment.
--- NOTE | 2019-12-09 18:15 | ECGEPIP ---
[facility] Test Date: 2019-12-07 Pat Name: GARCIA HUGHES Department: Room: [place] [address] Gender: Male [employer] Operator: KEITH : 1975 Requested By: Huseyin MATSON Order Number: [id number] Reading MD: Wei Shay Measurements Intervals [place] Rate: 96 P: 66 CT: 165 QRS: 70 QRSD: 94 T: 42 QT: 340 QTc: 432 Interpretive Statements SINUS RHYTHM BORDERLINE LEFT ATRIAL ABNORMALITY Compared to prior tracings(2) in the system No remarkable changes but slower heart rate Electronically Signed on 12-09-2019 18:14:59 EDT by Wei Shay
== END 2019-12-09 12:28 | disposition home or self-care (01) | DRG 897 ==
LOC: M ED 05:45 → M ED INP 11:31 → ENRESERVDT 12:46 → ENRESERVTM 12:46 → M PCU 14:25 → M MSPAV 12-06 15:20
PROVIDERS: ADMIT Internal Medicine; ATTEND Family Medicine
DX: F10.232 Alcohol dependence with withdrawal with perceptual disturbance (principal); J44.1 Chronic obstructive pulmonary disease with (acute) exacerbation; K70.10 Alcoholic hepatitis without ascites; D69.6 Thrombocytopenia, unspecified; E87.6 Hypokalemia; I10 Essential (primary) hypertension; G47.33 Obstructive sleep apnea (adult) (pediatric); K21.9 Gastro-esophageal reflux disease without esophagitis; Z79.01 Long term (current) use of anticoagulants; K52.9 Noninfective gastroenteritis and colitis, unspecified; J45.30 Mild persistent asthma, uncomplicated; K70.0 Alcoholic fatty liver; Z79.899 Other long term (current) drug therapy; Z86.711 Personal history of pulmonary embolism; F17.220 Nicotine dependence, chewing tobacco, uncomplicated; E11.9 Type 2 diabetes mellitus without complications; G89.29 Other chronic pain; F32.9 Major depressive disorder, single episode, unspecified; N31.9 Neuromuscular dysfunction of bladder, unspecified

== ENCOUNTER 2020-01-05 07:31 | Inpatient (IN) | payer MEDICARE, MEDICAID ==
[2020-01-05] VITALS (7 sets, daily range): BP systolic 124–142; BP diastolic 75–95
[~2020-01-05] VITALS: Ht 172.7 cm; Wt 96.2 kg
[~2020-01-05 07:31] MED LIST changes: +LISI10TA4 PO; +VITA100T89 PO
[2020-01-05] MEDS ORDERED: DULC10SU2 PR (07:43)
[2020-01-05] MEDS ORDERED: AMIT10TA PO (07:43)
[2020-01-05] MEDS ORDERED: MIRA3350 PO (07:43)
[2020-01-05] MEDS ORDERED: MAGNSOL2 PO (07:43)
[2020-01-05] MEDS ORDERED: OXAZEPAM 10 MG CAP PO ONE (09:00)
[2020-01-05] MEDS ORDERED: MULTIVITAMIN -ADULT INJECTION 10 ML, THIAMINE INJection 100 MG, FOLIC ACID 1 MG in NS 1... IV ONE (09:00)
--- NOTE | 2020-01-05 09:21 | REP ---
REASON: Abdominal distension and pain. COMPARISON: 12/02/2019 and old priors as well. The lung bases are clear and unchanged. Once again, there is marked fatty infiltration of the liver and hepatomegaly. The spleen, pancreas, adrenal glands, and kidneys are unchanged. The abdominal aorta and paraaortic regions are unchanged. The bowel loops and their mesenteries are essentially unchanged. There is no free fluid or free air. CT PELVIS: The bowel loops and their mesenteries are essentially unchanged. There is no free fluid or free air. There is no evidence of a mass or adenopathy. Bone window technique throughout the examination shows the osseous structures to be stable and intact. There is a [place] IVC filter in place status quo. IMPRESSION: No significant change from the prior exam. No evidence of acute disease. Marked fatty infiltration of the liver and hepatomegaly status quo. Electronically Signed by Celestine Liriano DO 01/05/2020 10:23 A
[2020-01-05] MEDS ORDERED: OXAZEPAM 15 MG CAP PO ONE (09:30)
[2020-01-05] MEDS ORDERED: ONDANSETRON 4MG/2ML VIAL (J2405 PER 1MG) IV ONE (09:30)
[2020-01-05 09:42] LABS: ALBUMIN 2.8 GM/DL (3.2-5.2); BILIRUBIN,DIRECT 1.7 MG/DL (0.0-0.2); BILIRUBIN,TOTAL 3.4 MG/DL (0.2-1.0); MAGNESIUM LEVEL 0.9 MG/DL (1.8-2.4); TOTAL PROTEIN 6.5 GM/DL (6.4-8.2)
[2020-01-05 09:46] LABS: INR 1.28; PROTHROMBIN TIME 15.7 SECONDS (11.8-14.0)
[2020-01-05 09:47] LABS: PARTIAL THROMBOPLASTIN TIME 31.8 SECONDS (25.0-38.4)
[2020-01-05] MEDS ORDERED: MAG SULF 1GM/100ML (MAG RUN) 1 GM in IV 1 EA IV ONE ×3 (10:00→17:15)
[2020-01-05 10:06] LABS: BASO # 0.1 10^3/uL (0.0-0.2); BASO % 0.9 % (0.0-1.0); EOS % 0.4 % (0.0-3.0); HEMATOCRIT 35.4 % (42.0-52.0); HEMOGLOBIN 12.3 g/dl (13.5-17.5); LYMPH # 0.9 10^3/uL (1.5-5.0); LYMPH % 16.9 % (24.0-44.0); MEAN CORPUSCULAR HEMOGLOBIN 32.4 pg (27.0-33.0); MEAN CORPUSCULAR HGB CONC 34.7 g/dl (32.0-36.5); MEAN CORPUSCULAR VOLUME 93.2 fl (80.0-96.0); MONO # 0.4 10^3/uL (0.0-0.8); MONO % 7.8 % (0.0-5.0); NEUTROPHILS # 3.9 10^3/uL (1.5-8.5); NEUTROPHILS % 73.2 % (36.0-66.0); WHITE BLOOD COUNT 5.3 10^3/uL (4.0-10.0)
[2020-01-05 10:07] LABS: PLATELET COUNT, AUTOMATED 71 10^3/uL (150-450)
[2020-01-05] MEDS ORDERED: LISI10TA4 PO (10:29)
[2020-01-05] MEDS ORDERED: AMLO10TA5 PO (10:29)
[2020-01-05] MEDS ORDERED: KCL 10MEQ/100ML SWI (KRUN) 10 MEQ in IV 1 EA IV ONE ×2 (10:45→13:00)
[2020-01-05] MEDS ORDERED: POTASSIUM CHLORIDE 10 MEQ SR TABLET PO ONE (11:00)
[2020-01-05] MEDS ORDERED: ACETAMINOPHEN TAB 650MG DOSE (2X325MG) PO PRN (11:45)
[2020-01-05] MEDS ORDERED: BISACODYL 10 MG SUPP PR PRN (12:00)
[2020-01-05] MEDS ORDERED: FLUTICASONE PROP 0.05% NASAL SPRAY 16 GM (FLONASE) NARES PRN (12:00)
[2020-01-05] MEDS ORDERED: MAGNESIUM CITRATE 300 ML BTL PO PRN (12:00)
--- NOTE | 2020-01-05 12:37 | HPEPDOC ---
General Date of Admission 01/05/20 Date of Service: Jan 05, 2020 Chief Complaint The patient is a 44-year-old male admitted with a reason for visit of Constipation. Source: Patient Exam Limitations: No limitations Timing/Duration: Week(s) Severity: Moderate Associated Symptoms: Nausea, Vomiting History of Present Illness Patient is 44 years old male with past medical history of COPD, hypertension, spinal cord injury, alcoholic hepatitis, pulmonary emboli on Xarelto, presented to the hospital with nausea/vomiting, tremors and constipation. Patient stated that he has not been eating well for many days due to lack of appetite. He continued to drink vodka 1 L in the day. Also patient complains of constipation for a few weeks. For past few days patient vomited multiple times, was not able to eat. Of note patient has a chronic constipation secondary to spinal cord injury in the past. Patient intermittently self catheterizes himself. In the past patient had multiple admission for alcohol withdrawal. In emergency room patient was found to have severe electrolyte imbalance, potassium of 2.5, magnesium 0.9, ionized calcium 2.9, lactic acid 3.3, anion gap 17, transaminitis. CT of abdomen/pelvis was negative for ileus or perforation Home Medications Scheduled Amitriptyline HCl (Amitriptyline HCl) 10 Mg Tablet, 10 MG PO QHS, (Reported) Amlodipine Besylate (Amlodipine Besylate) 10 Mg Tablet, 10 MG PO DAILY, (Reported) Escitalopram Oxalate (Lexapro) 5 Mg Tablet, 5 MG PO DAILY, (Reported) Fluticasone/Vilanterol (Breo Ellipta 200-25 Mcg INH) 1 Each Blst.w.dev, 1 PUFF INH DAILY, (Reported) Gabapentin (Gabapentin) 300 Mg Cap, 900 MG PO TID, (Reported) Lisinopril (Lisinopril) 10 Mg Tablet, 10 MG PO DAILY, (Reported) Magnesium Oxide (Magnesium Oxide) 400 Mg Tablet, 400 MG PO BID, (Reported) Metoprolol Tartrate (Metoprolol Tartrate) 100 Mg Tablet, 100 MG PO BID, (Reported) Multivitamins (Thera M Plus Tablet) 1 Tab Tab, 1 TAB PO DAILY, (Reported) Omeprazole (Omeprazole) 20 Mg Cap, 20 MG PO DAILY, (Reported) Rivaroxaban (Xarelto) 20 Mg Tab, 20 MG PO DAILY, (Reported) Tamsulosin HCl (Flomax) 0.4 Mg Cap, 0.4 MG PO DAILY, (Reported) Umeclidinium [place] (Incruse Ellipta) 62.5 Mcg/Inh Inh, 1 PUFF INH DAILY, (Reported) Scheduled PRN Albuterol Sulf (Albuterol Sulfate) 2.5 Mg/3 Ml Nebu, 2.5 MG INH Q4H PRN for SHORTNESS OF BREATH, (Reported) Albuterol Sulfate (Proair Hfa) 8.5 Gm Hfa.aer.ad, 2 PUFF INH QID PRN for SHORTNESS OF BREATH, (Reported) Bisacodyl (Dulcolax) 10 Mg Supp.rect, 10 MG MD DAILY PRN for CONSTIPATION, (Reported) Fluticasone Propionate (Fluticasone Propionate) 50 Mcg/Act Spr, 1 SPRAY NARES DAILY PRN for CONGESTION, (Reported) Magnesium Citrate (Magnesium Citrate) 296 Ml Solution, 148 ML PO DAILY PRN for CONSTIPATION, (Reported) Polyethylene Glycol 3350 (Miralax) 119 Gm Powder, 17 GRAM PO DAILY PRN for CONSTIPATION, (Reported) Allergies Coded Allergies: vancomycin (Verified Allergy, Intermediate, 01/03/19) REDNESS AT IV SITE Past Medical History Medical History alcohol liver disease, chronic thrombocytopenia secondary to alcohol liver disease, chronic alcoholism. He has history of pulmonary embolism diagnosed approximately in 2017 or 2018, per his recollection. Gastroesophageal reflux disease (GERD), hypertension, COPD. He uses nocturnal oxygen at 2 liters only. He has history of cervical epidural abscess which caused him to have paraplegia. However, he has subsequently recovered. Surgical History Is notable for cholecystectomy, inferior vena cava (IVC) filter placement, cervical abscess removal. Family History I personally reviewed family history and found not pertinent Social History * Smoker: current smoker Alcohol: heavy Drugs: heroin, other (Marguerite) A-FIB/CHADSVASC A-FIB History Current/History of A-Fib/PAF?: No Current PO Anticoag Therapy: No Review of Systems Constitutional: Reports: Malaise, Weight Loss; Denies: Chills, Fever Eyes: Denies: Pain, Vision change Skin: Denies: Rash Pulmonary: Denies: Dyspnea, Cough Cardiovascular: Denies: Chest Pain, Palpitations Gastrointestinal: Reports: Nausea, Vomiting, Abdominal Pain, Constipation Genitourinary: Reports: Dysuria; Denies: Frequency Hematologic: Denies: Bruising, Bleeding Excessively Endocrine: Denies: Polydipsia, Polyphagia Musculoskeletal: Denies: Neck Pain Neurological: Reports: Numbness; Denies: Change in speech, Confusion Psych: Reports: Anxiety; Denies: Mood Normal Physical Examination General Exam: Positive: Alert, Cooperative Eye Exam: Positive: PERRLA, Conjunctiva & lids normal, Sclera icteric ENT Exam: Positive: Atraumatic Neck Exam: Positive: Supple; Negative: JVD Chest Exam: Positive: Clear to auscultation Heart Exam: Positive: Rate Normal Telemetry: Positive: No significant arrhythmia Abdomen Exam: Positive: BS Hypoactive Extremity Exam: Negative: Clubbing Skin Exam: Negative: Lesion, Pruritus Neuro Exam: Positive: Strength at 5/5 X4 ext, Cranial Nerves 3-12 NL Psych Exam: Positive: Mental status NL, Anxiety Vital Signs Vital Signs Date Time Temp Pulse Resp B/P (MAP) Pulse Ox O2 Delivery O2 Flow Rate FiO2 01/05/20 11:30 135 119/67 (84) 90 01/05/20 11:08 99.2 01/05/20 08:35 16 01/05/20 07:32 Room Air Laboratory Data Labs 24H Laboratory Tests 2 01/05/20 07:56: Prothrombin Time 15.7H, Prothromb Time International Ratio 1.28, Activated Partial Thromboplast Time 31.8, Magnesium Level 0.9*L, Total Bilirubin 3.4H, Direct Bilirubin 1.7H, Aspartate Amino Transf (AST/SGOT) 315H, Alanine Aminotransferase (ALT/SGPT) 138H, Alkaline Phosphatase 146H, Total Protein 6.5, Albumin 2.8L, Albumin/Globulin Ratio 0.76L, Amylase Level 22L, Lipase 89 01/05/20 08:20: POC Glucose (Misc Panel) 99, POC Sodium (Misc Panel) 140, POC Potassium (Misc Panel) 2.5*L, POC Chloride (Misc Panel) 104, POC Total CO2 (Misc Panel) 19.0L, POC Blood Urea Nitrogen (Misc Panel 7L, POC Ionized Calcium (Misc Panel) 2.9*L, POC Creatinine (Misc Panel) 0.5L, POC Hematocrit (Misc Panel) 38.0 01/05/20 08:25: POC Lactate (Misc Panel) 3.31*H 01/05/20 09:55: Immature Granulocyte % (Auto) 0.8, Neutrophils (%) (Auto) 73.2H, Lymphocytes (%) (Auto) 16.9L, Monocytes (%) (Auto) 7.8H, Eosinophils (%) (Auto) 0.4, Basophils (%) (Auto) 0.9, Neutrophils # (Auto) 3.9, Lymphocytes # (Auto) 0.9L, Monocytes # (Auto) 0.4, Eosinophils # (Auto) 0.0, Basophils # (Auto) 0.1, Nucleated Red Blood Cells % (auto) 0.0, Immature Platelet Fraction 4.3, Whole Blood Ionized Calcium 3.7L CBC/BMP Laboratory Tests 01/05/20 09:55 Assessment/Plan Patient is 44 years old male with past medical history of COPD, hypertension, spinal cord injury, alcoholic hepatitis, pulmonary emboli on Xarelto, presented to the hospital with nausea/vomiting, tremors and constipation. Patient stated that he has not been eating well for many days due to lack of appetite. He continued to drink vodka 1 L in the day. Also patient complains of constipation for a few weeks. Of note patient has a chronic constipation secondary to spinal cord injury in the past. Patient intermittently self catheterizes himself. In the past patient had multiple admission for alcohol withdrawal. In emergency room patient was found to have severe electrolyte imbalance, potassium of 2.5, magnesium 0.9, ionized calcium 2.9, lactic acid 3.3, anion gap 17, transaminitis. CT of abdomen/pelvis was negative for ileus or perforation Problems (1) Electrolyte imbalance Status: Acute Problem Text: Multifactorial, secondary to poor oral intake, constipation, alcohol withdrawal, metabolic acidosis EKG We will replace Potassium, magnesium, calcium CMP with magnesium every 4 hours (2) Alcohol withdrawal syndrome Status: Acute Problem Text: start CIWA protocol, thiamine, folic acid, multivitamins child and family services worker on board (3) Metabolic acidosis Status: Acute Problem Text: Secondary to lactic acidosis secondary to EtOH abuse IV fluid Continue to monitor (4) Alcohol abuse Status: Acute Problem Text: See above (5) Pulmonary embolism Status: Chronic Problem Text: Patient has a history of pulmonary embolism Continue xarelto (6) Thrombocytopenia Status: Chronic Problem Text: Secondary to alcohol abuse and alcoholic hepatitis No signs of acute bleeding (7) Alcoholic hepatitis Status: Chronic Problem Text: Patient has transaminitis with elevated bilirubin of 3.4, elevated INR, thrombocytopenia CT of abdomen showed marked fatty infiltration of the liver and hepatomegaly Meld score 14, indicates 6% of 3 month mortality, child Correia score 9, its indication transplant evaluation Maddrey score 11.2, no indication for steroids Patient is not candidate for liver transplant due to ongoing alcohol abuse We'll check serum alpha-fetoprotein (8) Constipation Status: Chronic Problem Text: MiraLAX when necessary Dulcolax (9) Nausea & vomiting Status: Acute Problem Text: Zofran when necessary Plan / VTE VTE Prophylaxis Ordered?: Yes ABI TRAN DO Jan 05, 2020 12:37
[2020-01-05] MEDS ORDERED: ONDANSETRON 4MG/2ML VIAL (J2405 PER 1MG) IV PRN (12:45)
[2020-01-05] MEDS: ESCITALOPRAM OXALATE 5MG TABLET (LEXAPRO) PO SCH (13:14)
[2020-01-05] MEDS: METOPROLOL TARTRATE 100 MG TAB PO SCH ×2 (13:14→20:01)
[2020-01-05] MEDS: FOLIC ACID 1 MG TAB PO SCH (13:15)
[2020-01-05] MEDS: amLODIPine 10 MG TAB PO SCH (13:15)
[2020-01-05] MEDS: LORazepam 2 MG TAB PO PRN ×2 (13:15→19:49)
[2020-01-05] MEDS: MAGNESIUM OXIDE 400 MG TAB (MAG-OX) PO SCH ×2 (13:15→20:01)
[2020-01-05] MEDS: OMEPRAZOLE 20 MG CAP PO SCH (13:16)
[2020-01-05] MEDS: lisinopriL 10 MG TAB PO SCH (13:16)
[2020-01-05] MEDS: DOCUSATE SODIUM 100 MG CAP PO SCH ×2 (13:16→20:01)
[2020-01-05] MEDS: MULTIVITAMINS/MINERALS THERAP 1 TAB PO SCH (13:16)
[2020-01-05 13:20] LABS: ACETONE/KETONE 28.48 MG/DL (<2.81); ALBUMIN 3.4 GM/DL (3.2-5.2); ALT/SGPT 149 U/L (12-78); BILIRUBIN,TOTAL 3.6 MG/DL (0.2-1.0); BLOOD UREA NITROGEN 10 MG/DL (7-18); CARBON DIOXIDE LEVEL 27 MEQ/L (21-32); CHLORIDE LEVEL 94 MEQ/L (98-107); CPK CREATINE PHOSPHOKINASE 171 U/L (39-308); CREATININE FOR GFR 0.52 MG/DL (0.70-1.30); GLOMERULAR FILTRATION RATE > 60.0 (>60); GLUCOSE, FASTING 100 MG/DL (70-100); POTASSIUM SERUM 2.6 MEQ/L (3.5-5.1); SODIUM LEVEL 136 MEQ/L (136-145); TOTAL PROTEIN 6.7 GM/DL (6.4-8.2)
[2020-01-05] MEDS: TAMSULOSIN 0.4 MG CAP PO SCH (13:37)
[2020-01-05] MEDS: MIRALAX *UNIT DOSE* 17GM PACKET PO PRN (13:37)
[2020-01-05] MEDS: THIAMINE 100 MG TAB PO SCH ×2 (13:38→20:01)
[2020-01-05] MEDS ORDERED: CALCIUM GLUCONATE 1,000 MG in D5W MINI-BAG PLUS 100 ML IV ONE (14:00)
[2020-01-05] MEDS: KCL 20MEQ in NS 1000ML 1,000 ML IV SCH (14:34)
--- NOTE | 2020-01-05 15:08 | ECGEPIP ---
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 Order Number: [id number] Reading MD: Dania Valdovinos Measurements Intervals [place] Rate: 122 P: 70 AK: 138 QRS: 80 QRSD: 109 T: 31 QT: 353 QTc: 505 Interpretive Statements SINUS TACHYCARDIA NONSPECIFIC ST & T-WAVE ABNORMALITY COMPARED 12/07/19, CLINICAL CORRELATION ABNORMAL RHYTHM ECG Electronically Signed on 01-05-2020 15:08:01 EDT by Dania Valdovinos
[2020-01-05] MEDS: ALBUTEROL 90 MCG/ACT 8GM HFA INHALER INH PRN (16:01)
[2020-01-05 16:32] LABS: MAGNESIUM LEVEL 1.7 MG/DL (1.8-2.4)
[2020-01-05 16:39] LABS: ALBUMIN 3.4 GM/DL (3.2-5.2); ALT/SGPT 153 U/L (12-78); BILIRUBIN,TOTAL 4.3 MG/DL (0.2-1.0); BLOOD UREA NITROGEN 10 MG/DL (7-18); CALCIUM LEVEL 8.3 MG/DL (8.5-10.1); CARBON DIOXIDE LEVEL 28 MEQ/L (21-32); CHLORIDE LEVEL 96 MEQ/L (98-107); CREATININE FOR GFR 0.83 MG/DL (0.70-1.30); GLOMERULAR FILTRATION RATE > 60.0 (>60); GLUCOSE, FASTING 130 MG/DL (70-100); SODIUM LEVEL 137 MEQ/L (136-145); TOTAL PROTEIN 6.7 GM/DL (6.4-8.2)
[2020-01-05] MEDS ORDERED: METOCLOPRAMIDE 5 MG TAB PO PRN (17:30)
[2020-01-05 17:54] LABS: OSMOLALITY SERUM 284 MOSM/KG (275-295)
[2020-01-05] MEDS: RIVAROXABAN 20 MG TAB (XARELTO) PO SCH (18:12)
[2020-01-05] MEDS: MOM 30ML SUSPENSION UDC PO PRN (20:04)
[2020-01-05] MEDS ORDERED: AMITRIPTYLINE 10 MG TAB PO SCH (21:00)
[2020-01-05] MEDS ORDERED: HEPARIN SOD (PORCINE) 5000UNITS/ML VIAL (J1644 PER 1000UNITS) SC SCH (21:00)
[2020-01-05 21:22] LABS: ALBUMIN 3.1 GM/DL (3.2-5.2); ALT/SGPT 144 U/L (12-78); BILIRUBIN,TOTAL 5.1 MG/DL (0.2-1.0); BLOOD UREA NITROGEN 9 MG/DL (7-18); CALCIUM LEVEL 8.4 MG/DL (8.5-10.1); CARBON DIOXIDE LEVEL 28 MEQ/L (21-32); CHLORIDE LEVEL 96 MEQ/L (98-107); CREATININE FOR GFR 0.86 MG/DL (0.70-1.30); GLOMERULAR FILTRATION RATE > 60.0 (>60); GLUCOSE, FASTING 153 MG/DL (70-100); POTASSIUM SERUM 3.6 MEQ/L (3.5-5.1); SODIUM LEVEL 136 MEQ/L (136-145)
[2020-01-06] VITALS (9 sets, daily range): BP systolic 124–145; BP diastolic 72–94
[2020-01-06 01:55] LABS: ALBUMIN 2.8 GM/DL (3.2-5.2); ALT/SGPT 125 U/L (12-78); BILIRUBIN,TOTAL 4.3 MG/DL (0.2-1.0); BLOOD UREA NITROGEN 9 MG/DL (7-18); CALCIUM LEVEL 8.5 MG/DL (8.5-10.1); CARBON DIOXIDE LEVEL 28 MEQ/L (21-32); CHLORIDE LEVEL 99 MEQ/L (98-107); CREATININE FOR GFR 0.83 MG/DL (0.70-1.30); GLOMERULAR FILTRATION RATE > 60.0 (>60); GLUCOSE, FASTING 141 MG/DL (70-100); POTASSIUM SERUM 3.3 MEQ/L (3.5-5.1); SODIUM LEVEL 137 MEQ/L (136-145); TOTAL PROTEIN 6.3 GM/DL (6.4-8.2)
[2020-01-06] MEDS: LORazepam 2 MG TAB PO PRN ×5 (02:01→20:09)
[2020-01-06] MEDS ORDERED: POTASSIUM CHLORIDE 10 MEQ SR TABLET PO ONE ×2 (02:45→08:00)
[2020-01-06] MEDS: KCL 20MEQ in NS 1000ML 1,000 ML IV SCH (03:51)
[2020-01-06] MEDS: IBUPROFEN 200 MG TAB PO PRN ×2 (05:17→12:04)
[2020-01-06 06:03] LABS: HEMATOCRIT 33.7 % (42.0-52.0); HEMOGLOBIN 11.3 g/dl (13.5-17.5); MEAN CORPUSCULAR HGB CONC 33.5 g/dl (32.0-36.5); MEAN CORPUSCULAR VOLUME 95.5 fl (80.0-96.0); RED BLOOD COUNT 3.53 10^6/uL (4.30-6.10); WHITE BLOOD COUNT 3.8 10^3/uL (4.0-10.0)
[2020-01-06 06:05] LABS: PLATELET COUNT, AUTOMATED 60 10^3/uL (150-450)
[2020-01-06 06:20] LABS: ALBUMIN 2.9 GM/DL (3.2-5.2); ALT/SGPT 123 U/L (12-78); BILIRUBIN,TOTAL 4.3 MG/DL (0.2-1.0); BLOOD UREA NITROGEN 9 MG/DL (7-18); CALCIUM LEVEL 8.7 MG/DL (8.5-10.1); CARBON DIOXIDE LEVEL 29 MEQ/L (21-32); CHLORIDE LEVEL 100 MEQ/L (98-107); CREATININE FOR GFR 0.67 MG/DL (0.70-1.30); GLOMERULAR FILTRATION RATE > 60.0 (>60); GLUCOSE, FASTING 121 MG/DL (70-100); MAGNESIUM LEVEL 1.8 MG/DL (1.8-2.4); POTASSIUM SERUM 3.1 MEQ/L (3.5-5.1); SODIUM LEVEL 138 MEQ/L (136-145); TOTAL PROTEIN 6.1 GM/DL (6.4-8.2)
[2020-01-06 06:25] LABS: ALBUMIN 2.9 GM/DL (3.2-5.2); ALT/SGPT 121 U/L (12-78); BILIRUBIN,TOTAL 4.4 MG/DL (0.2-1.0); BLOOD UREA NITROGEN 9 MG/DL (7-18); CALCIUM LEVEL 8.8 MG/DL (8.5-10.1); CARBON DIOXIDE LEVEL 29 MEQ/L (21-32); CHLORIDE LEVEL 100 MEQ/L (98-107); CREATININE FOR GFR 0.68 MG/DL (0.70-1.30); GLOMERULAR FILTRATION RATE > 60.0 (>60); GLUCOSE, FASTING 121 MG/DL (70-100); SODIUM LEVEL 137 MEQ/L (136-145); TOTAL PROTEIN 6.5 GM/DL (6.4-8.2)
[2020-01-06] MEDS: KCL 40MEQ in NS 1000ML 1,000 ML IV SCH ×2 (07:33→15:55)
--- NOTE | 2020-01-06 08:19 | REP ---
Clinical: Cirrhosis. Technique: Real time rodriguez scale ultrasound examination using curved array transducer. Findings: The liver is significantly increased echogenicity with marked decreased through transmission and findings to suggest hepatomegaly. No focal hepatic lesion identified. The pancreas is incompletely evaluated due to interposed bowel gas. Evidence of prior cholecystectomy. No biliary ductal dilatation is appreciated and the common bile duct measures 6.2 mm diameter. The right kidney is normal in reniform shape without hydronephrosis and measures 13.2 x 5.1 x 6.3 cm. No ascites. Impression: Findings to suggest hepatomegaly with hepatosteatosis and/or hepatocellular disease. No focal hepatic lesion identified. Electronically Signed by Rmaon Tillman MD 01/06/2020 08:10 A
[2020-01-06] MEDS: POTASSIUM CHLORIDE 10 MEQ SR TABLET PO SCH ×2 (09:00→20:09)
[2020-01-06 09:10] LABS: AMPHETAMINES LEVEL URINE NEGATIVE (NEGATIVE); BARBITURATES URINE NEGATIVE (NEGATIVE); BENZODIAZEPINES URINE POSITIVE (NEGATIVE); CANNABINOIDS URINE POSITIVE (NEGATIVE); COCAINE METABOLITE URINE NEGATIVE (NEGATIVE); METHADONE URINE NEGATIVE (NEGATIVE); OPIATES URINE POSITIVE (NEGATIVE); PHENCYCLIDINE URINE NEGATIVE (NEGATIVE)
[2020-01-06] MEDS: ESCITALOPRAM OXALATE 5MG TABLET (LEXAPRO) PO SCH (09:23)
[2020-01-06] MEDS: TAMSULOSIN 0.4 MG CAP PO SCH (09:24)
[2020-01-06] MEDS: FOLIC ACID 1 MG TAB PO SCH (09:24)
[2020-01-06] MEDS: amLODIPine 10 MG TAB PO SCH (09:24)
[2020-01-06] MEDS: MAGNESIUM OXIDE 400 MG TAB (MAG-OX) PO SCH ×2 (09:25→20:09)
[2020-01-06] MEDS: lisinopriL 10 MG TAB PO SCH (09:25)
[2020-01-06] MEDS: METOPROLOL TARTRATE 100 MG TAB PO SCH ×2 (09:25→20:09)
[2020-01-06] MEDS: OMEPRAZOLE 20 MG CAP PO SCH (09:26)
[2020-01-06] MEDS: THIAMINE 100 MG TAB PO SCH ×2 (09:26→20:09)
[2020-01-06] MEDS: DOCUSATE SODIUM 100 MG CAP PO SCH ×2 (09:26→20:09)
[2020-01-06] MEDS: MULTIVITAMINS/MINERALS THERAP 1 TAB PO SCH (09:27)
[2020-01-06 10:26] LABS: ALBUMIN 3.1 GM/DL (3.2-5.2); ALT/SGPT 121 U/L (12-78); BILIRUBIN,TOTAL 4.4 MG/DL (0.2-1.0); BLOOD UREA NITROGEN 9 MG/DL (7-18); CALCIUM LEVEL 8.4 MG/DL (8.5-10.1); CARBON DIOXIDE LEVEL 29 MEQ/L (21-32); CHLORIDE LEVEL 100 MEQ/L (98-107); CREATININE FOR GFR 0.81 MG/DL (0.70-1.30); GLOMERULAR FILTRATION RATE > 60.0 (>60); GLUCOSE, FASTING 163 MG/DL (70-100); POTASSIUM SERUM 3.1 MEQ/L (3.5-5.1); SODIUM LEVEL 137 MEQ/L (136-145); TOTAL PROTEIN 6.3 GM/DL (6.4-8.2)
[2020-01-06] MEDS: MIRALAX *UNIT DOSE* 17GM PACKET PO PRN (12:10)
--- NOTE | 2020-01-06 12:10 | IPNPDOC ---
Text Note Date of Service The patient was seen on 01/06/20. NOTE Subjective: No any acute events overnight. Patient had 2 small bowel movements. He continues to complain of the right upper quadrant pain. Patient denied fever, chills, nausea, vomiting, diarrhea PHYSICAL EXAMINATION ON DISCHARGE: VITAL SIGNS: Please see below. GENERAL: awake, alert, NAD HEENT: NCAT, icterus, RAUDEL NECK: supple, no JVD CARDIOVASCULAR EXAMINATION: NS1S2, tachycardic at rate 100 RESPIRATORY EXAMINATION: CTA b/l, no wheezes/rales/rhonchi ABDOMINAL EXAMINATION: positive bowel sounds x 4, NT EXTREMITIES: no cyanosis, clubbing, edema SKIN: warm, no rashes. NEUROLOGICAL EXAMINATION: AAO x 3, no motor/sensory deficits, mild hands tremor PSYCHIATRIC EXAMINATION: calm, normal affect Assessment/Plan Patient is 44 years old male with past medical history of COPD, hypertension, spinal cord injury, alcoholic hepatitis, pulmonary emboli on Xarelto, presented to the hospital with nausea/vomiting, tremors and constipation. Patient stated that he has not been eating well for many days due to lack of appetite. He continued to drink vodka 1 L in the day. Also patient complains of constipation for a few weeks. Of note patient has a chronic constipation secondary to spinal cord injury in the past. Patient intermittently self catheterizes himself. In the past patient had multiple admission for alcohol withdrawal. In emergency room patient was found to have severe electrolyte imbalance, potassium of 2.5, magnesium 0.9, ionized calcium 2.9, lactic acid 3.3, anion gap 17, transaminitis. CT of abdomen/pelvis was negative for ileus or perforation Problems (1) Electrolyte imbalance Multifactorial, secondary to poor oral intake, constipation, alcohol withdrawal, metabolic acidosis EKG Continue to replace potassium, magnesium, calcium as needed CMP with magnesium every 4 hours (2) Alcohol withdrawal syndrome Secondary to alcohol dependence Continue CIWA protocol, thiamine, folic acid, multivitamins encyclopedia research worker on board (3) Metabolic acidosis Secondary to lactic acidosis secondary to EtOH abuse IV fluid Continue to monitor (4) Alcohol abuse/alcohol dependence See above (5) Pulmonary embolism Patient has a history of pulmonary embolism Continue xarelto (6) Thrombocytopenia Secondary to alcohol abuse and alcoholic hepatitis No signs of acute bleeding (7) Alcoholic hepatitis Patient has transaminitis with elevated bilirubin of 3.4, elevated INR, thrombocytopenia CT of abdomen showed marked fatty infiltration of the liver and hepatomegaly Meld score 14, indicates 6% of 3 month mortality, child Correia score 9, its indication transplant evaluation Maddrey score 11.2, no indication for steroids Patient is not candidate for liver transplant due to ongoing alcohol abuse We'll check serum alpha-fetoprotein Liver ultrasound showed hepatomegaly with hepatosteatosis and/or hepatocellular disease. No focal hepatic lesion identified (8) Constipation MiraLAX when necessary Dulcolax (9) Nausea & vomiting Zofran when necessary VS,Fishbone, I+O VS, Fishbone, I+O Laboratory Tests 01/05/20 12:28 01/05/20 15:57 01/05/20 20:51 01/06/20 00:59 01/06/20 05:24 01/06/20 09:36 Vital Signs Date Time Temp Pulse Resp B/P (MAP) Pulse Ox O2 Delivery O2 Flow Rate FiO2 01/06/20 08:00 98.0 122 20 133/84 (100) 96 Room Air I&O- Last 24 Hours up to 6 AM 01/06/20 06:00 Intake Total 2846 ml Output Total 925 ml Balance 1921 ml ABI TRAN DO Jan 06, 2020 12:10
[2020-01-06] MEDS: ALBUTEROL 90 MCG/ACT 8GM HFA INHALER INH PRN (13:43)
[2020-01-06 14:02] LABS: ALT/SGPT 116 U/L (12-78); BILIRUBIN,TOTAL 4.4 MG/DL (0.2-1.0); BLOOD UREA NITROGEN 7 MG/DL (7-18); CALCIUM LEVEL 8.7 MG/DL (8.5-10.1); CARBON DIOXIDE LEVEL 29 MEQ/L (21-32); CHLORIDE LEVEL 102 MEQ/L (98-107); CREATININE FOR GFR 0.65 MG/DL (0.70-1.30); GLOMERULAR FILTRATION RATE > 60.0 (>60); GLUCOSE, FASTING 122 MG/DL (70-100); POTASSIUM SERUM 3.6 MEQ/L (3.5-5.1); SODIUM LEVEL 137 MEQ/L (136-145); TOTAL PROTEIN 6.2 GM/DL (6.4-8.2)
[2020-01-06 17:50] LABS: ALT/SGPT 111 U/L (12-78); BILIRUBIN,TOTAL 4.5 MG/DL (0.2-1.0); BLOOD UREA NITROGEN 7 MG/DL (7-18); CALCIUM LEVEL 8.5 MG/DL (8.5-10.1); CARBON DIOXIDE LEVEL 28 MEQ/L (21-32); CHLORIDE LEVEL 104 MEQ/L (98-107); CREATININE FOR GFR 0.65 MG/DL (0.70-1.30); GLOMERULAR FILTRATION RATE > 60.0 (>60); GLUCOSE, FASTING 118 MG/DL (70-100); POTASSIUM SERUM 3.7 MEQ/L (3.5-5.1); SODIUM LEVEL 139 MEQ/L (136-145); TOTAL PROTEIN 6.1 GM/DL (6.4-8.2)
[2020-01-06] MEDS: RIVAROXABAN 20 MG TAB (XARELTO) PO SCH (18:16)
[2020-01-06] MEDS: ADVAIR HFA 230/21MCG INHALER INH SCH (19:28)
[2020-01-06] MEDS: MOM 30ML SUSPENSION UDC PO PRN (20:11)
[2020-01-07] VITALS (10 sets, daily range): BP systolic 119–126; BP diastolic 71–86
[2020-01-07] MEDS: LORazepam 2 MG TAB PO PRN ×6 (00:33→21:44)
[2020-01-07] MEDS: IPRATROPIUM HFA INHALER 12.9 GRAMS (ATROVENT HFA) INH SCH ×3 (01:14→20:30)
[2020-01-07] MEDS: KCL 40MEQ in NS 1000ML 1,000 ML IV SCH (02:33)
[2020-01-07] MEDS: ADVAIR HFA 230/21MCG INHALER INH SCH (07:26)
[2020-01-07 08:17] LABS: HEMATOCRIT 36.4 % (42.0-52.0); HEMOGLOBIN 11.9 g/dl (13.5-17.5); MEAN CORPUSCULAR HEMOGLOBIN 32.4 pg (27.0-33.0); MEAN CORPUSCULAR HGB CONC 32.7 g/dl (32.0-36.5); MEAN CORPUSCULAR VOLUME 99.2 fl (80.0-96.0); RED BLOOD COUNT 3.67 10^6/uL (4.30-6.10); WHITE BLOOD COUNT 4.2 10^3/uL (4.0-10.0)
[2020-01-07 08:18] LABS: PLATELET COUNT, AUTOMATED 71 10^3/uL (150-450)
[2020-01-07] MEDS: DOCUSATE SODIUM 100 MG CAP PO SCH ×2 (08:28→21:00)
[2020-01-07] MEDS: POTASSIUM CHLORIDE 10 MEQ SR TABLET PO SCH ×2 (08:29→21:45)
[2020-01-07] MEDS: METOPROLOL TARTRATE 100 MG TAB PO SCH ×2 (08:29→21:45)
[2020-01-07] MEDS: FOLIC ACID 1 MG TAB PO SCH (08:29)
[2020-01-07] MEDS: MULTIVITAMINS/MINERALS THERAP 1 TAB PO SCH (08:29)
[2020-01-07] MEDS: amLODIPine 10 MG TAB PO SCH (08:29)
[2020-01-07] MEDS: THIAMINE 100 MG TAB PO SCH ×2 (08:29→21:45)
[2020-01-07] MEDS: OMEPRAZOLE 20 MG CAP PO SCH (08:29)
[2020-01-07] MEDS: MAGNESIUM OXIDE 400 MG TAB (MAG-OX) PO SCH ×2 (08:29→21:44)
[2020-01-07] MEDS: lisinopriL 10 MG TAB PO SCH (08:29)
[2020-01-07] MEDS: TAMSULOSIN 0.4 MG CAP PO SCH (08:29)
[2020-01-07 08:38] LABS: HEPATITIS B SURFACE ANTIGEN NEGATIVE (NEGATIVE)
[2020-01-07 08:48] LABS: ALBUMIN 3.1 GM/DL (3.2-5.2); ALT/SGPT 108 U/L (12-78); BILIRUBIN,TOTAL 5.6 MG/DL (0.2-1.0); BLOOD UREA NITROGEN 3 MG/DL (7-18); CALCIUM LEVEL 8.5 MG/DL (8.5-10.1); CARBON DIOXIDE LEVEL 24 MEQ/L (21-32); CHLORIDE LEVEL 105 MEQ/L (98-107); CREATININE FOR GFR 0.63 MG/DL (0.70-1.30); GLOMERULAR FILTRATION RATE > 60.0 (>60); GLUCOSE, FASTING 116 MG/DL (70-100); SODIUM LEVEL 138 MEQ/L (136-145); TOTAL PROTEIN 6.6 GM/DL (6.4-8.2)
[2020-01-07 08:54] LABS: HEPATITIS B CORE ANTIBODY IGM NEGATIVE (NEGATIVE)
[2020-01-07 08:56] LABS: HEPATITIS A ANTIBODY IGM NEGATIVE (NEGATIVE)
[2020-01-07 09:05] LABS: HEPATITIS C VIRUS ABY INDEX 0.1 INDEX (<0.8)
[2020-01-07] MEDS: ESCITALOPRAM OXALATE 5MG TABLET (LEXAPRO) PO SCH (09:27)
[2020-01-07 10:51] LABS: INR 1.21
--- NOTE | 2020-01-07 11:11 | IPNPDOC ---
Text Note Date of Service The patient was seen on 01/07/20. NOTE Subjective: No any acute events overnight. He continues to complain of the r ight upper quadrant pain and hand tremors. Patient denied fever, chills, nausea, vomiting, diarrhea PHYSICAL EXAMINATION ON DISCHARGE: VITAL SIGNS: Please see below. GENERAL: awake, alert, NAD HEENT: NCAT, icterus, RAUDEL NECK: supple, no JVD CARDIOVASCULAR EXAMINATION: NS1S2, tachycardic at rate 100 RESPIRATORY EXAMINATION: CTA b/l, no wheezes/rales/rhonchi ABDOMINAL EXAMINATION: positive bowel sounds x 4, moderate tenderness in the right upper quadrant, hepatomegaly EXTREMITIES: no cyanosis, clubbing, edema SKIN: warm, no rashes. NEUROLOGICAL EXAMINATION: AAO x 3, no motor/sensory deficits, mild hands tremor PSYCHIATRIC EXAMINATION: calm, normal affect Assessment/Plan Patient is 44 years old male with past medical history of COPD, hypertension, spinal cord injury, alcoholic hepatitis, pulmonary emboli on Xarelto, presented to the hospital with nausea/vomiting, tremors and constipation. Patient stated that he has not been eating well for many days due to lack of appetite. He continued to drink vodka 1 L in the day. Also patient complains of constipation for a few weeks. Of note patient has a chronic constipation secondary to spinal cord injury in the past. Patient intermittently self catheterizes himself. In the past patient had multiple admission for alcohol withdrawal. In emergency room patient was found to have severe electrolyte imbalance, potassium of 2.5, magnesium 0.9, ionized calcium 2.9, lactic acid 3.3, anion gap 17, transaminitis. CT of abdomen/pelvis was negative for ileus or perforation Problems (1) Electrolyte imbalance Multifactorial, secondary to poor oral intake, constipation, alcohol withdrawal, metabolic acidosis EKG Continue to replace potassium, magnesium, calcium as needed (2) Alcohol withdrawal syndrome Secondary to alcohol dependence Continue CIWA protocol, thiamine, folic acid, multivitamins rigging up worker on board (3) Metabolic acidosis Resolved Secondary to lactic acidosis secondary to EtOH abuse IV fluid Continue to monitor (4) Alcohol abuse/alcohol dependence See above (5) Pulmonary embolism Patient has a history of pulmonary embolism Continue xarelto (6) Thrombocytopenia Secondary to alcohol abuse and alcoholic hepatitis No signs of acute bleeding (7) Alcoholic hepatitis Patient has transaminitis with elevated bilirubin of 3.4, elevated INR, thrombocytopenia on the admission CT of abdomen showed marked fatty infiltration of the liver and hepatomegaly Meld score 14, indicates 6% of 3 month mortality, child Correia score 9, its indication transplant evaluation On 01/05/20 Maddrey score 11.2, no indication for steroids. I will recalculate Maddrey score given increased level of bilirubin of 5.6. No common bile dilat ation on the imaging study Patient is not candidate for liver transplant due to ongoing alcohol abuse serum alpha-fetoprotein within normal limit Liver ultrasound showed hepatomegaly with hepatosteatosis and/or hepatocellular disease. No focal hepatic lesion identified (8) Constipation Resolved MiraLAX when necessary Dulcolax (9) Nausea & vomiting Zofran when necessary VS,Fishbone, I+O VS, Fishbone, I+O Laboratory Tests 01/06/20 13:25 01/06/20 17:04 01/07/20 08:00 Vital Signs Date Time Temp Pulse Resp B/P (MAP) Pulse Ox O2 Delivery O2 Flow Rate FiO2 01/07/20 08:29 110 126/81 01/07/20 07:41 98.1 20 95 Room Air I&O- Last 24 Hours up to 6 AM 01/07/20 06:00 Intake Total 1560 ml Output Total 1800 ml Balance -240 ml ABI TRAN DO Jan 07, 2020 11:11
[2020-01-07] MEDS: GABAPENTIN 300 MG CAP PO SCH ×2 (16:20→21:45)
[2020-01-07 16:38] LABS: ALBUMIN 3.1 GM/DL (3.2-5.2); ALT/SGPT 99 U/L (12-78); BILIRUBIN,TOTAL 5.2 MG/DL (0.2-1.0); BLOOD UREA NITROGEN 4 MG/DL (7-18); CALCIUM LEVEL 9.3 MG/DL (8.5-10.1); CARBON DIOXIDE LEVEL 26 MEQ/L (21-32); CHLORIDE LEVEL 104 MEQ/L (98-107); CREATININE FOR GFR 0.74 MG/DL (0.70-1.30); GLOMERULAR FILTRATION RATE > 60.0 (>60); GLUCOSE, FASTING 109 MG/DL (70-100); POTASSIUM SERUM 4.3 MEQ/L (3.5-5.1); SODIUM LEVEL 136 MEQ/L (136-145); TOTAL PROTEIN 6.6 GM/DL (6.4-8.2)
[2020-01-07] MEDS: RIVAROXABAN 20 MG TAB (XARELTO) PO SCH (16:51)
[2020-01-07 21:47] LABS: ALBUMIN 2.8 GM/DL (3.2-5.2); ALT/SGPT 90 U/L (12-78); BILIRUBIN,TOTAL 5.1 MG/DL (0.2-1.0); BLOOD UREA NITROGEN 4 MG/DL (7-18); CALCIUM LEVEL 8.6 MG/DL (8.5-10.1); CARBON DIOXIDE LEVEL 24 MEQ/L (21-32); CHLORIDE LEVEL 104 MEQ/L (98-107); GLOMERULAR FILTRATION RATE > 60.0 (>60); GLUCOSE, FASTING 105 MG/DL (70-100); POTASSIUM SERUM 4.1 MEQ/L (3.5-5.1); SODIUM LEVEL 137 MEQ/L (136-145); TOTAL PROTEIN 6.1 GM/DL (6.4-8.2)
[2020-01-08] VITALS (10 sets, daily range): BP systolic 98–124; BP diastolic 65–87
[2020-01-08 03:54] LABS: ALBUMIN 2.9 GM/DL (3.2-5.2); ALT/SGPT 87 U/L (12-78); BILIRUBIN,TOTAL 5.5 MG/DL (0.2-1.0); BLOOD UREA NITROGEN 5 MG/DL (7-18); CALCIUM LEVEL 8.8 MG/DL (8.5-10.1); CARBON DIOXIDE LEVEL 28 MEQ/L (21-32); CHLORIDE LEVEL 104 MEQ/L (98-107); GLOMERULAR FILTRATION RATE > 60.0 (>60); GLUCOSE, FASTING 107 MG/DL (70-100); POTASSIUM SERUM 4.4 MEQ/L (3.5-5.1); SODIUM LEVEL 136 MEQ/L (136-145); TOTAL PROTEIN 6.4 GM/DL (6.4-8.2)
[2020-01-08] MEDS: IBUPROFEN 200 MG TAB PO PRN (06:21)
[2020-01-08] MEDS: LORazepam 2 MG TAB PO PRN ×3 (06:21→15:39)
[2020-01-08] MEDS: IPRATROPIUM HFA INHALER 12.9 GRAMS (ATROVENT HFA) INH SCH ×2 (07:10→21:06)
[2020-01-08] MEDS: ADVAIR HFA 230/21MCG INHALER INH SCH ×2 (07:11→21:05)
[2020-01-08 09:59] LABS: ALBUMIN 2.8 GM/DL (3.2-5.2); ALT/SGPT 81 U/L (12-78); BILIRUBIN,TOTAL 5.9 MG/DL (0.2-1.0); BLOOD UREA NITROGEN 7 MG/DL (7-18); CALCIUM LEVEL 9.1 MG/DL (8.5-10.1); CARBON DIOXIDE LEVEL 25 MEQ/L (21-32); CHLORIDE LEVEL 103 MEQ/L (98-107); CREATININE FOR GFR 0.68 MG/DL (0.70-1.30); GLOMERULAR FILTRATION RATE > 60.0 (>60); GLUCOSE, FASTING 103 MG/DL (70-100); MAGNESIUM LEVEL 1.2 MG/DL (1.8-2.4); POTASSIUM SERUM 4.6 MEQ/L (3.5-5.1); SODIUM LEVEL 136 MEQ/L (136-145); TOTAL PROTEIN 6.8 GM/DL (6.4-8.2)
[2020-01-08] MEDS: DOCUSATE SODIUM 100 MG CAP PO SCH ×2 (10:12→21:05)
[2020-01-08] MEDS: MULTIVITAMINS/MINERALS THERAP 1 TAB PO SCH (10:12)
[2020-01-08] MEDS: FOLIC ACID 1 MG TAB PO SCH (10:13)
[2020-01-08] MEDS: ESCITALOPRAM OXALATE 5MG TABLET (LEXAPRO) PO SCH (10:13)
[2020-01-08] MEDS: amLODIPine 10 MG TAB PO SCH (10:13)
[2020-01-08] MEDS: TAMSULOSIN 0.4 MG CAP PO SCH (10:14)
[2020-01-08] MEDS: POTASSIUM CHLORIDE 10 MEQ SR TABLET PO SCH ×2 (10:14→21:05)
[2020-01-08] MEDS: GABAPENTIN 300 MG CAP PO SCH ×3 (10:15→21:05)
[2020-01-08] MEDS: MAGNESIUM OXIDE 400 MG TAB (MAG-OX) PO SCH ×2 (10:15→21:06)
[2020-01-08] MEDS: lisinopriL 10 MG TAB PO SCH (10:15)
[2020-01-08] MEDS: METOPROLOL TARTRATE 100 MG TAB PO SCH ×2 (10:16→21:07)
[2020-01-08] MEDS: OMEPRAZOLE 20 MG CAP PO SCH (10:16)
[2020-01-08] MEDS ORDERED: LORazepam 2 MG/ML VIAL (J2060) IV STA (10:34)
[2020-01-08] MEDS ORDERED: MAG SULF 1GM/100ML (MAG RUN) 1 GM in IV 1 EA IV ONE (11:00)
[2020-01-08] MEDS: NS 1,000 ML IV SCH ×2 (11:02→21:07)
--- NOTE | 2020-01-08 11:44 | IPNPDOC ---
Text Note Date of Service The patient was seen on 01/08/20. NOTE Subjective: Patient developed low grade fever overnight associated with incre ased hands tremor, tachycardia and tachypnea. He continues to complain of the right upper quadrant pain and hand tremors. Patient denied fever, chills, nausea, vomiting, diarrhea PHYSICAL EXAMINATION ON DISCHARGE: VITAL SIGNS: Please see below. GENERAL: awake, alert, NAD HEENT: NCAT, icterus, RAUDEL NECK: supple, no JVD CARDIOVASCULAR EXAMINATION: NS1S2, tachycardic at rate 110 RESPIRATORY EXAMINATION: CTA b/l, no wheezes/rales/rhonchi ABDOMINAL EXAMINATION: positive bowel sounds x 4, moderate tenderness in the right upper quadrant, hepatomegaly EXTREMITIES: no cyanosis, clubbing, edema SKIN: warm, no rashes. NEUROLOGICAL EXAMINATION: AAO x 3, no motor/sensory deficits, mild hands tremor PSYCHIATRIC EXAMINATION: calm, normal affect Assessment/Plan Patient is 44 years old male with past medical history of COPD, hypertension, spinal cord injury, alcoholic hepatitis, pulmonary emboli on Xarelto, presented to the hospital with nausea/vomiting, tremors and constipation. Patient stated that he has not been eating well for many days due to lack of appetite. He continued to drink vodka 1 L in the day. Also patient complains of constipation for a few weeks. Of note patient has a chronic constipation secondary to spinal cord injury in the past. Patient intermittently self catheterizes himself. In the past patient had multiple admission for alcohol withdrawal. In emergency room patient was found to have severe electrolyte imbalance, potassium of 2.5, magnesium 0.9, ionized calcium 2.9, lactic acid 3.3, anion gap 17, transaminitis. CT of abdomen/pelvis was negative for ileus or perforation Problems (1) Electrolyte imbalance Multifactorial, secondary to poor oral intake, constipation, alcohol withdrawal, metabolic acidosis EKG Continue to replace potassium, magnesium, calcium as needed (2) Alcohol withdrawal syndrome Worsening today. Increased hands tremor, tachycardia, tachypnea Today is 72 hours after last drink Secondary to alcohol dependence. Continue CIWA protocol, thiamine, folic acid, multivitamins I added 2 mg of lorazepam every 4 hours when necessary. balancing machine set up worker on board (3) Metabolic acidosis Resolved Secondary to lactic acidosis secondary to EtOH abuse IV fluid Continue to monitor (4) Alcohol abuse/alcohol dependence See above (5) Pulmonary embolism Patient has a history of pulmonary embolism Continue xarelto (6) Thrombocytopenia Secondary to alcohol abuse and alcoholic hepatitis No signs of acute bleeding (7) Alcoholic hepatitis Patient had transaminitis with elevated bilirubin of 3.4, elevated INR, thrombocytopenia on the admission CT of abdomen showed marked fatty infiltration of the liver and hepatomegaly Meld score 14, indicates 6% of 3 month mortality, child Correia score 9, its indication transplant evaluation On 01/05/20 Maddrey score 11.2, no indication for steroids. On 01/08/20 Maddrey score is 27 Patient is not candidate for liver transplant due to ongoing alcohol abuse serum alpha-fetoprotein within normal limit Liver ultrasound showed hepatomegaly with hepatosteatosis and/or hepatocellular disease. No focal hepatic lesion identified Transaminitis improved, total bilirubin is rising. We'll continue to monitor for signs of encephalopathy. We will check ammonia level (8) Constipation Resolved MiraLAX when necessary Dulcolax (9) Nausea & vomiting Zofran when necessary Fever Most likely secondary to alcoholic hepatitis Ibuprofen when necessary Will check blood culture Patient denied any respiratory symptoms, no cough, no sputum VS,Fishbone, I+O VS, Fishbone, I+O Laboratory Tests 01/07/20 16:00 01/07/20 20:57 01/08/20 03:20 01/08/20 09:03 Vital Signs Date Time Temp Pulse Resp B/P (MAP) Pulse Ox O2 Delivery O2 Flow Rate FiO2 01/08/20 10:13 111 117/82 01/08/20 10:00 100.4 33 Room Air 01/08/20 06:00 94 I&O- Last 24 Hours up to 6 AM 01/08/20 06:00 Intake Total 1050 ml Output Total 1475 ml Balance -425 ml ABI TRAN DO Jan 08, 2020 11:44
[2020-01-08] MEDS ORDERED: IBUPROFEN 200 MG TAB PO ONE (12:00)
[2020-01-08] MEDS ORDERED: LORazepam 2 MG/ML VIAL (J2060) IV PRN (14:00)
[2020-01-08 15:28] LABS: ALBUMIN 2.6 GM/DL (3.2-5.2); ALT/SGPT 79 U/L (12-78); BILIRUBIN,TOTAL 6.3 MG/DL (0.2-1.0); BLOOD UREA NITROGEN 8 MG/DL (7-18); CALCIUM LEVEL 8.7 MG/DL (8.5-10.1); CARBON DIOXIDE LEVEL 22 MEQ/L (21-32); CHLORIDE LEVEL 107 MEQ/L (98-107); CREATININE FOR GFR 0.63 MG/DL (0.70-1.30); GLOMERULAR FILTRATION RATE > 60.0 (>60); GLUCOSE, FASTING 103 MG/DL (70-100); POTASSIUM SERUM 4.4 MEQ/L (3.5-5.1); SODIUM LEVEL 136 MEQ/L (136-145); TOTAL PROTEIN 6.8 GM/DL (6.4-8.2)
[2020-01-08] MEDS: ALBUTEROL 90 MCG/ACT 8GM HFA INHALER INH PRN (16:02)
[2020-01-08] MEDS: RIVAROXABAN 20 MG TAB (XARELTO) PO SCH (18:22)
[2020-01-08 21:38] LABS: BLOOD UREA NITROGEN 10 MG/DL (7-18); CARBON DIOXIDE LEVEL 24 MEQ/L (21-32); CHLORIDE LEVEL 107 MEQ/L (98-107); CREATININE FOR GFR 0.67 MG/DL (0.70-1.30); GLOMERULAR FILTRATION RATE > 60.0 (>60); GLUCOSE, FASTING 105 MG/DL (70-100); POTASSIUM SERUM 4.6 MEQ/L (3.5-5.1); SODIUM LEVEL 138 MEQ/L (136-145)
[2020-01-08 21:39] LABS: ALBUMIN 2.7 GM/DL (3.2-5.2); ALT/SGPT 73 U/L (12-78); BILIRUBIN,TOTAL 6.2 MG/DL (0.2-1.0); CALCIUM LEVEL 8.7 MG/DL (8.5-10.1)
[2020-01-09] VITALS (11 sets, daily range): BP systolic 113–135; BP diastolic 76–97
[2020-01-09] MEDS: LORazepam 2 MG TAB PO PRN ×4 (02:34→18:04)
[2020-01-09 03:32] LABS: ALBUMIN 2.9 GM/DL (3.2-5.2); ALT/SGPT 79 U/L (12-78); BILIRUBIN,TOTAL 7.5 MG/DL (0.2-1.0); BLOOD UREA NITROGEN 10 MG/DL (7-18); CALCIUM LEVEL 9.1 MG/DL (8.5-10.1); CARBON DIOXIDE LEVEL 23 MEQ/L (21-32); CHLORIDE LEVEL 106 MEQ/L (98-107); CREATININE FOR GFR 0.71 MG/DL (0.70-1.30); GLOMERULAR FILTRATION RATE > 60.0 (>60); GLUCOSE, FASTING 102 MG/DL (70-100); POTASSIUM SERUM 4.7 MEQ/L (3.5-5.1); SODIUM LEVEL 136 MEQ/L (136-145); TOTAL PROTEIN 6.7 GM/DL (6.4-8.2)
[2020-01-09] MEDS: NS 1,000 ML IV SCH ×2 (06:35→18:05)
[2020-01-09] MEDS: IPRATROPIUM HFA INHALER 12.9 GRAMS (ATROVENT HFA) INH SCH ×2 (07:22→21:46)
[2020-01-09] MEDS: ADVAIR HFA 230/21MCG INHALER INH SCH ×2 (07:22→21:46)
[2020-01-09] MEDS ORDERED: ISOVUE-370 76% 100ML VIAL (Q9967) As Ordered ONE (08:05)
[2020-01-09 08:21] LABS: BASO # 0.1 10^3/uL (0.0-0.2); BASO % 1.1 % (0.0-1.0); EOS % 0.7 % (0.0-3.0); HEMATOCRIT 36.7 % (42.0-52.0); HEMOGLOBIN 11.6 g/dl (13.5-17.5); LYMPH # 0.8 10^3/uL (1.5-5.0); MEAN CORPUSCULAR HGB CONC 31.6 g/dl (32.0-36.5); MEAN CORPUSCULAR VOLUME 104.3 fl (80.0-96.0); MONO # 0.7 10^3/uL (0.0-0.8); MONO % 16.3 % (0.0-5.0); NEUTROPHILS # 2.8 10^3/uL (1.5-8.5); NEUTROPHILS % 61.6 % (36.0-66.0); PLATELET COUNT, AUTOMATED 102 10^3/uL (150-450); RED BLOOD COUNT 3.52 10^6/uL (4.30-6.10); WHITE BLOOD COUNT 4.5 10^3/uL (4.0-10.0)
[2020-01-09 08:32] LABS: FIBRINOGEN 578 MG/DL (221-452); INR 1.52
[2020-01-09 08:33] LABS: PARTIAL THROMBOPLASTIN TIME 43.4 SECONDS (25.0-38.4)
[2020-01-09 08:42] LABS: D-DIMER QUANT < 270 ng/ml (<500)
--- NOTE | 2020-01-09 08:48 | REP ---
CT abdomen and pelvis with IV but without oral contrast: History: Hyperbilirubinemia. Jaundice. Comparison study January 05, 2020. CT contrast dose: 100 mL of intravenous Isovue [address] findings: There are patchy predominately peripheral areas of new ground-glass opacification in the lower lobes, right middle lobe, and lingula at the lung bases bilaterally. These raise the suspicion of acute viral pneumonia. Preliminary digital ibm websphere portal developer radiograph again demonstrates rather marked hepatomegaly. Craniocaudal span of the liver in the midclavicular line is 27.[address] images, there is moderate to marked diffuse fatty infiltration of the liver. No focal liver lesion is seen. The spleen is moderately enlarged as well measuring 16.4 cm in greatest dimension. This is unchanged also. The gallbladder is surgically absent. No abnormalities noted in the pancreas. Normal adrenal glands are seen. An IVC filter is noted in place. Kidneys enhance symmetrically and remain morphologically intact. No retroperitoneal mass is seen. There is no evidence of abdominal ascites. Small and large bowel loops are unremarkable. A normal appendix is visible in the right lower quadrant. No evidence of gastrointestinal obstruction. No evidence of free air or free fluid. Seminal vesicles, prostate, and urinary bladder are unremarkable. No abdominal wall defect is seen. No bony destructive lesion is appreciated. Impression: 1. Marked hepatomegaly and diffuse fatty infiltration of the liver persists. There is no evidence of ascites. Moderate splenomegaly. 2. There are new patchy predominately peripheral areas of ground-glass opacification in the lower lung guillermo bilaterally raising suspicion of acute viral pneumonia. Commonly reported imaging features of COVID-19 pneumonia are present. Other processes such as influenza pneumonia, drug toxicity, and connective tissue disease can produce a similar pattern. Electronically Signed by Ronaldo Hernandez MD 01/09/2020 09:06 A
[2020-01-09 08:57] LABS: ALBUMIN 2.7 GM/DL (3.2-5.2); ALT/SGPT 74 U/L (12-78); BILIRUBIN,DIRECT 5.8 MG/DL (0.0-0.2); BILIRUBIN,TOTAL 8.1 MG/DL (0.2-1.0); BLOOD UREA NITROGEN 9 MG/DL (7-18); CALCIUM LEVEL 8.5 MG/DL (8.5-10.1); CARBON DIOXIDE LEVEL 23 MEQ/L (21-32); CHLORIDE LEVEL 105 MEQ/L (98-107); CREATININE FOR GFR 0.58 MG/DL (0.70-1.30); GLOMERULAR FILTRATION RATE > 60.0 (>60); GLUCOSE, FASTING 89 MG/DL (70-100); IRON (FE) 63 UG/DL (65-175); LIPASE 230 U/L (73-393); PERCENT SATURATION 25.7 % (19.7-50.0); POTASSIUM SERUM 4.5 MEQ/L (3.5-5.1); SODIUM LEVEL 136 MEQ/L (136-145); TOTAL IRON BINDING CAPACITY 245 UG/DL (250-450); TOTAL PROTEIN 6.4 GM/DL (6.4-8.2)
[2020-01-09] MEDS: METOPROLOL TARTRATE 100 MG TAB PO SCH ×2 (09:14→20:03)
[2020-01-09] MEDS: OMEPRAZOLE 20 MG CAP PO SCH (09:15)
[2020-01-09] MEDS: DOCUSATE SODIUM 100 MG CAP PO SCH ×2 (09:15→20:01)
[2020-01-09] MEDS: MIRALAX *UNIT DOSE* 17GM PACKET PO PRN (09:15)
[2020-01-09] MEDS: amLODIPine 10 MG TAB PO SCH (09:15)
[2020-01-09] MEDS: FOLIC ACID 1 MG TAB PO SCH (09:15)
[2020-01-09] MEDS: MAGNESIUM OXIDE 400 MG TAB (MAG-OX) PO SCH ×2 (09:15→20:01)
[2020-01-09] MEDS: POTASSIUM CHLORIDE 10 MEQ SR TABLET PO SCH ×2 (09:15→20:01)
[2020-01-09] MEDS: TAMSULOSIN 0.4 MG CAP PO SCH (09:15)
[2020-01-09] MEDS: MULTIVITAMINS/MINERALS THERAP 1 TAB PO SCH (09:15)
[2020-01-09] MEDS: lisinopriL 10 MG TAB PO SCH (09:15)
[2020-01-09] MEDS: ESCITALOPRAM OXALATE 5MG TABLET (LEXAPRO) PO SCH (09:20)
--- NOTE | 2020-01-09 11:49 | IPNPDOC ---
Text Note Date of Service The patient was seen on 01/09/20. NOTE Subjective: Patient continues to complain on the right upper abdominal pain and poor appetite. His fever resolved. Patient denied chest pain, palpitations, diarrhea or dysuria PHYSICAL EXAMINATION ON DISCHARGE: VITAL SIGNS: Please see below. GENERAL: awake, alert, NAD HEENT: NCAT, icterus, RAUDEL NECK: supple, no JVD CARDIOVASCULAR EXAMINATION: NS1S2, tachycardic at rate 100 RESPIRATORY EXAMINATION: CTA b/l, no wheezes/rales/rhonchi ABDOMINAL EXAMINATION: positive bowel sounds x 4, moderate tenderness in the right upper quadrant, hepatomegaly EXTREMITIES: no cyanosis, clubbing, edema SKIN: warm, no rashes. NEUROLOGICAL EXAMINATION: AAO x 3, no motor/sensory deficits, mild hands tremor PSYCHIATRIC EXAMINATION: calm, normal affect Assessment/Plan Patient is 44 years old male with past medical history of COPD, hypertension, spinal cord injury, alcoholic hepatitis, pulmonary emboli on Xarelto, presented to the hospital with nausea/vomiting, tremors and constipation. Patient stated that he has not been eating well for many days due to lack of appetite. He continued to drink vodka 1 L in the day. Also patient complains of constipation for a few weeks. Of note patient has a chronic constipation secondary to spinal cord injury in the past. Patient intermittently self catheterizes himself. In the past patient had multiple admission for alcohol withdrawal. In emergency room patient was found to have severe electrolyte imbalance, potassium of 2.5, magnesium 0.9, ionized calcium 2.9, lactic acid 3.3, anion gap 17, transaminitis. CT of abdomen/pelvis was negative for ileus or perforation Problems (1) Electrolyte imbalance Multifactorial, secondary to poor oral intake, constipation, alcohol withdrawal, metabolic acidosis EKG Continue to replace potassium, magnesium, calcium as needed (2) Alcohol withdrawal syndrome Patient is stable today, not encephalopathic Secondary to alcohol dependence. Continue CIWA protocol, thiamine, folic acid, multivitamins c/w 2 mg of lorazepam every 4 hours when necessary. prop worker on board (3) Metabolic acidosis Resolved Secondary to lactic acidosis secondary to EtOH abuse IV fluid Continue to monitor (4) Alcohol abuse/alcohol dependence See above (5) Pulmonary embolism Patient has a history of pulmonary embolism Continue xarelto (6) Thrombocytopenia Improved Secondary to alcohol abuse and alcoholic hepatitis No signs of acute bleeding (7) Alcoholic hepatitis Patient had transaminitis with elevated bilirubin of 3.4, elevated INR, thrombocytopenia on the admission CT of abdomen showed marked fatty infiltration of the liver and hepatomegaly Meld score 14, indicates 6% of 3 month mortality, child Correia score 9, its indication transplant evaluation On 01/05/20 Maddrey score 11.2, no indication for steroids. On 01/08/20 Maddrey score is 27 Patient is not candidate for liver transplant due to ongoing alcohol abuse serum alpha-fetoprotein within normal limit Liver ultrasound showed hepatomegaly with hepatosteatosis and/or hepatocellular disease. No focal hepatic lesion identified Transaminitis improved, total bilirubin is rising. Ammonia level within normal limit On 01/09/20 total bilirubin is 8.1, transaminitis stable. No signs of hemolysis. CT abdomen/pelvis showed no common bile obstruction. There is concern for bilateral opacification at the lung bases consistent with possible Covid 19 presentation. However, patient does not have cough, no shortness of breath. We'll check respiratory panel for Covid 19 I talked by phone with Dr. Sorto, he recommended to start prednisolone maricruz tment (8) Constipation Resolved MiraLAX when necessary Dulcolax (9) Nausea & vomiting Zofran when necessary Fever Resolved Most likely secondary to alcoholic hepatitis Ibuprofen when necessary Will check blood culture Patient denied any respiratory symptoms, no cough, no sputum VS,Fishbone, I+O VS, Fishbone, I+O Laboratory Tests 01/08/20 14:57 01/08/20 21:04 01/09/20 02:58 01/09/20 07:48 01/09/20 09:00 Vital Signs Date Time Temp Pulse Resp B/P (MAP) Pulse Ox O2 Delivery O2 Flow Rate FiO2 01/09/20 10:00 114 130/90 01/09/20 05:52 98.6 20 95 Room Air I&O- Last 24 Hours up to 6 AM 01/09/20 06:00 Intake Total 3310 ml Output Total 1220 ml Balance 2090 ml ABI TRAN DO Jan 09, 2020 11:49
[2020-01-09] MEDS: IBUPROFEN 200 MG TAB PO PRN (12:38)
[2020-01-09] MEDS ORDERED: LORazepam 2 MG TAB PO ONE (13:00)
[2020-01-09] MEDS: prednisoLONE (PRELONE) 15MG/5ML SYRUP UDC PO SCH ×2 (14:14→20:01)
[2020-01-09] MEDS: ALBUTEROL 90 MCG/ACT 8GM HFA INHALER INH PRN (16:07)
[2020-01-09] MEDS: RIVAROXABAN 20 MG TAB (XARELTO) PO SCH (18:04)
[2020-01-10] VITALS (15 sets, daily range): BP systolic 116–137; BP diastolic 78–100
[2020-01-10] MEDS: ALBUTEROL 90 MCG/ACT 8GM HFA INHALER INH PRN ×2 (02:41→15:05)
[2020-01-10] MEDS: LORazepam 2 MG TAB PO PRN ×4 (05:25→20:02)
[2020-01-10] MEDS: NS 1,000 ML IV SCH ×2 (05:25→20:01)
[2020-01-10 06:05] LABS: HEMATOCRIT 35.9 % (42.0-52.0); HEMOGLOBIN 11.5 g/dl (13.5-17.5); MEAN CORPUSCULAR HEMOGLOBIN 33.5 pg (27.0-33.0); MEAN CORPUSCULAR VOLUME 104.7 fl (80.0-96.0); PLATELET COUNT, AUTOMATED 132 10^3/uL (150-450); RED BLOOD COUNT 3.43 10^6/uL (4.30-6.10); WHITE BLOOD COUNT 4.8 10^3/uL (4.0-10.0)
[2020-01-10 06:19] LABS: ALBUMIN 2.7 GM/DL (3.2-5.2); ALT/SGPT 74 U/L (12-78); BILIRUBIN,TOTAL 7.7 MG/DL (0.2-1.0); BLOOD UREA NITROGEN 12 MG/DL (7-18); CALCIUM LEVEL 8.3 MG/DL (8.5-10.1); CARBON DIOXIDE LEVEL 22 MEQ/L (21-32); CHLORIDE LEVEL 107 MEQ/L (98-107); CREATININE FOR GFR 0.49 MG/DL (0.70-1.30); GLOMERULAR FILTRATION RATE > 60.0 (>60); GLUCOSE, FASTING 112 MG/DL (70-100); MAGNESIUM LEVEL 1.7 MG/DL (1.8-2.4); POTASSIUM SERUM 4.3 MEQ/L (3.5-5.1); SODIUM LEVEL 138 MEQ/L (136-145); TOTAL PROTEIN 6.4 GM/DL (6.4-8.2)
[2020-01-10] MEDS: DOCUSATE SODIUM 100 MG CAP PO SCH ×2 (07:03→20:02)
[2020-01-10 07:11] LABS: LYMPHOCYTES 12 % (16-44); METAMYELOCYTES 1 % (0-0); MONOCYTES 16 % (0-5); MYELOCYTES 1 % (0-0); NEUTROPHILS 69 % (28-66); PLATELET ESTIMATE DECREASED (NORMAL)
[2020-01-10 07:12] LABS: ANISOCYTOSIS 2+
[2020-01-10] MEDS: IPRATROPIUM HFA INHALER 12.9 GRAMS (ATROVENT HFA) INH SCH ×2 (07:17→20:39)
[2020-01-10] MEDS: ADVAIR HFA 230/21MCG INHALER INH SCH ×2 (07:17→20:40)
[2020-01-10] MEDS ORDERED: MAG SULF 1GM/100ML (MAG RUN) 1 GM in IV 1 EA IV ONE (07:30)
[2020-01-10] MEDS: ESCITALOPRAM OXALATE 5MG TABLET (LEXAPRO) PO SCH (08:26)
[2020-01-10] MEDS: MULTIVITAMINS/MINERALS THERAP 1 TAB PO SCH (08:26)
[2020-01-10] MEDS: MAGNESIUM OXIDE 400 MG TAB (MAG-OX) PO SCH ×2 (08:26→20:01)
[2020-01-10] MEDS: POTASSIUM CHLORIDE 10 MEQ SR TABLET PO SCH ×2 (08:26→20:02)
[2020-01-10] MEDS: prednisoLONE (PRELONE) 15MG/5ML SYRUP UDC PO SCH ×2 (08:26→20:05)
[2020-01-10] MEDS: FOLIC ACID 1 MG TAB PO SCH (08:26)
[2020-01-10] MEDS: TAMSULOSIN 0.4 MG CAP PO SCH (08:26)
[2020-01-10] MEDS: OMEPRAZOLE 20 MG CAP PO SCH (08:27)
[2020-01-10] MEDS: METOPROLOL TARTRATE 100 MG TAB PO SCH ×2 (08:29→20:04)
[2020-01-10] MEDS: lisinopriL 10 MG TAB PO SCH (08:30)
[2020-01-10] MEDS: amLODIPine 10 MG TAB PO SCH (08:30)
--- NOTE | 2020-01-10 12:07 | IPNPDOC ---
Text Note Date of Service The patient was seen on 01/10/20. NOTE Subjective: Patient continues to complain on the right upper abdominal pain and poor appetite. No fever for past 12 hours. Patient denied chest pain, palpitations, diarrhea or dysuria PHYSICAL EXAMINATION ON DISCHARGE: VITAL SIGNS: Please see below. GENERAL: awake, alert, NAD HEENT: NCAT, icterus, RAUDEL NECK: supple, no JVD CARDIOVASCULAR EXAMINATION: NS1S2, tachycardic at rate 105 RESPIRATORY EXAMINATION: CTA b/l, no wheezes/rales/rhonchi ABDOMINAL EXAMINATION: positive bowel sounds x 4, moderate tenderness in the right upper quadrant, hepatomegaly EXTREMITIES: no cyanosis, clubbing, edema SKIN: warm, no rashes. NEUROLOGICAL EXAMINATION: AAO x 3, no motor/sensory deficits, mild hands tremor PSYCHIATRIC EXAMINATION: calm, normal affect Assessment/Plan Patient is 44 years old male with past medical history of COPD, hypertension, spinal cord injury, alcoholic hepatitis, pulmonary emboli on Xarelto, presented to the hospital with nausea/vomiting, tremors and constipation. Patient stated that he has not been eating well for many days due to lack of appetite. He continued to drink vodka 1 L in the day. Also patient complains of constipation for a few weeks. Of note patient has a chronic constipation secondary to spinal cord injury in the past. Patient intermittently self catheterizes himself. In the past patient had multiple admission for alcohol withdrawal. In emergency room patient was found to have severe electrolyte imbalance, potassium of 2.5, magnesium 0.9, ionized calcium 2.9, lactic acid 3.3, anion gap 17, transaminitis. CT of abdomen/pelvis was negative for ileus or perforation Problems (1) Electrolyte imbalance Multifactorial, secondary to poor oral intake, constipation, alcohol withdrawal, metabolic acidosis EKG Continue to replace potassium, magnesium, calcium as needed (2) Alcohol withdrawal syndrome Patient is stable today, not encephalopathic Secondary to alcohol dependence. Continue CIWA protocol, thiamine, folic acid, multivitamins c/w 2 mg of lorazepam every 4 hours when necessary. supervisor park workers on board (3) Metabolic acidosis Resolved Secondary to lactic acidosis secondary to EtOH abuse IV fluid Continue to monitor (4) Alcohol abuse/alcohol dependence See above (5) Pulmonary embolism Patient has a history of pulmonary embolism Continue xarelto (6) Thrombocytopenia Improved Secondary to alcohol abuse and alcoholic hepatitis No signs of acute bleeding (7) Alcoholic hepatitis Patient had transaminitis with elevated bilirubin of 3.4, elevated INR, thrombocytopenia on the admission CT of abdomen showed marked fatty infiltration of the liver and hepatomegaly Meld score 14, indicates 6% of 3 month mortality, child Correia score 9, its indication transplant evaluation On 01/05/20 Maddrey score 11.2, no indication for steroids. On 01/08/20 Maddrey score is 27 Patient is not candidate for liver transplant due to ongoing alcohol abuse serum alpha-fetoprotein within normal limit Liver ultrasound showed hepatomegaly with hepatosteatosis and/or hepatocellular disease. No focal hepatic lesion identified Transaminitis improved, total bilirubin is rising. Ammonia level within normal limit On 01/09/20 total bilirubin is 8.1, transaminitis stable. No signs of hemolysis. CT abdomen/pelvis showed no common bile obstruction. There is concern for bilateral opacification at the lung bases consistent with possible Covid 19 presentation. However, patient does not have cough, no shortness of breath. Covid 19 came back negative I talked by phone with Dr. Sorto, he recommended to start prednisolone treatment On 01/10/20 transaminitis is stable, total bilirubin slightly improve 7.7. Appreciate agree with GI consult (8) Constipation Resolved MiraLAX when necessary Dulcolax (9) Nausea & vomiting Zofran when necessary Fever Resolved Most likely secondary to alcoholic hepatitis Ibuprofen when necessary Will check blood culture Patient denied any respiratory symptoms, no cough, no sputum VS,Fishbone, I+O VS, Fishbone, I+O Laboratory Tests 01/10/20 05:06 Vital Signs Date Time Temp Pulse Resp B/P (MAP) Pulse Ox O2 Delivery O2 Flow Rate FiO2 01/10/20 09:39 106 121/86 (98) 01/10/20 06:00 97.9 25 93 Room Air I&O- Last 24 Hours up to 6 AM 01/10/20 06:00 Intake Total 3160 ml Output Total 1775 ml Balance 1385 ml ABI TRAN DO Jan 10, 2020 12:07
[2020-01-10] MEDS: IBUPROFEN 200 MG TAB PO PRN (13:04)
[2020-01-10] MEDS ORDERED: THIAMINE 100 MG TAB PO ONE (17:00)
--- NOTE | 2020-01-10 17:01 | CR.PDOC ---
General Date of Consultation: Jan 10, 2020 Referring Provider: VITO MANRIQUE DO Attending Physician: EARNESTINE VALENZUELA MD Consultation Primary physician/ hospitalist: Dr. Vito Manrique Reason for consult: -Abnormal liver tests. HPI: 44-year-old male patient with COPD, HTN, pulmonary embolism, on Xarelto, neurogenic bladder due to prior spinal cord injury and does intermittent self-c atheterization, heavy alcohol use, was admitted to hospital with symptoms of nausea, vomiting and tremors. Patient reported drinking vodka 1 L daily and was noted with multiple episodes of vomiting for the past few days and chronic constipation. Patient was noted to have abnormal liver tests and was admitted for alcohol withdrawal. GI was consulted for the same. Pertinent negative GI symptoms: Patient denies fever, sick contacts, recent travel, nausea, vomiting, diarrhea, abdominal pain, loss of appetite, early satiety or unintentional weight loss. No history of hematemesis, melena or hematochezia. Patient reports regular bowel movements. Review of Systems: GI: as stated above CVS: No chest pain, No palpitations, No leg swelling. RS: No Shortness of breath, No Wheezing, no cough SYSTEM CONSULTANT: No dizziness, No motor weakness, No sensory problems Hematology: No bruising, No gum bleeding, Musculoskeletal: No joint pain, ambulating well. Skin: No rash : No hematuria, No burning sensation of the urine ENT: No ear discharge/ pain, No dysphagia. Eyes: No photophobia. Jaundice Home medications: reviewed. Antithrombotic agents: -Xarelto Medical h/o: As above. Surgical h/o: None on abdomen. Social h/o: Alcohol: -Heavy use, smoking:. Denies, IVDA/ drugs: Denies. Urine tox screen- positive for cannabinoids Family h/o of GI cancers - None Prior Endoscopies: None in [facility] Prior GI evaluations: -, None in [facility] Exam: Vitals: reviewed General: Alert and oriented x 3, not in distress HEENT: NO pallor, no icterus. Normal oropharynx, NO cervical lymph nodes. Chest: symmetric with bilateral clear air entry, CVS: S1, S2 heard, normal, no murmurs . Abdomen: non-distended, no surgical scars, soft, non-tender, no palpable masses, normal bowel sounds heard. Rectal exam: Patient refused / Deferred at this time in view of scheduled colonoscopy. Extremities: no pedal edema, pulses palpable. SYSTEM CONSULTANT: no focal motor or sensory deficits. Moves all extremities Skin: no rash. Labs: reviewed. Ultrasound abdomen suggestive of hepatomegaly with hepato-steatosis. No focal liver lesions, no biliary dilation. CBD 6.2mm, prior cholecystectomy CT abdomen with IV contrast -- marked hepatomegaly with diffuse fatty infiltration of the liver, no ascites, moderate splenomegaly. Noted patchy peripheral groundglass opacities in the lower lung guillermo. Impression: - Abnormal liver tests with elevated AST more than ALT, elevated bilirubin in a patient with heavy alcohol use, multiple abdominal imaging showing normal CBD, prior cholecystectomy, workup negative for acute viral hepatitis -- likely related to alcoholic hepatitis. - Nausea and vomiting, likely related to alcohol intoxication versus marijuana use vs gastritis. Recommendations: - Patient educated about the test results, possible differential diagnoses and All questions answered. - Follow up with autoimmune liver work up ( already sent). Avoid hepatotoxic medications. - Continue nutrition supplementation with thiamine and folic acid, high protein diet as tolerated. - Discussed the benefits and risks and alternatives of treatment with the right for alcoholic hepatitis. Consider steroid therapy for 28 days and then lindsey off. - Consider oral PPI/H2RA course for 6 weeks. - Patient is educated about complete cessation of alcohol and marijuana. - Consider alcohol rehabilitation if patient agrees. - Upon discharge. Patient to follow-up with PCP and if any persistent GI symptoms to be referred to GI clinic. Plan of care discussed with patient and primary team. Patient verbalized understanding and agreed with the plan. Vital Signs/I&O Vital Signs Date Time Temp Pulse Resp B/P (MAP) Pulse Ox O2 Delivery O2 Flow Rate FiO2 01/10/20 15:37 97 134/94 (107) 01/10/20 14:00 97.2 18 95 Room Air I&O- Last 24 Hours up to 6 AM 01/10/20 05:59 Intake Total 2560 ml Output Total 1325 ml Balance 1235 ml Laboratory Data Labs 24H Laboratory Tests 2 01/10/20 05:06: Immature Granulocyte % (Auto) , Neutrophils (%) (Auto) , Nucleated Red Blood Cells % (auto) 1.3H, Neutrophils 69H, Band Neutrophils 1, Lymphocytes (Manual) 12L, Monocytes (Manual) 16H, Metamyelocytes 1H, Myelocytes 1H, Anisocytosis 2+, Macrocytosis 1+, Platelet Estimate DECREASED, Anion Gap 9, Glomerular Filtration Rate > 60.0, Calcium Level 8.3L, Magnesium Level 1.7L, Total Bilirubin 7.7H, Aspartate Amino Transf (AST/SGOT) 132H, Alanine Aminotransferase (ALT/SGPT) 74, Alkaline Phosphatase 136H, Total Protein 6.4, Albumin 2.7L, Albumin/Globulin Ratio 0.73L CBC/BMP Laboratory Tests 01/10/20 05:06 Microbiology Microbiology 01/09/20 Blood Culture - Preliminary, Resulted No growth after 24 hours . All specim... 01/09/20 Blood Culture - Preliminary, Resulted No growth after 24 hours . All specim... 01/08/20 Blood Culture - Preliminary, Resulted No Growth after 48 hours. All Specime... Allergies Coded Allergies: vancomycin (Verified Allergy, Intermediate, 01/03/19) REDNESS AT IV SITE Home Medications Scheduled Amitriptyline HCl (Amitriptyline HCl) 10 Mg Tablet, 10 MG PO QHS, (Reported) Amlodipine Besylate (Amlodipine Besylate) 10 Mg Tablet, 10 MG PO DAILY, (Reported) Escitalopram Oxalate (Lexapro) 5 Mg Tablet, 5 MG PO DAILY, (Reported) Fluticasone/Vilanterol (Breo Ellipta 200-25 Mcg INH) 1 Each Blst.w.dev, 1 PUFF INH DAILY, (Reported) Gabapentin (Gabapentin) 300 Mg Cap, 900 MG PO TID, (Reported) Lisinopril (Lisinopril) 10 Mg Tablet, 10 MG PO DAILY, (Reported) Magnesium Oxide (Magnesium Oxide) 400 Mg Tablet, 400 MG PO BID, (Reported) Metoprolol Tartrate (Metoprolol Tartrate) 100 Mg Tablet, 100 MG PO BID, (Reported) Multivitamins (Thera M Plus Tablet) 1 Tab Tab, 1 TAB PO DAILY, (Reported) Omeprazole (Omeprazole) 20 Mg Cap, 20 MG PO DAILY, (Reported) Rivaroxaban (Xarelto) 20 Mg Tab, 20 MG PO DAILY, (Reported) Tamsulosin HCl (Flomax) 0.4 Mg Cap, 0.4 MG PO DAILY, (Reported) Umeclidinium [place] (Incruse Ellipta) 62.5 Mcg/Inh Inh, 1 PUFF INH DAILY, (Reported) Scheduled PRN Albuterol Sulf (Albuterol Sulfate) 2.5 Mg/3 Ml Nebu, 2.5 MG INH Q4H PRN for S HORTNESS OF BREATH, (Reported) Albuterol Sulfate (Proair Hfa) 8.5 Gm Hfa.aer.ad, 2 PUFF INH QID PRN for SHORTNESS OF BREATH, (Reported) Bisacodyl (Dulcolax) 10 Mg Supp.rect, 10 MG KS DAILY PRN for CONSTIPATION, (Reported) Fluticasone Propionate (Fluticasone Propionate) 50 Mcg/Act Spr, 1 SPRAY NARES DAILY PRN for CONGESTION, (Reported) Magnesium Citrate (Magnesium Citrate) 296 Ml Solution, 148 ML PO DAILY PRN for CONSTIPATION, (Reported) Polyethylene Glycol 3350 (Miralax) 119 Gm Powder, 17 GRAM PO DAILY PRN for CONSTIPATION, (Reported) EARNESTINE VALENZUELA MD Jan 10, 2020 17:01
[2020-01-10] MEDS: RIVAROXABAN 20 MG TAB (XARELTO) PO SCH (17:03)
[2020-01-10] MEDS ORDERED: FLEET ENEMA PR SCH ×2 (18:00→21:00)
[2020-01-11] MEDS: LORazepam 2 MG TAB PO PRN ×3 (01:02→10:29)
[2020-01-11 01:03] VITALS: BP 115/79
[2020-01-11 02:00] VITALS: BP 139/88
[2020-01-11 06:00] VITALS: BP 118/93
[2020-01-11 06:37] VITALS: BP 118/63
[2020-01-11 07:21] LABS: BASO % 0.4 % (0.0-1.0); EOS % 0.4 % (0.0-3.0); HEMATOCRIT 36.5 % (42.0-52.0); HEMOGLOBIN 11.5 g/dl (13.5-17.5); LYMPH # 0.5 10^3/uL (1.5-5.0); LYMPH % 10.5 % (24.0-44.0); MEAN CORPUSCULAR HEMOGLOBIN 33.1 pg (27.0-33.0); MEAN CORPUSCULAR HGB CONC 31.5 g/dl (32.0-36.5); MEAN CORPUSCULAR VOLUME 105.2 fl (80.0-96.0); MONO # 0.8 10^3/uL (0.0-0.8); MONO % 16.6 % (0.0-5.0); NEUTROPHILS # 3.4 10^3/uL (1.5-8.5); NEUTROPHILS % 68.7 % (36.0-66.0); PLATELET COUNT, AUTOMATED 172 10^3/uL (150-450); RED BLOOD COUNT 3.47 10^6/uL (4.30-6.10); WHITE BLOOD COUNT 4.9 10^3/uL (4.0-10.0)
[2020-01-11 07:38] LABS: ALBUMIN 2.6 GM/DL (3.2-5.2); ALT/SGPT 92 U/L (12-78); BILIRUBIN,TOTAL 6.6 MG/DL (0.2-1.0); BLOOD UREA NITROGEN 15 MG/DL (7-18); CALCIUM LEVEL 8.2 MG/DL (8.5-10.1); CARBON DIOXIDE LEVEL 19 MEQ/L (21-32); CHLORIDE LEVEL 109 MEQ/L (98-107); CREATININE FOR GFR 0.56 MG/DL (0.70-1.30); GLOMERULAR FILTRATION RATE > 60.0 (>60); GLUCOSE, FASTING 105 MG/DL (70-100); MAGNESIUM LEVEL 1.9 MG/DL (1.8-2.4); POTASSIUM SERUM 4.3 MEQ/L (3.5-5.1); SODIUM LEVEL 137 MEQ/L (136-145); TOTAL PROTEIN 6.9 GM/DL (6.4-8.2)
[2020-01-11] MEDS: IPRATROPIUM HFA INHALER 12.9 GRAMS (ATROVENT HFA) INH SCH (07:58)
[2020-01-11] MEDS: ADVAIR HFA 230/21MCG INHALER INH SCH (07:59)
[2020-01-11] MEDS: MIRALAX *UNIT DOSE* 17GM PACKET PO PRN (08:22)
[2020-01-11] MEDS: ESCITALOPRAM OXALATE 5MG TABLET (LEXAPRO) PO SCH (08:22)
[2020-01-11] MEDS: GABAPENTIN 300 MG CAP PO SCH (08:22)
[2020-01-11 08:23] VITALS: BP 118/63
[2020-01-11] MEDS: lisinopriL 10 MG TAB PO SCH (08:23)
[2020-01-11] MEDS: prednisoLONE (PRELONE) 15MG/5ML SYRUP UDC PO SCH (08:23)
[2020-01-11] MEDS: POTASSIUM CHLORIDE 10 MEQ SR TABLET PO SCH (08:23)
[2020-01-11] MEDS: MULTIVITAMINS/MINERALS THERAP 1 TAB PO SCH (08:23)
[2020-01-11] MEDS: amLODIPine 10 MG TAB PO SCH (08:23)
[2020-01-11] MEDS: DOCUSATE SODIUM 100 MG CAP PO SCH (08:23)
[2020-01-11] MEDS: MAGNESIUM OXIDE 400 MG TAB (MAG-OX) PO SCH (08:23)
[2020-01-11] MEDS: TAMSULOSIN 0.4 MG CAP PO SCH (08:24)
[2020-01-11] MEDS: METOPROLOL TARTRATE 100 MG TAB PO SCH (08:24)
[2020-01-11] MEDS: FOLIC ACID 1 MG TAB PO SCH (08:24)
[2020-01-11] MEDS: NS 1,000 ML IV SCH (08:24)
[2020-01-11] MEDS ORDERED: OMEPRAZOLE 20 MG CAP PO SCH (09:00)
[2020-01-11 10:25] VITALS: BP 118/92
[2020-01-11] MEDS ORDERED: FOLI1TAB11 PO (11:51)
[2020-01-11] MEDS ORDERED: DOCU100C16 PO (11:51)
[2020-01-11] MEDS ORDERED: PRED15EL PO (11:51)
[2020-01-11] MEDS ORDERED: ADVI200T PO (11:51)
[2020-01-11] MEDS ORDERED: FLEEENE12 PR (11:51)
[2020-01-11] MEDS ORDERED: OMEP-218 PO (11:51)
[2020-01-11] MEDS ORDERED: ATIV1TAB7 PO (12:36)
[2020-01-11 14:10] LABS: ANTI-MITOCHONDRIAL ANTIBODY <20.0 Units (0.0-20.0); ANTI-SMOOTH MUSCLE ANTIBODY 3 Units (0-19); ANTINUCLEAR ANTIBODIES DIRECT Negative (Negative)
--- NOTE | 2020-01-11 14:56 | DS.PDOC ---
Discharge Summary General Date of Admission Jan 05, 2020 at 11:36 Date of Discharge 01/11/20 Discharge Summary PROCEDURES PERFORMED DURING STAY: [None]. ADMITTING DIAGNOSES: Electrolyte imbalance Alcohol withdrawal syndrome Metabolic acidosis Alcohol abuse/alcohol dependence Pulmonary embolism Thrombocytopenia DISCHARGE DIAGNOSES: Electrolyte imbalance Alcohol withdrawal syndrome Metabolic acidosis Alcohol abuse/alcohol dependence Pulmonary embolism Thrombocytopenia COMPLICATIONS/CHIEF COMPLAINT: Alcohol Dependence,Alcoholic Hepatitis,. HISTORY OF PRESENT ILLNESS: Patient is 44 years old male with past medical history of COPD, hypertension, spinal cord injury, alcoholic hepatitis, pulmonary emboli on Xarelto, presented to the hospital with nausea/vomiting, tremors and constipation. Patient stated that he has not been eating well for many days due to lack of appetite. He continued to drink vodka 1 L in the day. Also patient complains of constipation for a few weeks. Of note patient has a c hronic constipation secondary to spinal cord injury in the past. Patient intermittently self catheterizes himself. In the past patient had multiple admission for alcohol withdrawal. In emergency room patient was found to have severe electrolyte imbalance, potassium of 2.5, magnesium 0.9, ionized calcium 2.9, lactic acid 3.3, anion gap 17, transaminitis. CT of abdomen/pelvis was negative for ileus or perforation HOSPITAL COURSE: During hospital course following issue addressed (1) Electrolyte imbalance Multifactorial, secondary to poor oral intake, constipation, alcohol withdrawal, metabolic acidosis EKG Patient received electrolytes replacement (2) Alcohol withdrawal syndrome Secondary to alcohol dependence. Received treatment with CIWA protocol, thiamine, folic acid, multivitamins (3) Metabolic acidosis Resolved Secondary to lactic acidosis secondary to EtOH abuse (4) Alcohol abuse/alcohol dependence See above (5) Pulmonary embolism Patient has a history of pulmonary embolism Continue xarelto (6) Thrombocytopenia Improved during hospital stay Secondary to alcohol abuse and alcoholic hepatitis No signs of acute bleeding (7) Alcoholic hepatitis Patient had transaminitis with elevated bilirubin of 3.4, elevated INR, thrombocytopenia on the admission CT of abdomen showed marked fatty infiltration of the liver and hepatomegaly Meld score 14, indicates 6% of 3 month mortality, child Correia score 9, its indication transplant evaluation On 01/05/20 Maddrey score 11.2, no indication for steroids. On 01/08/20 Maddrey score is 27 Patient is not candidate for liver transplant due to ongoing alcohol abuse serum alpha-fetoprotein within normal limit Liver ultrasound showed hepatomegaly with hepatosteatosis and/or hepatocellular disease. No focal hepatic lesion identified Transaminitis improved, total bilirubin is rising. Ammonia level within normal limit On 01/09/20 total bilirubin is 8.1, transaminitis stable. No signs of hemolysis. CT abdomen/pelvis showed no common bile obstruction. There is concern for bilateral opacification at the lung bases consistent with possible Covid 19 presentation. However, patient does not have cough, no shortness of breath. Covid 19 came back negative I talked by phone with Dr. Sorto, he recommended to start prednisolone t reatment On 01/10/20 transaminitis is stable, total bilirubin slightly improve 7.7. (8) Constipation Resolved MiraLAX when necessary Dulcolax (9) Nausea & vomiting Zofran when necessary Fever Resolved Most likely secondary to alcoholic hepatitis Ibuprofen when necessary Will check blood culture Patient denied any respiratory symptoms, no cough, no sputum DISCHARGE MEDICATIONS: Please see below. ALLERGIES: Please see below. PHYSICAL EXAMINATION ON DISCHARGE: VITAL SIGNS: Please see below. PHYSICAL EXAMINATION ON DISCHARGE: VITAL SIGNS: Please see below. GENERAL: awake, alert, NAD HEENT: NCAT, icterus, RAUDEL NECK: supple, no JVD CARDIOVASCULAR EXAMINATION: NS1S2, tachycardic at rate 105 RESPIRATORY EXAMINATION: CTA b/l, no wheezes/rales/rhonchi ABDOMINAL EXAMINATION: positive bowel sounds x 4, moderate tenderness in the right upper quadrant, hepatomegaly EXTREMITIES: no cyanosis, clubbing, edema SKIN: warm, no rashes. NEUROLOGICAL EXAMINATION: AAO x 3, no motor/sensory deficits, mild hands tremor PSYCHIATRIC EXAMINATION: calm, normal affect LABORATORY DATA: Please see below. IMAGING: CT abdomen and pelvis with IV but without oral contrast: History: Hyperbilirubinemia. Jaundice. Comparison study January 05, 2020. CT contrast dose: 100 mL of intravenous Isovue [address] findings: There are patchy predominately peripheral areas of new ground-glas s opacification in the lower lobes, right middle lobe, and lingula at the lung bases bilaterally. These raise the suspicion of acute viral pneumonia. 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 Craniocaudal span of the liver in the midclavicular line is 27.[address] images, there is moderate to marked diffuse fatty infiltration of the liver. No focal liver lesion is seen. The spleen is moderately enlarged as well measuring 16.4 cm in greatest dimension. This is unchanged also. The gallbladder is surgically absent. No abnormalities noted in the pancreas. Normal adrenal glands are seen. An IVC filter is noted in place. Kidneys enhance symmetrically and remain morphologically intact. No retroperitoneal mass is seen. There is no evidence of abdominal ascites. Small and large bowel loops are unremarkable. A normal appendix is visible in the right lower quadrant. No evidence of gastrointestinal obstruction. No evidence of free air or free fluid. Seminal vesicles, prostate, and urinary bladder are unremarkable. No abdominal wall defect is seen. No bony destructive lesion is appreciated. Impression: 1. Marked hepatomegaly and diffuse fatty infiltration of the liver persists. There is no evidence of ascites. Moderate splenomegaly. 2. There are new patchy predominately peripheral areas of ground-glass opacification in the lower lung guillermo bilaterally raising suspicion of acute viral pneumonia. Commonly reported imaging features of COVID-19 pneumonia are present. Other processes such as influenza pneumonia, drug toxicity, and connective tissue disease can produce a similar pattern. PROGNOSIS: Fair ACTIVITY: [As tolerated]. DIET: Regular with high protein DISPOSITION: 01 Home, Self-Care. DISCHARGE INSTRUCTIONS: Follow-up with GI clinic and PCP. After completion 28 days of prednisolone patient should have taper for 2 weeks DISCHARGE CONDITION: [Stable]. TIME SPENT ON DISCHARGE: Greater than 20 minutes. Vital Signs/I&Os Vital Signs Date Time Temp Pulse Resp B/P (MAP) Pulse Ox O2 Delivery O2 Flow Rate FiO2 01/11/20 10:25 101 118/92 01/11/20 06:00 98.1 18 96 Room Air I&O- Last 24 Hours up to 6 AM 01/11/20 06:00 Intake Total 3295 ml Output Total 1775 ml Balance 1520 ml Laboratory Data Labs 24H Laboratory Tests 2 01/11/20 07:08: Immature Granulocyte % (Auto) 3.4H, Neutrophils (%) (Auto) 68.7H, Lymphocytes (%) (Auto) 10.5L, Monocytes (%) (Auto) 16.6H, Eosinophils (%) (Auto) 0.4, Basophils (%) (Auto) 0.4, Neutrophils # (Auto) 3.4, Lymphocytes # (Auto) 0.5L, Monocytes # (Auto) 0.8, Eosinophils # (Auto) 0.0, Basophils # (Auto) 0.0, Nucleated Red Blood Cells % (auto) 0.0, Anion Gap 9, Glomerular Filtration Rate > 60.0, Calcium Level 8.2L, Magnesium Level 1.9, Total Bilirubin 6.6H, Aspartate Amino Transf (AST/SGOT) 159H, Alanine Aminotransferase (ALT/SGPT) 92H, Alkaline Phosphatase 144H, Total Protein 6.9, Albumin 2.6L, Albumin/Globulin Ratio 0.60L CBC/BMP Laboratory Tests 01/11/20 07:08 Microbiology Microbiology 01/09/20 Blood Culture - Preliminary, Resulted No Growth after 48 hours. All Specime... 01/09/20 Blood Culture - Preliminary, Resulted No Growth after 48 hours. All Specime... 01/08/20 Blood Culture - Preliminary, Resulted No Growth after 72 hours. All specime... Discharge Medications Scheduled Amitriptyline HCl (Amitriptyline HCl) 10 Mg Tablet, 10 MG PO QHS, (Reported) Amlodipine Besylate (Amlodipine Besylate) 10 Mg Tablet, 10 MG PO DAILY, (Reported) Docusate Sodium (Docusate Sodium) 100 Mg Capsule, 100 MG PO BID Escitalopram Oxalate (Lexapro) 5 Mg Tablet, 5 MG PO DAILY, (Reported) Fluticasone/Vilanterol (Breo Ellipta 200-25 Mcg INH) 1 Each Blst.w.dev, 1 PUFF INH DAILY, (Reported) Folic Acid (Folic Acid) 1 Mg Tablet, 1 MG PO DAILY Lisinopril (Lisinopril) 10 Mg Tablet, 10 MG PO DAILY, (Reported) Magnesium Oxide (Magnesium Oxide) 400 Mg Tablet, 400 MG PO BID, (Reported) Metoprolol Tartrate (Metoprolol Tartrate) 100 Mg Tablet, 100 MG PO BID, (Reported) Multivitamins (Thera M Plus Tablet) 1 Tab Tab, 1 TAB PO DAILY, (Reported) Omeprazole (Omeprazole) 20 Mg Capsule.dr, 40 MG PO DAILY Prednisolone (Prednisolone Sodium Phosphate) 15 Mg/5 Ml Solution, 15 MG PO BID Rivaroxaban (Xarelto) 20 Mg Tab, 20 MG PO DAILY, (Reported) Sodium Phosphate,[place]-Dibasic (Fleet Enema) 133 Ml Enema, 1 EA SC Q48H Tamsulosin HCl (Flomax) 0.4 Mg Cap, 0.4 MG PO DAILY, (Reported) Umeclidinium [place] (Incruse Ellipta) 62.5 Mcg/Inh Inh, 1 PUFF INH DAILY, (Reported) Scheduled PRN Albuterol Sulf (Albuterol Sulfate) 2.5 Mg/3 Ml Nebu, 2.5 MG INH Q4H PRN for SHORTNESS OF BREATH, (Reported) Albuterol Sulfate (Proair Hfa) 8.5 Gm Hfa.aer.ad, 2 PUFF INH QID PRN for SHORTNESS OF BREATH, (Reported) Bisacodyl (Dulcolax) 10 Mg Supp.rect, 10 MG SC DAILY PRN for CONSTIPATION, (Reported) Fluticasone Propionate (Fluticasone Propionate) 50 Mcg/Act Spr, 1 SPRAY NARES DAILY PRN for CONGESTION, (Reported) Ibuprofen (Advil) 200 Mg Tablet, 200 MG PO Q6HP PRN for PAIN/FEVER Lorazepam (Ativan) 1 Mg Tablet, 1 TAB PO BIDP PRN for anxiety Magnesium Citrate (Magnesium Citrate) 296 Ml Solution, 148 ML PO DAILY PRN for CONSTIPATION, (Reported) Polyethylene Glycol 3350 (Miralax) 119 Gm Powder, 17 GRAM PO DAILY PRN for CONSTIPATION, (Reported) Allergies Coded Allergies: vancomycin (Verified Allergy, Intermediate, 01/03/19) REDNESS AT IV SITE ABI TRAN DO Jan 11, 2020 14:56
== END 2020-01-11 13:30 | disposition home or self-care (01) | DRG 641 ==
LOC: M ED 07:31 → M ED INP 11:36 → ENRESERV 12:07 → M MSPAV 12:43 → M PCU 01-06 13:08 → M MSPAV 01-07 15:50
PROVIDERS: ADMIT Internal Medicine; ATTEND Internal Medicine
DX: E87.6 Hypokalemia (principal); F10.239 Alcohol dependence with withdrawal, unspecified; E87.2 Acidosis; K70.10 Alcoholic hepatitis without ascites; J44.9 Chronic obstructive pulmonary disease, unspecified; I10 Essential (primary) hypertension; Z79.01 Long term (current) use of anticoagulants; Z86.711 Personal history of pulmonary embolism; K59.00 Constipation, unspecified; D69.59 Other secondary thrombocytopenia; R11.2 Nausea with vomiting, unspecified; Z79.899 Other long term (current) drug therapy; Z88.1 Allergy status to other antibiotic agents; E83.42 Hypomagnesemia; E83.51 Hypocalcemia; F17.200 Nicotine dependence, unspecified, uncomplicated

== ENCOUNTER 2020-02-08 04:36 | Emergency (ER) | payer MEDICARE, MEDICAID ==
[~2020-02-08] VITALS: Ht 172.7 cm; Wt 97.7 kg
[~2020-02-08 04:36] MED LIST changes: +ADVI200T PO; +AMIT10TA PO; +ATIV1TAB7 PO; +DOCU100C16 PO; +DULC10SU2 PR; +FLEEENE12 PR; +MAGNSOL2 PO; +MIRA3350 PO; +OMEP-218 PO; +PRED15EL PO
--- NOTE | 2020-02-08 06:11 | REPVR ---
PROCEDURE INFORMATION: Exam: US Duplex Left Lower Extremity Veins, Limited Exam date and time: 02/08/2020 6:04 AM Age: 44 years old Clinical indication: Pain; Other: Lt knee; Additional info: Lle pain R/O dvt TECHNIQUE: Imaging protocol: Real-time Duplex ultrasound of the Left Lower Extremity with 2-D rodriguez scale, color Doppler flow and spectral waveform analysis with image documentation. Limited exam focused on the left lower extremity veins. COMPARISON: No relevant prior studies available. FINDINGS: Left deep veins: Unremarkable. The common femoral, femoral, proximal profunda femoral and popliteal veins are patent without thrombus. Normal Doppler waveforms. Normal compressibility and/or augmentation response. Left superficial veins: Unremarkable. Saphenofemoral junction is patent without thrombus. Soft tissues: Unremarkable. IMPRESSION: No evidence of deep vein thrombosis. Electronically signed by: Stuart Kat On 02/08/2020 06:11:04 AM
--- NOTE | 2020-02-08 06:28 | REP ---
Clinical: Nontraumatic left knee pain Technique: AP, lateral, bilateral oblique and sunrise views. Findings: The osseous structures and joint spaces are intact and normal. There is no evidence for acute fracture or dislocation. No joint effusion is appreciated. Surrounding soft tissues are unremarkable. No subcutaneous emphysema or radiodense foreign body. Impression: Normal examination. No acute fracture or dislocation. No effusion. Electronically Signed by Ramon Tillman MD 02/08/2020 06:19 A
[2020-02-08 06:37] LABS: BASO # 0.1 10^3/uL (0.0-0.2); BASO % 0.3 % (0.0-1.0); EOS % 0.1 % (0.0-3.0); HEMATOCRIT 36.1 % (42.0-52.0); HEMOGLOBIN 11.6 g/dl (13.5-17.5); LYMPH # 1.1 10^3/uL (1.5-5.0); LYMPH % 6.8 % (24.0-44.0); MEAN CORPUSCULAR HEMOGLOBIN 31.6 pg (27.0-33.0); MEAN CORPUSCULAR HGB CONC 32.1 g/dl (32.0-36.5); MEAN CORPUSCULAR VOLUME 98.4 fl (80.0-96.0); MONO # 0.7 10^3/uL (0.0-0.8); MONO % 4.4 % (0.0-5.0); NEUTROPHILS # 13.6 10^3/uL (1.5-8.5); NEUTROPHILS % 86.6 % (36.0-66.0); PLATELET COUNT, AUTOMATED 187 10^3/uL (150-450); RED BLOOD COUNT 3.67 10^6/uL (4.30-6.10); WHITE BLOOD COUNT 15.8 10^3/uL (4.0-10.0)
[2020-02-08 07:01] LABS: INR 1.36; PARTIAL THROMBOPLASTIN TIME 37.1 SECONDS (25.0-38.4); PROTHROMBIN TIME 16.5 SECONDS (11.8-14.0)
[2020-02-08 07:09] LABS: BLOOD UREA NITROGEN 16 MG/DL (7-18); CALCIUM LEVEL 8.3 MG/DL (8.5-10.1); CARBON DIOXIDE LEVEL 24 MEQ/L (21-32); CHLORIDE LEVEL 107 MEQ/L (98-107); CREATININE FOR GFR 0.62 MG/DL (0.70-1.30); GLOMERULAR FILTRATION RATE > 60.0 (>60); GLUCOSE, FASTING 143 MG/DL (70-100); POTASSIUM SERUM 4.3 MEQ/L (3.5-5.1); SODIUM LEVEL 140 MEQ/L (136-145)
[2020-02-08 07:40] VITALS: BP 128/72
== END 2020-02-08 07:39 | disposition home or self-care (01) ==
LOC: M ED 04:36
DX: M25.562 Pain in left knee (principal); J45.909 Unspecified asthma, uncomplicated; I10 Essential (primary) hypertension; K21.9 Gastro-esophageal reflux disease without esophagitis; N31.9 Neuromuscular dysfunction of bladder, unspecified; Z87.891 Personal history of nicotine dependence; Z88.1 Allergy status to other antibiotic agents; Z79.899 Other long term (current) drug therapy; Z79.52 Long term (current) use of systemic steroids; Z79.01 Long term (current) use of anticoagulants; Z79.51 Long term (current) use of inhaled steroids

== ENCOUNTER → 2020-02-24 | Outpatient (REF) | payer MEDICARE, MEDICAID ==
[2020-02-24 11:40] LABS: HEMATOCRIT 36.5 % (42.0-52.0); MEAN CORPUSCULAR HEMOGLOBIN 30.6 pg (27.0-33.0); MEAN CORPUSCULAR HGB CONC 32.9 g/dl (32.0-36.5); MEAN CORPUSCULAR VOLUME 93.1 fl (80.0-96.0); PLATELET COUNT, AUTOMATED 142 10^3/uL (150-450); RED BLOOD COUNT 3.92 10^6/uL (4.30-6.10); WHITE BLOOD COUNT 9.3 10^3/uL (4.0-10.0)
[2020-02-24 12:20] LABS: ALBUMIN 3.2 GM/DL (3.2-5.2); ALT/SGPT 75 U/L (12-78); BILIRUBIN,TOTAL 0.7 MG/DL (0.2-1.0); BLOOD UREA NITROGEN 9 MG/DL (7-18); CALCIUM LEVEL 8.3 MG/DL (8.5-10.1); CARBON DIOXIDE LEVEL 22 MEQ/L (21-32); CHLORIDE LEVEL 109 MEQ/L (98-107); CREATININE FOR GFR 0.64 MG/DL (0.70-1.30); GLOMERULAR FILTRATION RATE > 60.0 (>60); GLUCOSE, FASTING 166 MG/DL (70-100); POTASSIUM SERUM 3.7 MEQ/L (3.5-5.1); SODIUM LEVEL 141 MEQ/L (136-145); TOTAL PROTEIN 6.8 GM/DL (6.4-8.2)
== END ==
LOC: M SFHCPLAZ 09:29
PROVIDERS: ATTEND Physician Assistant
DX: R74.0 Nonspecific elevation of levels of transaminase and lactic acid dehydrogenase [LDH] (principal)